=== PATIENT | female | born 1945 | race Caucasian/White ===

== ENCOUNTER 2016-08-11 15:13 | Emergency (ER) | payer OTHER ==
[2016-08-11 15:18] VITALS: TEMP 97.9; BMI 27.3
--- NOTE | 2016-08-11 15:18 | PDOC ---
Rapid Medical Evaluation Chief Complaint: Lightheaded Time Seen by Provider: 08/11/16 15:14 Medical Evaluation: Allergies Allergy/AdvReac Type Severity Reaction Status Date / Time No Known Allergies Allergy Verified 05/26/16 20:19 08/11/16 15:15 RME Note: I have performed a brief, in-person evaluation of this patient . This patient presents with CC: CC weakness x today; no SOB, no Chest pain; with rectal Pain Pertinent PE findings are: HR= 103; otherwise VSS; with recatl bleeding post BM I have ordered: EKG, Labs The patient will proceed to ED for further evaluation. ,
[2016-08-11 15:52] LABS: BASOPHIL 0.3 % (0-2.0); EOSINOPHIL 0.5 % (0-4.5); MCH 29.3 pg (25.7-33.7); MCHC 34.1 g/dl (32.0-36.0); MEAN CELL VOLUME 85.8 fl (80-96); NEUTROPHILS 75.5 % (42.8-82.8); PLATELET COUNT 239 K/MM3 (134-434); RDW 14.2 % (11.6-15.6); WHITE BLOOD COUNT 8.7 K/mm3 (4.0-10.0)
[2016-08-11 16:20] LABS: ALBUMIN 3.9 g/dl (3.4-5.0); ANION GAP 9 (8-16); BILIRUBIN,TOTAL 0.8 mg/dL (0.2-1.0); CALCIUM 8.8 mg/dL (8.5-10.1); CO2 26 mmol/L (21-32); CREATININE 0.8 mg/dL (0.55-1.02); GLUCOSE,RANDOM 99 mg/dL (74-106); INR 1.19 (0.82-1.09); PROTHROMBIN TIME (PATIENT) 13.1 SEC (9.98-11.88); SGOT/AST 19 U/L (15-37); SGPT/ALT 20 U/L (12-78); TOT PROT 7.1 g/dl (6.4-8.2)
[2016-08-11 16:21] LABS: ALK PHOS 85 U/L (45-117)
[2016-08-11] MEDS ORDERED: SODIUM CHLORIDE 1,000 ML IV STA (16:21)
[2016-08-11 16:22] LABS: ACTIVATED PTT 28.1 SECONDS (26.9-34.4)
[2016-08-11 16:24] LABS: TROPONIN I < 0.02 ng/ml (0.00-0.05)
--- NOTE | 2016-08-11 17:02 | PDOC ---
History of Present Illness - History of Present Illness Initial Comments: 08/11/16 17:35 Patient is a 71 year old female with significant medical hx of HTN, HLD, constipation who is presenting to the ED with one day of generalized weakness. The patient complains of straining with bowel movements the past week, states its due to her constipation, with passing of some hard stools. Shes had some accompanying rectal pain with some blood when she wipes for the past several days as well. The patient also complains of one week of dysuria with associated suprapubic discomfort. Today the patient has been feeling generally weaker than usual with some loss of appetite; she decided to come to the ED for further evaluation. The patient notes that she has one bowel movement per week at baseline. Denies fevers, chills, chest pain, or shortness of breath. 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) <Judy Waters - Last Filed: 08/11/16 17:35> - General History Source: Patient, Old Records Exam Limitations: No Limitations <Constantine Holcomb - Last Filed: 08/11/16 19:21> - General Chief Complaint: Lightheaded Stated Complaint: DIZZINESS Time Seen by Provider: 08/11/16 15:14 Past History <Judy Waters - Last Filed: 08/11/16 17:35> - Past Medical History HTN: Yes Hypercholesterolemia: Yes Other medical history: constipation - Surgical History Abdominal Surgery: Yes (Intestinal mass removed 02/2016) - Psycho/Social/Smoking Cessation Hx Suicidal Ideation: No Smoking History: Never smoked Have you smoked in the past 12 months: No Information on smoking cessation initiated: No Hx Alcohol Use: No Drug/Substance Use Hx: No Substance Use Type: None <Constantine Holcomb - Last Filed: 08/11/16 19:21> - Past Medical History Allergies/Adverse Reactions: Allergies Allergy/AdvReac Type Severity Reaction Status Date / Time No Known Allergies Allergy Verified 08/11/16 15:18 Home Medications: Ambulatory Orders Aspirin [ASA -] 81 mg PO DAILY 02/09/16 Atorvastatin Ca [Lipitor] 10 mg PO HS 02/09/16 Bisacodyl [Bisacodyl -] 5 mg PO PRN 02/09/16 Calcium Carbonate/Vitamin D3 [Calcium 500-Vit D3 200 Caplet] 1 each PO TID 02/08 Losartan Potassium 50 mg PO DAILY 02/09/16 Nitrofurantoin Monohyd/M-Cryst [Nitrofurantoin [place]-Mcr 100 mg] 100 mg PO BID Oxybutynin Chloride [Ditropan Xl] 10 mg PO DAILY 02/09/16 Sucralfate [Carafate] 1 gm PO BID 02/09/16 Zolpidem Tartrate 10 mg PO HS 02/09/16 Diphenhydramine HCl [Benadryl Capsule -] 25 mg PO TID #30 capsule 05/26/16 Levofloxacin [Levaquin -] 500 mg PO DAILY #7 tablet 05/26/16 Cephalexin Monohydrate [Keflex -] 500 mg PO BID #14 capsule 08/11/16 Docusate Sodium [Colace -] 100 mg PO TID #21 capsule 08/11/16 Phenyleph/Mineral Oil/Petrolat [Preparation H Ointment] 28 gm RC TID #1 oint.appl 08/11/16 Polyethylene Glycol 3350 [Miralax (For Daily Use) -] 17 gm PO DAILY #1 bottle Review of Systems - Review of Systems Comments:: 08/11/16 17:36 GENERAL/CONSTITUTIONAL: Generalized weakness, loss of appetite. No fever or chills. HEAD, EYES, EARS, NOSE AND THROAT: No change in vision. No ear pain or discharge. No sore throat. CARDIOVASCULAR: No chest pain or shortness of breath. RESPIRATORY: No cough, wheezing, or hemoptysis. GASTROINTESTINAL: Suprapubic pain, constipation, rectal pain. No nausea, vomiting, or diarrhea. GENITOURINARY: Dysuria. No frequency. MUSCULOSKELETAL: No joint or muscle swelling or pain. No neck or back pain. SKIN: No rash NEUROLOGIC: No headache, vertigo, loss of consciousness, or change in strength/ sensation. <Judy Waters - Last Filed: 08/11/16 17:35> *Physical Exam - Vital Signs Last Vital Signs Temp Pulse Resp BP Pulse Ox 97.9 F 92 H 16 130/65 98 08/11/16 15:14 08/11/16 17:10 08/11/16 17:10 08/11/16 17:10 08/11/16 17:10 - Physical Exam Comments: 08/11/16 17:37 GENERAL: Awake, alert, and fully oriented, in no acute distress HEAD: No signs of trauma EYES: PERRLA, EOMI, sclera anicteric, conjunctiva clear ENT: Auricles normal inspection, hearing grossly normal, nares patent, oropharynx clear without exudates. Moist mucosa NECK: Normal ROM, supple, no lymphadenopathy, JVD, or masses LUNGS: Breath sounds equal, clear to auscultation bilaterally. No wheezes, and no crackles HEART: Regular rate and rhythm, normal S1 and S2, no murmurs, rubs or gallops ABDOMEN: Soft, suprapubic tenderness, normoactive bowel sounds. No guarding, no rebound. No masses EXTREMITIES: Normal range of motion, no edema. No clubbing or cyanosis. No cords, erythema, or tenderness NEUROLOGICAL: Cranial nerves II through XII grossly intact. Normal speech, normal gait SKIN: Warm, Dry, normal turgor, no rashes or lesions noted. ENDOCRINE: No increased thirst. No abnormal weight change. HEMATOLOGIC/LYMPHATIC: No anemia, easy bleeding, or history of blood clots. ALLERGIC/IMMUNOLOGIC: No hives or skin allergy. RECTAL: External hemorrhoids but no anal fissures. <Judy Waters - Last Filed: 08/11/16 17:35> - Vital Signs Last Vital Signs Temp Pulse Resp BP Pulse Ox 97.9 F 102 H 18 127/71 100 08/11/16 15:14 08/11/16 15:14 08/11/16 15:14 08/11/16 15:14 08/11/16 15:14 <Constantine Holcomb - Last Filed: 08/11/16 19:21> Heart Score/ECG Review #1 ECG reviewed & interpreted by me at: 17:20 08/11/16 18:32 NSR 72, left axis deviation, incomplete RBBB, no std/wilber QTC 455 msec <Constantine Holcomb - Last Filed: 08/11/16 19:21> ED Treatment Course - LABORATORY CBC & Chemistry Diagram: 08/11/16 15:40 08/11/16 15:40 - ADDITIONAL ORDERS Additional order review: Laboratory Results 08/11/16 08/11/16 08/11/16 16:22 15:40 15:40 INR PTT (Actin FS) Sodium 140 Potassium 3.5 D Chloride 105 Carbon Dioxide 26 Anion Gap 9 BUN 12 D Creatinine 0.8 Creat Clearance w eGFR > 60 Random Glucose 99 Calcium 8.8 Total Bilirubin 0.8 D AST 19 D ALT 20 D Alkaline Phosphatase 85 D Creatine Kinase 147 Troponin I < 0.02 Total Protein 7.1 Albumin 3.9 Stool Occult Blood Negative 08/11/16 15:40 INR 1.19 H PTT (Actin FS) 28.1 Sodium Potassium Chloride Carbon Dioxide Anion Gap BUN Creatinine Creat Clearance w eGFR Random Glucose Calcium Total Bilirubin AST ALT Alkaline Phosphatase Creatine Kinase Troponin I Total Protein Albumin Stool Occult Blood 08/11/16 15:40 RBC 4.22 MCV 85.8 MCHC 34.1 RDW 14.2 MPV 9.0 Neutrophils % 75.5 D Lymphocytes % 16.5 D Monocytes % 7.2 Eosinophils % 0.5 Basophils % 0.3 - Medications Given in the ED: ED Medications Discontinued Medications Generic Name Dose Route Start Last Admin Trade Name Freq PRN Reason Stop Dose Admin Sodium Chloride 1,000 mls @ 1,000 mls/hr 08/11/16 16:21 08/11/16 16:52 Normal Saline - IV 08/11/16 17:20 1,000 mls/hr ASDIR STA Administration <Judy Waters - Last Filed: 08/11/16 17:35> - LABORATORY CBC & Chemistry Diagram: 08/11/16 15:40 08/11/16 15:40 - ADDITIONAL ORDERS Additional order review: Laboratory Results 08/11/16 08/11/16 08/11/16 15:40 15:40 15:40 INR 1.19 H PTT (Actin FS) 28.1 Sodium 140 Potassium 3.5 D Chloride 105 Carbon Dioxide 26 Anion Gap 9 BUN 12 D Creatinine 0.8 Creat Clearance w eGFR > 60 Random Glucose 99 Calcium 8.8 Total Bilirubin 0.8 D AST 19 D ALT 20 D Alkaline Phosphatase 85 D Creatine Kinase 147 Troponin I < 0.02 Total Protein 7.1 Albumin 3.9 08/11/16 15:40 RBC 4.22 MCV 85.8 MCHC 34.1 RDW 14.2 MPV 9.0 Neutrophils % 75.5 D Lymphocytes % 16.5 D Monocytes % 7.2 Eosinophils % 0.5 Basophils % 0.3 - RADIOLOGY Radiology Studies Ordered: Category Date Time Status ABDOMEN FLAT & UPRIGHT [RAD] Stat Radiology 08/11/16 16:21 Ordered CHEST PA & LAT [RAD] Stat Radiology 08/11/16 16:21 Ordered <Franca Holcombel - Last Filed: 08/11/16 19:21> Medical Decision Making - Medical Decision Making 08/11/16 16:56 A portion of this note was written by my scribe, under my supervision. Vital Signs Temp Pulse Resp BP Pulse Ox 97.9 F 102 H 18 127/71 100 08/11/16 15:14 08/11/16 15:14 08/11/16 15:14 08/11/16 15:14 08/11/16 15:14 71 year old female with past medical history of HTN, HLD, bladder mass s/p resection presents with weakness x 1 day. The patient has a history of constipation and reports that it is normal to have her move her bowels typically once a week. She noted that in the last week that she has been particularly straining more than usual and her stools were hard. She noted in the last several days of straining, and subsequently developing rectal pain, and noted to have some small amounts of blood on wiping with tissue. Denies angle blood per rectum. She has not taken any medication. In the last week, she also noted having 1 week of dysuria. Yesterday and today, noted to have some suprapubic discomfort and pain with the dysuria. Denies fevers, chills. Denies chest pain, shortness of breath. Today, patient reports feeling generally weak and with lesser appetite. She came into the ED today for an evaluation. As of note, patient did come prior to this ED several months ago for a similar visit and noted to have a UTI. The patient's rectal exam demonstrates external hemorrhoids. This is likely the cause given the straining and history of constipation. Stool occult sent, though I suspect the hemorrhoids as source of bleeding. She will need sitz bath , stool softeners, and preparation H. I also suspect that her weakness is likely secondary to UTI. Will send labs, UA, abdominal xray, and reassess. 08/11/16 19:07 CBC, BMP 08/11/16 15:40 08/11/16 15:40 CMP Sodium 140 mmol/L (136-145) 08/11/16 15:40 Potassium 3.5 mmol/L (3.5-5.1) D 08/11/16 15:40 Chloride 105 mmol/L (98-107) 08/11/16 15:40 Carbon Dioxide 26 mmol/L (21-32) 08/11/16 15:40 Anion Gap 9 (8-16) 08/11/16 15:40 BUN 12 mg/dL (7-18) D 08/11/16 15:40 Creatinine 0.8 mg/dL (0.55-1.02) 08/11/16 15:40 Creat Clearance w eGFR > 60 (>60) 08/11/16 15:40 Random Glucose 99 mg/dL (74-106) 08/11/16 15:40 Calcium 8.8 mg/dL (8.5-10.1) 08/11/16 15:40 Total Bilirubin 0.8 mg/dL (0.2-1.0) D 08/11/16 15:40 AST 19 U/L (15-37) D 08/11/16 15:40 ALT 20 U/L (12-78) D 08/11/16 15:40 Alkaline Phosphatase 85 U/L (45-117) D 08/11/16 15:40 Creatine Kinase 147 IU/L (26-192) 08/11/16 15:40 Troponin I < 0.02 ng/ml (0.00-0.05) 08/11/16 15:40 Total Protein 7.1 g/dl (6.4-8.2) 08/11/16 15:40 Albumin 3.9 g/dl (3.4-5.0) 08/11/16 15:40 Urine Test Results Urine Color Yellow 08/11/16 18:00 Urine Appearance Slcloudy 08/11/16 18:00 Urine pH 6.0 (5.0-8.0) 08/11/16 18:00 Ur Specific [place] 1.009 (1.001-1.035) 08/11/16 18:00 Urine Protein Negative (NEGATIVE) 08/11/16 18:00 Urine Glucose (UA) Negative (NEGATIVE) 08/11/16 18:00 Urine Ketones Negative (NEGATIVE) 08/11/16 18:00 Urine Blood 2+ (NEGATIVE) H 08/11/16 18:00 Urine Nitrite Negative (NEGATIVE) 08/11/16 18:00 Urine Bilirubin Negative (NEGATIVE) 08/11/16 18:00 Ur Leukocyte Esterase 3+ (NEGATIVE) H 08/11/16 18:00 Urine RBC 51 /hpf (0-3) 08/11/16 18:00 Urine WBC 55 /hpf (3-5) 08/11/16 18:00 Ur Epithelial Cells Few /hpf (FEW) 08/11/16 18:00 Urine Mucus Rare 08/11/16 18:00 Labs reviewed. Urine reviewed. Pt with +UTI. Microbiology reviewed. Keflex ordered. Chest and abdomen xray reviewed by me, pending official radiology read. Noted to have bowels (no obstruction). No acute findings on chest xray. We'll write a prescription for Preparation H without hemorrhoids. 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 With a urinary tract infection, we'll prescribe Keflex. I suspect that the urine tract infections causing patient's generalized weakness. However, the patient appears stable and nontoxic. She will go home with her daughter. Patient was under sink was applied. 08/11/16 19:10 I discussed the physical exam findings, ancillary test results and final diagnoses with the patient. I answered all of the patient's questions. The patient was satisfied with the care received and felt comfortable with the discharge plan and treatment plan. The patient will call their primary care physician within 24 hours to arrange follow-up and will return to the Emergency Department with any new, persistant or worsening symptoms. <Constantine Holcomb - Last Filed: 08/11/16 19:21> *DC/Admit/Observation/Transfer - Attestations Scribe Attestion: 08/11/16 17:38 Documentation prepared by Judy Waters, acting as electromedical equipment technician for Constantine Holcomb MD. <Judy Waters - Last Filed: 08/11/16 17:35> - Discharge Dispostion Admit: No <Constantine Holcomb - Last Filed: 08/11/16 19:21> Diagnosis at time of Disposition: External hemorrhoids Constipation Qualifiers: Constipation type: unspecified constipation type Qualified Code(s): K59.00 - Constipation, unspecified UTI (urinary tract infection) Qualifiers: Urinary tract infection type: site unspecified Hematuria presence: without hematuria Qualified Code(s): N39.0 - Urinary tract infection, site not specified - Discharge Dispostion Disposition: HOME Condition at time of disposition: Improved - Prescriptions Prescriptions: Docusate Sodium [Colace -] 100 mg PO TID #21 capsule Cephalexin Monohydrate [Keflex -] 500 mg PO BID #14 capsule Polyethylene Glycol 3350 [Miralax (For Daily Use) -] 17 gm PO DAILY #1 bottle Phenyleph/Mineral Oil/Petrolat [Preparation H Ointment] 28 gm RC TID #1 oint.appl - Referrals Referrals: Israel Flores MD [Staff Physician] - - Patient Instructions Printed Discharge Instructions: DI for Urinary Tract Infection (UTI), DI for Hemorrhoids, Hemorrhoids (Alternative Therapy) Additional Instructions: Please take 500 mg keflex every 12 hours for the next week for UTI. You also have hemorrhoids. Please use the preparation H and sitz bath 3 times a day. Use the stool softeners as prescribed. Follow up with a GI physician. Drink plenty of fluids and rest.
[2016-08-11 17:52] VITALS: BP 130/65; PULSE 92
[2016-08-11 18:36] LABS: URINE APPEARANCE SLCLOUDY; URINE BILIRUBIN NEGATIVE (NEGATIVE); URINE COLOR YELLOW; URINE GLUCOSE (UA) NEGATIVE (NEGATIVE); URINE KETONE NEGATIVE (NEGATIVE); URINE NITRITE NEGATIVE (NEGATIVE); URINE PROTEIN NEGATIVE (NEGATIVE); URINE UROBILINOGEN NEGATIVE E.U./dl (0.2-1.0)
[2016-08-11 18:41] LABS: URINE BLOOD 2+ (NEGATIVE); URINE LEUK ESTERASE 3+ (NEGATIVE)
[2016-08-11 18:52] LABS: URINE MUCUS RARE; URINE RBC 51 /hpf (0-3); URINE WBC 55 /hpf (3-5)
[2016-08-11] MEDS ORDERED: CEPHALEXIN MONOHYDRATE 500 MG CAPSULE (UD) PO ONE (19:05)
[2016-08-11] MEDS ORDERED: POLYETHYLENE GLYCOL 3350 119 GM BTL PO ONE (19:05)
[2016-08-11] MEDS ORDERED: CEPHALEXIN MONOHYDRATE 250 MG CAPSULE (FP) ONE (19:14)
--- NOTE | 2016-08-12 09:43 | EKG ---
Test Reason : Blood Pressure : / mmHG Vent. Rate : 093 BPM Atrial Rate : 093 BPM P-R Int : 134 ms QRS Dur : 090 ms QT Int : 372 ms P-R-T Axes : 052 -40 025 degrees QTc Int : 462 ms NORMAL SINUS RHYTHM LEFT AXIS DEVIATION ABNORMAL ECG WHEN COMPARED WITH ECG OF 15-MAY-2011 10:16, NO SIGNIFICANT CHANGE WAS FOUND Confirmed by GAURAV DE ANDA MD ([id number]) on 08/12/2016 9:42:45 AM Referred By: Confirmed By:GAURAV DE ANDA MD
--- NOTE | 2016-08-16 17:24 | EKG ---
Test Reason : Blood Pressure : / mmHG Vent. Rate : 072 BPM Atrial Rate : 072 BPM P-R Int : 142 ms QRS Dur : 092 ms QT Int : 416 ms P-R-T Axes : 051 -43 033 degrees QTc Int : 455 ms NORMAL SINUS RHYTHM LEFT AXIS DEVIATION ABNORMAL ECG WHEN COMPARED WITH ECG OF 11-AUG-2016 15:26, NO SIGNIFICANT CHANGE WAS FOUND Confirmed by YARELIS MEZA MD ([id number]) on 08/16/2016 5:24:16 PM Referred By: Confirmed By:YARELIS MEZA MD
== END 2016-08-11 19:35 | disposition home or self-care (01) ==
LOC: JER 15:13
PROC: 3E0337Z Introduction of Electrolytic and Water Balance Substance into Peripheral Vein, Percutaneous Approach (ICD-10-PCS; principal; 2016-08-11)
DX: N39.0 Urinary tract infection, site not specified (principal); K59.00 Constipation, unspecified; K64.4 Residual hemorrhoidal skin tags
CPT/HCPCS: 36415; 71020-TC; 74020-TC; 80053; 81003; 81015; 82272; 82550; 84484; 85025; 85610; 85730; 87086; 93005; 93010; 99281-25

== ENCOUNTER 2016-11-21 10:53 | Emergency (ER) | payer OTHER ==
[2016-11-21 11:07] VITALS: BP 138/76; PULSE 77; TEMP 98.6; BMI 27.1
--- NOTE | 2016-11-21 11:49 | PDOC ---
History of Present Illness - General Chief Complaint: Urinary Problem Stated Complaint: PAIN URINATING Time Seen by Provider: 11/21/16 11:41 History Source: Patient Exam Limitations: No Limitations - History of Present Illness Initial Comments: CHIEF COMPLAINT: 71 y/o afebrile female with PMH HTN, HLD c/o increased urinary frequency, decreased flow and hematuria x 1 week. HISTORY OF PRESENT ILLNESS: The patient also admits to some nausea. She denies f/c, [place], neck pain, cough, CP, SOB, abd pain, back pain, dysuria. Vital signs on arrival are within normal limits. REVIEW OF SYSTEMS: GENERAL/CONSTITUTIONAL: No fever/chills. No weakness. No weight change. HEAD, EYES, EARS, NOSE AND THROAT: No change in vision. No ear pain or discharge. No sore throat. CARDIOVASCULAR: No chest pain or shortness of breath. RESPIRATORY: No cough, wheezing, or hemoptysis. GASTROINTESTINAL: +nausea. No vomiting, diarrhea, constipation. GENITOURINARY: +hematuria, increased urinary frequency and decreased urinary flow. MUSCULOSKELETAL: No joint or muscle swelling or pain. No neck or back pain. SKIN: No rash or easy bruising. NEUROLOGIC: No headache, vertigo, loss of consciousness, or loss of sensation. PHYSICAL EXAM: GENERAL: The patient is awake, alert, and fully oriented, in no acute distress. She is well appearing and ambulatory. HEAD: Normal with no signs of trauma. ENT: Pupils equal, round and reactive to light, extraocular movements intact, sclera anicteric, conjunctiva clear. Neck supple. LUNGS: Clear to auscultation bilaterally. Normal excursion. No respiratory distress or use of accessory muscles. CV: RRR, S1/S2, no MRG. Cap refill < 2 sec. ABDOMEN: Soft, non-distended, non-tender even to deep palpation, no hepatomegaly or splenomegaly, no masses. No flank pain with palpation. BACK: No CVA TTP b/l. EXTREMITIES: Normal range of motion, no edema. NEUROLOGICAL: Normal speech, normal gait. CN II-XII grossly intact. PSYCH: Normal mood, normal affect. SKIN: Warm, dry, normal turgor, no rashes or lesions noted. Past History - Past Medical History Allergies/Adverse Reactions: Allergies Allergy/AdvReac Type Severity Reaction Status Date / Time Penicillins Allergy Verified 11/21/16 11:07 Home Medications: Ambulatory Orders Aspirin [ASA -] 81 mg PO DAILY 02/09/16 Atorvastatin Ca [Lipitor] 10 mg PO HS 02/09/16 Bisacodyl [Bisacodyl -] 5 mg PO PRN 02/09/16 Calcium Carbonate/Vitamin D3 [Calcium 500-Vit D3 200 Caplet] 1 each PO TID 02/08 Losartan Potassium 50 mg PO DAILY 02/09/16 Nitrofurantoin Monohyd/M-Cryst [Nitrofurantoin [place]-Mcr 100 mg] 100 mg PO BID Oxybutynin Chloride [Ditropan Xl] 10 mg PO DAILY 02/09/16 Sucralfate [Carafate] 1 gm PO BID 02/09/16 Zolpidem Tartrate 10 mg PO HS 02/09/16 Diphenhydramine HCl [Benadryl Capsule -] 25 mg PO TID #30 capsule 05/26/16 Levofloxacin [Levaquin -] 500 mg PO DAILY #7 tablet 05/26/16 Cephalexin Monohydrate [Keflex -] 500 mg PO BID #14 capsule 08/11/16 Docusate Sodium [Colace -] 100 mg PO TID #21 capsule 08/11/16 Phenyleph/Mineral Oil/Petrolat [Preparation H Ointment] 28 gm RC TID #1 oint.appl 08/11/16 Polyethylene Glycol 3350 [Miralax (For Daily Use) -] 17 gm PO DAILY #1 bottle Nitrofurantoin Macrocrystal [Macrodantin -] 100 mg PO BID #14 capsule 08/12/16 HTN: Yes Hypercholesterolemia: Yes - Surgical History Abdominal Surgery: Yes (Intestinal mass removed 02/2016) - Psycho/Social/Smoking Cessation Hx Suicidal Ideation: No Smoking History: Never smoked Have you smoked in the past 12 months: No Information on smoking cessation initiated: No Hx Alcohol Use: No Drug/Substance Use Hx: No Substance Use Type: None *Physical Exam - Vital Signs Last Vital Signs Temp Pulse Resp BP Pulse Ox 98.6 F 77 18 138/76 99 11/21/16 11:03 11/21/16 11:03 11/21/16 11:03 11/21/16 11:03 11/21/16 11:03 Medical Decision Making - Medical Decision Making A/P: 71 y/o female, otherwise well appearing, c/o urinary symptoms. Plan is as follows: 1. UA/culture UA negative for UTI. Gave results to the patient. Informed her that if the culture comes back positive will send rx for antibiotics and call her. Pt was instructed to return to the ER with any worsening or concerning symptoms. The patient verbalizes understanding of all instructions, has no further questions and is awaiting discharge. *DC/Admit/Observation/Transfer Diagnosis at time of Disposition: Increased urinary frequency - Discharge Dispostion Disposition: HOME Condition at time of disposition: Good - Patient Instructions Printed Discharge Instructions: DI for Dysuria -- Adult Additional Instructions: Discharge Instructions: -A urine culture was sent to the lab and we will have the results in 2 days; if there is an infection someone from the ER will call you -Please drink at least 64oz of water daily -Please call your doctor tomorrow and schedule a follow up appointment -Return to the ER with any worsening or concerning symptoms Print Language: ROMANIAN
[2016-11-21 13:35] LABS: URINE APPEARANCE CLEAR; URINE BILIRUBIN NEGATIVE (NEGATIVE); URINE COLOR YELLOW; URINE GLUCOSE (UA) NEGATIVE (NEGATIVE); URINE KETONE NEGATIVE (NEGATIVE); URINE NITRITE NEGATIVE (NEGATIVE); URINE PROTEIN NEGATIVE (NEGATIVE); URINE UROBILINOGEN 2.0 E.U/dl E.U./dl (0.2-1.0)
[2016-11-21 14:08] LABS: URINE BLOOD 2+ (NEGATIVE); URINE LEUK ESTERASE TRACE (NEGATIVE)
[2016-11-21 14:31] LABS: CALCIUM OXALATE CRYSTALS MANY /hpf (NONE SEEN); URINE MUCUS RARE; URINE RBC 16 /hpf (0-3); URINE WBC 4 /hpf (3-5)
== END 2016-11-21 15:11 | disposition home or self-care (01) ==
LOC: JER 10:53
DX: R35.0 Frequency of micturition (principal); I10 Essential (primary) hypertension; E78.00 Pure hypercholesterolemia, unspecified
CPT/HCPCS: 81003; 81015; 87086; 99282-25

== ENCOUNTER 2017-01-27 13:12 | Emergency (ER) | payer OTHER ==
[2017-01-27 13:19] VITALS: BP 137/84; PULSE 88; TEMP 98.4; BMI 27.3
[2017-01-27] MEDS ORDERED: SODIUM CHLORIDE 1,000 ML IV STA (14:38)
[2017-01-27] MEDS ORDERED: ACETAMINOPHEN 1000 MG/100 ML VIAL (NON FORMULARY) IVPB ONE (14:39)
[2017-01-27] MEDS ORDERED: ACETAMINOPHEN INJECTION 100 ML IVPB ONE ×2 (14:51→15:08)
[2017-01-27 15:16] LABS: BASOPHIL 0.9 % (0-2.0); EOSINOPHIL 0.5 % (0-4.5); MCH 28.7 pg (25.7-33.7); MCHC 33.3 g/dl (32.0-36.0); MEAN CELL VOLUME 86.3 fl (80-96); MEAN PLT VOLUME 9.5 fl (7.5-11.1); NEUTROPHILS 71.8 % (42.8-82.8); PLATELET COUNT 213 K/MM3 (134-434); RDW 15.6 % (11.6-15.6); WHITE BLOOD COUNT 8.6 K/mm3 (4.0-10.0)
[2017-01-27 15:22] LABS: PH,URINE 6.5 (5.0-8.0); URINE APPEARANCE CLEAR; URINE BILIRUBIN NEGATIVE (NEGATIVE); URINE BLOOD 3+ (NEGATIVE); URINE COLOR LT. YELLOW; URINE GLUCOSE (UA) NEGATIVE (NEGATIVE); URINE KETONE NEGATIVE (NEGATIVE); URINE UROBILINOGEN 0.2 mg/dL (0.2-1.0)
[2017-01-27 15:24] LABS: URINE LEUK ESTERASE 3+ (NEGATIVE); URINE NITRITE POSITIVE (NEGATIVE); URINE PROTEIN 2+ (NEGATIVE)
[2017-01-27 15:36] LABS: URINE BACTERIA MANY /hpf (NONE SEEN); URINE MUCUS RARE; URINE RBC 62 /hpf (0-3); URINE WBC 813 /hpf (3-5)
--- NOTE | 2017-01-27 15:45 | PDOC ---
History of Present Illness - General Chief Complaint: Pain Stated Complaint: PAIN/ ABD, RT SIDE Time Seen by Provider: 01/27/17 13:47 History Source: Patient Exam Limitations: No Limitations - History of Present Illness Travel History: No Initial Comments: 01/27/17 15:57 71-year-old female presents to the ED with complaints of bilateral flank pain radiating to her bilateral kidney region for the past 2 days without fever, nausea or chills. Patient also denies change in urine pattern, change in bowel pattern, abdominal distention, or rash. Timing/Duration: reports: constant Quality: reports: moderate, aching, cramping Abdominal Pain Onset Location: reports: flank Pain Radiation: reports: back Activities at Onset: reports: none Aggravating Factors: improves with: None Alleviating Factors: improves with: None Past History - Travel Traveled outside of the country in the last 30 days: No Close contact w/someone who was outside of country & ill: No - Past Medical History Allergies/Adverse Reactions: Allergies Allergy/AdvReac Type Severity Reaction Status Date / Time Penicillins Allergy Verified 01/27/17 13:19 Home Medications: Ambulatory Orders Aspirin [ASA -] 81 mg PO DAILY 02/09/16 Oxybutynin Chloride [Ditropan Xl] 10 mg PO DAILY 02/09/16 Baclofen 10 mg PO DAILY 01/27/17 Cyclosporine [Restasis] 1 each OP DAILY 01/27/17 Famotidine [Pepcid -] 40 mg PO BID 01/27/17 Fenofibrate Nanocrystallized [Fenofibrate] 48 mg PO DAILY 01/27/17 Gabapentin 300 mg PO DAILY 01/27/17 Latanoprost 0.005% Eye Drops [Xalatan 0.005% Eye Drops -] 1 drop OP HS 01/27/17 Lisinopril [Zestril] 40 mg PO DAILY 01/27/17 Lovastatin 40 mg PO DAILY 01/27/17 Nortriptyline HCl [Pamelor -] 10 mg PO HS 01/27/17 Omeprazole 40 mg PO DAILY 01/27/17 Rizatriptan Benzoate [Rizatriptan] 5 mg PO PRN 01/27/17 Valsartan 160 mg PO DAILY 01/27/17 HTN: Yes Hypercholesterolemia: Yes Other medical history: Arthritis - Surgical History Abdominal Surgery: Yes (Intestinal mass removed 02/2016) - Psycho/Social/Smoking Cessation Hx Suicidal Ideation: No Smoking History: Never smoked Have you smoked in the past 12 months: No Information on smoking cessation initiated: No Hx Alcohol Use: No Drug/Substance Use Hx: No Substance Use Type: None Patient Lives Alone: No Lives with/in: spouse/SO Review of Systems - Review of Systems Able to Perform ROS?: No Constitutional: No: Symptoms Reported HEENTM: No: Symptoms Reported Respiratory: No: Symptoms reported Cardiac (ROS): No: Symptoms Reported ABD/GI: Yes: Abdominal cramping. No: Nausea, Vomiting : No: Symptoms Reported Musculoskeletal: No: Symptoms Reported Integumentary: No: Symptoms Reported Neurological: No: Symptoms reported Endocrine: No: Symptoms Reported Hematologic/Lymphatic: No: Symptoms Reported *Physical Exam - Vital Signs Last Vital Signs Temp Pulse Resp BP Pulse Ox 98.4 F 88 17 137/84 100 01/27/17 13:18 01/27/17 13:18 01/27/17 13:18 01/27/17 13:18 01/27/17 13:18 - Physical Exam General Appearance: Yes: Nourished, Appropriately Dressed. No: Apparent Distress HEENT: negative: Pale Conjunctivae Neck: positive: Supple Respiratory/Chest: positive: Lungs Clear, Normal Breath Sounds. negative: Respiratory Distress, Accessory Muscle Use Cardiovascular: positive: Regular Rhythm, Regular Rate. negative: Murmur Gastrointestinal/Abdominal: positive: Normal Bowel Sounds, Soft, Tenderness ( oral flank). negative: Distended Musculoskeletal: negative: CVA Tenderness, Vertebral Tenderness Extremity: positive: Normal Capillary Refill. negative: Pedal Edema Integumentary: positive: Normal Color, Warm, Moist Neurologic: positive: Normal Mood/Affect, Motor Strength 5/5 (ambulatory) ED Treatment Course - LABORATORY CBC & Chemistry Diagram: 01/27/17 15:03 01/27/17 16:50 - ADDITIONAL ORDERS Additional order review: Laboratory Results 01/27/17 15:03 Urine Color Lt. yellow Urine Appearance Clear Urine pH 6.5 Urine Protein 2+ H Urine Glucose (UA) Negative Urine Ketones Negative Urine Blood 3+ H Urine Nitrite Positive Urine Bilirubin Negative Urine Urobilinogen 0.2 Ur Leukocyte Esterase 3+ H D 01/27/17 15:03 RBC 4.37 MCV 86.3 MCHC 33.3 RDW 15.6 MPV 9.5 Neutrophils % 71.8 Lymphocytes % 18.4 Monocytes % 8.4 Eosinophils % 0.5 Basophils % 0.9 - Medications Given in the ED: ED Medications Discontinued Medications Generic Name Dose Route Start Last Admin Trade Name Aura PRN Reason Stop Dose Admin Acetaminophen 1,000 mg 01/27/17 14:39 01/27/17 15:03 Ofirmev Injection - IVPB 01/27/17 14:40 1,000 mg ONCE ONE Administration Medical Decision Making - Medical Decision Making 01/27/17 15:13 Patient here for complaints of bilateral flank pain associated with patient her back and lower quadrants. Patient denies any urinary complaints, fever, nausea or chills. Patient concerning for Vinny versus UTI versus renal colic. Patient ordered for labs including CBC, comp, urinalysis urine culture and IV fluids/IV Tylenol. 01/27/17 16:15 Laboratory Tests 01/27/17 01/27/17 15:03 15:03 WBC 8.6 RBC 4.37 Hgb 12.5 Hct 37.7 Plt Count 213 Neutrophils % 71.8 Urine Protein 2+ H Urine Ketones Negative Urine Blood 3+ H Urine Nitrite Positive Urine Urobilinogen 0.2 Ur Leukocyte Esterase 3+ H D Urine WBC 813 Current patient ordered for IV ceftriaxone. No previous urine culture in computer. Patient also ordered for renal/kidney ultrasound to rule out hydronephrosis. If negative patient be discharged home with Bactrim. 01/27/17 17:59 Negative ultrasound with no sonographic abnormality identified. There is no hydronephrosis. Laboratory Tests 01/27/17 16:50 Sodium 142 Potassium 3.4 L Chloride 108 H Carbon Dioxide 27 Anion Gap 7 L BUN 11 Creatinine 0.7 Creat Clearance w eGFR > 60 Random Glucose 87 Calcium 8.3 L Total Bilirubin 0.8 AST 15 D ALT 20 Albumin 3.7 01/27/17 17:59 *DC/Admit/Observation/Transfer Diagnosis at time of Disposition: Pyelonephritis - Discharge Dispostion Disposition: HOME Condition at time of disposition: Good - Referrals Referrals: Ron Horton MD [Staff Physician] - - Patient Instructions Printed Discharge Instructions: DI for Kidney Infection Additional Instructions: Please take Bactrim starting tonight for the next 10 days as prescribed. Please also follow up with referred urologist as you mention that you have had frequent urinary tract infections recently.
[2017-01-27] MEDS ORDERED: CEFTRIAXONE 1 GM in DEXTROSE 5%-WATER - 50 ML IVPB ONE (16:11)
[2017-01-27] MEDS ORDERED: CEFTRIAXONE 50 ML ONE (16:24)
[2017-01-27 17:31] LABS: ALBUMIN 3.7 g/dl (3.4-5.0); ALK PHOS 87 U/L (45-117); ANION GAP 7 (8-16); BILIRUBIN,TOTAL 0.8 mg/dL (0.2-1.0); CALCIUM 8.3 mg/dL (8.5-10.1); CO2 27 mmol/L (21-32); CREATININE 0.7 mg/dL (0.55-1.02); GLUCOSE,RANDOM 87 mg/dL (74-106); SGOT/AST 15 U/L (15-37); SGPT/ALT 20 U/L (12-78); TOT PROT 6.8 g/dl (6.4-8.2)
== END 2017-01-27 18:18 | disposition home or self-care (01) ==
LOC: JER 13:12
PROC: 3E03329 Introduction of Other Anti-infective into Peripheral Vein, Percutaneous Approach (ICD-10-PCS; principal; 2017-01-27)
PROC: 3E033NZ Introduction of Analgesics, Hypnotics, Sedatives into Peripheral Vein, Percutaneous Approach (ICD-10-PCS; 2017-01-27)
DX: N12 Tubulo-interstitial nephritis, not specified as acute or chronic (principal); I10 Essential (primary) hypertension; E78.00 Pure hypercholesterolemia, unspecified; M12.9 Arthropathy, unspecified
CPT/HCPCS: 36415; 76775-TC; 80053; 81003; 81015; 85025; 87086; 87186; 96365; 96375; 99283-25

== ENCOUNTER 2017-03-03 11:34 | Emergency (ER) | payer OTHER ==
[2017-03-03 11:41] VITALS: BP 140/99; PULSE 85; TEMP 98.5; BMI 27.3
--- NOTE | 2017-03-03 12:20 | PDOC ---
*Physical Exam - Vital Signs Last Vital Signs Temp Pulse Resp BP Pulse Ox 98.5 F 85 18 140/99 99 03/03/17 11:34 03/03/17 11:34 03/03/17 11:34 03/03/17 11:34 03/03/17 11:34 ED Treatment Course - LABORATORY CBC & Chemistry Diagram: 03/03/17 12:38 03/03/17 12:38 Medical Decision Making - Medical Decision Making 03/03/17 12:20 Pt seen by the Advanced Practice Provider under my direct supervision Ancillary studies reviewed I agree with plan as outlined by the Advanced Practice Provider JORGE Mann *DC/Admit/Observation/Transfer Diagnosis at time of Disposition: UTI (urinary tract infection) - Discharge Dispostion Disposition: HOME Condition at time of disposition: Improved - Prescriptions Prescriptions: Levofloxacin [Levaquin -] 250 mg PO DAILY #7 tablet Levofloxacin [Levaquin -] 500 mg PO DAILY #6 tablet Phenazopyridine HCl [Pyridium] 200 mg PO TID #6 tablet - Referrals Referrals: STAFF,NOT ON [Primary Care Provider] - - Patient Instructions Additional Instructions: drink pleanty of water at least 2 liters a day take the levaquin atibiotic as directed next dose tomorrow take pyridium as directed for pain when urinating follow with the urologist Dr. Bruce for follow up and bring copies of the tests done today with you. Return if worse beber abundantemente de agua por lo menos 2 litros al da chelle el azobitico levquin segn lo indicado dosis siguiente maana tome pyridium segn lo indicado para el dolor al orinar siga con el urlogo Dr. Bruce para el seguimiento y traiga las copias de las pruebas hechas hoy con usted. Regresar si es peor
--- NOTE | 2017-03-03 12:22 | PDOC ---
History of Present Illness - General Chief Complaint: Pain Stated Complaint: REVISIT/ UTI Time Seen by Provider: 03/03/17 11:54 History Source: Patient, [employer] Used ([employer] [id number]) Exam Limitations: Language Barrier - History of Present Illness Travel History: No Initial Comments: 03/03/17 12:16 71 yr female with c/o dysuria, nausea, right flank pain no fever or vomiting. Pt states symptoms since 01/27/17 she was seen in ER placed on bactrim . Pt has history of HTN, high cholesterol. Pt has no chest pain no shortness of breath . 03/03/17 16:03 Quality: reports: mild Abdominal Pain Onset Location: reports: flank Pain Radiation: reports: no radiation Past History - Past Medical History Allergies/Adverse Reactions: Allergies Allergy/AdvReac Type Severity Reaction Status Date / Time Penicillins Allergy Verified 03/03/17 11:39 Home Medications: Ambulatory Orders Aspirin [ASA -] 81 mg PO DAILY 02/09/16 Oxybutynin Chloride [Ditropan Xl] 10 mg PO DAILY 02/09/16 Baclofen 10 mg PO DAILY 01/27/17 Cyclosporine [Restasis] 1 each OP DAILY 01/27/17 Famotidine [Pepcid -] 40 mg PO BID 01/27/17 Fenofibrate Nanocrystallized [Fenofibrate] 48 mg PO DAILY 01/27/17 Gabapentin 300 mg PO DAILY 01/27/17 Latanoprost 0.005% Eye Drops [Xalatan 0.005% Eye Drops -] 1 drop OP HS 01/27/17 Lisinopril [Zestril] 40 mg PO DAILY 01/27/17 Lovastatin 40 mg PO DAILY 01/27/17 Nortriptyline HCl [Pamelor -] 10 mg PO HS 01/27/17 Omeprazole 40 mg PO DAILY 01/27/17 Rizatriptan Benzoate [Rizatriptan] 5 mg PO PRN 01/27/17 Valsartan 160 mg PO DAILY 01/27/17 Levofloxacin [Levaquin -] 250 mg PO DAILY #7 tablet 03/03/17 Levofloxacin [Levaquin -] 500 mg PO DAILY #6 tablet 03/03/17 Phenazopyridine HCl [Pyridium] 200 mg PO TID #6 tablet 03/03/17 HTN: Yes Hypercholesterolemia: Yes - Surgical History Abdominal Surgery: Yes (Intestinal mass removed 02/2016) - Suicide/Smoking/Psychosocial Hx Smoking History: Never smoked Have you smoked in the past 12 months: No Hx Alcohol Use: No Drug/Substance Use Hx: No Substance Use Type: None Abd/GI Specific PMHX - Complaint Specific PMHX Colitis: No Diverticulitis: No Gall Bladder Disease: No GERD: No Hepatitis: No Irritable Bowel Synd (IBS): No Pancreatitis: No GI Ulcer Disease: No Review of Systems - Review of Systems Able to Perform ROS?: Yes Is the patient limited Tajik proficient: Yes Constitutional: No: Symptoms Reported HEENTM: No: Symptoms Reported Respiratory: No: Symptoms reported Cardiac (ROS): No: Symptoms Reported ABD/GI: Yes: Symptoms Reported, Nausea : Yes: Symptoms Reported, See HPI *Physical Exam - Vital Signs Last Vital Signs Temp Pulse Resp BP Pulse Ox 98.5 F 85 18 140/99 99 03/03/17 11:34 03/03/17 11:34 03/03/17 11:34 03/03/17 11:34 03/03/17 11:34 - Physical Exam General Appearance: Yes: Nourished, Appropriately Dressed HEENT: positive: EOMI, YANCI, Normal Voice Neck: positive: Supple. negative: Tender Respiratory/Chest: positive: Lungs Clear Cardiovascular: positive: Regular Rhythm, Regular Rate Gastrointestinal/Abdominal: positive: Normal Bowel Sounds, Soft. negative: Tender Musculoskeletal: positive: Normal Inspection, CVA Tenderness (R) Extremity: positive: Normal Capillary Refill, Normal Inspection, Normal Range of Motion Integumentary: positive: Normal Color, Dry, Warm Neurologic: positive: Fully Oriented, Alert, Normal Mood/Affect, Normal Response , Motor Strength 5/5 ED Treatment Course - LABORATORY CBC & Chemistry Diagram: 03/03/17 12:38 03/03/17 12:38 Medical Decision Making - Medical Decision Making 03/03/17 12:22 71 yr female with dysuria, right flank pain no fever or vomiting. Pt was on bactrim (resistant culture reviewed.) pt continues to have same symptoms will check labs, urine most likely UA vs pyelo unlikely pt has no fever no chills no vomiting 03/03/17 14:58 03/03/17 15:37 pt states she feels better after IVF, pt eating and drinking no vomiting . will dc home with strict follow up with urology. copy of kidney US given to pt to discuss with urology. *DC/Admit/Observation/Transfer Diagnosis at time of Disposition: UTI (urinary tract infection) Qualifiers: Urinary tract infection type: acute cystitis Hematuria presence: with hematuria Qualified Code(s): N30.01 - Acute cystitis with hematuria - Discharge Dispostion Disposition: HOME Condition at time of disposition: Improved - Prescriptions Prescriptions: Levofloxacin [Levaquin -] 250 mg PO DAILY #7 tablet Levofloxacin [Levaquin -] 500 mg PO DAILY #6 tablet Phenazopyridine HCl [Pyridium] 200 mg PO TID #6 tablet - Referrals Referrals: STAFF,NOT ON [Primary Care Provider] - - Patient Instructions Additional Instructions: drink pleanty of water at least 2 liters a day take the levaquin atibiotic as directed next dose tomorrow take pyridium as directed for pain when urinating follow with the urologist Dr. Bruce for follow up and bring copies of the tests done today with you. Return if worse beber abundantemente de agua por lo menos 2 litros al da chelle el azobitico levquin segn lo indicado dosis siguiente maana tome pyridium segn lo indicado para el dolor al orinar siga con el urlogo Dr. Bruce para el seguimiento y traiga las copias de las pruebas hechas hoy con usted. Regresar si es peor
[2017-03-03] MEDS ORDERED: SODIUM CHLORIDE 1,000 ML IV STA (12:23)
[2017-03-03] MEDS ORDERED: ONDANSETRON 4 MG/2 ML VIAL IVPB ONE (12:23)
[2017-03-03] MEDS ORDERED: ONDANSETRON 4 MG/2 ML VIAL ONE (12:33)
[2017-03-03 12:48] LABS: BASOPHIL 1.1 % (0-2.0); EOSINOPHIL 2.4 % (0-4.5); MCH 28.8 pg (25.7-33.7); MCHC 32.5 g/dl (32.0-36.0); MEAN CELL VOLUME 88.4 fl (80-96); MEAN PLT VOLUME 8.4 fl (7.5-11.1); NEUTROPHILS 55.5 % (42.8-82.8); PLATELET COUNT 275 K/MM3 (134-434); RDW 15.5 % (11.6-15.6); WHITE BLOOD COUNT 5.7 K/mm3 (4.0-10.0)
[2017-03-03 12:49] LABS: URINE APPEARANCE CLOUDY; URINE BILIRUBIN NEGATIVE (NEGATIVE); URINE BLOOD 2+ (NEGATIVE); URINE COLOR YELLOW; URINE GLUCOSE (UA) NEGATIVE (NEGATIVE); URINE KETONE NEGATIVE (NEGATIVE); URINE NITRITE POSITIVE (NEGATIVE); URINE PROTEIN NEGATIVE (NEGATIVE); URINE UROBILINOGEN NEGATIVE mg/dL (0.2-1.0)
[2017-03-03] MEDS ORDERED: LEVOFLOXACIN 750 MG TABLET PO STA (13:07)
[2017-03-03] MEDS ORDERED: LEVOFLOXACIN 500 MG TABLET (FP) ONE (13:11)
[2017-03-03] MEDS ORDERED: LEVOFLOXACIN 250 MG TABLET (FP) ONE (13:11)
[2017-03-03 13:16] LABS: ALBUMIN 4.1 g/dl (3.4-5.0); ANION GAP 10 (8-16); CALCIUM 8.9 mg/dL (8.5-10.1); CO2 27 mmol/L (21-32); CREATININE 0.7 mg/dL (0.55-1.02); GLUCOSE,RANDOM 90 mg/dL (74-106); SGPT/ALT 30 U/L (12-78)
[2017-03-03 13:18] LABS: ALK PHOS 124 U/L (45-117); BILIRUBIN,TOTAL 0.5 mg/dL (0.2-1.0)
[2017-03-03 13:19] LABS: SGOT/AST 27 U/L (15-37)
[2017-03-03 14:43] LABS: URINE BACTERIA RARE /hpf (NONE SEEN); URINE MUCUS RARE; URINE RBC 10 /hpf (0-3); URINE WBC 323 /hpf (3-5); YEAST FEW
[2017-03-03 16:52] LABS: URINE LEUK ESTERASE 3+ (NEGATIVE)
== END 2017-03-03 16:10 | disposition home or self-care (01) ==
LOC: JER 11:34
PROC: 3E033GC Introduction of Other Therapeutic Substance into Peripheral Vein, Percutaneous Approach (ICD-10-PCS; principal; 2017-03-03)
PROC: 3E0337Z Introduction of Electrolytic and Water Balance Substance into Peripheral Vein, Percutaneous Approach (ICD-10-PCS; 2017-03-03)
DX: N30.01 Acute cystitis with hematuria (principal); I10 Essential (primary) hypertension; E78.00 Pure hypercholesterolemia, unspecified
CPT/HCPCS: 36415; 76775-TC; 80053; 81003; 81015; 85025; 87086; 87186; 96361; 96374; 99283-25

== ENCOUNTER 2017-03-25 21:01 | Emergency (ER) | payer OTHER ==
[2017-03-25 21:10] VITALS: BMI 27.3
--- NOTE | 2017-03-25 22:01 | PDOC ---
*Physical Exam - Vital Signs Last Vital Signs Temp Pulse Resp BP Pulse Ox 98.4 F 122 H 24 154/83 99 03/25/17 21:05 03/25/17 21:05 03/25/17 21:05 03/25/17 21:05 03/25/17 21:05 - Physical Exam Comments: 03/25/17 22:01 The patient was examined by [THOM Hall] under my direct supervision. I personally evaluated the patient. I concur with the above findings and the plan of care. ED Treatment Course - LABORATORY CBC & Chemistry Diagram: 03/25/17 22:20 03/25/17 23:00
--- NOTE | 2017-03-25 22:06 | PDOC ---
History of Present Illness - General Chief Complaint: Pain Stated Complaint: PAIN Time Seen by Provider: 03/25/17 21:42 Past History - Past Medical History Allergies/Adverse Reactions: Allergies Allergy/AdvReac Type Severity Reaction Status Date / Time Penicillins Allergy Verified 03/25/17 21:06 Home Medications: Ambulatory Orders Aspirin [ASA -] 81 mg PO DAILY 02/09/16 Oxybutynin Chloride [Ditropan Xl] 10 mg PO DAILY 02/09/16 Baclofen 10 mg PO DAILY 01/27/17 Cyclosporine [Restasis] 1 each OP DAILY 01/27/17 Famotidine [Pepcid -] 40 mg PO BID 01/27/17 Fenofibrate Nanocrystallized [Fenofibrate] 48 mg PO DAILY 01/27/17 Gabapentin 300 mg PO DAILY 01/27/17 Latanoprost 0.005% Eye Drops [Xalatan 0.005% Eye Drops -] 1 drop OP HS 01/27/17 Lisinopril [Zestril] 40 mg PO DAILY 01/27/17 Lovastatin 40 mg PO DAILY 01/27/17 Nortriptyline HCl [Pamelor -] 10 mg PO HS 01/27/17 Omeprazole 40 mg PO DAILY 01/27/17 Rizatriptan Benzoate [Rizatriptan] 5 mg PO PRN 01/27/17 Valsartan 160 mg PO DAILY 01/27/17 Levofloxacin [Levaquin -] 250 mg PO DAILY #7 tablet 03/03/17 Levofloxacin [Levaquin -] 500 mg PO DAILY #6 tablet 03/03/17 Phenazopyridine HCl [Pyridium] 200 mg PO TID #6 tablet 03/03/17 Ibuprofen 800 mg PO TID PRN #30 tablet 03/26/17 Nitrofurantoin Monohyd/M-Cryst [Macrobid -] 100 mg PO BID #14 capsule 03/26/17 Phenazopyridine HCl [Pyridium -] 100 mg PO TID #21 tablet 03/26/17 HTN: Yes Hypercholesterolemia: Yes - Surgical History Abdominal Surgery: Yes (Intestinal mass removed 02/2016) - Suicide/Smoking/Psychosocial Hx Smoking History: Never smoked Have you smoked in the past 12 months: No Hx Alcohol Use: No Drug/Substance Use Hx: No Substance Use Type: None Review of Systems - Review of Systems Comments:: 03/26/17 07:27 CONSTITUTIONAL: Absent: fever, chills, diaphoresis, generalized weakness, malaise, loss of appetite HEENT: Absent: rhinorrhea, nasal congestion, throat pain, throat swelling, difficulty swallowing, mouth swelling, ear pain, eye pain, visual Changes CARDIOVASCULAR: Absent: chest pain, loss of consciousness, palpitations, irregular heart rate, peripheral edema RESPIRATORY: Absent: cough, shortness of breath, dyspnea with exertion, orthopnea, wheezing, stridor, hemoptysis GASTROINTESTINAL: Absent: abdominal pain, abdominal distension, nausea, vomiting, diarrhea, constipation, melena, hematochezia GENITOURINARY: Absent: dysuria, frequency, urgency, hesitancy, hematuria, flank pain, genital pain MUSCULOSKELETAL: Absent: myalgia, arthralgia, joint swelling SKIN: Absent: rash, itching, pallor HEMATOLOGIC/IMMUNOLOGIC: Absent: easy bleeding, easy bruising, lymphadenopathy, frequent infections ENDOCRINE: Absent: unexplained weight gain, unexplained weight loss, heat intolerance, cold intolerance NEUROLOGIC: Absent: headache, focal weakness or paresthesias, dizziness, unsteady gait, seizure, mental status changes, bladder or bowel incontinence PSYCHIATRIC: Absent: anxiety, depression, suicidal or homicidal ideation, hallucinations. *Physical Exam - Vital Signs Last Vital Signs Temp Pulse Resp BP Pulse Ox 98.4 F 122 H 24 154/83 99 03/25/17 21:05 03/25/17 21:05 03/25/17 21:05 03/25/17 21:05 03/25/17 21:05 - Physical Exam Comments: 03/26/17 07:27 GENERAL: Well developed, well nourished. Awake and alert. No acute distress. HEENT: Normocephalic, atraumatic. PERRLA, EOMI. No conjunctival pallor. Sclera are non- icteric. Moist mucous membranes. Oropharynx is clear. NECK: Supple. Full ROM. No JVD. Carotid pulses 2+ and symmetric, without bruits. No thyromegaly. No lymphadenopathy. CARDIOVASCULAR: Regular rate and rhythm. No murmurs, rubs, or gallops. Distal pulses are 2+ and symmetric. PULMONARY: No evidence of respiratory distress. Lungs clear to auscultation bilaterally. No wheezing, rales or rhonchi. ABDOMINAL: Soft. Non-tender. Non-distended. No rebound or guarding. No organomegaly. Normoactive bowel sounds. MUSCULOSKELETAL Normal range of motion at all joints. No bony deformities or tenderness. No CVA tenderness. EXTREMITIES: No cyanosis. No clubbing. No edema. No calf tenderness. SKIN: Warm and dry. Normal capillary refill. No rashes. No jaundice. NEUROLOGICAL: Alert, awake, appropriate. Cranial nerves 2-12 intact. No deficits to light touch and temperature in face, upper extremities and lower extremities. No motor deficits in the in face, upper extremities and lower extremities. Normoreflexic in the upper and lower extremities. Normal speech. Toes are down- going bilaterally. Gait is normal without ataxia. PSYCHIATRIC: Cooperative. Good eye contact. Appropriate mood and affect. ED Treatment Course - LABORATORY CBC & Chemistry Diagram: 03/25/17 22:20 03/25/17 23:00 *DC/Admit/Observation/Transfer Diagnosis at time of Disposition: Increased urinary frequency UTI (urinary tract infection) Qualifiers: Urinary tract infection type: acute cystitis Hematuria presence: with hematuria Qualified Code(s): N30.01 - Acute cystitis with hematuria - Discharge Dispostion Disposition: HOME Admit: No - Prescriptions Prescriptions: Ibuprofen 800 mg PO TID PRN #30 tablet PRN Reason: Pain Nitrofurantoin Monohyd/M-Cryst [Macrobid -] 100 mg PO BID #14 capsule Phenazopyridine HCl [Pyridium -] 100 mg PO TID #21 tablet - Referrals Referrals: Tanya Chavez MD [Staff Physician] - Trinh Payne [Staff Physician] - Rodolfo Camarena MD [Staff Physician] - Kristian Kevin MD [Staff Physician] - Ron Horton MD [Staff Physician] - - Patient Instructions Printed Discharge Instructions: DI for Urinary Tract Infection (UTI) Additional Instructions: You have a urinary tract infection. You were prescribed antibiotics called Macrobid. Take the entire prescription even if you feel better. You were also prescribed pyridium. Take this medication with food. It will help you with the burning sensation. You may take ibuprofen as needed for pain, not to exceed 3, 000mg a day. Drink plenty of fluids including cranberry juice. You were given referrals for both primary care doctors and urologists. Please call to make an appointment with one who takes your insurance. Return to the ED if you have worsening pain, fevers, chills, back pain or any changes in your symptoms. Usted tiene ema infeccin del tracto urinario. Le recetaron antibiticos llamados Macrobid. [place] la receta completa, incluso si se siente mejor. Tambin se te recet piridio. [place] anais medicamento con comida. Te ayudar con la sensacin de ardor. Puede chelle ibuprofeno segn sea necesario para el dolor, sin exceder 3,000mg por da. Rhiannon muchos lquidos, incluido el jugo de ar ndano. Le dieron referencias tanto para mdicos de atencin primaria mara para urlogos. Por favor llame para hacer ema cody con alguien que sarah rider seguro. Regrese al departamento de emergencias si tiene un empeoramiento del dolor, fiebre, escalofros, dolor de espalda o cualquier cambio en hans sntomas. Print Language: SENEGALESE
[2017-03-25] MEDS ORDERED: ACETAMINOPHEN 1000 MG/100 ML VIAL (NON FORMULARY) IVPB ONE (22:07)
[2017-03-25 22:31] LABS: BASOPHIL 0.9 % (0-2.0); EOSINOPHIL 1.3 % (0-4.5); MCHC 33.8 g/dl (32.0-36.0); MEAN CELL VOLUME 85.9 fl (80-96); MEAN PLT VOLUME 9.3 fl (7.5-11.1); NEUTROPHILS 61.6 % (42.8-82.8); PLATELET COUNT 238 K/MM3 (134-434); WHITE BLOOD COUNT 5.8 K/mm3 (4.0-10.0)
[2017-03-25 22:44] LABS: INR 1.02 (0.82-1.09); PROTHROMBIN TIME (PATIENT) 11.5 SEC (9.98-11.88)
[2017-03-25] MEDS ORDERED: ACETAMINOPHEN INJECTION 100 ML IVPB ONE (23:31)
[2017-03-25 23:39] LABS: CPK 262 IU/L (26-192); TROPONIN I < 0.02 ng/ml (0.00-0.05)
[2017-03-25 23:41] LABS: ALBUMIN 4.1 g/dl (3.4-5.0); ANION GAP 6 (8-16); BILIRUBIN,TOTAL 0.5 mg/dL (0.2-1.0); CALCIUM 8.8 mg/dL (8.5-10.1); CO2 27 mmol/L (21-32); CREATININE 1.1 mg/dL (0.55-1.02); GLUCOSE,RANDOM 82 mg/dL (74-106); SGOT/AST 19 U/L (15-37); SGPT/ALT 24 U/L (12-78); TOT PROT 7.6 g/dl (6.4-8.2)
[2017-03-25 23:42] LABS: ALK PHOS 112 U/L (45-117)
[2017-03-25 23:54] LABS: URINE APPEARANCE CLEAR; URINE BILIRUBIN NEGATIVE (NEGATIVE); URINE BLOOD 1+ (NEGATIVE); URINE COLOR AMBER; URINE GLUCOSE (UA) NEGATIVE (NEGATIVE); URINE KETONE NEGATIVE (NEGATIVE); URINE NITRITE POSITIVE (NEGATIVE); URINE PROTEIN NEGATIVE (NEGATIVE); URINE UROBILINOGEN NEGATIVE mg/dL (0.2-1.0)
[2017-03-25 23:57] LABS: URINE RBC <1 /hpf (0-3); URINE WBC 2 /hpf (3-5)
[2017-03-26 02:01] VITALS: BP 134/88; PULSE 72; TEMP 98.2
--- NOTE | 2017-03-26 09:06 | EKG ---
Test Reason : Blood Pressure : / mmHG Vent. Rate : 074 BPM Atrial Rate : 074 BPM P-R Int : 142 ms QRS Dur : 088 ms QT Int : 414 ms P-R-T Axes : 057 -38 035 degrees QTc Int : 459 ms NORMAL SINUS RHYTHM LEFT AXIS DEVIATION ABNORMAL ECG WHEN COMPARED WITH ECG OF 11-AUG-2016 17:18, NO SIGNIFICANT CHANGE WAS FOUND Confirmed by MATILDA GARCIA MD ([id number]) on 03/26/2017 9:05:45 AM Referred By: Confirmed By:MATILDA GARCIA MD
[2017-03-26 15:32] LABS: URINE LEUK ESTERASE 1+ (NEGATIVE)
== END 2017-03-26 02:33 | disposition home or self-care (01) ==
LOC: JER 21:01
PROC: 3E033NZ Introduction of Analgesics, Hypnotics, Sedatives into Peripheral Vein, Percutaneous Approach (ICD-10-PCS; principal; 2017-03-25)
DX: N30.01 Acute cystitis with hematuria (principal); I10 Essential (primary) hypertension; E78.00 Pure hypercholesterolemia, unspecified
CPT/HCPCS: 36415; 71020-TC; 80053; 81003; 81015; 82550; 82553; 83690; 84484; 85025; 85610; 87086; 93005; 93010; 96374; 99283-25

== ENCOUNTER 2017-05-16 23:36 | Emergency (ER) | payer OTHER ==
[2017-05-17 00:19] VITALS: TEMP 98.1; BMI 27.3
--- NOTE | 2017-05-17 01:08 | PDOC ---
History of Present Illness - General History Source: Patient - History of Present Illness Initial Comments: 05/17/17 01:16 The patient is a 71 year old female, with a significant past medical history of HTN, HLD, bladder mass s/p resection in 02/2016, who presents to the emergency department with an allergic reaction since starting Cymbalta (one dose yesterday ). She states she began to experience diffuse body aches and mild chest discomfort and states I thought I was hypertensive. She reportedly took half of her usual valsartan, however, continued to have her symptoms and took a 25 mg Benadryl once at 2PM and another at 8PM yesterday. She presents because her chest discomfort and body aches have persisted. She denies shortness of breath, headache and dizziness. She denies fever, chills , nausea, vomit, diarrhea and constipation. She denies dysuria, frequency, urgency and hematuria. Allergies: penicillins <Alondra Talamantes - Last Filed: 05/17/17 01:16> - General History Source: Patient <Haseeb Giron - Last Filed: 05/17/17 03:36> - General Chief Complaint: Allergic Reaction Stated Complaint: CHEST PAIN Time Seen by Provider: 05/17/17 01:08 Past History <Alondra Talamantes - Last Filed: 05/17/17 01:16> - Past Medical History HTN: Yes Hypercholesterolemia: Yes - Surgical History Abdominal Surgery: Yes (Intestinal mass removed 02/2016) - Suicide/Smoking/Psychosocial Hx Smoking History: Never smoked Have you smoked in the past 12 months: No Information on smoking cessation initiated: No Hx Alcohol Use: No Drug/Substance Use Hx: No Substance Use Type: None <Haseeb Giron - Last Filed: 05/17/17 03:36> - Past Medical History Allergies/Adverse Reactions: Allergies Allergy/AdvReac Type Severity Reaction Status Date / Time Penicillins Allergy Verified 05/17/17 00:07 Home Medications: Ambulatory Orders Aspirin [ASA -] 81 mg PO DAILY 02/09/16 Oxybutynin Chloride [Ditropan Xl] 10 mg PO DAILY 02/09/16 Baclofen 10 mg PO DAILY 01/27/17 Cyclosporine [Restasis] 1 each OP DAILY 01/27/17 Famotidine [Pepcid -] 40 mg PO BID 01/27/17 Fenofibrate Nanocrystallized [Fenofibrate] 48 mg PO DAILY 01/27/17 Gabapentin 300 mg PO DAILY 01/27/17 Latanoprost 0.005% Eye Drops [Xalatan 0.005% Eye Drops -] 1 drop OP HS 01/27/17 Lisinopril [Zestril] 40 mg PO DAILY 01/27/17 Lovastatin 40 mg PO DAILY 01/27/17 Nortriptyline HCl [Pamelor -] 10 mg PO HS 01/27/17 Omeprazole 40 mg PO DAILY 01/27/17 Rizatriptan Benzoate [Rizatriptan] 5 mg PO PRN 01/27/17 Valsartan 160 mg PO DAILY 01/27/17 Levofloxacin [Levaquin -] 250 mg PO DAILY #7 tablet 03/03/17 Levofloxacin [Levaquin -] 500 mg PO DAILY #6 tablet 03/03/17 Phenazopyridine HCl [Pyridium] 200 mg PO TID #6 tablet 03/03/17 Ibuprofen 800 mg PO TID PRN #30 tablet 03/26/17 Nitrofurantoin Monohyd/M-Cryst [Macrobid -] 100 mg PO BID #14 capsule 03/26/17 Phenazopyridine HCl [Pyridium -] 100 mg PO TID #21 tablet 03/26/17 Review of Systems - Review of Systems Able to Perform ROS?: Yes Comments:: 05/17/17 01:16 CONSTITUTIONAL: Absent: fever, chills, diaphoresis, generalized weakness, malaise, loss of appetite HEENT: Absent: rhinorrhea, nasal congestion, throat pain, throat swelling, difficulty swallowing, mouth swelling, ear pain, eye pain, visual Changes CARDIOVASCULAR: (+) chest discomfort, Absent: syncope, palpitations, irregular heart rate, lightheadedness, peripheral edema RESPIRATORY: Absent: cough, shortness of breath, dyspnea with exertion, orthopnea, wheezing, stridor, hemoptysis GASTROINTESTINAL: Absent: abdominal pain, abdominal distension, nausea, vomiting, diarrhea, constipation, melena, hematochezia GENITOURINARY: Absent: dysuria, frequency, urgency, hesitancy, hematuria, flank pain, genital pain MUSCULOSKELETAL: (+) diffuse body aches. Absent: arthralgia, joint swelling SKIN: Absent: rash, itching, pallor HEMATOLOGIC/IMMUNOLOGIC: Absent: easy bleeding, easy bruising, lymphadenopathy, frequent infections ENDOCRINE: Absent: unexplained weight gain, unexplained weight loss, heat intolerance, cold intolerance NEUROLOGIC: Absent: headache, focal weakness or paresthesias, dizziness, unsteady gait, seizure, mental status changes, bladder or bowel incontinence PSYCHIATRIC: Absent: anxiety, depression, suicidal or homicidal ideation, hallucinations. <Alondra Talamantes - Last Filed: 05/17/17 01:16> *Physical Exam - Vital Signs Last Vital Signs Temp Pulse Resp BP Pulse Ox 98.1 F 86 14 174/85 100 05/17/17 00:07 05/17/17 00:07 05/17/17 00:07 05/17/17 00:07 05/17/17 00:07 - Physical Exam Comments: 05/17/17 01:17 GENERAL: Well developed, well nourished. Awake and alert. No acute distress. HEENT: Normocephalic, atraumatic. PERRLA, EOMI. No conjunctival pallor. Sclera are non- icteric. Moist mucous membranes. Oropharynx is clear. NECK: Supple. Full ROM. No JVD. Carotid pulses 2+ and symmetric, without bruits. No thyromegaly. No lymphadenopathy. CARDIOVASCULAR: Regular rate and rhythm. No murmurs, rubs, or gallops. Distal pulses are 2+ and symmetric. PULMONARY: No evidence of respiratory distress. No retractions. NO wheezing. No stridor. No conversational dyspnea. Lungs clear to auscultation bilaterally. No wheezing , rales or rhonchi. ABDOMINAL: Soft. Non-tender. Non-distended. No rebound or guarding. No organomegaly. Normoactive bowel sounds. MUSCULOSKELETAL Normal range of motion at all joints. No bony deformities or tenderness. No CVA tenderness. EXTREMITIES: No cyanosis. No clubbing. No edema. No calf tenderness. SKIN: Warm and dry. Normal capillary refill. No rashes. No jaundice. No lesions. NEUROLOGICAL: Alert, awake, appropriate. Cranial nerves 2-12 intact. Normoreflexic in the upper and lower extremities. Normal speech. Toes are down-going bilaterally. Gait is normal without ataxia. PSYCHIATRIC: Cooperative. Good eye contact. Appropriate mood and affect. <Alondra Talamantes - Last Filed: 05/17/17 01:16> - Vital Signs Last Vital Signs Temp Pulse Resp BP Pulse Ox 98.1 F 86 14 174/85 100 05/17/17 00:07 05/17/17 00:07 05/17/17 00:07 05/17/17 00:07 05/17/17 00:07 <Haseeb Giron - Last Filed: 05/17/17 03:36> ED Treatment Course - LABORATORY CBC & Chemistry Diagram: 05/17/17 01:30 05/17/17 01:30 <Haseeb Giron - Last Filed: 05/17/17 03:36> Medical Decision Making - Medical Decision Making 05/17/17 03:34 Dr. Giron: The scribe's documentation has been prepared under my direction and personally reviewed by me in its entirery. I confirm that the note above accurately reflects all work, treatment, procedures, and medical decision making performed by me. all labs returned to be stable. patient advised to call her primary care doctor and discuss what to do in her medications <Haseeb Giron - Last Filed: 05/17/17 03:36> *DC/Admit/Observation/Transfer - Attestations Scribe Attestion: 05/17/17 01:18 Documentation prepared by Alondra Talamantes, acting as medical stenographer for Haseeb Giron DO <Alondra Talamantes - Last Filed: 05/17/17 01:16> - Discharge Dispostion Admit: No <Haseeb Giron - Last Filed: 05/17/17 03:36> Diagnosis at time of Disposition: Medication side effect - Discharge Dispostion Disposition: HOME Condition at time of disposition: Stable - Referrals Referrals: STAFF,NOT ON [Primary Care Provider] - Tanya Chavez MD [Staff Physician] - - Patient Instructions Printed Discharge Instructions: DI for Adverse Drug Reaction -- Allergic Additional Instructions: call your doctor in the morning and discuss what happened this evening. Return if any problems. Print Language: DIVEHI - Post Discharge Activity
[2017-05-17 01:35] VITALS: BP 164/89; PULSE 75
[2017-05-17 01:53] LABS: BASO % 0.8 % (0-2.0); EOS % 1.5 % (0-4.5); MCH 28.5 pg (25.7-33.7); MCHC 32.6 g/dl (32.0-36.0); MEAN CELL VOLUME 87.3 fl (80-96); NEUT % 52.6 % (42.8-82.8); PLATELET COUNT 245 K/MM3 (134-434); RDW 14.6 % (11.6-15.6); WHITE BLOOD COUNT 5.1 K/mm3 (4.0-10.0)
[2017-05-17 02:04] LABS: INR 1.06 (0.82-1.09)
[2017-05-17 02:21] LABS: ALBUMIN 3.9 g/dl (3.4-5.0); ANION GAP 12 (8-16); BILIRUBIN,TOTAL 0.6 mg/dL (0.2-1.0); CO2 22 mmol/L (21-32); CREATININE 0.6 mg/dL (0.55-1.02); GLUCOSE,RANDOM 92 mg/dL (74-106); SGOT/AST 18 U/L (15-37); SGPT/ALT 23 U/L (12-78); TOT PROT 7.4 g/dl (6.4-8.2)
[2017-05-17 02:23] LABS: ALK PHOS 95 U/L (45-117); CPK 131 IU/L (26-192); TROPONIN I < 0.02 ng/ml (0.00-0.05)
== END 2017-05-17 03:31 | disposition home or self-care (01) ==
LOC: JER 23:36
DX: T43.215A Adverse effect of selective serotonin and norepinephrine reuptake inhibitors, initial encounter (principal); Y92.9 Unspecified place or not applicable; I10 Essential (primary) hypertension; E78.5 Hyperlipidemia, unspecified
CPT/HCPCS: 36415; 80053; 82550; 83735; 84484; 85025; 85610; 99282-25

== ENCOUNTER 2017-05-20 01:14 | Emergency (ER) | payer OTHER ==
[2017-05-20 01:36] VITALS: BMI 29.8
--- NOTE | 2017-05-20 01:52 | PDOC ---
History of Present Illness - General History Source: Patient Exam Limitations: No Limitations - History of Present Illness Initial Comments: 05/20/17 03:33 Patient is a 71 year old female with significant medical hx of HTN, HLD, constipation who presents to the ED with a few months of numbness and tingling in the lower extremities. Pt states her symptoms progressively worsened on Wednesday 05/16 when she awoke from her sleep feeling short of breath. She reports that her limbs felt heavy and she began to experience a burning sensation in her stomach, chest, and extremities accompanied by shortness of breath. She believes she developed these symptoms secondary to a new medication that her PCP prescribed called Duloxetine that the pt took on Tuesday 05/15. This medication was given to treat the numbness and tingling in her extremities. The pt has not taken the medication since that day. She reports loss of appetite due to nausea. She denies any fever, chills, vomiting, diarrhea, or abdominal pain. 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) Allergies: Penicillins <Tegan Jimenez - Last Filed: 05/20/17 03:43> <Heather Erickson - Last Filed: 05/21/17 06:36> - General Chief Complaint: Allergic Reaction Stated Complaint: HEARTBURN Time Seen by Provider: 05/20/17 01:32 Past History <Tegan Jimenez - Last Filed: 05/20/17 03:43> - Past Medical History COPD: No HTN: Yes Hypercholesterolemia: Yes - Surgical History Abdominal Surgery: Yes (Intestinal mass removed 02/2016) - Suicide/Smoking/Psychosocial Hx Smoking History: Never smoked Have you smoked in the past 12 months: No Information on smoking cessation initiated: No Hx Alcohol Use: No Drug/Substance Use Hx: No Substance Use Type: None <Heather Erickson - Last Filed: 05/21/17 06:36> - Past Medical History Allergies/Adverse Reactions: Allergies Allergy/AdvReac Type Severity Reaction Status Date / Time Penicillins Allergy Verified 05/20/17 01:34 Home Medications: Ambulatory Orders Cyclosporine [Restasis] 1 each OP DAILY 01/27/17 Lisinopril [Zestril] 40 mg PO DAILY 01/27/17 Lovastatin 40 mg PO DAILY 01/27/17 Omeprazole 40 mg PO DAILY 09/01/17 Valsartan 160 mg PO DAILY 01/27/17 Review of Systems - Review of Systems Able to Perform ROS?: Yes Comments:: 05/20/17 03:43 CONSTITUTIONAL: Absent: fever, chills, diaphoresis, generalized weakness, malaise, loss of appetite HEENT: Absent: rhinorrhea, nasal congestion, throat pain, throat swelling, difficulty swallowing, mouth swelling, ear pain, eye pain, visual Changes CARDIOVASCULAR: Present: heartburn Absent: syncope, palpitations, irregular heart rate, lightheadedness, peripheral edema RESPIRATORY: Present: shortness of breath Absent: cough, dyspnea with exertion, orthopnea, wheezing, stridor, hemoptysis GASTROINTESTINAL: Present: nausea Absent: abdominal pain, abdominal distension, vomiting, diarrhea, constipation, melena, hematochezia GENITOURINARY: Absent: dysuria, frequency, urgency, hesitancy, hematuria, flank pain, genital pain MUSCULOSKELETAL: Absent: myalgia, arthralgia, joint swelling EXTREMITIES: Present: numbness and tingling in lower extremities. SKIN: Absent: rash, itching, pallor HEMATOLOGIC/IMMUNOLOGIC: Absent: easy bleeding, easy bruising, lymphadenopathy, frequent infections ENDOCRINE: Absent: unexplained weight gain, unexplained weight loss, heat intolerance, cold intolerance NEUROLOGIC: Absent: headache, focal weakness or paresthesias, dizziness, unsteady gait, seizure, mental status changes, bladder or bowel incontinence PSYCHIATRIC: Absent: anxiety, depression, suicidal or homicidal ideation, hallucinations. <Tegan Jimenez - Last Filed: 05/20/17 03:43> *Physical Exam - Vital Signs Last Vital Signs Temp Pulse Resp BP Pulse Ox 98.7 F 86 20 160/89 99 05/20/17 01:34 05/20/17 01:34 05/20/17 01:34 05/20/17 01:34 05/20/17 01:34 - Physical Exam Comments: 05/20/17 03:46 GENERAL: Well developed, well nourished. Awake and alert. (+)Appears uncomfortable and anxious. HEENT: Normocephalic, atraumatic. PERRLA, EOMI. No conjunctival pallor. Sclera are non- icteric. Moist mucous membranes. Oropharynx is clear. NECK: Supple. Full ROM. No JVD. Carotid pulses 2+ and symmetric, without bruits. No thyromegaly. No lymphadenopathy. CARDIOVASCULAR: Regular rate and rhythm. No murmurs, rubs, or gallops. Distal pulses are 2+ and symmetric. PULMONARY: No evidence of respiratory distress. Lungs clear to auscultation bilaterally. No wheezing, rales or rhonchi. ABDOMINAL: Soft. Non-tender. Non-distended. No rebound or guarding. No organomegaly. Normoactive bowel sounds. MUSCULOSKELETAL Normal range of motion at all joints. No bony deformities or tenderness. No CVA tenderness. EXTREMITIES: No cyanosis. No clubbing. No edema. No calf tenderness. SKIN: Warm and dry. Normal capillary refill. No rashes. No jaundice. NEUROLOGICAL: Alert, awake, appropriate. Cranial nerves 2-12 intact. No deficits to light touch and temperature in face, upper extremities and lower extremities. No motor deficits in the in face, upper extremities and lower extremities. Normoreflexic in the upper and lower extremities. Normal speech. <Tegan Jimenez - Last Filed: 05/20/17 03:43> - Vital Signs Last Vital Signs Temp Pulse Resp BP Pulse Ox 98.7 F 86 20 160/89 99 05/20/17 01:34 05/20/17 01:34 05/20/17 01:34 05/20/17 01:34 05/20/17 01:34 <Heather Erickson - Last Filed: 05/21/17 06:36> ED Treatment Course - LABORATORY CBC & Chemistry Diagram: 05/20/17 03:09 05/20/17 03:09 <Tegan Jimenez - Last Filed: 05/20/17 03:43> - LABORATORY CBC & Chemistry Diagram: 05/20/17 03:09 05/20/17 03:09 <Heather Erickson - Last Filed: 05/21/17 06:36> Medical Decision Making - Medical Decision Making 05/20/17 05:22 Patient Name: ESMER WALLACE THIS IS A PRELIMINARY REPORT FROM [facility] DATE OF SERVICE: 2017-05-20 04:25:27 IMAGES: 135 EXAM: CT HEAD without contrast HISTORY: Leg heaviness COMPARISON: None. FINDINGS: Brain parenchyma is normal in attenuation with no mass or hematoma. There is no midline shift. Yoo and white matter differentiation is normal. Ventricles are normal. Sulci and extra-axial CSF spaces are normal. Intracranial vascular structures are normal in attenuation. There is no calvarial fracture. Paranasal sinuses are normally aerated. IMPRESSION: Normal head 05/21/17 06:35 Pt comes with multiple complaints. She has normal labs and normal exam. She will be discharged home, as she is stable. <Heather Erickson - Last Filed: 05/21/17 06:36> *DC/Admit/Observation/Transfer - Attestations Scribe Attestion: 05/20/17 03:47 Documentation prepared by Tegan Jimenez, acting as medical billing clerk for Heather Erickson MD. <Tegan Jimenez - Last Filed: 05/20/17 03:43> - Discharge Dispostion Admit: No <Heather Erickson - Last Filed: 05/21/17 06:36> Diagnosis at time of Disposition: Hypothyroid, Restless leg syndrome, Decreased appetite - Discharge Dispostion Disposition: HOME Condition at time of disposition: Stable - Patient Instructions Printed Discharge Instructions: DI for Hypothyroidism
[2017-05-20 03:21] LABS: BASO % 0.7 % (0-2.0); EOS # 0.1 # (0-4.5); EOS % 1.9 % (0-4.5); LYMPH # 2.3 (8-40); MCH 28.5 pg (25.7-33.7); MCHC 32.9 g/dl (32.0-36.0); MEAN CELL VOLUME 86.8 fl (80-96); MEAN PLT VOLUME 9.3 fl (7.5-11.1); MONO # 0.5 # (3.8-10.2); NEUT # 2.5 # (42.8-82.8); NEUT % 45.7 % (42.8-82.8); PLATELET COUNT 250 K/MM3 (134-434); RDW 14.2 % (11.6-15.6); WHITE BLOOD COUNT 5.4 K/mm3 (4.0-10.0)
[2017-05-20 03:51] LABS: ALBUMIN 4.1 g/dl (3.4-5.0); ANION GAP 8 (8-16); BILIRUBIN,TOTAL 0.7 mg/dL (0.2-1.0); CO2 28 mmol/L (21-32); CREATININE 0.7 mg/dL (0.55-1.02); GLUCOSE,RANDOM 95 mg/dL (74-106); SGOT/AST 18 U/L (15-37); SGPT/ALT 24 U/L (12-78); TOT PROT 7.6 g/dl (6.4-8.2)
[2017-05-20 03:54] LABS: ALK PHOS 107 U/L (45-117); CPK 211 IU/L (26-192); TROPONIN I < 0.02 ng/ml (0.00-0.05)
[2017-05-20 05:57] VITALS: BP 156/86; PULSE 84; TEMP 98.6
--- NOTE | 2017-05-20 16:31 | EKG ---
Test Reason : Blood Pressure : / mmHG Vent. Rate : 069 BPM Atrial Rate : 069 BPM P-R Int : 142 ms QRS Dur : 092 ms QT Int : 410 ms P-R-T Axes : 050 -51 034 degrees QTc Int : 439 ms NORMAL SINUS RHYTHM INCOMPLETE RIGHT BUNDLE BRANCH BLOCK LEFT ANTERIOR FASCICULAR BLOCK ABNORMAL ECG WHEN COMPARED WITH ECG OF 26-MAR-2017 01:52, INCOMPLETE RIGHT BUNDLE BRANCH BLOCK IS NOW PRESENT Confirmed by TAY BURNS MD ([id number]) on 05/20/2017 4:31:05 PM Referred By: Confirmed By:TAY BURNS MD
== END 2017-05-20 05:57 | disposition home or self-care (01) ==
LOC: JER 01:14
DX: E03.9 Hypothyroidism, unspecified (principal); G25.81 Restless legs syndrome; I10 Essential (primary) hypertension; E78.00 Pure hypercholesterolemia, unspecified
CPT/HCPCS: 36415; 70450-TC; 80053; 82550; 82553; 84443; 84484; 85025; 93005; 93010; 99282-25

== ENCOUNTER 2017-07-02 23:52 | Emergency (ER) | payer OTHER ==
[2017-07-03] MEDS ORDERED: ASPIRIN 81 MG CHEWABLE TABLETS PO ONE (00:08)
--- NOTE | 2017-07-03 00:08 | PDOC ---
History of Present Illness <Sherri Townsend Sujata - Last Filed: 07/03/17 00:08> <Felipa Rubin - Last Filed: 07/03/17 01:39> <Heather Erickson - Last Filed: 07/03/17 04:49> - General Chief Complaint: Chest Pain Stated Complaint: CHEST PAIN Time Seen by Provider: 07/03/17 00:08 - History of Present Illness Initial Comments: 07/03/17 01:40 Patient is a 71 year old female with significant medical hx of HTN, HLD, constipation who presents to the ED with chest pain for 1 week. Patient was seen last April for numbness and tingling in her lower extremities. Today she complains of left-sided chest pain for 1 week. She describes her chest pain as intermittent, pulsing , cold air sensation. She states that she saw her primary 3 days ago to check her thyroids. She denies any recent cardiac workup.She also describes a burning pressure-like sensation in her head. She states she was given a new blood pressure medication by her doctor and she believes it might be causing her headache. 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) Allergies: Penicillins PCP: [place] (Felipa Rubin) Past History - Past Medical History COPD: No HTN: Yes Hypercholesterolemia: Yes - Surgical History Abdominal Surgery: Yes (Intestinal mass removed 02/2016) - Suicide/Smoking/Psychosocial Hx Smoking History: Never smoked Have you smoked in the past 12 months: No Hx Alcohol Use: No Drug/Substance Use Hx: No Substance Use Type: None <Manish Townsendrochelle Ernst - Last Filed: 07/03/17 00:08> <Felipa Rubin - Last Filed: 07/03/17 01:39> <Heather Erickson - Last Filed: 07/03/17 04:49> - Past Medical History Allergies/Adverse Reactions: Allergies Allergy/AdvReac Type Severity Reaction Status Date / Time Penicillins Allergy Verified 07/03/17 00:06 Home Medications: Ambulatory Orders Cyclosporine [Restasis] 1 each OP DAILY 01/27/17 Lisinopril [Zestril] 40 mg PO DAILY 01/27/17 Lovastatin 40 mg PO DAILY 01/27/17 Omeprazole 40 mg PO DAILY 01/27/17 Valsartan 160 mg PO DAILY 01/27/17 Cardiac Specific PMH - Complaint Specific PMHX GERD: No <Sherri Townsend - Last Filed: 07/03/17 00:08> Review of Systems <Sherri Townsend - Last Filed: 07/03/17 00:08> <Felipa Rubin - Last Filed: 07/03/17 01:39> <Heather Erickson - Last Filed: 07/03/17 04:49> - Review of Systems Comments:: 07/03/17 01:40 CONSTITUTIONAL: Absent: fever, no chills, no fatigue EYES: Absent: visual changes ENT: Absent: ear pain, no sore throat CARDIOVASCULAR: Present:left-sided chest pain Absent: no palpitations RESPIRATORY: Absent: cough, no SOB GI: Absent: abdominal pain, no nausea, no vomiting, no constipation, no diarrhea GENITOURINARY: Absent: dysuria, no frequency, no hematuria MUSCULOSKELETAL: Absent: back pain, no arthralgia, no myalgia SKIN: Absent: rash NEURO: Present: headache (Felipa Rubin) *Physical Exam <Sherri Townsend - Last Filed: 07/03/17 00:08> <Felipa Rubin - Last Filed: 07/03/17 01:39> <Heather Erickson - Last Filed: 07/03/17 04:49> - Vital Signs Last Vital Signs Temp Pulse Resp BP Pulse Ox 98.6 F 85 20 150/84 100 07/03/17 00:06 07/03/17 00:06 07/03/17 00:06 07/03/17 00:06 07/03/17 00:06 - Physical Exam Comments: 07/03/17 01:41 GENERAL: Well-appearing, well-nourished. No apparent distress. HEENT: Normocephalic, atraumatic. PERRL, EOM intact. CARDIOVASCULAR: Normal S1, S2. Regular rate and rhythm. PULMONARY: Clear to auscultation bilaterally. ABDOMEN: Soft, non-distended, non-tender. EXTREMITIES: Normal ROM in all four extremities. No gross deformities. SKIN: Warm, dry. No rash NEUROLOGICAL: No focal neurological deficits. (Felipa Rubin) ED Treatment Course - LABORATORY CBC & Chemistry Diagram: 07/03/17 00:21 07/03/17 00:21 <Felipa Rubin - Last Filed: 07/03/17 01:39> - LABORATORY CBC & Chemistry Diagram: 07/03/17 00:21 07/03/17 00:21 <Heather Erickson - Last Filed: 07/03/17 04:49> - ADDITIONAL ORDERS Additional order review: Laboratory Results 07/03/17 07/03/17 07/03/17 03:49 00:21 00:21 PT with INR INR Sodium 142 Potassium 3.6 Chloride 108 H Carbon Dioxide 26 Anion Gap 8 BUN 14 Creatinine 0.7 Creat Clearance w eGFR > 60 Random Glucose 93 Calcium 8.9 Magnesium 2.3 Total Bilirubin 0.6 AST 19 ALT 25 Alkaline Phosphatase 99 Creatine Kinase 143 146 Troponin I < 0.02 < 0.02 B-Natriuretic Peptide 121.08 Total Protein 7.2 Albumin 3.9 07/03/17 00:21 PT with INR 11.90 H INR 1.05 Sodium Potassium Chloride Carbon Dioxide Anion Gap BUN Creatinine Creat Clearance w eGFR Random Glucose Calcium Magnesium Total Bilirubin AST ALT Alkaline Phosphatase Creatine Kinase Troponin I B-Natriuretic Peptide Total Protein Albumin 07/03/17 00:21 RBC 4.06 MCV 86.9 MCHC 33.2 RDW 14.5 MPV 8.9 Neutrophils % 51.3 Lymphocytes % 35.6 Monocytes % 9.3 Eosinophils % 3.0 Basophils % 0.8 - Medications Given in the ED: ED Medications Discontinued Medications Generic Name Dose Route Start Last Admin Trade Name Freq PRN Reason Stop Dose Admin Acetaminophen 650 mg 07/03/17 01:25 07/03/17 01:45 Tylenol - PO 07/03/17 01:26 650 mg ONCE ONE Administration Aspirin 162 mg 07/03/17 00:08 07/03/17 00:49 Asa - PO 07/03/17 00:09 162 mg ONCE ONE Administration *DC/Admit/Observation/Transfer <Sherri Townsend - Last Filed: 07/03/17 00:08> <Felipa Rubin - Last Filed: 07/03/17 01:39> - Discharge Dispostion Admit: No <Heather Erickson - Last Filed: 07/03/17 04:49> Diagnosis at time of Disposition: Atypical chest pain - Discharge Dispostion Disposition: HOME Condition at time of disposition: Improved - Referrals Referrals: ON STAFF,NOT [Primary Care Provider] - - Patient Instructions Printed Discharge Instructions: DI for Atypical Chest Pain
[2017-07-03 00:21] VITALS: TEMP 98.6; BMI 27.1
[2017-07-03] MEDS ORDERED: ASPIRIN 81 MG CHEWABLE TABLETS ONE (00:28)
[2017-07-03 00:44] LABS: BASO % 0.8 % (0-2.0); HEMATOCRIT 35.3 % (32.4-45.2); HEMOGLOBIN 11.7 GM/dL (10.7-15.3); LYMPH % 35.6 % (8-40); MCH 28.9 pg (25.7-33.7); MCHC 33.2 g/dl (32.0-36.0); MEAN CELL VOLUME 86.9 fl (80-96); MEAN PLT VOLUME 8.9 fl (7.5-11.1); MONO % 9.3 % (3.8-10.2); NEUT % 51.3 % (42.8-82.8); PLATELET COUNT 228 K/MM3 (134-434); RBC 4.06 M/mm3 (3.60-5.2); RDW 14.5 % (11.6-15.6); WHITE BLOOD COUNT 3.9 K/mm3 (4.0-10.0)
[2017-07-03 01:04] LABS: INR 1.05 (0.82-1.09); PROTHROMBIN TIME (PATIENT) 11.9 SEC (9.98-11.88)
[2017-07-03 01:11] LABS: ALBUMIN 3.9 g/dl (3.4-5.0); ANION GAP 8 (8-16); BILIRUBIN,TOTAL 0.6 mg/dL (0.2-1.0); BLOOD UREA NITROGEN 14 mg/dL (7-18); CALCIUM 8.9 mg/dL (8.5-10.1); CHLORIDE 108 mmol/L (98-107); CO2 26 mmol/L (21-32); CREATININE 0.7 mg/dL (0.55-1.02); GLUCOSE,RANDOM 93 mg/dL (74-106); MAGNESIUM 2.3 mg/dL (1.8-2.4); POTASSIUM 3.6 mmol/L (3.5-5.1); SGOT/AST 19 U/L (15-37); SGPT/ALT 25 U/L (12-78); SODIUM 142 mmol/L (136-145); TOT PROT 7.2 g/dl (6.4-8.2)
[2017-07-03 01:14] LABS: ALK PHOS 99 U/L (45-117)
[2017-07-03] MEDS ORDERED: ACETAMINOPHEN 325 MG TABLET (FP) PO ONE (01:25)
[2017-07-03] MEDS ORDERED: ACETAMINOPHEN 325 MG TABLET (FP) ONE (01:36)
[2017-07-03 04:55] VITALS: BP 126/71; PULSE 76
--- NOTE | 2017-07-03 12:43 | EKG ---
Test Reason : Blood Pressure : / mmHG Vent. Rate : 082 BPM Atrial Rate : 082 BPM P-R Int : 136 ms QRS Dur : 092 ms QT Int : 384 ms P-R-T Axes : 059 -46 046 degrees QTc Int : 448 ms NORMAL SINUS RHYTHM INCOMPLETE RIGHT BUNDLE BRANCH BLOCK LEFT ANTERIOR FASCICULAR BLOCK ABNORMAL ECG WHEN COMPARED WITH ECG OF 20-MAY-2017 02:12, NO SIGNIFICANT CHANGE WAS FOUND Confirmed by SUSANA FREGOSO, YARELIS ([id number]) on 07/03/2017 12:42:36 PM Referred By: Confirmed By:YARELIS MEZA MD
== END 2017-07-03 04:58 | disposition home or self-care (01) ==
LOC: JER 23:52
DX: R07.89 Other chest pain (principal); I10 Essential (primary) hypertension; E78.00 Pure hypercholesterolemia, unspecified
CPT/HCPCS: 36415; 71046-TC-FY; 80053; 82550; 83735; 83880; 84484; 85025; 85610; 93005; 93010; 99281-25

== ENCOUNTER 2017-07-26 20:24 | Emergency (ER) | payer OTHER ==
[2017-07-26] MEDS ORDERED: diphenhydrAMINE HCL 12.5 MG/5 ML UNIT-DOSE CUPS PO ONE (20:41)
[2017-07-26 20:42] VITALS: BP 147/82; PULSE 93; TEMP 97.7; BMI 26.7
--- NOTE | 2017-07-26 20:42 | PDOC ---
Rapid Medical Evaluation Time Seen by Provider: 07/26/17 20:37 Medical Evaluation: Allergies Allergy/AdvReac Type Severity Reaction Status Date / Time Penicillins Allergy Verified 07/03/17 00:06 07/26/17 20:39 I have performed a brief in-person evaluation of this patient. The patient presents with a chief complaint of: took duloxetine for first time at 2 pm, then around 6 pm started to feeling burning to chest and head and SOB, itching to throat Pertinent physical exam findings: well appearing, SOB, no swelling to mouth/ tongue/lips, tachy 120s I have ordered the following: benadryl, labs, EKG The patient will proceed to the ED for further evaluation. Discharge Disposition - Diagnosis Allergic reaction caused by a drug - Referrals - Patient Instructions - Post Discharge Activity
[2017-07-26] MEDS ORDERED: diphenhydrAMINE HCL 25 MG CAPSULE (FP) PO ONE ×2 (21:13→21:16)
[2017-07-26 21:40] LABS: BASO % 0.7 % (0-2.0); EOS % 2.2 % (0-4.5); HEMOGLOBIN 11.5 GM/dL (10.7-15.3); LYMPH % 27.2 % (8-40); MCH 29.4 pg (25.7-33.7); MCHC 33.8 g/dl (32.0-36.0); MEAN CELL VOLUME 87.1 fl (80-96); MEAN PLT VOLUME 8.8 fl (7.5-11.1); NEUT % 60.9 % (42.8-82.8); PLATELET COUNT 231 K/MM3 (134-434); RBC 3.91 M/mm3 (3.60-5.2); RDW 15.1 % (11.6-15.6)
[2017-07-26 21:54] LABS: INR 1.01 (0.82-1.09); PROTHROMBIN TIME (PATIENT) 11.4 SEC (9.98-11.88)
[2017-07-26 22:18] LABS: ALBUMIN 3.9 g/dl (3.4-5.0); ALK PHOS 108 U/L (45-117); ANION GAP 11 (8-16); BILIRUBIN,TOTAL 0.5 mg/dL (0.2-1.0); BLOOD UREA NITROGEN 10 mg/dL (7-18); CHLORIDE 101 mmol/L (98-107); CO2 22 mmol/L (21-32); CREATININE 0.7 mg/dL (0.55-1.02); GLUCOSE,RANDOM 106 mg/dL (74-106); POTASSIUM 4.2 mmol/L (3.5-5.1); SGOT/AST 20 U/L (15-37); SGPT/ALT 24 U/L (12-78); SODIUM 134 mmol/L (136-145); TOT PROT 7.1 g/dl (6.4-8.2)
--- NOTE | 2017-07-26 23:38 | PDOC ---
History of Present Illness - General Chief Complaint: Allergic Reaction Stated Complaint: ALLERGIC REACTION Time Seen by Provider: 07/26/17 20:37 History Source: Patient Exam Limitations: Language Barrier - History of Present Illness Initial Comments: 07/26/17 23:33 72 y/o F with PMH HTN, HLD, bladder mass s/p resection 02/2016, who presents to the ED c/o an allergic reaction to medication taken this evening. As per pt, at 2pm, she took duloxetine 600mg. Four hours later, pt states that she began to feel dizzy, nauseous (without emesis), as well as throat pruritis, and tingling in her lower extremities. During this time, pt also endorses a burning sensation at the back of her neck. Denies fever, chills, rashes, or SOB. Pt states that this happened to her in the past with medications such as a olmesartan and livalo. She went to her linux network administrator three weeks ago and was told she did not have any allergies. However, she was prescribed ceterizine and told to take it when she develops sx. Pt did not take it today. PMH: as above PsxH: hysterectomy, benign uterine tumor meds: as in chart allergies: keflex- throat closes, chest tightness, leg edema FH: denies SH: denies cigarette, alcohol, or recreational drug use Past History - Past Medical History Allergies/Adverse Reactions: Allergies Allergy/AdvReac Type Severity Reaction Status Date / Time Penicillins Allergy Verified 07/26/17 22:39 Home Medications: Ambulatory Orders Cyclosporine [Restasis] 1 each OP DAILY 01/27/17 Lisinopril [Zestril] 40 mg PO DAILY 01/27/17 Lovastatin 40 mg PO DAILY 01/27/17 Omeprazole 40 mg PO DAILY 01/27/17 Valsartan 160 mg PO DAILY 01/27/17 Duloxetine HCl [Cymbalta] 30 mg PO ASDIR 07/26/17 COPD: No HTN: Yes Hypercholesterolemia: Yes - Surgical History Abdominal Surgery: Yes (Intestinal mass removed 02/2016) - Suicide/Smoking/Psychosocial Hx Smoking History: Never smoked Have you smoked in the past 12 months: No Information on smoking cessation initiated: No Hx Alcohol Use: No Drug/Substance Use Hx: No Substance Use Type: None Review of Systems - Review of Systems Able to Perform ROS?: Yes Is the patient limited Yoruba proficient: Yes HEENTM: Yes: Other (throat itching ) ABD/GI: Yes: Nausea Musculoskeletal: Yes: Other (tingling in lower extremities) Neurological: Yes: Dizziness All Other Systems: Reviewed and Negative *Physical Exam - Vital Signs Last Vital Signs Temp Pulse Resp BP Pulse Ox 97.7 F 93 H 19 147/82 100 07/26/17 20:40 07/26/17 20:40 07/26/17 20:40 07/26/17 20:40 07/26/17 20:40 - Physical Exam General Appearance: Yes: Nourished, Other (in no acute distress) HEENT: positive: EOMI, YANCI Neck: positive: Supple Respiratory/Chest: positive: Lungs Clear, Normal Breath Sounds Cardiovascular: positive: Regular Rhythm, Regular Rate, S1, S2 Vascular Pulses: Dorsalis-Pedis (R): 2+, Doralis-Pedis (L): 2+ Gastrointestinal/Abdominal: positive: Normal Bowel Sounds, Soft Extremity: positive: Normal Range of Motion 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 ED Treatment Course - LABORATORY CBC & Chemistry Diagram: 07/26/17 21:30 07/26/17 21:25 - ADDITIONAL ORDERS Additional order review: Laboratory Results 07/26/17 07/26/17 07/26/17 21:25 21:25 21:25 PT with INR 11.40 INR 1.01 Sodium 134 L Potassium 4.2 Chloride 101 Carbon Dioxide 22 Anion Gap 11 BUN 10 Creatinine 0.7 Creat Clearance w eGFR > 60 Random Glucose 106 Calcium 8.0 L Magnesium 2.2 Total Bilirubin 0.5 AST 20 ALT 24 Alkaline Phosphatase 108 Creatine Kinase 187 Creatine Kinase Index 1.1 CK-MB (CK-2) 2.214 Troponin I < 0.02 Total Protein 7.1 Albumin 3.9 TSH 3.30 07/26/17 21:30 RBC 3.91 MCV 87.1 MCHC 33.8 RDW 15.1 MPV 8.8 Neutrophils % 60.9 Lymphocytes % 27.2 D Monocytes % 9.0 Eosinophils % 2.2 Basophils % 0.7 - Medications Given in the ED: ED Medications Discontinued Medications Generic Name Dose Route Start Last Admin Trade Name Freq PRN Reason Stop Dose Admin Diphenhydramine HCl 25 mg 07/26/17 20:41 07/26/17 21:17 Benadryl Oral Solution - PO 07/26/17 20:42 Not Given ONCE ONE Diphenhydramine HCl 25 mg 07/26/17 21:16 07/26/17 21:17 Benadryl - PO 07/26/17 21:17 25 mg ONCE ONE Administration Medical Decision Making - Medical Decision Making 07/26/17 23:41 72 y/o F with PMH HTN, HLD, bladder mass s/p resection 02/2016, who presents to the ED c/o an allergic reaction to medication taken this evening. Pt exam -without SOB, rash, or other sx. Will d/c home *DC/Admit/Observation/Transfer Diagnosis at time of Disposition: Allergic reaction caused by a drug - Discharge Dispostion Disposition: HOME Condition at time of disposition: Stable - Referrals Referrals: Randy Curtis MD [Primary Care Provider] - - Patient Instructions Additional Instructions: You were recently in the hospital for an allergic reaction. However, your physical exam did not show signs of a reaction. We suggest that you follow up with your primary medical doctor over the next week. We hope you feel better soon. - Post Discharge Activity
--- NOTE | 2017-07-26 23:46 | PDOC ---
Attending Attestation - HPI HPI: 07/26/17 23:51 The patient is a 72 year old female with a past medical history of hypertension , hyperlipidemia, hyperthyroidism (bladder mass after resection in 2015) who presents to the ED s/p allergic reaction to medication for 6 hours. The patient states at 2pm today she too 200 mg of Cymbalta, at 6pm she began to experience nausea, itchy throat, and lower extremity tingling. She notes that has happened in the past with other medications. The patient saw an project designer 3 weeks ago who told her she did not have any allergies and informed her that she should take Tazacine. - Medical Decision Making 07/26/17 23:51 Documentation prepared by Benjamin Gongora, acting as center medical specialist for Haseeb Giron DO. <Benjamin Gongora - Last Filed: 07/26/17 23:51> - Resident Resident Name: HannaDineshEliane - ED Attending Attestation I have performed the following: I have examined & evaluated the patient, The case was reviewed & discussed with the resident, I agree w/resident's findings & plan, Exceptions are as noted - Physicial Exam PE: 07/26/17 23:54 *Physical Exam General Appearance: Yes: Appropriately Dressed. No: Apparent Distress, Intoxicated HEENT: positive: EOMI, YANCI, Normal ENT Inspection, Normal Voice, TMs Normal, Pharynx Normal. negative: Pale Conjunctivae, Photophobia, Scleral Icterus (R), Scleral Icterus (L) Neck: positive: Trachea midline, Normal Thyroid, Supple. negative: Tender, Rigid, Carotid bruit, Stridor, Lymphadenopathy (R), Lymphadenopathy (L), Thyromegaly Respiratory/Chest: positive: Lungs Clear, Normal Breath Sounds. negative: Chest Tender, Respiratory Distress, Accessory Muscle Use, Labored Respiration, RES, Crackles, Rales, Rhonchi, Stridor, Wheezing, Dullness Cardiovascular: positive: Regular Rhythm, Regular Rate, S1, S2. negative: Edema , JVD, Murmur, Bradycardia, Tachycardia Vascular Pulses: Dorsalis-Pedis (R): 2+, Doralis-Pedis (L): 2+ Gastrointestinal/Abdominal: positive: Normal Bowel Sounds, Flat, Soft. negative : Tender, Organomegaly, Pulsatile Mass, Increased Bowel Sounds, Decreased BS, Distended, Guarding, Rebound, Hernia, Hepatomegaly, Spleenomegaly Lymphatic: negative: Adenopathy, Tenderness Musculoskeletal: positive: Normal Inspection. negative: CVA Tenderness, Decreased Range of Motion Extremity: positive: Normal Capillary Refill, Normal Inspection, Normal Range of Motion, Pelvis Stable. negative: Tender, Pedal Edema, Swelling, Erythema Integumentary: positive: Normal Color, Dry, Warm. 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 negative: EOM Palsy, Facial Droop, Sensory Deficit - Medical Decision Making 07/26/17 23:54 All labs are normal. No wheezing or stridor. Pt to be discharged to follow up with her pcp to discuss possible allergies to her medications. <Haseeb Giron - Last Filed: 07/26/17 23:55>
== END 2017-07-27 00:09 | disposition home or self-care (01) ==
LOC: JER 20:24
DX: R11.0 Nausea (principal); T43.215A Adverse effect of selective serotonin and norepinephrine reuptake inhibitors, initial encounter; Y92.038 Other place in apartment as the place of occurrence of the external cause; I10 Essential (primary) hypertension; E78.00 Pure hypercholesterolemia, unspecified
CPT/HCPCS: 36415; 80053; 82550; 82553; 83735; 84443; 84484; 85025; 85610; 99281-25

== ENCOUNTER 2017-12-22 23:36 | Observation (INO) | payer OTHER ==
[2017-12-23 00:08] VITALS: BMI 25.5
[2017-12-23] MEDS ORDERED: ACETAMINOPHEN 1000 MG/100 ML VIAL (NON FORMULARY) IVPB ONE (00:30)
--- NOTE | 2017-12-23 00:47 | PDOC ---
History of Present Illness - History of Present Illness Initial Comments: 12/23/17 01:18 The patient is a 72 year old female, with a significant past medical history of HTN, HLD, bladder mass s/p resection 02/2016, who presents to the emergency department with, 3 days of a worsening headache. She describes her symptoms as initially intermittent now increasingly constant. She reports associated diffuse body pains worsening on her right side including her neck and chest with increased anxiety. She reports that her blood pressure was elevated and she has associated lightheadedness and dizziness. She denies recent fevers or chills. She denies recent nausea, vomit, diarrhea or constipation. She denies recent dysuria, frequency, urgency or hematuria. Allergies: Penicillins Past surgical history: hysterectomy, benign uterine tumor Social history: Nonsmoker. Denies EtOH use and recreational drug use. <Roman Irby - Last Filed: 12/23/17 01:18> - General History Source: Patient Exam Limitations: No Limitations <Constantine Holcomb - Last Filed: 12/25/17 08:30> - General Chief Complaint: Blood Pressure Problem Stated Complaint: BLOOD PRESSURE Time Seen by Provider: 12/23/17 00:05 Past History <Roman Irby - Last Filed: 12/23/17 01:18> - Past Medical History COPD: No HTN: Yes Hypercholesterolemia: Yes Other medical history: denies - Surgical History Abdominal Surgery: Yes (Intestinal mass removed 02/2016) - Immunization History Immunization Up to Date: Yes - Suicide/Smoking/Psychosocial Hx Smoking History: Never smoked Have you smoked in the past 12 months: No Information on smoking cessation initiated: No Hx Alcohol Use: No Drug/Substance Use Hx: No Substance Use Type: None <Constantine Holcomb - Last Filed: 12/25/17 08:30> - Past Medical History Allergies/Adverse Reactions: Allergies Allergy/AdvReac Type Severity Reaction Status Date / Time Penicillins Allergy Verified 12/22/17 23:44 histamine Allergy Uncoded 12/23/17 15:01 Home Medications: Ambulatory Orders Cetirizine HCl 10 mg PO DAILY 12/23/17 Famotidine [Pepcid] 40 mg PO DAILY 12/23/17 Gabapentin 100 mg PO DAILY 12/23/17 Metoprolol Succinate [Toprol Xl] 50 mg PO DAILY 12/23/17 Pitavastatin Calcium [Livalo] 2 mg PO HS 12/23/17 Ropinirole HCl 0.25 mg PO DAILY 12/23/17 Acetaminophen/Caffeine/Butalb [Fioricet -] 1 tab PO Q8H PRN #9 tablet MDD 3 tab 12/24/17 Medical Supply, Miscellaneous [Blood Pressure Cuff] 1 each MC DAILY #1 each Sennosides/Docusate Sodium [Pericolace -] 1 tablet PO BID #30 tablet 12/24/17 Review of Systems - Review of Systems Able to Perform ROS?: Yes Comments:: 12/23/17 01:19 +GENERAL/CONSTITUTIONAL: Anxious. No fever or chills. No weakness. HEAD, EYES, EARS, NOSE AND THROAT: No change in vision. No ear pain or discharge. No sore throat. +CARDIOVASCULAR: Chest pain. No shortness of breath. RESPIRATORY: No cough, wheezing, or hemoptysis. GASTROINTESTINAL: No nausea, vomiting, diarrhea or constipation. GENITOURINARY: No dysuria, frequency, or change in urination. +MUSCULOSKELETAL: Diffuse body pains. No joint or muscle swelling. No neck or back pain. SKIN: No rash +NEUROLOGIC: Headache, lightheadedness, and dizziness. No loss of consciousness , or change in strength/sensation. ENDOCRINE: No increased thirst. No abnormal weight change. HEMATOLOGIC/LYMPHATIC: No anemia, easy bleeding, or history of blood clots. ALLERGIC/IMMUNOLOGIC: No hives or skin allergy. All Other Systems: Reviewed and Negative <Roman Irby - Last Filed: 12/23/17 01:18> *Physical Exam - Vital Signs Last Vital Signs Temp Pulse Resp BP Pulse Ox 98.2 F 72 20 155/78 99 12/22/17 23:40 12/22/17 23:40 12/22/17 23:40 12/22/17 23:40 12/22/17 23:40 - Physical Exam Comments: 12/23/17 01:19 +GENERAL: Anxious on exam. Awake, alert, and fully oriented. HEAD: No signs of trauma EYES: PERRLA, EOMI, sclera anicteric, conjunctiva clear ENT: Auricles normal inspection, hearing grossly normal, nares patent, oropharynx clear without exudates. Moist mucosa NECK: Normal ROM, supple, no lymphadenopathy, JVD, or masses LUNGS: Breath sounds equal, clear to auscultation bilaterally. No wheezes, and no crackles HEART: Regular rate and rhythm, normal S1 and S2, no murmurs, rubs or gallops ABDOMEN: Soft, nontender, normoactive bowel sounds. No guarding, no rebound. No masses EXTREMITIES: Normal range of motion, no edema. No clubbing or cyanosis. No cords, erythema, or tenderness NEUROLOGICAL: Cranial nerves II through XII grossly intact. Normal speech. 5/5 upper and lower extremities motor sensation. SKIN: Warm, Dry, normal turgor, no rashes or lesions noted. <Roman Irby - Last Filed: 12/23/17 01:18> - Vital Signs Last Vital Signs Temp Pulse Resp BP Pulse Ox 98.2 F 72 20 155/78 99 12/22/17 23:40 12/22/17 23:40 12/22/17 23:40 12/22/17 23:40 12/22/17 23:40 <Constantine Holcomb - Last Filed: 12/25/17 08:30> Heart Score/ECG Review #1 ECG reviewed & interpreted by me at: 00:50 12/23/17 00:59 NSR 57, left axis deviation, incomplete RBBB, no std/wilber, QTC 430 msec <Constantine Holcomb - Last Filed: 12/25/17 08:30> ED Treatment Course - LABORATORY CBC & Chemistry Diagram: 12/23/17 01:08 12/24/17 06:00 - RADIOLOGY Radiology Studies Ordered: Category Date Time Status HEAD CT WITHOUT CONTRAST [CT] Stat CT Scan 12/23/17 00:30 Ordered CHEST X-RAY PORTABLE* [RAD] Stat Radiology 12/23/17 00:30 Ordered <Constantine Holcomb - Last Filed: 12/25/17 08:30> Medical Decision Making - Medical Decision Making 12/23/17 00:49 A portion of this note was written by my scribe, under my supervision. Vital Signs Temp Pulse Resp BP Pulse Ox 98.2 F 72 20 155/78 99 12/22/17 23:40 12/22/17 23:40 12/22/17 23:40 12/22/17 23:40 12/22/17 23:40 72 year old F c/ hx of HTN, HLD p/w multiple complaints. The patient reported that 3 days ago, she started to develop a global tension like headache that was initially intermittent and became increasingly more constant. She also started to complain about diffuse body pain particularly worse on the right side, including neck pain, and chest pain. The patient appears quite very anxious and reports that every part of her body bothers her. She states that she believes her blood pressure was elevated, though cannot specify a number. The patient has been complaining of perioral numbness and lightheadedness and dizziness. The patient is quite anxious here in the ED. I suspect that the patient is having a panic attack. Though given her age and multiple medical history, we should evaluate her chest pain with ECG, troponin. Chest pain is quite atypical for ACS. Will obtain a head CT given headache. Will treat with tylenol and ativan and reassess. 12/23/17 07:02 CBC, BMP 12/23/17 01:08 12/23/17 01:08 CMP Sodium 129 mmol/L (136-145) L 12/23/17 01:08 Potassium 3.3 mmol/L (3.5-5.1) L 12/23/17 01:08 Chloride 94 mmol/L (98-107) L 12/23/17 01:08 Carbon Dioxide 26 mmol/L (21-32) 12/23/17 01:08 Anion Gap 9 (8-16) 12/23/17 01:08 BUN 9 mg/dL (7-18) 12/23/17 01:08 Creatinine 0.8 mg/dL (0.55-1.02) 12/23/17 01:08 Creat Clearance w eGFR > 60 (>60) 12/23/17 01:08 Random Glucose 102 mg/dL (74-106) 12/23/17 01:08 Calcium 9.0 mg/dL (8.5-10.1) 12/23/17 01:08 Magnesium 2.0 mg/dL (1.8-2.4) 12/23/17 01:08 Total Bilirubin 0.7 mg/dL (0.2-1.0) 12/23/17 01:08 AST 24 U/L (15-37) 12/23/17 01:08 ALT 25 U/L (12-78) 12/23/17 01:08 Alkaline Phosphatase 98 U/L (45-117) 12/23/17 01:08 Creatine Kinase 177 IU/L (26-192) 12/23/17 05:09 Creatine Kinase Index 1.0 % (0.0-5.0) 12/23/17 05:09 CK-MB (CK-2) 1.81 ng/mL (0.5-3.6) 12/23/17 05:09 Troponin I < 0.02 ng/ml (0.00-0.05) 12/23/17 05:09 Total Protein 7.6 g/dl (6.4-8.2) 12/23/17 01:08 Albumin 4.3 g/dl (3.4-5.0) 12/23/17 01:[address] reviewed. NO acute findings. Upon further investigation, it appears that for the last year, the patient has been having weekly episodes of these headaches that radiates down her body and to her legs. It typically is preceded by an aura and with phonophobia. The patient has been managed by an outpatient physician at [facility]. She was instructed that she needed "shots' for the heeadaches, but never followed up. Since then, the patient has not seen a doctor about it. The patient was given ativan and tylenol and improved the headache from a 10 to a 7. I suspect that the patient is actually having a migraine. I informed the patient that I will trial for migrain medications, and if the headache does not improve, that she should be admitted for further management. If the headache improves drastically and/or resolves, patient can be managed as an outpatient with follow up with neurology. In addition, patient also notes some mild urinary frequency. Will send a UA/UC. [facility] Hale for further management and disposition. <Constantine Holcomb - Last Filed: 12/25/17 08:30> *DC/Admit/Observation/Transfer - Attestations Scribe Attestion: 12/23/17 01:19 Documentation prepared by Roman Irby, acting as medical delivery technician for Constantine Holcomb MD. <Roman Irby - Last Filed: 12/23/17 01:18> <Constantine Holcomb - Last Filed: 12/25/17 08:30> Diagnosis at time of Disposition: Headache Qualifiers: Headache type: unspecified Headache chronicity pattern: unspecified pattern Intractability: not intractable Qualified Code(s): R51 - Headache - Discharge Dispostion Condition at time of disposition: Improved
[2017-12-23] MEDS ORDERED: LORazepam 2 MG/ML SDV VIAL ONE (01:05)
[2017-12-23] MEDS ORDERED: ACETAMINOPHEN INJECTION 100 ML IVPB ONE (01:05)
[2017-12-23 01:30] LABS: BASO % 1.1 % (0-2.0); EOS % 1.6 % (0-4.5); HEMOGLOBIN 12.8 GM/dL (10.7-15.3); LYMPH % 33.3 % (8-40); MCH 29.8 pg (25.7-33.7); MCHC 34.7 g/dl (32.0-36.0); MEAN PLT VOLUME 9.2 fl (7.5-11.1); MONO % 8.8 % (3.8-10.2); NEUT % 55.2 % (42.8-82.8); PLATELET COUNT 225 K/MM3 (134-434); RDW 14.3 % (11.6-15.6); WHITE BLOOD COUNT 4.8 K/mm3 (4.0-10.0)
[2017-12-23 02:03] LABS: ALBUMIN 4.3 g/dl (3.4-5.0); ANION GAP 9 (8-16); BLOOD UREA NITROGEN 9 mg/dL (7-18); CHLORIDE 94 mmol/L (98-107); CO2 26 mmol/L (21-32); CREATININE 0.8 mg/dL (0.55-1.02); GLUCOSE,RANDOM 102 mg/dL (74-106); POTASSIUM 3.3 mmol/L (3.5-5.1); SGOT/AST 24 U/L (15-37); SGPT/ALT 25 U/L (12-78); SODIUM 129 mmol/L (136-145)
[2017-12-23 02:07] LABS: ALK PHOS 98 U/L (45-117); BILIRUBIN,TOTAL 0.7 mg/dL (0.2-1.0); TOT PROT 7.6 g/dl (6.4-8.2)
[2017-12-23] MEDS ORDERED: METOCLOPRAMIDE HCL INJECTION 10 MG/2 ML VIAL IVPUSH ONE (05:50)
[2017-12-23] MEDS ORDERED: METOCLOPRAMIDE HCL INJECTION 10 MG/2 ML VIAL ONE (05:56)
--- NOTE | 2017-12-23 07:20 | PDOC ---
*Physical Exam - Vital Signs Last Vital Signs Temp Pulse Resp BP Pulse Ox 97.7 F 51 L 18 130/67 100 12/23/17 06:59 12/23/17 06:59 12/23/17 06:59 12/23/17 06:59 12/23/17 06:59 ED Treatment Course - LABORATORY CBC & Chemistry Diagram: 12/23/17 01:08 12/23/17 01:08 - ADDITIONAL ORDERS Additional order review: Laboratory Results 12/23/17 12/23/17 05:09 01:08 Sodium 129 L Potassium 3.3 L Chloride 94 L Carbon Dioxide 26 Anion Gap 9 BUN 9 Creatinine 0.8 Creat Clearance w eGFR > 60 Random Glucose 102 Calcium 9.0 Magnesium 2.0 Total Bilirubin 0.7 AST 24 ALT 25 Alkaline Phosphatase 98 Creatine Kinase 177 194 H Creatine Kinase Index 1.0 0.9 CK-MB (CK-2) 1.81 1.78 Troponin I < 0.02 0.02 Total Protein 7.6 Albumin 4.3 12/23/17 01:08 RBC 4.30 MCV 86.0 MCHC 34.7 RDW 14.3 MPV 9.2 Neutrophils % 55.2 Lymphocytes % 33.3 D Monocytes % 8.8 Eosinophils % 1.6 Basophils % 1.1 - RADIOLOGY Radiology Studies Ordered: Head CT w/o contrast. Radiograph Interpretation: [address] [facility] [address] [place] [address] Phone: [phone] Fax: Email: [email or web address] Patient Information: : 1945 Name: MADISON LYMAN Sex: F Study Description: CT HEAD Modality: CT Location: [facility] Referring Physician: MIGUEL SHAIKH Comments: Clarence Ramos MD wrote on Dec 23, 2017 at 03:46 AM: Referring Physician: MIGUEL SHAIKH Patient Name: ESMER WALLACE THIS IS A PRELIMINARY REPORT FROM [facility] DATE OF SERVICE: 2017-12-23 03:18:31 IMAGES: 137 EXAM: HEAD CT WITHOUT CONTRAST HISTORY: Headache COMPARISON: None. FINDINGS: The ventricular system is midline and nondilated. The sulcal pattern is normal for the patient's age. There is no bleed, mass, extra-axial fluid collection or mass effect. No skull fracture or skull lesion is identified. The visualized paranasal sinuses and mastoid air cells are clear. IMPRESSION: No evidence of acute pathology. Individualized dose optimization techniques were used for this CT. CONFIDENTIALITY NOTICE: This information is intended only for the use of the recipient(s) named above. If you are not the intended recipient, or a person responsible for delivering it to the intended recipient, you are hereby notified that any disclosure, copying, distribution or use of any of the information contained in or attached to this transmission is STRICTLY PROHIBITED. If you have received this transmission in error, please immediately notify [facility] and destroy the original transmission and its attachments without saving them in any manner [address] [place] [address] [place] [address] Phone: [phone]) Fax: Email: [email or web address] Patient Information: : 1945 Name: MADISON LYMAN Sex: F Study Description: CT HEAD Modality: CT Location: [facility] Referring Physician: MIGUEL SHAIKH THIS DOCUMENT HAS BEEN ELECTRONICALLY SIGNED Lowell Ramos MD 12/23/2017 03:43 LUDA Molina. Please call [facility] [phone]) with questions. Clarence Ramos MD Clinicians - Please contact [facility] with further questions at [phone]) Patients - Please contact your Ordering Provider with questions. CONFIDENTIALITY NOTICE: This information is intended only for the use of the recipient(s) named above. If you are not the intended recipient, or a person responsible for delivering it to the intended recipient, you are hereby notified that any disclosure, copying, distribution or use of any of the information contained in or attached to this transmission is STRICTLY PROHIBITED. If you have received this transmission in error, please immediately notify [facility] and destroy the original transmission and its attachments without saving them in any manner - Medications Given in the ED: ED Medications Discontinued Medications Generic Name Dose Route Start Last Admin Trade Name Freq PRN Reason Stop Dose Admin Acetaminophen 1,000 mg 12/23/17 00:30 12/23/17 01:21 Ofirmev Injection - IVPB 12/23/17 00:31 1,000 mg ONCE ONE Administration Diphenhydramine HCl 25 mg 12/23/17 05:50 12/23/17 06:01 Benadryl Injection - IVPB 12/23/17 05:51 25 mg ONCE ONE Administration Lorazepam 1 mg 12/23/17 00:30 12/23/17 01:21 Ativan Injection - IVPUSH 12/23/17 00:31 1 mg ONCE ONE Administration Metoclopramide HCl 10 mg 12/23/17 05:50 12/23/17 06:01 Reglan Injection - IVPUSH 12/23/17 05:51 10 mg ONCE ONE Administration
[2017-12-23] MEDS ORDERED: DEXAMETHASONE SOD PHOSPHATE 10 MG/1 ML VIAL IVPUSH ONE (07:35)
[2017-12-23] MEDS ORDERED: POTASSIUM CHLORIDE ORAL LIQUID 20 MEQ/15 ML PO ONE (07:59)
[2017-12-23] MEDS ORDERED: DEXAMETHASONE SOD PHOSPHATE 10 MG/1 ML VIAL ONE (08:07)
[2017-12-23] MEDS ORDERED: POTASSIUM CHLORIDE TABS 20 MEQ TABLET.ER (FP) PO ONE (08:07)
[2017-12-23 08:39] LABS: URINE APPEARANCE CLEAR; URINE BILIRUBIN NEGATIVE (<2.0 mg/dL); URINE COLOR STRAW; URINE GLUCOSE (UA) NEGATIVE (NEGATIVE); URINE KETONE NEGATIVE (NEGATIVE); URINE NITRITE NEGATIVE (NEGATIVE); URINE PROTEIN NEGATIVE (NEGATIVE); URINE UROBILINOGEN NEGATIVE mg/dL (0.2-1.0)
[2017-12-23 08:45] LABS: URINE CREATININE 29.9 mg/dL (20-320); URINE LEUK ESTERASE 1+ (NEGATIVE)
[2017-12-23 08:46] LABS: EPI CELLS RARE /HPF (FEW)
[2017-12-23 08:48] LABS: URINE PROTEIN < 5 mg/dl
--- NOTE | 2017-12-23 10:02 | HP ---
CHIEF COMPLAINT: Headache PCP: Doctor at [facility] HISTORY OF PRESENT ILLNESS: Patient is a 72 year old female with a PMHx of HTN, HLD, GERD, Chronic migraines , Restless leg syndrome, seasonal allergies, chronic UTI's, bladder mass s/p resection 2016 who presented to the ED for worsening headache. Patient reports the headache began yesterday and progressively worsened, which prompted this hospital visit. She states she had a diffuse, burning-like, constant headache radiating to the neck, left, arm, chest, and abdomen. She reports the pain lasted an hour and had some relief when given medication in the ED. She rates the pain a 10/10 and when medicine is given its between 6-7/10. There are no exacerbating or alleviating factors. The pain is usually associated with blurry vision and decreased body sensations, which lasts for about an hour or until the headache stops. Patient states this headache is no different from the previous headaches. Patient reports these types of headaches occur on a weekly basis and is currently seeing a headache specialist for further workup. Patient reports that last week he changed her BP medications because he believed her medications might be the cause of her headache. Patient also reports Urinary frequency and straining that she had for several years associated with chronic UTI's for which she recently completed Bactrim for last week. Patient admits that she drinks at 1 bottle every 10 minutes because for the last several months due to her urinary frequency and feeling of dehydration. Otherwise, patient denies any photosensitivity, aura, current chest pain, palpitations, shortness of breath, diarrhea, constipation, nausea, vomiting, dysuria, loss of consciousness ER course was notable for: (1) CT negative (2) Lab findings of hyponatremia and hypokalemia (3) Administered Reglan, Ativan, Diphenhydramine, Decadron, Tylenol Recent Travel: Denies PAST MEDICAL HISTORY: HTN HLD GERD Chronic migraines Restless leg syndrome Seasonal allergies Chronic UTI's Overactive bladder Uterine/Bladder mass s/p resection 2016 PAST SURGICAL HISTORY: Hysterectomy Uterine Tumor Resection (2016) Social History: Smoking:Denies Alcohol: Denies Drugs: Denies Family History: Non-Contributory Allergies: Penicillins Allergy (Verified 12/22/17 23:44) HOME MEDICATIONS: Home Medications Medication Instructions Recorded Cetirizine HCl 10 mg PO DAILY 12/23/17 Famotidine [Pepcid] 40 mg PO DAILY 12/23/17 Gabapentin 100 mg PO DAILY 12/23/17 Hydrochlorothiazide [Hctz -] 25 mg PO DAILY 12/23/17 Metoprolol Succinate [Toprol Xl] 50 mg PO DAILY 12/23/17 Pitavastatin Calcium [Livalo] 2 mg PO HS 12/23/17 Ropinirole HCl 0.25 mg PO DAILY 12/23/17 REVIEW OF SYSTEMS CONSTITUTIONAL: Absent: fever, chills, diaphoresis, generalized weakness, malaise, loss of appetite, weight change HEENT: Absent: rhinorrhea, nasal congestion, throat pain, throat swelling, difficulty swallowing, mouth swelling, ear pain, eye pain, visual changes CARDIOVASCULAR: lightheadedness, chest pain Absent: syncope, palpitations, irregular heart rate, peripheral edema RESPIRATORY: Absent: cough, shortness of breath, dyspnea with exertion, orthopnea, wheezing, stridor, hemoptysis GASTROINTESTINAL: abdominal pain Absent: abdominal distension, nausea, vomiting, diarrhea, constipation, melena, hematochezia GENITOURINARY: frequency, urgency, hesitancy Absent: dysuria, hematuria, flank pain, genital pain MUSCULOSKELETAL: neck pain Absent: myalgia, arthralgia, joint swelling, back pain SKIN: Absent: rash, itching, pallor HEMATOLOGIC/IMMUNOLOGIC: Absent: easy bleeding, easy bruising, lymphadenopathy, frequent infections ENDOCRINE: Absent: unexplained weight gain, unexplained weight loss, heat intolerance, cold intolerance NEUROLOGIC: headache, paresthesias Absent: focal weakness, dizziness, unsteady gait, seizure, mental status changes , bladder or bowel incontinence PSYCHIATRIC: Absent: anxiety, depression, suicidal or homicidal ideation, hallucinations. PHYSICAL EXAMINATION Vital Signs - 24 hr 12/22/17 12/23/17 12/23/17 23:40 06:59 09:46 Temperature 98.2 F 97.7 F Pulse Rate 72 Pulse Rate [ 51 L 54 L Apical] Respiratory 20 18 Rate Blood Pressure 155/78 Blood Pressure 130/67 136/72 [Left Arm] O2 Sat by Pulse 99 100 100 Oximetry (%) GENERAL: Awake, alert, and fully oriented, in no acute distress. HEAD: Normal with no signs of trauma. EYES: Pupils equal, round and reactive to light, extraocular movements intact, sclera anicteric, conjunctiva clear. No lid lag. EARS, NOSE, THROAT: Oropharynx clear without exudates. Moist mucous membranes. NECK: Normal range of motion, supple without lymphadenopathy, JVD, or masses. LUNGS: Breath sounds equal, clear to auscultation bilaterally. No wheezes, and no crackles. No accessory muscle use. HEART: Regular rate and rhythm, normal S1 and S2 without murmur, rub or gallop. ABDOMEN: Soft, nontender, not distended, normoactive bowel sounds, no guarding, no rebound, no masses. No hepatomegaly or splenomegaly. (+) Vertical suprapubic scar MUSCULOSKELETAL: Normal range of motion at all joints. No bony deformities or tenderness. No CVA tenderness. UPPER EXTREMITIES: 2+ pulses, warm, well-perfused. No cyanosis. No clubbing. No peripheral edema. LOWER EXTREMITIES: 2+ pulses, warm, well-perfused. No calf tenderness. No peripheral edema. NEUROLOGICAL: Cranial nerves II-XII intact. Normal speech. Decreased sensory in left upper and lower extremities with motor strength 5/5 bilaterally PSYCHIATRIC: Cooperative. Good eye contact. Appropriate mood and affect. SKIN: Warm, dry, normal turgor, no rashes or lesions noted, normal capillary refill. Laboratory Results CBC, BMP 12/23/17 01:08 12/23/17 01:08 12/23/17 12/23/17 01:08 05:09 Magnesium 2.0 Total Bilirubin 0.7 AST 24 ALT 25 Alkaline Phosphatase 98 Creatine Kinase 177 CK-MB (CK-2) 1.81 Troponin I < 0.02 Urine Test Results Urine Color Straw 12/23/17 08:26 Urine Appearance Clear 12/23/17 08:26 Urine pH 7.0 (5.0-8.0) 12/23/17 08:26 Ur Specific [place] 1.006 (1.001-1.035) 12/23/17 08:26 Urine Protein < 5 mg/dl 12/23/17 08:26 Urine Glucose (UA) Negative (NEGATIVE) 12/23/17 08:26 Urine Ketones Negative (NEGATIVE) 12/23/17 08:26 Urine Blood 1+ (NEGATIVE) H 12/23/17 08:26 Urine Nitrite Negative (NEGATIVE) 12/23/17 08:26 Urine Bilirubin Negative (<2.0 mg/dL) 12/23/17 08:26 Ur Leukocyte Esterase 1+ (NEGATIVE) H D 12/23/17 08:26 Ur Epithelial Cells Rare /HPF (FEW) 12/23/17 08:26 IMAGES: Chest X-Ray (12/23/17): No acute chest pathology Head CT (12/23/17): No acute pathology ASSESSMENT/PLAN: Patient is a 72 year old female who presented to the hospital for severe headache and was found to have hyponatremia and hypokalemia. Patient admitted for further monitoring and evaluation. Moderate Hyponatremia with Mild to Moderate Symptoms -Possibly Thiazide induced -Patient has sodium of 129 with reports of severe headache -Recently started on HCTZ and reports drinking 1 bottle of water every 10 minutes -Serum Osm calculated to be 262, which is consistent with hypotonic hyponatremia. Patient currently Euvolemic. -Will order Official serum osm and order Urine osm -Will order TSH and cortisol levels to rule out thyroid/Endocrine/adrenal etiology -Lipid panel ordered -Will discontinue HCTZ as it can cause hyponatremia -Free water restriction to 1L -Does not need Hypertonic solution -Do not increase Sodium level more than 10mmol in 24 hours -Will recheck sodium Headache -Patient has history of Migraine headache, however pain is diffuse. She is currentlhy seeing a headache specialist who recently discontinued her BP medications and replaced them. -Reports same intensity as previous headaches -Given Ativan, Reglan, Benadryl, Tylenol and Decadron in the ED -Will order Fioricet Q6H PRN and continue Benadryl -Avoid opioids or barbs HypoKalemia -Likely secondary to thiazide use -Potassium chloride given in ED -Will repeat BMP HTN -Continue home medication Metoprolol 50mg daily -Discontinue HCTZ -Continue to monitor BP HLD -Continue Pravastatin 2mg HS -Lipid panel pending GERD -Continue Famotidine 40mg daily RLS -Continue Ropinirole 0.25mg daily History of UTI's -Recently completed Bactrim last week -U/A revealed 1+ LE but 2 WBC with no symptoms. No need for Antibiotics at this time Urinary Frequency/Straining -Overactive bladder with a history of 9 births in the past -Patient reports having this for several years -Will need to follow up with PCP Seasonal Allergies -Continue Cetirizine F/E/N -No IV fluids. Free water restriction to 1L -Hyponatremia and hypokalemia. Potassium chloride given and fluid restriction for hypNa. Continue to monitor -Regular dier Prophylaxis -Low risk. Patient ambulates. SCD's for DVT -Famotidine for GI Disposition -Full code -Will repeat Sodium level and control headache. Patient requires at least one night under observation *Medication Reconciliation done. Patient has medications with her. Case Discussed with Attending, Dr. Bailey. Brenda Dow [id number] Visit type - Emergency Visit Emergency Visit: Yes ED Registration Date: 12/23/17 Care time: The patient presented to the Emergency Department on the above date and was hospitalized for further evaluation of their emergent condition. - New Patient This patient is new to me today: Yes Date on this admission: 12/23/17 - Critical Care Critical Care patient: No Hospitalist Screening - Colonoscopy Questionnaire Colonoscopy Questionnaire: Colonoscopy Questionnaire - Patient: 50 - 75 years old and never had a screening colonoscopy: No History of colon or rectal polyps, or CA: No History of IBD, Crohn's disease or UC: No History of abdominal radiation therapy as a child: No - Relative: 1 with colon or rectal CA, or polyps at age 60 or younger: Unknown Colon or rectal CA diagnosed at age 45 or younger: Unknown Multiple relatives with colon or rectal CA: Unknown - Outcome: Screening Result: Negative Screen
[2017-12-23] MEDS ORDERED: CASPOFUNGIN ACETATE 50 MG in SODIUM CHLORIDE 250 ML IVPB ONE (10:28)
[2017-12-23 10:48] LABS: PHOSPHOROUS 3.6 mg/dL (2.5-4.9)
[2017-12-23] MEDS ORDERED: diphenhydrAMINE HCL 25 MG CAPSULE (FP) PO PRN (11:29)
[2017-12-23] MEDS ORDERED: PATIENT'S OWN MEDICATION (NON-FORMULARY) (Cetirizine Hcl [Cetirizine Hcl] 10 MG) PO SCH (11:30)
[2017-12-23 11:59] LABS: CHOLESTEROL 192 mg/dL (50-200); HDL CHOLESTEROL 46 mg/dL (40-60); TRIGLYCERIDES 176 mg/dL (35-160)
[2017-12-23] MEDS: ACETAMINOPHEN/CAFFEINE/BUTALBITAL 1 TAB PO PRN (12:30)
--- NOTE | 2017-12-23 13:50 | PN ---
Teaching Attending Note Name of Resident: Brenda Dow ATTENDING PHYSICIAN STATEMENT I saw and evaluated the patient. I reviewed the resident's note and discussed the case with the resident. I agree with the resident's findings and plan as documented. SUBJECTIVE: CC: ACOSTA HPI: 72 y/o lady with h/o recurrent UTIs, urinary bladder tumor resection ( benign ) , HTN, HLP, restless leg syndrome, Migraines,hysterectomy and other medical problems who presented with ACOSTA . her ACOSTA started yesterday, typical for her migraines , with ACOSTA , L sided numbness and burning and aura ( visual blurriness). those symptoms are typical for her migraines which she has been experiencing for years. frequency q week . this time her ACOSTA was a little worse and she presented to ER. usually L sided numbness and burning resolves when ACOSTA resolves. normally he ACOSTA can last 1-2 days . she denies any fever or chills, or painn nekc or neck rigidity. HAs no weakness, but she feels generalized fatigue. she follows with a neurologist for this issue. She was recently started on HCTZ for HTN a week ago. she was told she needed to drink plenty of water due to dehydration and she has kayla drinking about a bottle every hour. has chronic abd pain and frequency in urination . Daughter mentions sweating in her arms which this episode of ACOSTA. OBJECTIVE: NAD. MMM, EOMI, No facial droop. CV: RRR, no MRG Lungs: CTAB Abd: soft, ND, TTP in all quadrants, no rebound tenderness or guarding ( chronic ) Ext: no edema or erythema or tremor Neuro: EOMI, round equal pupils , reactive to light . no facial droop. strength 5/5 in upper and lwoer extremities proximally and distally . sensation to light touch decreased/different in L face and L upper and lower extremities. reflexes 2+ knee jerk and biceps b/l ASSESSMENT AND PLAN: 2 y/o lady with h/o recurrent UTIs, urinary bladder tumor resection ( benign ) , HTN, HLP, restless leg syndrome, Migraines,hysterectomy and other medical problems who presented with ACOSTA .She was diagnosed with Migraine and hyponatremia 1- Migraine with aura: improved compared to presentation . still has L sided numbness which is usual for her migraine. No change in frequency - start fioricet PRN - benadryl if needed - f/u with her neurologist as out pt - Check MRI of brain 2- Hyponatremia: likely due to increased free water intake, in addition to thiazide diuretic. - check U na , U Osm, and FeNA - check Serum Osm. - restrict free water to 1 L a day - follow Na closely - hold HCTZ 3- HTN: - Cont BB - DC HCTZ. - if needed can add norvasc . pt did not try norvasc in past 4- Urinary frequency, UA , with no pyuria or signs of UTI. 5- constipation : laxatives case d/w her and her daughter on phone
[2017-12-23] MEDS ORDERED: POLYETHYLENE GLYCOL 3350 119 GM BTL PO PRN (14:29)
[2017-12-23] MEDS ORDERED: ATORVASTATIN CA 10 MG TABLET (FP) PO SCH (22:00)
[2017-12-24] MEDS: ACETAMINOPHEN/CAFFEINE/BUTALBITAL 1 TAB PO PRN ×2 (02:10→09:57)
[2017-12-24 07:59] LABS: ANION GAP 8 (8-16); BLOOD UREA NITROGEN 17 mg/dL (7-18); CALCIUM 9.4 mg/dL (8.5-10.1); CHLORIDE 104 mmol/L (98-107); CO2 27 mmol/L (21-32); GLUCOSE,RANDOM 87 mg/dL (74-106); POTASSIUM 3.8 mmol/L (3.5-5.1); SODIUM 139 mmol/L (136-145)
[2017-12-24 08:01] LABS: CREATININE 0.9 mg/dL (0.55-1.02)
[2017-12-24] MEDS ORDERED: PT OWN MED DRAWER 7, Y5N ONE (09:42)
[2017-12-24] MEDS: SENNOSIDES/DOCUSATE COMBO (SENNA PLUS) TABLET (UD) PO SCH ×2 (09:43→09:53)
[2017-12-24] MEDS ORDERED: rOPINIRole HCL 0.25 MG TABLET PO SCH (10:00)
[2017-12-24] MEDS ORDERED: RANITIDINE HCL 150 MG TABLET (FP) PO SCH (10:00)
[2017-12-24] MEDS ORDERED: GABAPENTIN 100 MG CAPSULE (FP) PO SCH (10:00)
[2017-12-24] MEDS: BISACODYL 10 MG SUPP.RECT PR ONE ×2 (12:37→13:02)
[2017-12-24] MEDS ORDERED: IBUPROFEN 400 MG TABLET (FP) PO ONE (15:15)
--- NOTE | 2017-12-24 15:28 | DS ---
Physical Examination Vital Signs: Vital Signs Temperature 97.5 F L 12/24/17 15:05 Pulse Rate 70 12/24/17 15:05 Respiratory Rate 18 12/24/17 15:05 Blood Pressure 137/81 12/24/17 15:05 O2 Sat by Pulse Oximetry (%) 99 12/24/17 09:00 Findings/Remarks: ACOSTA as improved . No fever or chills, no change in her vision . No abd pain. still has the numbness in her L side , usually it resolves when ACOSTA resolves completely constipated PE: NAD. MMM, EOMI, No facial droop. CV: RRR, no MRG Lungs: CTAB Abd: soft, ND,minimal tenderness with palpation in all quadrants Ext: no edema or erythema or tremor Neuro: EOMI, round equal pupils , reactive to light . no facial droop. strength 5/5 in upper and lowe extremities proximally and distally . sensation to light touch decreased/different in L face and L upper and lower extremities. reflexes 2+ knee jerk and biceps b/l Labs: CBC, BMP 12/23/17 01:08 12/24/17 06:00 Discharge Summary Reason For Visit: HYPOKALEMIA,HYPONATREMIA Current Active Problems Hyponatremia (Acute) Migraine (Acute) Hospital Course: 2 y/o lady with h/o recurrent UTIs, urinary bladder tumor resection ( benign ) , HTN, HLP, restless leg syndrome, Migraines,hysterectomy and other medical problems who presented with ACOSTA .She was diagnosed with Migraine and hyponatremia . Her ACOSTA was thought to be due to Migraine with aura, she was given fioricet and ibuprofenand her sx improved. MRI showed no stroke, tumor or acute etiology . her neuro exam showed L sided numbness which usually accompanies her ACOSTA and resolves when ACOSTA resolves - follow up with her neurologist Her Hyponatremia was though to be due to increased free water intake, in addition to thiazide diuretic. - HCTZ was held in house and at [place] until her labs are repeated as out pt in 1 week . follow BP closely . - she was advised to drink water when she feels thirsty For her HTN: she was continued on BB only and her BP remained NL she was asked to check her blood pressure daily and report to PCP For constipation , she refused miralax. requested senokote . dc home . plan was discussed with her in details. she is competent dispo : Home Conditon : improved f/u : PCP and her neurologist Condition: Improved - Instructions Diet, Activity, Other Instructions: - You were admitted for migraines and low sodium level . - your migraine needs continuous follow up with your neurologist, for possible chronic prophylactic medicatins . - your brain MRI did not show any change form MRI in 2010. No acute stroke , or tumor were seen. - take fioricet as needed for 3 days -Your low sodium level is attributed to the blood pressure pill hydrochlorothiazide ( water pill ) and to increased water intake by you. please stop taking this water pill and follow your blood pressure closely every day. Take log to your PCP when you see him. - continue the rest of your medications . You might need another blood pressure medicine added if your blood pressure gets elevated - follow with your PCP in 1 week a you need repeat of your sodium level - take your discharge paperwork with you to your appointment Jordon hastings Referrals: deandre rajan [Other] Disposition: HOME - Home Medications Comprehensive Discharge Medication List: Ambulatory Orders Cetirizine HCl 10 mg PO DAILY 12/23/17 Famotidine [Pepcid] 40 mg PO DAILY 12/23/17 Gabapentin 100 mg PO DAILY 12/23/17 Metoprolol Succinate [Toprol Xl] 50 mg PO DAILY 12/23/17 Pitavastatin Calcium [Livalo] 2 mg PO HS 12/23/17 Ropinirole HCl 0.25 mg PO DAILY 12/23/17 Acetaminophen/Caffeine/Butalb [Fioricet -] 1 tab PO Q8H PRN #9 tablet MDD 3 tab 12/24/17 Medical Supply, Miscellaneous [Blood Pressure Cuff] 1 each MC DAILY #1 each Sennosides/Docusate Sodium [Pericolace -] 1 tablet PO BID #30 tablet 12/24/17 This patient is new to me today: No Emergency Visit: Yes ED Registration Date: 12/23/17 Care time: The patient presented to the Emergency Department on the above date and was hospitalized for further evaluation of their emergent condition. Critical Care patient: No - Discharge Referral Referred to [facility] No
[2017-12-24 20:27] VITALS: BP 126/70; PULSE 69; TEMP 97.8
--- NOTE | 2017-12-25 10:43 | EKG ---
Test Reason : Blood Pressure : / mmHG Vent. Rate : 057 BPM Atrial Rate : 057 BPM P-R Int : 166 ms QRS Dur : 098 ms QT Int : 442 ms P-R-T Axes : 061 -31 043 degrees QTc Int : 430 ms SINUS BRADYCARDIA LEFT AXIS DEVIATION INCOMPLETE RIGHT BUNDLE BRANCH BLOCK ABNORMAL ECG WHEN COMPARED WITH ECG OF 02-JUL-2017 23:59, NO SIGNIFICANT CHANGE WAS FOUND Confirmed by YARELIS MEZA MD ([id number]) on 12/25/2017 10:42:31 AM Referred By: Confirmed By:YARELIS MEZA MD
== END 2017-12-24 19:23 | disposition home or self-care (01) ==
LOC: JER 23:36 → JERBED 12-23 08:46 → J5S 12-23 10:15
PROVIDERS: ADMIT Internal Medicine; ATTEND Internal Medicine
PROC: 3E033NZ Introduction of Analgesics, Hypnotics, Sedatives into Peripheral Vein, Percutaneous Approach (ICD-10-PCS; principal; 2017-12-23)
PROC: 3E033GC Introduction of Other Therapeutic Substance into Peripheral Vein, Percutaneous Approach (ICD-10-PCS; 2017-12-23)
DX: G43.109 Migraine with aura, not intractable, without status migrainosus (principal); E87.1 Hypo-osmolality and hyponatremia; E87.6 Hypokalemia; I10 Essential (primary) hypertension; E78.5 Hyperlipidemia, unspecified; K21.9 Gastro-esophageal reflux disease without esophagitis; Z90.710 Acquired absence of both cervix and uterus; Z88.0 Allergy status to penicillin; Z87.440 Personal history of urinary (tract) infections
CPT/HCPCS: 36415; 70450-TC; 70553-TC; 71045-TC-FY; 80048; 80053; 80061; 81003; 81015; 82550; 82553; 82570; 83721; 83735; 83935; 84100; 84156; 84295; 84300; 84443; 84484; 85025; 87086; 93005; 93010; 96374; 96375; 97116-GP; 97161-GP; 99285-25; G0378; J0131; J1100

== ENCOUNTER 2018-03-28 21:36 | Emergency (ER) | payer OTHER ==
[2018-03-28] MEDS ORDERED: diphenhydrAMINE HCL 25 MG CAPSULE (FP) PO ONE ×4 (21:49→22:27)
--- NOTE | 2018-03-28 21:49 | PDOC ---
Rapid Medical Evaluation Chief Complaint: Allergic Reaction Time Seen by Provider: 03/28/18 21:40 Medical Evaluation: Allergies Allergy/AdvReac Type Severity Reaction Status Date / Time Penicillins Allergy Verified 12/22/17 23:44 histamine Allergy Uncoded 12/23/17 15:01 03/28/18 21:45 I have performed a brief in-person evaluation of this patient. The patient presents with a chief complaint of: states feels pruitis and swelling to face/ lips. Worries may have eaten something she is allergic to, but uncertain, ==maybe [place] Pertinent physical exam findings: no wheezing or retractions. No hives, but does not feel well, mildly anxious I have ordered the following: Benadryl 25mg po The patient will proceed to the ED for further evaluation.
[2018-03-28 21:59] VITALS: BP 159/88; PULSE 99; TEMP 98; BMI 26.5
--- NOTE | 2018-03-28 22:08 | PDOC ---
History of Present Illness - General Chief Complaint: Allergic Reaction Stated Complaint: ALLERGY Time Seen by Provider: 03/28/18 21:40 - History of Present Illness Initial Comments: 03/28/18 22:08 Ms. 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 Patient reports she has had similar presentations in the past for allergic reactions - allergy testing has been negative however. Patient took something at home although is unsure what it was. Had eaten some cucumber which may be related. The patient denies chest pain, shortness of breath, headache and dizziness. Denies fever, chills, nausea, vomit, diarrhea and constipation. Denies dysuria, frequency, urgency and hematuria. Past History - Past Medical History Allergies/Adverse Reactions: Allergies Allergy/AdvReac Type Severity Reaction Status Date / Time Penicillins Allergy Verified 12/22/17 23:44 histamine Allergy Uncoded 12/23/17 15:01 Home Medications: Ambulatory Orders Cetirizine HCl 10 mg PO DAILY 12/23/17 Famotidine [Pepcid] 40 mg PO DAILY 12/23/17 Gabapentin 100 mg PO DAILY 12/23/17 Metoprolol Succinate [Toprol Xl] 50 mg PO DAILY 12/23/17 Pitavastatin Calcium [Livalo] 2 mg PO HS 12/23/17 Ropinirole HCl 0.25 mg PO DAILY 12/23/17 Acetaminophen/Caffeine/Butalb [Fioricet -] 1 tab PO Q8H PRN #9 tablet MDD 3 tab 12/24/17 Medical Supply, Miscellaneous [Blood Pressure Cuff] 1 each MC DAILY #1 each Sennosides/Docusate Sodium [Pericolace -] 1 tablet PO BID #30 tablet 12/24/17 Anemia: No Asthma: No Cancer: No Cardiac Disorders: No CVA: No COPD: No CHF: No Dementia: No Diabetes: No GI Disorders: No Disorders: No HTN: Yes Hypercholesterolemia: Yes Liver Disease: No Seizures: No Thyroid Disease: No - Surgical History Abdominal Surgery: Yes (Intestinal mass removed 02/2016) Cardiac Surgery: No Cholecystectomy: No Gastric Stapling: No GI Surgery: No Lung Surgery: No Orthopedic Surgery: No - Immunization History Immunization Up to Date: Yes - Suicide/Smoking/Psychosocial Hx Smoking History: Never smoked Have you smoked in the past 12 months: No Information on smoking cessation initiated: No Hx Alcohol Use: No Drug/Substance Use Hx: No Substance Use Type: None Hx Substance Use Treatment: No Review of Systems - Review of Systems Comments:: 03/28/18 22:25 GENERAL/CONSTITUTIONAL: No fever or chills. No weakness. HEAD, EYES, EARS, NOSE AND THROAT: No change in vision. No ear pain or discharge. No sore throat. CARDIOVASCULAR: No chest pain or shortness of breath RESPIRATORY: No cough, wheezing, or hemoptysis. GASTROINTESTINAL: No nausea, vomiting, diarrhea or constipation. GENITOURINARY: No dysuria, frequency, or change in urination. MUSCULOSKELETAL: No joint or muscle swelling or pain. No neck or back pain. SKIN: +Non-specific tingling/burning sensation. No rash NEUROLOGIC: No headache, vertigo, loss of consciousness, or change in strength/ sensation. ENDOCRINE: No increased thirst. No abnormal weight change HEMATOLOGIC/LYMPHATIC: No anemia, easy bleeding, or history of blood clots. ALLERGIC/IMMUNOLOGIC: No hives or skin allergy. *Physical Exam - Vital Signs Last Vital Signs Temp Pulse Resp BP Pulse Ox 98 F 99 H 20 159/88 100 03/28/18 21:39 03/28/18 21:39 03/28/18 21:39 03/28/18 21:39 03/28/18 21:39 - Physical Exam Comments: 03/28/18 22:25 GENERAL: Awake, alert, and fully oriented, in no acute distress HEAD: No signs of trauma, normocephalic, atraumatic EYES: PERRLA, EOMI, sclera anicteric, conjunctiva clear ENT: Auricles normal inspection, hearing grossly normal, nares patent, oropharynx clear without exudates. Moist mucosa NECK: Normal ROM, supple, no lymphadenopathy, JVD, or masses LUNGS: No distress, speaks full sentences, clear to auscultation bilaterally HEART: Regular rate and rhythm, normal S1 and S2, no murmurs, rubs or gallops, peripheral pulses normal and equal bilaterally. ABDOMEN: Soft, nontender, normoactive bowel sounds. No guarding, no rebound. No masses EXTREMITIES: Normal inspection, Normal range of motion, no edema. No clubbing or cyanosis. NEUROLOGICAL: Cranial nerves II through XII grossly intact. Normal speech, normal gait, no focal sensorimotor deficits SKIN: +No sign of hives or other acute findings. Warm, Dry, normal turgor, no rashes or lesions noted. ED Treatment Course - Medications Given in the ED: ED Medications Discontinued Medications Generic Name Dose Route Start Last Admin Trade Name Aura PRN Reason Stop Dose Admin Diphenhydramine HCl 25 mg 03/28/18 21:49 03/28/18 21:54 Benadryl - PO 03/28/18 21:50 25 mg ONCE ONE Administration Medical Decision Making - Medical Decision Making 03/28/18 22:26 Ms. Gutierrez is a 72 yo female w/ pmh as described who presents for evaluation of non-specific allergy symptoms. Patient alert and oriented with no signs of respiratory distress, rashes, or other allergic reaction. Benadryl given for symptomatic relief. 03/28/18 23:54 Patient continues to be well appearing on evaluation with no difficulty breathing. Tylenol/motrin given for symptomatic relief. 03/29/18 00:30 EKG ordered for complaints of additional left arm tingling. EKG regular rate and rhythm, left axis deviation, normal intervals, no ST elevations or depressions. Grossly normal EKG. No concern for acute process. Patient continues to breath without difficulty. Discharging to home. *DC/Admit/Observation/Transfer Diagnosis at time of Disposition: Itching - Discharge Dispostion Disposition: HOME - Referrals - Patient Instructions Printed Discharge Instructions: DI for Food Allergy Additional Instructions: You were evaluated today in the ER for your allergy symptoms. No concerning findings were found on exam and we treated your symptoms with benadryl and over the counter pain medications. You may continue to take over the counter pain medications and benadryl per package instructions for further at home relief. Follow-up with party director as needed for further evaluation. Return to ER if any fever, chills, difficulty breathing, hives, or other concerning symptoms. - Post Discharge Activity
[2018-03-28] MEDS ORDERED: IBUPROFEN 600 MG TABLET (FP) PO ONE (23:37)
[2018-03-28] MEDS ORDERED: ACETAMINOPHEN 325 MG TABLET (FP) PO ONE (23:37)
--- NOTE | 2018-03-28 23:40 | PDOC ---
Attending Attestation - Resident Resident Name: Bolivar Padilla - ED Attending Attestation I have performed the following: I have examined & evaluated the patient, The case was reviewed & discussed with the resident, I agree w/resident's findings & plan - HPI HPI: 03/28/18 23:38 The patient is a 72 year old female, with a significant past medical history of HTN, HLD, GERD, restless leg syndrome, migraines, recurrent UTI, bladder mass ' 16 s/p resection who presents for evaluation of facial burning and swelling and generalized weakness and burning in her body which she feels may be an allergic reaction to a cucumber she ate around 7PM this evening. She denies difficulty breathing. The patient denies chest pain, shortness of breath, headache and dizziness. The patient denies fever, chills, nausea, vomit, diarrhea and constipation. The patient denies dysuria, frequency, urgency and hematuria. Allergies: penicillins 03/28/18 23:39 - Physicial Exam PE: 03/28/18 23:38 NAD, well appearing, PERRL, EOMI, NCAT, clear conjunctiva, anicteric, moist mucus membranes, clear oropharynx. Airway patent, normal phonation. Uvula midline. neck supple. lungs clear, RRR, abdomen soft nontender. POP x4, no focal neuro deficits. No peripheral edema. normal color for ethnicity, [facility]. 03/28/18 23:39 - Medical Decision Making 03/28/18 23:38 DDx.: hypersensitivity reaction, allergic reaction, anaphylaxis, hives/ urticaria. drug rash. dermatitis. serum sickness. -No fevers or systemic findings, clinically well appearing. no mucosal involvement so doubt SJS/TEN. airway patent, doubt anaphylaxis or Dress syndrome. - given benadryl, VS wnl, stable, no hypotension. analgesia with motrin tylenol for generalized discomfort. no cp or sob, doubt acs or cardiovascular/ neuro etiology however c/o left arm burning all over. nonischemic EKG, doubt ACS or dissection or PE, remains well and stable in the department EKG normal sinus rhythm, no interval abnormalities, narrow QRS, ST and T wave segments and morphology normal. left axis deviation. nonspecific T waves. unchanged from prior. - instructions on avoiding triggers, benadryl PRN allergic sx, avoid triggers and precipitants. has had allergy testing previously, negative workup. discharge in stable condition, reassurance provided. return precautions given. 03/29/18 00:53 Heart Score/ECG Review - ECG Impressions Normal ECG: Yes Comment:: 03/29/18 00:53 EKG normal sinus rhythm, no interval abnormalities, narrow QRS, ST and T wave segments and morphology normal. left axis deviation. nonspecific T waves. unchanged from prior.
[2018-03-29] MEDS ORDERED: ALPRAZolam 0.25 MG TABLET PO ONE (00:13)
[2018-03-29] MEDS ORDERED: IBUPROFEN 600 MG TABLET (FP) PO ONE (00:18)
[2018-03-29] MEDS ORDERED: ACETAMINOPHEN 325 MG TABLET (FP) ONE (00:18)
[2018-03-29] MEDS ORDERED: ALPRAZolam 0.25 MG TABLET ONE (00:34)
--- NOTE | 2018-03-29 15:08 | EKG ---
Test Reason : Blood Pressure : / mmHG Vent. Rate : 084 BPM Atrial Rate : 084 BPM P-R Int : 136 ms QRS Dur : 088 ms QT Int : 382 ms P-R-T Axes : 050 -40 030 degrees QTc Int : 451 ms NORMAL SINUS RHYTHM LEFT AXIS DEVIATION ABNORMAL ECG WHEN COMPARED WITH ECG OF 23-DEC-2017 00:49, NO SIGNIFICANT CHANGE WAS FOUND Confirmed by BETTIE MCMANUS MD ([id number]) on 03/29/2018 3:08:21 PM Referred By: Confirmed By:BETTIE MCMANUS MD
== END 2018-03-29 00:46 | disposition home or self-care (01) ==
LOC: JER 21:36
DX: L29.8 Other pruritus (principal); I10 Essential (primary) hypertension; E78.00 Pure hypercholesterolemia, unspecified; G25.81 Restless legs syndrome; Z87.440 Personal history of urinary (tract) infections; Z88.0 Allergy status to penicillin
CPT/HCPCS: 93005; 93010; 99281-25

== ENCOUNTER 2018-07-24 18:14 | Inpatient (IN) | payer OTHER ==
--- NOTE | 2018-07-24 18:33 | PDOC ---
Rapid Medical Evaluation Medical Evaluation: Allergies Allergy/AdvReac Type Severity Reaction Status Date / Time Penicillins Allergy Verified 12/22/17 23:44 histamine Allergy Uncoded 12/23/17 15:01 I have performed a brief in-person evaluation of this patient. The patient presents with a chief complaint of: hx of HTN, HLD, GERD, RLS, migraines, chronic UTI's, bladder mass s/p resection C/O CP and back pain x 3 days Pertinent physical exam findings: In NAD I have ordered the following: Labs, EKG, CXR The patient will proceed to the ED for further evaluation. 07/24/18 18:29
[2018-07-24 19:33] LABS: BASO % 0.6 % (0-2.0); EOS % 0.5 % (0-4.5); HEMATOCRIT 38.3 % (32.4-45.2); HEMOGLOBIN 13.3 GM/dL (10.7-15.3); LYMPH % 25.1 % (8-40); MCH 30.7 pg (25.7-33.7); MCHC 34.8 g/dl (32.0-36.0); MEAN CELL VOLUME 88.1 fl (80-96); MEAN PLT VOLUME 9.6 fl (7.5-11.1); NEUT % 66.8 % (42.8-82.8); PLATELET COUNT 183 K/MM3 (134-434); RBC 4.34 M/mm3 (3.60-5.2); RDW 14.4 % (11.6-15.6); WHITE BLOOD COUNT 5.4 K/mm3 (4.0-10.0)
[2018-07-24 20:03] LABS: ANION GAP 11 MMOL/L (8-16); BLOOD UREA NITROGEN 11 mg/dL (7-18); CHLORIDE 90 mmol/L (98-107); CO2 26 mmol/L (21-32); CREATININE 0.8 mg/dL (0.55-1.3); GLUCOSE,RANDOM 106 mg/dL (74-106); POTASSIUM 3.4 mmol/L (3.5-5.1); SODIUM 127 mmol/L (136-145)
--- NOTE | 2018-07-24 20:11 | PDOC ---
History of Present Illness - General History Source: Patient Exam Limitations: No Limitations <Helder Morel - Last Filed: 07/24/18 20:42> <Sherri Townsend - Last Filed: 07/24/18 22:37> - General Chief Complaint: Chest Pain Stated Complaint: chest pain Time Seen by Provider: 07/24/18 18:29 - History of Present Illness Initial Comments: 07/24/18 20:42 The patient is a 73 year old female with a past medical history of HTN, HLD, GERD, migraines, UTI, and restless leg syndrome who presents to the emergency department for evaluation of chest pain. The patient reports a 3 day history of chest pain, described as substernal radiating to the left arm with associated headache and paresthesia to upper extremities. Patient describes her headache as pounding, preventing her from sleeping. She describes her chest pain as intermittent, but notes her chest pain yesterday was constant, sharp and stabbing in nature. She states takes aspirin daily. The patient denies palpitations, shortness of breath, dizziness, fevers, chills , nausea, vomiting, diarrhea, constipation, and any urinary symptoms. Allergies: Penicillins, keflex, histamines Social History: No reported alcohol, cigarette, or drug use. Surgical History: bladder resection, total hysterectomy PCP: Dr. Coy ([place]) (Helder Morel) Past History <Helder Morel - Last Filed: 07/24/18 20:42> - Past Medical History Anemia: No Asthma: No Cancer: No Cardiac Disorders: No CVA: No COPD: No CHF: No Dementia: No Diabetes: No GI Disorders: No Disorders: No HTN: Yes Hypercholesterolemia: Yes Liver Disease: No Seizures: No Thyroid Disease: No - Surgical History Abdominal Surgery: Yes (Intestinal mass removed 02/2016) Cardiac Surgery: No Cholecystectomy: No Gastric Stapling: No GI Surgery: No Lung Surgery: No Orthopedic Surgery: No - Immunization History Immunization Up to Date: Yes - Suicide/Smoking/Psychosocial Hx Smoking History: Never smoked Have you smoked in the past 12 months: No Information on smoking cessation initiated: No Hx Alcohol Use: No Drug/Substance Use Hx: No Substance Use Type: None Hx Substance Use Treatment: No <Sherri Townsend - Last Filed: 07/24/18 22:37> - Past Medical History Allergies/Adverse Reactions: Allergies Allergy/AdvReac Type Severity Reaction Status Date / Time Penicillins Allergy Verified 07/24/18 19:54 histamine Allergy Uncoded 07/24/18 19:54 Home Medications: Ambulatory Orders Famotidine [Pepcid] 40 mg PO HS 12/23/17 Metoprolol Succinate [Toprol Xl] 50 mg PO DAILY 12/23/17 Pitavastatin Calcium [Livalo] 2 mg PO DAILY 12/23/17 Aspirin [ASA -] 81 mg PO DAILY 07/24/18 Chlorthalidone 25 mg PO DAILY 07/24/18 Levocetirizine Dihydrochloride [Allergy Relief] 5 mg PO DAILY 07/24/18 Lisinopril [Prinivil -] 40 mg PO DAILY 07/24/18 Montelukast Na [Singulair -] 10 mg PO DAILY 07/24/18 Venlafaxine HCl ER [Effexor Xr -] 37.5 mg PO HS 07/24/18 Cardiac Specific PMH - Complaint Specific PMHX GERD: No Pacemaker: No <Sherri Townsend - Last Filed: 07/24/18 22:37> Review of Systems - Review of Systems Able to Perform ROS?: Yes <Helder Morel - Last Filed: 07/24/18 20:42> <Sherri Townsend - Last Filed: 07/24/18 22:37> - Review of Systems Comments:: 07/24/18 20:43 CONSTITUTIONAL: Absent: fever, chills, diaphoresis, generalized weakness, malaise, loss of appetite HEENT: Absent: rhinorrhea, nasal congestion, throat pain, throat swelling, difficulty swallowing, mouth swelling, ear pain, eye pain, visual Changes CARDIOVASCULAR: (+)chest pain Absent: syncope, palpitations, irregular heart rate, lightheadedness, peripheral edema RESPIRATORY: Absent: cough, shortness of breath, dyspnea with exertion, orthopnea, wheezing, stridor, hemoptysis GASTROINTESTINAL: Absent: abdominal pain, abdominal distension, nausea, vomiting, diarrhea, constipation, melena, hematochezia GENITOURINARY: Absent: dysuria, frequency, urgency, hesitancy, hematuria, flank pain, genital pain MUSCULOSKELETAL: Absent: myalgia, arthralgia, joint swelling SKIN: Absent: rash, itching, pallor HEMATOLOGIC/IMMUNOLOGIC: Absent: easy bleeding, easy bruising, lymphadenopathy, frequent infections ENDOCRINE: Absent: unexplained weight gain, unexplained weight loss, heat intolerance, cold intolerance NEUROLOGIC: (+)Headache. (+)Paresthesia in upper extremities. Absent: dizziness, unsteady gait, seizure, mental status changes, bladder or bowel incontinence PSYCHIATRIC: Absent: anxiety, depression, suicidal or homicidal ideation, hallucinations. (Helder Morel) *Physical Exam <Helder Morel - Last Filed: 07/24/18 20:42> <Sherri Townsend - Last Filed: 07/24/18 22:37> - Vital Signs Last Vital Signs Temp Pulse Resp BP Pulse Ox 98.4 F 93 H 16 145/82 99 07/24/18 18:23 07/24/18 18:23 07/24/18 18:23 07/24/18 18:23 07/24/18 20:00 - Physical Exam Comments: wnwd 73 year old female in no acute distress head ncat neck supple, no bruits or JVD Heart RRR. No gallops, murmurs, or rubs. lungs clear to auscultation bilaterally abd soft,nontender ext no edema/clubbing/cyanosis, MAEx4 skin warm and dry,no rashes, No hives neuro A&Ox3,no gross focal neuro deficits (Helder Morel) Heart Score/ECG Review - History History: Slightly suspicious - Electrocardiogram EKG: Normal - Age Age: >/= 65 - Risk Factors Risk Factors Heart Score: Yes Hx Hypercholesterolemia, Yes Hx Hypertension Based on the list above the patient has:: >/=3 risk factors or Hx atherosclerotic disease - Troponin Troponin: </= normal limit - Score Heart Score - Total: 4 - [place]: Left [place] Deviation - P and [place] Delta Wave(s) Present: No WPW: No - ST and T Early Repolarization: No Prolonged Q-T Interval: No - ECG Impressions Ischemic Changes: No Bradycardia: No Torsades andi Pointes: No WPW: No <Sherri Townsend - Last Filed: 07/24/18 22:37> - Procedure Monitoring Vital Signs: Procedure Monitoring Vital Signs Temperature 98.4 F 07/24/18 18:23 Pulse Rate 93 H 07/24/18 18:23 Respiratory Rate 16 07/24/18 18:23 Blood Pressure 145/82 07/24/18 18:23 O2 Sat by Pulse Oximetry (%) 99 07/24/18 20:00 ED Treatment Course - LABORATORY CBC & Chemistry Diagram: 07/24/18 19:17 07/24/18 19:17 <Helder Morel - Last Filed: 07/24/18 20:42> - LABORATORY CBC & Chemistry Diagram: 07/24/18 19:17 07/24/18 19:17 <Sherri Townsend - Last Filed: 07/24/18 22:37> - ADDITIONAL ORDERS Additional order review: Laboratory Results 07/24/18 19:17 Sodium 127 L Potassium 3.4 L Chloride 90 L Carbon Dioxide 26 Anion Gap 11 BUN 11 Creatinine 0.8 Creat Clearance w eGFR > 60 Random Glucose 106 Calcium 9.0 Troponin I < 0.02 07/24/18 19:17 RBC 4.34 MCV 88.1 MCHC 34.8 RDW 14.4 MPV 9.6 Neutrophils % 66.8 D Lymphocytes % 25.1 D Monocytes % 7.0 Eosinophils % 0.5 Basophils % 0.6 - Medications Given in the ED: ED Medications Discontinued Medications Generic Name Dose Route Start Last Admin Trade Name Freq PRN Reason Stop Dose Admin Acetaminophen 650 mg 07/24/18 21:59 07/24/18 22:21 Tylenol - PO 07/24/18 22:00 650 mg ONCE ONE Administration Aspirin 81 mg 07/24/18 21:59 07/24/18 22:20 Asa - PO 07/24/18 22:00 81 mg ONCE ONE Administration Medical Decision Making <Helder Morel - Last Filed: 07/24/18 20:42> <Sherri Townsend - Last Filed: 07/24/18 22:37> - Medical Decision Making 07/24/18 22:02 this pt has L sided chest pain Her PCP is not associated w Chelsi's first trop is negative Sinus rhythm at 81 bpm, normal QTC, no acute ischemia (Sherri Townsend) *DC/Admit/Observation/Transfer <Helder Morel - Last Filed: 07/24/18 20:42> - Discharge Dispostion Decision to Admit order: Yes <Sherri Townsend - Last Filed: 07/24/18 22:37> Diagnosis at time of Disposition: Chest pain Qualifiers: Chest pain type: unspecified Qualified Code(s): R07.9 - Chest pain, unspecified Headache Qualifiers: Headache type: tension-type Headache chronicity pattern: unspecified pattern Intractability: not intractable Qualified Code(s): G44.209 - Tension-type headache, unspecified, not intractable - Discharge Dispostion Condition at time of disposition: Stable - Referrals Referrals: Randy Curtis MD [Primary Care Provider] - - Patient Instructions - Post Discharge Activity - Attestations Scribe Attestion: Documentation prepared by Helder Morel, acting as medical oncology physician for Sherri Townsend MD. (Helder Morel)
[2018-07-24] MEDS ORDERED: ACETAMINOPHEN 325 MG TABLET (FP) PO ONE (21:59)
[2018-07-24] MEDS ORDERED: ASPIRIN 81 MG CHEWABLE TABLETS PO ONE (21:59)
[2018-07-24] MEDS ORDERED: ACETAMINOPHEN 325 MG TABLET (FP) ONE (22:18)
[2018-07-24] MEDS ORDERED: ASPIRIN 81 MG CHEWABLE TABLETS ONE (22:19)
--- NOTE | 2018-07-25 00:06 | HP ---
CHIEF COMPLAINT: chest pain PCP: Dr. Coy HISTORY OF PRESENT ILLNESS: 73F w/ pmhx of HTN, HLD, GERD, migraines, restless legs presented to the ED with a 2 week history of chest pain. She describes it as 10/10 when it comes on and is sharp and stabbing, located on the L side that lasts all day. She also admits to radiation to the L arm where she feels numbness and tingling; worsened with sitting up and exertion, better when laying down. Denies fever/ chills, nausea/vomiting, abd pain. She additionally complains of back pain after having taken her Venlafaxine last night. She says this morning, she felt as if she had an allergic reaction where she felt tingling in her mouth, mild leg swelling, and pressure in her head. As a result, she took her allergy medication. Denies any shortness of breath, throat swelling, difficulty breathing, rashes/hives. ER course was notable for: (1) Na 129, K 3.4, Trop neg x1 (2) EKG showed NSR, HR 81, QTc 469 ms (unchanged from 04/15) (3) Recent Travel: Denies PAST MEDICAL HISTORY: HTN HLD GERD migraines restless legs syndrome PAST SURGICAL HISTORY: bladder resection (2016) [facility] Social History: Smoking: Denies Alcohol: Denies Drugs: Denies Family History: Denies Allergies Penicillins Allergy (Verified 07/24/18 19:54) histamine Allergy (Uncoded 07/24/18 19:54) HOME MEDICATIONS: Home Medications Medication Instructions Recorded Famotidine [Pepcid] 40 mg PO HS 12/23/17 Metoprolol Succinate [Toprol Xl] 50 mg PO DAILY 12/23/17 Pitavastatin Calcium [Livalo] 2 mg PO DAILY 12/23/17 Aspirin [ASA -] 81 mg PO DAILY 07/24/18 Chlorthalidone 25 mg PO DAILY 07/24/18 Levocetirizine Dihydrochloride 5 mg PO DAILY 07/24/18 [Allergy Relief] Lisinopril [Prinivil -] 40 mg PO DAILY 07/24/18 Montelukast Na [Singulair -] 10 mg PO DAILY 07/24/18 Venlafaxine HCl ER [Effexor Xr -] 37.5 mg PO HS 07/24/18 REVIEW OF SYSTEMS CONSTITUTIONAL: Absent: fever, chills, diaphoresis, generalized weakness, malaise, loss of appetite, weight change HEENT: +tingling in mouth, +head pressure Absent: rhinorrhea, nasal congestion, throat pain, throat swelling, ear pain CARDIOVASCULAR: +chest pain Absent: syncope, palpitations, irregular heart rate, lightheadedness, peripheral edema RESPIRATORY: +chronic cough, nonproductive Absent: shortness of breath, dyspnea with exertion, orthopnea, wheezing GASTROINTESTINAL: Absent: abdominal pain, abdominal distension, nausea, vomiting, diarrhea, constipation GENITOURINARY: +urinary frequency Absent: dysuria, urgency, hesitancy, hematuria, flank pain, genital pain MUSCULOSKELETAL: +back pain Absent: myalgia, arthralgia, joint swelling, neck pain SKIN: Absent: rash, itching, pallor ENDOCRINE: +polydipsia Absent: unexplained weight gain, unexplained weight loss, heat intolerance, cold intolerance NEUROLOGIC: Absent: headache, focal weakness or paresthesias, dizziness, unsteady gait, seizure, mental status changes, bladder or bowel incontinence PHYSICAL EXAMINATION Vital Signs - 24 hr 07/24/18 07/24/18 18:23 20:00 Temperature 98.4 F Pulse Rate 93 H Respiratory 16 Rate Blood Pressure 145/82 O2 Sat by Pulse 99 99 Oximetry (%) GENERAL: Tajik-speaking. Awake, alert, and fully oriented, in no acute distress. Resting comfortably, pleasant female. HEENT: AT/NC. EOMI. YANCI. Moist mucus membranes. No mouth swelling. NECK: Normal range of motion, supple without lymphadenopathy, JVD, or masses. LUNGS: CTA B/L. No wheezes noted. No accesorry muscle use noted. Speaks in complete sentences. HEART: Regular rate and rhythm, normal S1 and S2 without murmur, rub or gallop. Reproducible chest tenderness. ABDOMEN: Soft NT/ND. +BS in all 4 Qs. No masses noted. MUSCULOSKELETAL: Normal range of motion at all joints. No bony deformities or tenderness. No CVA tenderness. UPPER EXTREMITIES: 2+ pulses, warm, well-perfused. No cyanosis. No clubbing. No peripheral edema. LOWER EXTREMITIES: 2+ pulses, warm, well-perfused. No calf tenderness. No peripheral edema. NEUROLOGICAL: Responds to commands. Normal speech. SKIN: Warm, dry, normal turgor, no rashes or lesions noted, normal capillary refill. Euvolemic. Laboratory Results - last 24 hr 07/24/18 07/24/18 19:17 19:17 WBC 5.4 RBC 4.34 Hgb 13.3 Hct 38.3 MCV 88.1 MCH 30.7 MCHC 34.8 RDW 14.4 Plt Count 183 MPV 9.6 Absolute Neuts (auto) 3.6 Neutrophils % 66.8 D Lymphocytes % 25.1 D Monocytes % 7.0 Eosinophils % 0.5 Basophils % 0.6 Nucleated RBC % 0 Sodium 127 L Potassium 3.4 L Chloride 90 L Carbon Dioxide 26 Anion Gap 11 BUN 11 Creatinine 0.8 Creat Clearance w eGFR > 60 Random Glucose 106 Calcium 9.0 Troponin I < 0.02 CONSULT: Cardio- Dr. Gracia IMAGING: * CXR: pending * EKG: NSR. HR 81, QTc 469ms ASSESSMENT/PLAN: 73F w/ pmhx of HTN, HLD, GERD, migraines, restless legs presented to the ED with a 2 week history of chest pain. #Chest pain; r/o ACS, vs. costochondritis -Initial trops neg, repeat trops -Echo ordered -Cardio consult ordered - #Hyponatremia; likely 2/2 polydipsia and chlorthalidone use -Pt currently drinks about 8 bottles of water a day and currently uses chlorthalidone. She was previously worked up 11/2017 and was found to be hyponatremic due to excessive water intake and diuretic use. Will obtain additional studies for workup. -Uosm, Sosm ordered; will assess if pt needs IVf depending on hyponatremia work up -Hold home diuretic -Limit PO fluid intake to 3L -Process Improvement Analyst pt to limit PO fluid in take daily #HTN Cont home med: Toprol XL 50 QD #HLD Cont home med equivalent: Lipitor 10 HS #Chronic Allergy Cont home med equivalent: Claritin 10 QD #GERD Cont home med equivalent: Zantac 300 HS #Prophylaxis -Lovenox 40 -Zantac 300 HS #FEN -PO hydration, 3L -recheck lytes (Na) in AM -fat/sodium-controlled diet dispo -Admit to tele inpt -full code -meds have been reconciled Visit type - Emergency Visit Emergency Visit: Yes ED Registration Date: 07/25/18 Care time: The patient presented to the Emergency Department on the above date and was hospitalized for further evaluation of their emergent condition. - New Patient This patient is new to me today: Yes Date on this admission: 07/26/18 - Critical Care Critical Care patient: No
--- NOTE | 2018-07-25 00:07 | PN ---
Teaching Attending Note Name of Resident: Елена Quezada ATTENDING PHYSICIAN STATEMENT I saw and evaluated the patient. I reviewed the resident's note and discussed the case with the resident. I agree with the resident's findings and plan as documented. SUBJECTIVE: Seen and examined; please see resident documentation for further historical information. Briefly, this is a 73 y/o female with PMH as documented presenting with several complaints today. The first is atypical chest pain; L- sided in nature and has been waxing and waning for 2 weeks but is worse over the past day so she chose to come in. Some radiation to L-arm but the pain is very reproducible. EKG w/o significant changes as well as negative initial troponin. Chest pain free when I saw her. She doesn't appear uncomfortable. She also complains of L-lower back pain around the paraspinal muscles; no red flag signs, can ambulate, etc. Thirdly, she complains that she thinks she had an allergic rxn to her venlafaxine; she has been on it for some time but had some itchyness and it felt like her throat was tingling earlier. Sx resolved and absolutely no signs of anaphylactic or anaphylactoid reaction, appearing normal. She is on chronic allergy medication. Finally, she is found to be hyponatremic. Was seen for this last year and it was felt to be 2/2 her chlorthaladone and too much water consumption; she was counseled at that time on how much to drink and her diuretic was discontinued. She continues to take the diuretic and drinks eight 16-20 oz bottles of water daily. Placing on telemetry. She does have a chalk extruding machine operator who is in [place] at [facility] but she does not have his name with her. 10 sys ROS done and negative aside from HPI PMH, PSH, Family hx, Social hx reviewed Medication list reviewed; pending reconciliation OBJECTIVE: VS, labs, imaging reviewed NAD, AAO, resting comfortably in bed NC AT EOMI PERRLA RRR s1/2 no mgr Lungs CTAB, w/ sym exp NT ND +BS No LE edema, no JVD evident. Appears euvolemic CN2-12 wnl, no fnd Normal mood, appropriate behavior EKG reviewed Echo pending CXR reviewed; no angle acute disease ASSESSMENT AND PLAN: Patient presents for atypical CP, c/o potential allergic rxn, hyponatremia, and back pain. She is hemodynamically stable and afebrile 1) Chest Pain in Adult, r/o ACS -Place on telemetry, trend troponin, check echo (none recent, assess for wma's) . Some of her sx argue against ACS such as reproducibility as well as the time frame of her symptomatology. She is hemodynamically stable. Since her CV is at [facility] will consult their service to see if there are any further recommendations. Appreciate expert opinion. May continue home meds aside from diuretic given #2. 2) Acute Hyponatremia -Likely 2/2 diuretic and increased water intake, much like her last presentation. Checking serum osm, urine osm, and urine Na to better describe then will treat accordingly. Check BID sodium to ensure no overcorrection. Hold her home diuretic 3) Potential Allergic Rxn -No evidence of allergic rxn at this point; has had multiple visits for her concerns for allergies without incident; most recently DCd home by Dr. Amaya several months ago with comment in her note that the patient had negative allergy testing in the past. As she attributes this to her venlafaxine we will hold it and have her closely followup with her primary care doctor for further treatment adjustments 4) Lower Back Pain -No red flag sx. Will have her ambulate with PT, do PRN analgesia. If persists , non-urgent imaging that should likely be obtained on an outpatient basis may be considered. 5) HTN hx -Holding her home diuretic due to hyponatremia; monitor and keep <160 while inpatient. Consider switching up her overall regimine; as we are consulting a chalk extruding machine operator from the [facility] group and her primary CV is with their group, I am inclined to defer the decision to them for tomorrow as her BP is stable now, asx, etc. 6) GERD hx -Continue her home medication 7) RLS -No issues; continue home meds 8) Migraines -No ACOSTA at this juncture; followup with PCP and will manage PRN 9) Bladder mass s/p resection FENA -LR@60cc/hr when NPO -PRN BMP -NPO in case stress test -OOB Full Code
[2018-07-25 01:14] LABS: CHOLESTEROL 130 mg/dL (50-200); HDL CHOLESTEROL 41 mg/dL (40-60); TRIGLYCERIDES 208 mg/dL (0-150)
[2018-07-25 02:03] LABS: OSMOLALITY,SERUM 262 mosm/kg (278-305)
[2018-07-25 06:39] LABS: BASO % 0.8 % (0-2.0); EOS % 2.1 % (0-4.5); HEMATOCRIT 34.5 % (32.4-45.2); HEMOGLOBIN 12.2 GM/dL (10.7-15.3); LYMPH % 44.9 % (8-40); MCH 30.1 pg (25.7-33.7); MCHC 35.2 g/dl (32.0-36.0); MEAN CELL VOLUME 85.5 fl (80-96); MEAN PLT VOLUME 9.6 fl (7.5-11.1); MONO % 10.8 % (3.8-10.2); NEUT % 41.4 % (42.8-82.8); PLATELET COUNT 167 K/MM3 (134-434); RBC 4.04 M/mm3 (3.60-5.2); RDW 14.2 % (11.6-15.6); WHITE BLOOD COUNT 4.3 K/mm3 (4.0-10.0)
[2018-07-25 07:30] LABS: ALBUMIN 3.8 g/dl (3.4-5.0); ALK PHOS 98 U/L (45-117); ANION GAP 8 MMOL/L (8-16); BILIRUBIN,TOTAL 0.8 mg/dL (0.2-1); BLOOD UREA NITROGEN 9 mg/dL (7-18); CALCIUM 8.9 mg/dL (8.5-10.1); CHLORIDE 94 mmol/L (98-107); CO2 28 mmol/L (21-32); CREATININE 0.7 mg/dL (0.55-1.3); GLUCOSE,RANDOM 86 mg/dL (74-106); POTASSIUM 3.2 mmol/L (3.5-5.1); SGOT/AST 15 U/L (15-37); SGPT/ALT 18 U/L (13-61); SODIUM 129 mmol/L (136-145); TOT PROT 6.7 g/dl (6.4-8.2)
[2018-07-25 07:56] LABS: MAGNESIUM 1.9 mg/dL (1.8-2.4)
[2018-07-25] MEDS ORDERED: POTASSIUM CHLORIDE TABS 20 MEQ TABLET.ER (FP) PO ONE ×2 (08:30→16:00)
[2018-07-25] MEDS: LISINOPRIL 20 MG TABLET (FP) PO SCH (09:39)
[2018-07-25] MEDS: ASPIRIN 81 MG CHEWABLE TABLETS PO SCH (09:39)
[2018-07-25] MEDS: ENOXAPARIN NA (PORCINE) 40 MG/0.4 ML DISP.SYRIN SQ SCH (09:39)
[2018-07-25] MEDS: LORATADINE 10 MG TABLET PO SCH (09:39)
--- NOTE | 2018-07-25 09:43 | CON.CARD ---
Consult Consult Specialty:: Cardiology - History of Present Illness Chief Complaint: chest pain History of Present Illness: The patient is a 73 year old female with a past medical history of HTN, HLD, GERD, migraines, UTI, and restless leg syndrome who presents to the emergency department for evaluation of chest pain. The patient reports a 3 day history of chest pain, described as substernal radiating to the left arm with associated headache and paresthesia to upper extremities. Patient describes her headache as pounding, preventing her from sleeping. She describes her chest pain as intermittent, but notes her chest pain yesterday was constant, sharp and stabbing in nature. She states takes aspirin daily. The patient denies palpitations, shortness of breath, dizziness, fevers, chills , nausea, vomiting, diarrhea, constipation, and any urinary symptoms. Allergies: Penicillins, keflex, histamines Social History: No reported alcohol, cigarette, or drug use. Surgical History: bladder resection, total hysterectomy - History Source History Provided By: Patient, Medical Record - Alcohol/Substance Use Hx Alcohol Use: No - Smoking History Smoking history: Never smoked Have you smoked in the past 12 months: No Home Medications - Allergies Allergies/Adverse Reactions: Allergies Allergy/AdvReac Type Severity Reaction Status Date / Time Penicillins Allergy Verified 07/24/18 19:54 histamine Allergy Uncoded 07/24/18 19:54 - Home Medications Home Medications: Ambulatory Orders Famotidine [Pepcid] 40 mg PO HS 12/23/17 Metoprolol Succinate [Toprol Xl] 50 mg PO DAILY 12/23/17 Pitavastatin Calcium [Livalo] 2 mg PO DAILY 12/23/17 Aspirin [ASA -] 81 mg PO DAILY 07/24/18 Chlorthalidone 25 mg PO DAILY 07/24/18 Levocetirizine Dihydrochloride [Allergy Relief] 5 mg PO DAILY 07/24/18 Lisinopril [Prinivil -] 40 mg PO DAILY 07/24/18 Montelukast Na [Singulair -] 10 mg PO DAILY 07/24/18 Venlafaxine HCl ER [Effexor Xr -] 37.5 mg PO HS 07/24/18 Review of Systems - Review of Systems Constitutional: reports: No Symptoms Eyes: reports: No Symptoms HENT: reports: No Symptoms Neck: reports: No Symptoms Cardiovascular: reports: No Symptoms, Chest Pain Gastrointestinal: reports: No Symptoms Genitourinary: reports: No Symptoms Breasts: reports: No Symptoms Reported Musculoskeletal: reports: No Symptoms Integumentary: reports: No Symptoms Neurological: reports: No Symptoms Endocrine: reports: No Symptoms Hematology/Lymphatic: reports: No Symptoms Psychiatric: reports: No Symptoms Vital Signs: Vital Signs Temperature 98.4 F 07/24/18 18:23 Pulse Rate 64 07/25/18 07:27 Respiratory Rate 17 07/25/18 07:27 Blood Pressure 135/65 07/25/18 07:27 O2 Sat by Pulse Oximetry (%) 99 07/25/18 07:27 Constitutional: Yes: Well Nourished, No Distress, Calm Eyes: Yes: WNL, Conjunctiva Clear, EOM Intact HENT: Yes: WNL, Atraumatic, Normocephalic Neck: Yes: WNL, Supple, Trachea Midline Respiratory: Yes: WNL, Regular, CTA Bilaterally Gastrointestinal: Yes: WNL, Normal Bowel Sounds Renal/: Yes: WNL Cardiovascular: Yes: WNL, Regular Rate and Rhythm Musculoskeletal: Yes: WNL Extremities: Yes: WNL Integumentary: Yes: WNL Neurological: Yes: WNL, Alert, Oriented ...Motor Strength: WNL Psychiatric: Yes: WNL, Alert, Oriented - Other Data Labs, Other Data: CBC, BMP 07/25/18 05:30 07/25/18 05:30 Troponin, BNP 07/24/18 07/25/18 19:17 05:30 Troponin I < 0.02 0.03 Troponin, BNP 07/24/18 07/25/18 19:17 05:30 Troponin I < 0.02 0.03 Imaging - Results Chest X-ray: Image Reviewed (no i/e) EKG: Image Reviewed (sr rep abn) Problem List - Problems (1) Allergic reaction caused by a drug Code(s): T78.40XA - ALLERGY, UNSPECIFIED, INITIAL ENCOUNTER (2) Atypical chest pain Code(s): R07.89 - OTHER CHEST PAIN (3) Chest pain Code(s): R07.9 - CHEST PAIN, UNSPECIFIED Qualifiers: Chest pain type: unspecified Qualified Code(s): R07.9 - Chest pain, unspecified (4) Constipation Code(s): K59.00 - CONSTIPATION, UNSPECIFIED Qualifiers: Constipation type: unspecified constipation type Qualified Code(s): K59.00 - Constipation, unspecified (5) Cystadenocarcinoma Code(s): C80.1 - MALIGNANT (PRIMARY) NEOPLASM, UNSPECIFIED (6) Decreased appetite Code(s): R63.0 - ANOREXIA (7) External hemorrhoids Code(s): K64.4 - RESIDUAL HEMORRHOIDAL SKIN TAGS (8) Headache Code(s): R51 - HEADACHE Qualifiers: Headache type: tension-type Headache chronicity pattern: unspecified pattern Intractability: not intractable Qualified Code(s): G44.209 - Tension -type headache, unspecified, not intractable (9) Hyponatremia Code(s): E87.1 - HYPO-OSMOLALITY AND HYPONATREMIA (10) Hypothyroid Code(s): E03.9 - HYPOTHYROIDISM, UNSPECIFIED (11) Increased urinary frequency Code(s): R35.0 - FREQUENCY OF MICTURITION (12) Intractable abdominal pain Code(s): R10.9 - UNSPECIFIED ABDOMINAL PAIN (13) Itching Code(s): L29.9 - PRURITUS, UNSPECIFIED (14) Medication side effect Code(s): T88.7XXA - UNSP ADVERSE EFFECT OF DRUG OR MEDICAMENT, INIT ENCNTR (15) Migraine Code(s): G43.909 - MIGRAINE, UNSP, NOT INTRACTABLE, WITHOUT STATUS MIGRAINOSUS (16) Migraine 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 headache Code(s): G43.109 - MIGRAINE WITH AURA, NOT INTRACTABLE, W/O STATUS MIGRAINOSUS (17) Pyelonephritis Code(s): N12 - TUBULO-INTERSTITIAL NEPHRITIS, NOT SPCF ACUTE OR CHRONIC (18) Restless leg syndrome Code(s): G25.81 - RESTLESS LEGS SYNDROME (19) UTI (urinary tract infection) Code(s): N39.0 - URINARY TRACT INFECTION, SITE NOT SPECIFIED Qualifiers: Urinary tract infection type: acute cystitis Hematuria presence: with hematuria Qualified Code(s): N30.01 - Acute cystitis with hematuria Assessment/Plan cp sx r/o mi neg hyponatremia HLD, GERD, migraines, UTI, and restless leg syndrome Plan telemetry echo dvt plx cont asa mibi st when stable
--- NOTE | 2018-07-25 09:45 | EKG ---
Test Reason : Blood Pressure : / mmHG Vent. Rate : 081 BPM Atrial Rate : 081 BPM P-R Int : 156 ms QRS Dur : 102 ms QT Int : 404 ms P-R-T Axes : 046 -32 062 degrees QTc Int : 469 ms POOR DATA QUALITY, INTERPRETATION MAY BE ADVERSELY AFFECTED NORMAL SINUS RHYTHM LEFT AXIS DEVIATION ABNORMAL ECG WHEN COMPARED WITH ECG OF 29-MAR-2018 00:28, NO SIGNIFICANT CHANGE WAS FOUND Confirmed by JOSE FREGOSO, MATILDA ([id number]) on 07/25/2018 9:45:12 AM Referred By: Confirmed By:MATILDA GARCIA MD
--- NOTE | 2018-07-25 12:48 | ECHO ---
Name: ESMER WALLACE Exam:Adult Echocardiogram Study Date: 07/25/2018 09:04 AM Age: 73 yrs Reason For Study: R/O ACS Height: 63 in Weight: 146 lb BSA: 1.7 m2 MMode/2D Measurements & Calculations IVSd: 0.79 cm Ao root diam: 3.1 cm LVIDd: 4.3 cm LA dimension: 3.7 cm LVIDs: 2.7 cm ACS: 1.8 cm LVPWd: 0.73 cm IVSs: 1.1 cm LVPWs: 1.1 cm EDV(Teich): 83.7 ml ESV(Teich): 27.3 ml Doppler Measurements & Calculations MV E max chantal: 58.7 cm/sec Ao V2 max: 112.5 cm/sec MV A max chantal: 84.4 cm/sec Ao max P.1 mmHg MV E/A: 0.70 TR max chantal: 211.7 cm/sec PI end-d chantal: 78.0 cm/sec TR max P.9 mmHg Med Peak E' Chantal: 4.0 cm/sec Med E/e': 14.7 Lat Peak E' Chantal: 6.3 cm/sec Lat E/e': 9.3 Procedure A two-dimensional transthoracic echocardiogram with color flow and Doppler was performed. The study w as technically difficult with many images being suboptimal in quality. Left Ventricle The left ventricular size, thickness and function are normal. The left ventricular ejection fraction is normal. E/A reversal consistent with but not diagnostic of poor LV compliance. Regional wall motion abnormalities cannot be excluded due to limited visualization. Right Ventricle The right ventricle is not well visualized. Atria Normal left and right atrial size and function. Mitral Valve There is mild mitral valve thickening. There is no mitral valve stenosis. There is mild mitral regurg itation. Tricuspid Valve There is mild tricuspid valve thickening. There is no tricuspid stenosis. There is moderate tricuspid regurgitation. Right ventricular systolic pressure is normal. Aortic Valve The aortic valve is not well visualized. Hemodynamically significant valvular aortic stenosis cannot be excluded. No aortic regurgitation is present. Pulmonic Valve The pulmonic valve is not well visualized. There is no pulmonic valvular stenosis. Mild pulmonic valv ular regurgitation. Great Vessels The aortic root is normal size. Pericardium/Pleura There is no pericardial effusion. Interpretation Summary The left ventricular size, thickness and function are normal The left ventricular ejection fraction is normal. There is moderate tricuspid regurgitation. Right ventricular systolic pressure is normal. E/A reversal consistent with but not diagnostic of poor LV compliance The study was technically difficult with many images being suboptimal in quality. Regional wall motion abnormalities cannot be excluded due to limited visualization. There is mild mitral regurgitation. MD Eze Gracia 07/25/2018 12:47 PM
[2018-07-25 13:19] LABS: ANION GAP 9 MMOL/L (8-16); BLOOD UREA NITROGEN 9 mg/dL (7-18); CALCIUM 8.7 mg/dL (8.5-10.1); CHLORIDE 98 mmol/L (98-107); CO2 26 mmol/L (21-32); CREATININE 0.7 mg/dL (0.55-1.3); GLUCOSE,RANDOM 88 mg/dL (74-106); POTASSIUM 4.1 mmol/L (3.5-5.1); SODIUM 133 mmol/L (136-145)
--- NOTE | 2018-07-25 15:17 | PN ---
Physical Exam: SUBJECTIVE: Patient seen and examined at bedside. no acute events since admission. pt still c/o cp, mildly improved. denies fever, chills, throat swelling, sob, n/v/d, urinary sxs, sweating, rashes. pt says she stopped taking diuretics 1 mo ago OBJECTIVE: Vital Signs Period Temp Pulse Resp BP Sys/Youssef Pulse Ox Last 24 Hr 97.8 F-98.4 F 63-93 16-18 112-147/65-82 96-99 GENERAL: Italian-speaking. Awake, alert, and fully oriented, in no acute distress. Resting comfortably, pleasant female. HEENT: AT/NC. EOMI. YANCI. Moist mucus membranes. No mouth swelling. NECK: Normal range of motion, supple without lymphadenopathy, JVD, or masses. LUNGS: CTA B/L. No wheezes noted. No accessory muscle use noted. Speaks in complete sentences. HEART: Regular rate and rhythm, normal S1 and S2 without murmur, rub or gallop. +Reproducible chest tenderness. ABDOMEN: Soft NT/ND. +BS in all 4 Qs. No masses noted. MUSCULOSKELETAL: Normal range of motion at all joints. No bony deformities or tenderness. No CVA tenderness. UPPER EXTREMITIES: 2+ pulses, warm, well-perfused. No cyanosis. No clubbing. No peripheral edema. LOWER EXTREMITIES: 2+ pulses, warm, well-perfused. No calf tenderness. No peripheral edema. NEUROLOGICAL: Responds to commands. Normal speech. sensation strength intact SKIN: Warm, dry, normal turgor, no rashes or lesions noted, normal capillary refill. Euvolemic. Laboratory Results - last 24 hr 07/24/18 07/24/18 07/25/18 19:17 19:17 00:35 WBC 5.4 RBC 4.34 Hgb 13.3 Hct 38.3 MCV 88.1 MCH 30.7 MCHC 34.8 RDW 14.4 Plt Count 183 MPV 9.6 Absolute Neuts (auto) 3.6 Neutrophils % 66.8 D Lymphocytes % 25.1 D Monocytes % 7.0 Eosinophils % 0.5 Basophils % 0.6 Nucleated RBC % 0 ESR Sodium 127 L Potassium 3.4 L Chloride 90 L Carbon Dioxide 26 Anion Gap 11 BUN 11 Creatinine 0.8 Creat Clearance w eGFR > 60 Random Glucose 106 Serum Osmolality 262 L Calcium 9.0 Magnesium Total Bilirubin AST ALT Alkaline Phosphatase Creatine Kinase Troponin I < 0.02 C-Reactive Protein < 0.3 Total Protein Albumin Triglycerides Cholesterol Total LDL Cholesterol HDL Cholesterol Vitamin B12 TSH 07/25/18 07/25/18 07/25/18 00:35 00:35 00:35 WBC RBC Hgb Hct MCV MCH MCHC RDW Plt Count MPV Absolute Neuts (auto) Neutrophils % Lymphocytes % Monocytes % Eosinophils % Basophils % Nucleated RBC % ESR 6 Sodium Potassium Chloride Carbon Dioxide Anion Gap BUN Creatinine Creat Clearance w eGFR Random Glucose Serum Osmolality Calcium Magnesium Total Bilirubin AST ALT Alkaline Phosphatase Creatine Kinase Troponin I C-Reactive Protein Total Protein Albumin Triglycerides 208 H Cholesterol 130 Total LDL Cholesterol 89 HDL Cholesterol 41 Vitamin B12 316 TSH 2.29 07/25/18 07/25/18 07/25/18 05:30 05:30 12:00 WBC 4.3 RBC 4.04 Hgb 12.2 Hct 34.5 MCV 85.5 MCH 30.1 MCHC 35.2 RDW 14.2 Plt Count 167 MPV 9.6 Absolute Neuts (auto) 1.8 Neutrophils % 41.4 L D Lymphocytes % 44.9 H D Monocytes % 10.8 H Eosinophils % 2.1 D Basophils % 0.8 Nucleated RBC % 0 ESR Sodium 129 L 133 L Potassium 3.2 L 4.1 Chloride 94 L 98 Carbon Dioxide 28 26 Anion Gap 8 9 BUN 9 9 Creatinine 0.7 0.7 Creat Clearance w eGFR > 60 > 60 Random Glucose 86 88 Serum Osmolality Calcium 8.9 8.7 Magnesium 1.9 Total Bilirubin 0.8 AST 15 ALT 18 Alkaline Phosphatase 98 Creatine Kinase 125 133 Troponin I 0.03 < 0.02 C-Reactive Protein Total Protein 6.7 Albumin 3.8 Triglycerides Cholesterol Total LDL Cholesterol HDL Cholesterol Vitamin B12 TSH Active Medications Generic Name Dose Route Start Last Admin Trade Name Freq PRN Reason Stop Dose Admin Aspirin 81 mg 07/25/18 10:00 07/25/18 09:39 Asa - PO 81 mg DAILY [facility] Administration Atorvastatin Calcium 10 mg 07/25/18 22:00 Lipitor - PO HS RICARDO Enoxaparin Sodium 40 mg 07/25/18 10:00 07/25/18 09:39 Lovenox - SQ 40 mg DAILY RIC[facility]O Administration Lisinopril 40 mg 07/25/18 10:00 07/25/18 09:39 Prinivil PO 40 mg DAILY R[facility] Administration Loratadine 10 mg 07/25/18 10:00 07/25/18 09:39 Claritin - PO 10 mg DAILY R[facility]O Administration Metoprolol Succinate 50 mg 07/25/18 10:00 07/25/18 09:39 Toprol Xl - PO 50 mg DAILY RICARDO Administration Montelukast Sodium 10 mg 07/25/18 22:00 Singulair - PO HS RICARDO Potassium Chloride 40 meq 07/25/18 16:00 K-Dur - PO 07/25/18 16:01 ONCE ONE Ranitidine HCl 300 mg 07/25/18 22:00 Zantac - PO HS RICARDO ECHO:07/25/2018 12:47 PM Interpretation Summary: The left ventricular size, thickness and function are normal The left ventricular ejection fraction is normal. There is moderate tricuspid regurgitation. Right ventricular systolic pressure is normal. E/A reversal consistent with but not diagnostic of poor LV compliance The study was technically difficult with many images being suboptimal in quality. Regional wall motion abnormalities cannot be excluded due to limited visualization. There is mild mitral regurgitation. ASSESSMENT/PLAN: 73F w/ pmhx of HTN, HLD, GERD, migraines, restless legs presented to the ED with a 2 week history of chest pain. #Chest pain; r/o ACS, vs. costochondritis - EKG showed NSR, HR 81, QTc 469 ms ( unchanged from 04/15). trops neg x3. CXR nl -Echo 07/25/18: nl EF, suboptimal study, E/A reversal consistent with but not diagnostic of poor LV compliance, Regional wall motion abnormalities cannot be excluded due to limited visualization -Cardio consult -mibi st when stable -Lipids - elevated trig 208 -f/u A1c -ESR/CRP nl #moderate Hyponatremia (Na 127) likely 2/2 polydipsia. - improving. 127...129...133 -Pt currently drinks about 8 bottles of water a day. She was previously worked up 11/2017 and was found to be hyponatremic due to excessive water intake and HCTZ/diuretic use. Pt was taking chlorthalidone and is on med list but says she stopped taking chlorthalidone 1 mo ago, per PCP instructions. -Sosm 262 ordered -f/u Uosm, U Na -Hold home diuretic -Limit PO fluid intake to 1.5L -Eating Disorder Specialist pt to limit PO fluid in take daily -monitor BMP -TSH nl #HTN Cont home med: Toprol XL 50 QD #HLD Cont home med equivalent: Lipitor 10 HS #Chronic Allergy Cont home med equivalent: Claritin 10 QD #GERD Cont home med equivalent: Zantac 300 HS #Prophylaxis -Lovenox 40 -Zantac 300 HS #FEN -PO hydration, <1.5L -replete prn, monitor Na -fat/sodium-controlled diet dispo -tele inpt -full code -meds have been reconciled Visit type - Emergency Visit Emergency Visit: Yes ED Registration Date: 07/25/18 Care time: The patient presented to the Emergency Department on the above date and was hospitalized for further evaluation of their emergent condition. - New Patient This patient is new to me today: Yes Date on this admission: 07/25/18 - Critical Care Critical Care patient: No
--- NOTE | 2018-07-25 18:01 | PN ---
Teaching Attending Note Name of Resident: Keyshawn Melendez ATTENDING PHYSICIAN STATEMENT I saw and evaluated the patient. I reviewed the resident's note and discussed the case with the resident. I agree with the resident's findings and plan as documented. SUBJECTIVE: Multiple complaints of body pains that are non-specific. No further chest pain. OBJECTIVE: Afebrile, Hemodynamically Stable. Last Vital Signs Temp Pulse Resp BP Pulse Ox 97.8 F 67 16 112/71 98 07/25/18 09:40 07/25/18 10:45 07/25/18 10:45 07/25/18 10:45 07/25/18 10:45 HEENT -Atrauamatic, Nromocephalic. Heart - S1, S2, RRR Lungs - clear to auscultation Abdomen - Soft, non-tender. Bowel Sounds normal. Extremities - no edema. No calf tenderness. Laboratory Results - last 24 hr 07/24/18 07/24/18 07/25/18 19:17 19:17 00:35 WBC 5.4 RBC 4.34 Hgb 13.3 Hct 38.3 MCV 88.1 MCH 30.7 MCHC 34.8 RDW 14.4 Plt Count 183 MPV 9.6 Absolute Neuts (auto) 3.6 Neutrophils % 66.8 D Lymphocytes % 25.1 D Monocytes % 7.0 Eosinophils % 0.5 Basophils % 0.6 Nucleated RBC % 0 ESR Sodium 127 L Potassium 3.4 L Chloride 90 L Carbon Dioxide 26 Anion Gap 11 BUN 11 Creatinine 0.8 Creat Clearance w eGFR > 60 Random Glucose 106 Serum Osmolality 262 L Calcium 9.0 Magnesium Total Bilirubin AST ALT Alkaline Phosphatase Creatine Kinase Troponin I < 0.02 C-Reactive Protein < 0.3 Total Protein Albumin Triglycerides Cholesterol Total LDL Cholesterol HDL Cholesterol Vitamin B12 TSH 07/25/18 07/25/18 07/25/18 00:35 00:35 00:35 WBC RBC Hgb Hct MCV MCH MCHC RDW Plt Count MPV Absolute Neuts (auto) Neutrophils % Lymphocytes % Monocytes % Eosinophils % Basophils % Nucleated RBC % ESR 6 Sodium Potassium Chloride Carbon Dioxide Anion Gap BUN Creatinine Creat Clearance w eGFR Random Glucose Serum Osmolality Calcium Magnesium Total Bilirubin AST ALT Alkaline Phosphatase Creatine Kinase Troponin I C-Reactive Protein Total Protein Albumin Triglycerides 208 H Cholesterol 130 Total LDL Cholesterol 89 HDL Cholesterol 41 Vitamin B12 316 TSH 2.29 07/25/18 07/25/1819 05:30 05:30 12:00 WBC 4.3 RBC 4.04 Hgb 12.2 Hct 34.5 MCV 85.5 MCH 30.1 MCHC 35.2 RDW 14.2 Plt Count 167 MPV 9.6 Absolute Neuts (auto) 1.8 Neutrophils % 41.4 L D Lymphocytes % 44.9 H D Monocytes % 10.8 H Eosinophils % 2.1 D Basophils % 0.8 Nucleated RBC % 0 ESR Sodium 129 L 133 L Potassium 3.2 L 4.1 Chloride 94 L 98 Carbon Dioxide 28 26 Anion Gap 8 9 BUN 9 9 Creatinine 0.7 0.7 Creat Clearance w eGFR > 60 > 60 Random Glucose 86 88 Serum Osmolality Calcium 8.9 8.7 Magnesium 1.9 Total Bilirubin 0.8 AST 15 ALT 18 Alkaline Phosphatase 98 Creatine Kinase 125 133 Troponin I 0.03 < 0.02 C-Reactive Protein Total Protein 6.7 Albumin 3.8 Triglycerides Cholesterol Total LDL Cholesterol HDL Cholesterol Vitamin B12 TSH Current Medications Generic Name Dose Route Start Last Admin Trade Name Giacomoq PRN Reason Stop Dose Admin Aspirin 81 mg 07/25/18 10:00 07/25/18 09:39 Asa - PO 81 mg DAILY [facility] Administration Atorvastatin Calcium 10 mg 07/25/18 22:00 Lipitor - PO [facility] Enoxaparin Sodium 40 mg 07/25/18 10:00 07/25/18 09:39 Lovenox - SQ 40 mg DAILY [facility] Administration Lisinopril 40 mg 07/25/18 10:00 07/25/18 09:39 Prinivil PO 40 mg DAILY [facility] Administration Loratadine 10 mg 07/25/18 10:00 07/25/18 09:39 Claritin - PO 10 mg DAILY [facility] Administration Metoprolol Succinate 50 mg 07/25/18 10:00 07/25/18 09:39 Toprol Xl - PO 50 mg DAILY [facility] Administration Montelukast Sodium 10 mg 07/25/18 22:00 Singulair - PO [facility] Ranitidine HCl 300 mg 07/25/18 22:00 Zantac - PO [facility] Home Medications Medication Instructions Recorded Famotidine [Pepcid] 40 mg PO HS 12/23/17 Metoprolol Succinate [Toprol Xl] 50 mg PO DAILY 12/23/17 Pitavastatin Calcium [Livalo] 2 mg PO DAILY 12/23/17 Aspirin [ASA -] 81 mg PO DAILY 07/24/18 Levocetirizine Dihydrochloride 5 mg PO DAILY 07/24/18 [Allergy Relief] Lisinopril [Prinivil -] 40 mg PO DAILY 07/24/18 Montelukast Na [Singulair -] 10 mg PO DAILY 07/24/18 Venlafaxine HCl ER [Effexor Xr -] 37.5 mg PO HS 07/24/18 ASSESSMENT AND PLAN: . 73 year old female with Asthma, HLD, HTN, GERD, RLS, GERD, Migraine, Bladder Mass s/p resection, presents with multiple complaints of myalgias including chest pain, worse on exertion. 1. Chest Pain, possible ischemia - pain free now Troponin neg x 3. No acute ECG changes Echo - normal, moderate TR. Evaluated by Cardiology Continue Aspirin, BB, GIOVANNY-I, Statin NM Stress in AM. 2. Hyponatremia - chronic - secondary to polydipsia Serum Osmo 262 Na improving on fluid restriction. Patient counselled. 3. HTN - Continue Metoprolol, Lisinopril. Previously on Chlorthalidone - stopped 1 month ago. 4. Depression - normally on Venlafaxine. 5. GERD - Continue H2 clem 6. Borderline B12 level - will send MMA. H/H wnl, normocytic. DVT Px - Lovenox SQ
[2018-07-25 19:02] VITALS: BMI 25.8
[2018-07-25] MEDS ORDERED: MONTELUKAST NA 10 MG TABLET PO SCH (22:00)
[2018-07-25] MEDS ORDERED: RANITIDINE HCL 150 MG TABLET (FP) PO SCH (22:00)
[2018-07-25] MEDS ORDERED: ATORVASTATIN CA 10 MG TABLET (FP) PO SCH (22:00)
[2018-07-26 07:09] LABS: ANION GAP 6 MMOL/L (8-16); BLOOD UREA NITROGEN 16 mg/dL (7-18); CALCIUM 8.3 mg/dL (8.5-10.1); CHLORIDE 106 mmol/L (98-107); CO2 26 mmol/L (21-32); CREATININE 0.8 mg/dL (0.55-1.3); GLUCOSE,RANDOM 90 mg/dL (74-106); POTASSIUM 3.9 mmol/L (3.5-5.1); SODIUM 137 mmol/L (136-145)
--- NOTE | 2018-07-26 08:42 | PN ---
Progress Note, Physician History of Present Illness: The patient is a 73 year old female with a past medical history of HTN, HLD, GERD, migraines, UTI, and restless leg syndrome who presents to the emergency department for evaluation of chest pain. The patient reports a 3 day history of chest pain, described as substernal radiating to the left arm with associated headache and paresthesia to upper extremities. Patient describes her headache as pounding, preventing her from sleeping. She describes her chest pain as intermittent, but notes her chest pain yesterday was constant, sharp and stabbing in nature. She states takes aspirin daily. The patient denies palpitations, shortness of breath, dizziness, fevers, chills , nausea, vomiting, diarrhea, constipation, and any urinary symptoms. Allergies: Penicillins, keflex, histamines Social History: No reported alcohol, cigarette, or drug use. Surgical History: bladder resection, total hysterectomy PCP: Dr. Coy ([place]) - Current Medication List Current Medications: Active Medications Aspirin (Asa -) 81 mg PO DAILY REPLACED BY [facility] Last Admin: 07/25/18 09:39 Dose: 81 mg Atorvastatin Calcium (Lipitor -) 10 mg PO [facility] Last Admin: 07/25/18 21:26 Dose: 10 mg Enoxaparin Sodium (Lovenox -) 40 mg SQ DAILY REPLACED BY [facility] Last Admin: 07/25/18 09:39 Dose: 40 mg Lisinopril (Prinivil) 40 mg PO DAILY REPLACED BY [facility] Last Admin: 07/25/18 09:39 Dose: 40 mg Loratadine (Claritin -) 10 mg PO DAILY REPLACED BY [facility] Last Admin: 07/25/18 09:39 Dose: 10 mg Metoprolol Succinate (Toprol Xl -) 50 mg PO DAILY REPLACED BY [facility] Last Admin: 07/25/18 09:39 Dose: 50 mg Montelukast Sodium (Singulair -) 10 mg PO [facility] Last Admin: 07/25/18 21:26 Dose: 10 mg Ranitidine HCl (Zantac -) 300 mg PO [facility] Last Admin: 07/25/18 21:26 Dose: 300 mg - Objective Vital Signs: Vital Signs Temperature 98.6 F 07/26/18 08:12 Pulse Rate 60 07/26/18 08:12 Respiratory Rate 18 07/26/18 08:12 Blood Pressure 100/60 07/26/18 08:12 O2 Sat by Pulse Oximetry (%) 98 07/26/18 04:00 Labs: CBC, BMP 07/25/18 05:30 07/26/18 05:30
[2018-07-26 09:00] LABS: TRIGLYCERIDES 220 mg/dL (0-150)
[2018-07-26] MEDS ORDERED: REGADENOSON 0.4 MG/5 ML PRE-FILLED SYRINGE IVPUSH ONE ×2 (10:28→10:45)
--- NOTE | 2018-07-26 11:38 | PN ---
Teaching Attending Note Name of Resident: Keyshawn Melendez ATTENDING PHYSICIAN STATEMENT I saw and evaluated the patient. I reviewed the resident's note and discussed the case with the resident. I agree with the resident's findings and plan as documented. SUBJECTIVE: No further chest pain. OBJECTIVE: Afebrile, Hemodynamically Stable. Last Vital Signs Temp Pulse Resp BP Pulse Ox 98.6 F 60 18 100/60 98 07/26/18 08:12 07/26/18 08:12 07/26/18 08:12 07/26/18 08:12 07/26/18 04:00 HEENT -Atrauamatic, Nromocephalic. Heart - S1, S2, RRR Lungs - clear to auscultation Abdomen - Soft, non-tender. Bowel Sounds normal. Extremities - no edema. No calf tenderness.. Laboratory Results - last 24 hr 07/25/18 07/26/18 07/26/18 12:00 05:30 05:30 Sodium 133 L 137 Potassium 4.1 3.9 Chloride 98 106 Carbon Dioxide 26 26 Anion Gap 9 6 L BUN 9 16 Creatinine 0.7 0.8 Creat Clearance w eGFR > 60 > 60 Random Glucose 88 90 Hemoglobin A1c % 5.6 Calcium 8.7 8.3 L Creatine Kinase 133 Troponin I < 0.02 Triglycerides 220 H Current Medications Generic Name Dose Route Start Last Admin Trade Name Giacomoq PRN Reason Stop Dose Admin Aspirin 81 mg 07/25/18 10:00 07/25/18 09:39 Asa - PO 81 mg DAILY [facility] Administration Atorvastatin Calcium 10 mg 07/25/18 22:00 07/25/18 21:26 Lipitor - PO 10 mg HS RICARDO Administration Enoxaparin Sodium 40 mg 07/25/18 10:00 07/25/18 09:39 Lovenox - SQ 40 mg DAILY [facility] Administration Lisinopril 40 mg 07/25/18 10:00 07/25/18 09:39 Prinivil PO 40 mg DAILY [facility] Administration Loratadine 10 mg 07/25/18 10:00 07/25/18 09:39 Claritin - PO 10 mg DAILY [facility] Administration Metoprolol Succinate 50 mg 07/25/18 10:00 07/25/18 09:39 Toprol Xl - PO 50 mg DAILY [facility] Administration Montelukast Sodium 10 mg 07/25/18 22:00 02/27/19 21:26 Singulair - PO 10 mg HS RICARDO Administration Ranitidine HCl 300 mg 07/25/18 22:00 07/25/18 21:26 Zantac - PO 300 mg HS RICARDO Administration ASSESSMENT AND PLAN: . 73 year old female with Asthma, HLD, HTN, GERD, RLS, GERD, Migraine, Bladder Mass s/p resection, presents with multiple complaints of myalgias including chest pain, worse on exertion. 1. Chest Pain, possible ischemia - pain free now Troponin neg x 3. No acute ECG changes Echo - normal, moderate TR. Evaluated by Cardiology - for NM Stress test today - if negative, can be discharged. Continue Aspirin, BB, GIOVANNY-I, Statin 2. Hyponatremia - chronic - secondary to polydipsia - resolved with fluid restriction - repeat Na 137 Serum Osmo 262 on admission Patient counselled. 3. HTN - Continue Metoprolol, Lisinopril. Previously on Chlorthalidone - stopped 1 month ago. 4. Depression - normally on Venlafaxine. 5. GERD - Continue H2 clem 6. Borderline B12 level - MMA level pending. H/H wnl, normocytic. 7. HLD - elevated TGs - on Statin -for out-patient escalation of anti- Cholesterol therapy. DVT Px - Lovenox SQ
[2018-07-26] MEDS: ENOXAPARIN NA (PORCINE) 40 MG/0.4 ML DISP.SYRIN SQ SCH (14:19)
[2018-07-26] MEDS: LORATADINE 10 MG TABLET PO SCH (14:20)
[2018-07-26] MEDS: ASPIRIN 81 MG CHEWABLE TABLETS PO SCH (14:20)
[2018-07-26] MEDS: LISINOPRIL 20 MG TABLET (FP) PO SCH (14:23)
--- NOTE | 2018-07-26 14:51 | DS ---
Physical Exam: SUBJECTIVE: Patient seen and examined at bedside. no acute events overnight. pt' s cp, much improved. denies fever, chills, throat swelling, sob, n/v/d, urinary sxs, sweating, rashes. pt says she stopped taking diuretics 1 mo ago. pt went for stress test today, which was normal OBJECTIVE: Vital Signs Period Temp Pulse Resp BP Sys/Youssef Pulse Ox Last 24 Hr 98.0 F-99.2 F 60-73 18-20 100-128/50-74 98-98 PHYSICAL EXAM GENERAL: Divehi-speaking. Awake, alert, and fully oriented, in no acute distress. Resting comfortably, pleasant female. HEENT: AT/NC. EOMI. YANCI. Moist mucus membranes. No mouth swelling. NECK: Normal range of motion, supple without lymphadenopathy, JVD, or masses. LUNGS: CTA B/L. No wheezes noted. No accessory muscle use noted. Speaks in complete sentences. HEART: Regular rate and rhythm, normal S1 and S2 without murmur, rub or gallop. +Reproducible chest tenderness. ABDOMEN: Soft NT/ND. +BS in all 4 Qs. No masses noted. MUSCULOSKELETAL: Normal range of motion at all joints. No bony deformities or tenderness. No CVA tenderness. UPPER EXTREMITIES: 2+ pulses, warm, well-perfused. No cyanosis. No clubbing. No peripheral edema. LOWER EXTREMITIES: 2+ pulses, warm, well-perfused. No calf tenderness. No peripheral edema. NEUROLOGICAL: Responds to commands. Normal speech. sensation strength intact SKIN: Warm, dry, normal turgor, no rashes or lesions noted, normal capillary refill. Euvolemic. LABS Laboratory Results - last 24 hr 07/26/18 07/26/18 05:30 05:30 Sodium 137 Potassium 3.9 Chloride 106 Carbon Dioxide 26 Anion Gap 6 L BUN 16 Creatinine 0.8 Creat Clearance w eGFR > 60 Random Glucose 90 Hemoglobin A1c % 5.6 Calcium 8.3 L Triglycerides 220 H ECHO:07/25/2018 12:47 PM Interpretation Summary: The left ventricular size, thickness and function are normal The left ventricular ejection fraction is normal. There is moderate tricuspid regurgitation. Right ventricular systolic pressure is normal. E/A reversal consistent with but not diagnostic of poor LV compliance The study was technically difficult with many images being suboptimal in quality. Regional wall motion abnormalities cannot be excluded due to limited visualization. There is mild mitral regurgitation. EXAM#: TYPE/EXAM: RESULT: [id number] NM/G BABITA MASSIEL 1 DAY* REASON FOR EXAM: chest pain MEDICATIONS: asa, lipitor, toprol GATED STRESS PHARMACOLOGICAL MYOVIEW PERFUSION SCAN-1DAY PROTOCOL. DESCRIPTION OF TEST: Pharmacological stress testing was performed utilizing Lexiscan (Regadenoson) which was infused at a dose of .4mg/5ml; rapidly infused in 10 seconds via an intravenous line followed by 5 ml normal saline injection. Blood pressure was recorded at frequent intervals from an arm cuff. Patient was injected with 12.8 mCi TC-99m MYOVIEW at rest and 31.3 mCi TC- 99m MYOVIEW was injected 10-20 seconds post infusion of Lexiscan (Regadenoson). Rest and stress images were obtained utilizing a [employer]E. SPECT Camera in the tomographic technique. Images were reconstructed in the horizontal long, vertical long and short axis views. Left ventricular gated analysis was also performed. EXERCISE HEMODYNAMICS: Resting heart rate was 64 BPM, peak Lexiscan infusion heart rate was 125 BPM representing -- of the maximum predicted heart rate. Resting blood pressure was 108/72 mg/ Hg, peak Lexiscan infusion blood pressure was 144/80 mm/Hg. ELECTROCARDIOGRAPHIC FINDINGS: Baseline ecg shows sr. No ischemic ecg changes or arrhythmias with lexiscan. No chest pain. GATED PERFUSION SCAN AND SPECT IMAGES: Normal myocardial perfusion. Normal LV wall motion. LVEF 82%. FINAL CONCLUSION: EXERCISE RESULTS: Normal lexiscan stress ecg. NUCLEAR RESULTS: Normal myocardial perfusion. LVEF 82%. HOSPITAL COURSE: Date of Admission:07/25/18 Date of Discharge: 07/26/18 73F w/ pmhx of HTN, HLD, GERD, migraines, restless legs, chronic UTI's, Bladder Mass s/p resection (2016), total hysterectomy, p/w multiple complaints of myalgias including 2 week history of chest pain, worse on exertion and found w / moderate Hyponatremia (Na 127) Admitted for Chest pain; r/o ACS and moderate Hyponatremia (Na 127) likely 2/2 polydipsia (drinks about 8 bottles of water a day). CP was reproducible, Hemodynamically stable. EKG showed NSR, HR 81, QTc 469 ms (unchanged from 04/15) . trops neg x3. CXR nl. ESR/CRP nl. A1c 5.6, TSH nl, Lipids - elevated triglycerides 208, otherwise wnl. Echo 07/25/18: nl EF, moderate TR. NM Stress test nl; LVEF 82%, Normal LV wall motion and perfusion. pt informed about elevated TGs, cont on home Statin and recommended for out-patient escalation of anti-Cholesterol therapy. Pt hyponatremia improved to 137 over 48 hr w/ fluid restriction and pt educated to limit free water intake to <3L. Pt was taking chlorthalidone in the past and it was listed on med list but she says she stopped taking chlorthalidone 1 mo ago, per PCP instructions. we will dc this med. Pt was previously worked up 2017 and was found to be hyponatremic due to excessive water intake and HCTZ/ diuretic use and at that time was dcd off HCTZ and was encouraged to limit free water intake Borderline B12 level - B12- 316, MMA level pending. H/H wnl, normocytic. pt informed to f/u pcp about rpting B12 and possible need for supplementation Pt is stable and ready for dc w/ cardio and PCP f/u. Minutes to complete discharge: 37 Discharge Summary Reason For Visit: HEADACHE,CHEST PAIN Current Active Problems Chest pain (Acute) Headache (Acute) Condition: Improved - Instructions Diet, Activity, Other Instructions: you came in with chest pain and your sodium was a little low. we did an ultrasound of your heart which was normal and we did a stress test of your heart which was normal Your sodium was low because you have been drinking too much water at home. Please avoid drinking more than 3 Liters of water a day. We noticed that your fat levels in your blood are a little elevated. Please follow up with your primary care physician or [facility] about increasing your Pitavastatin Calcium (Livalo) and about repeating your Lipid panel/blood work. Please follow up with your primary care physician about checking your B12 levels as we noticed they were a little low. you may need to take vitamin B12 supplements Please resume your home meds. Please measure your blood pressure at home. Please follow up with your primary care physician within 1 week. Please follow up with [facility] Dr. Adorno within 1 week. If you experience any more chest pain, or any shortness of breath, fevers, chills, nausea, vomit, diarrhea, numbness or tingling, Headache, please call 911 or go to the ER. Referrals: Randy Curtis MD [Primary Care Provider] - 1 Week Jasmeet Adorno MD [Staff Physician] - 1 Week Disposition: HOME - Home Medications Comprehensive Discharge Medication List: Ambulatory Orders Famotidine [Pepcid] 40 mg PO HS 12/23/17 Metoprolol Succinate [Toprol Xl] 50 mg PO DAILY 12/23/17 Pitavastatin Calcium [Livalo] 2 mg PO DAILY 12/23/17 Aspirin [ASA -] 81 mg PO DAILY 07/24/18 Chlorthalidone 25 mg PO DAILY 07/24/18 Levocetirizine Dihydrochloride [Allergy Relief] 5 mg PO DAILY 07/24/18 Lisinopril [Prinivil -] 40 mg PO DAILY 07/24/18 Montelukast Na [Singulair -] 10 mg PO DAILY 07/24/18 Venlafaxine HCl ER [Effexor Xr -] 37.5 mg PO HS 07/24/18 This patient is new to me today: Yes Date on this admission: 07/26/18 Emergency Visit: Yes ED Registration Date: 07/25/18 Care time: The patient presented to the Emergency Department on the above date and was hospitalized for further evaluation of their emergent condition. Critical Care patient: No - Discharge Referral Referred to [facility] Med [facility].C.: No
[2018-07-26 15:34] VITALS: BP 140/76; PULSE 81; TEMP 98.1
[2018-07-29 20:11] LABS: METHYLMALONIC ACID- 299 nmol/L (0-378)
== END 2018-07-26 15:55 | disposition home or self-care (01) | DRG 641 ==
LOC: JER 18:14 → JERBED 22:37 → OBSVTOIN 07-25 14:21 → J4W 07-25 15:14
PROVIDERS: ADMIT Internal Medicine
DX: E87.1 Hypo-osmolality and hyponatremia (principal); I20.9 Angina pectoris, unspecified; I10 Essential (primary) hypertension; K21.9 Gastro-esophageal reflux disease without esophagitis; R07.9 Chest pain, unspecified; R51 Headache; E78.5 Hyperlipidemia, unspecified; F32.9 Major depressive disorder, single episode, unspecified; M54.5 Low back pain
CPT/HCPCS: 36415; 71046-TC-FY; 78452-TC; 80048; 80053; 80061; 82550; 82607; 83036; 83721; 83735; 83921; 83930; 84443; 84478; 84484; 85025; 85651; 86140; 93005; 93010; 93017; 93306-TC; 99285-25; A9502; G0378; J2785

== ENCOUNTER 2019-04-13 18:29 | Observation (INO) | payer OTHER ==
--- NOTE | 2019-04-13 18:52 | PDOC ---
History of Present Illness - General Chief Complaint: Chest Pain Stated Complaint: CHEST PAIN - History of Present Illness Initial Comments: The pt is a 73F w/ a history of HTN, HLD, GERD, PAD s/p LLE sent ([place]) who presents for evaluation of 3 days of intermittent chest pain. The pain is described as substernal tightness that radiates to her right neck, is associated with SOB, but is non-exertional and non-positional, and is not exacerbated or alleviated by anything she can identify. She denies having symptoms like this previously. Currently she states her pain is improved from previous but not resolved. She denies fevers/chills, vision changes, trouble breathing, abdominal pain, N/V /C/D, dysuria, hematuria, or blood in stool 04/13/19 18:52 Past History - Past Medical History Allergies/Adverse Reactions: Allergies Allergy/AdvReac Type Severity Reaction Status Date / Time Penicillins Allergy Verified 04/13/19 18:33 histamine Allergy Uncoded 04/13/19 18:33 Home Medications: Ambulatory Orders Famotidine [Pepcid] 40 mg PO HS 12/23/17 Metoprolol Succinate [Toprol Xl] 50 mg PO DAILY 12/23/17 Pitavastatin Calcium [Livalo] 2 mg PO DAILY 12/23/17 Aspirin [ASA -] 81 mg PO DAILY 07/24/18 Levocetirizine Dihydrochloride [Allergy Relief] 5 mg PO DAILY 07/24/18 Lisinopril [Prinivil -] 40 mg PO DAILY 07/24/18 Montelukast Na [Singulair -] 10 mg PO DAILY 07/24/18 Venlafaxine HCl ER [Effexor Xr -] 37.5 mg PO HS 07/24/18 Anemia: No Asthma: No Cancer: No Cardiac Disorders: No CVA: No COPD: No CHF: No Dementia: No Diabetes: No GI Disorders: Yes (GERD) Disorders: No HTN: Yes Hypercholesterolemia: Yes Liver Disease: No Seizures: No Thyroid Disease: No Other medical history: L LEG BLOOD CLOT - Surgical History Abdominal Surgery: No Appendectomy: No Cardiac Surgery: No Cholecystectomy: No Gastric Stapling: No GI Surgery: No Lung Surgery: No Neurologic Surgery: No Orthopedic Surgery: No - Immunization History Immunization Up to Date: Yes - Psycho Social/Smoking Cessation Hx Smoking History: Never smoked Have you smoked in the past 12 months: No Hx Alcohol Use: No Drug/Substance Use Hx: No Substance Use Type: None Hx Substance Use Treatment: No Review of Systems - Review of Systems Able to Perform ROS?: Yes Comments:: GENERAL/CONSTITUTIONAL: No fever or chills HEAD, EYES, EARS, NOSE AND THROAT: No change in vision. No change in hearing. No sore throat CARDIOVASCULAR: +CP RESPIRATORY: Denies cough, hemoptysis GASTROINTESTINAL: No nausea, vomiting, diarrhea or constipation GENITOURINARY: No dysuria, frequency, or change in urination MUSCULOSKELETAL: No joint or muscle swelling or pain. No neck or back pain SKIN: No rash NEUROLOGIC: No headache, vertigo, loss of consciousness, or change in strength/ sensation ENDOCRINE: No increased thirst. No abnormal weight change HEMATOLOGIC/LYMPHATIC: +Xarelto ALLERGIC/IMMUNOLOGIC: No hives or skin allergy 04/13/19 18:50 Is the patient limited Algerian proficient: No *Physical Exam - Vital Signs Last Vital Signs Temp Pulse Resp BP Pulse Ox 98 F 86 18 155/66 100 04/13/19 18:30 04/13/19 18:30 04/13/19 18:30 04/13/19 18:30 04/13/19 18:30 - Physical Exam Comments: GENERAL: Awake, alert, and oriented to person/place/time, in no acute distress HEAD: No signs of trauma, normocephalic, atraumatic EYES: PERRLA, EOMI, sclera anicteric, conjunctiva clear ENT: Hearing grossly normal, nares patent, oropharynx clear without exudates. Moist mucosa LUNGS: No distress, speaks in full sentences, clear to auscultation bilaterally HEART: Regular rate and rhythm, normal S1 and S2, no murmurs appreciated, peripheral pulses normal and equal bilaterally ABDOMEN: Soft, nontender, normoactive bowel sounds. No guarding, no rebound EXTREMITIES: Normal inspection, Normal range of motion, no edema. No clubbing or cyanosis NEUROLOGICAL: Cranial nerves II through XII grossly intact. Normal speech, no focal sensorimotor deficits SKIN: Warm, Dry 04/13/19 18:51 ED Treatment Course - LABORATORY CBC & Chemistry Diagram: 04/13/19 19:30 04/13/19 19:30 Medical Decision Making - Medical Decision Making The pt is a 73F w/ a history of HTN, HLD, GERD, PAD s/p LLE sent (Xarelto), migraines, restless legs who presents for evaluation of 3 days of intermittent chest pain concerning for ACS ED Course Pt took ASA 81mg PO and Xarelto today CMP, CBC, Trop I ECG CXR ECG w/ NSR; HR 81; QTc 464; narrow QRS, left axis deviation; no LAVELL 04/13/19 19:38 No anemia No leukocytosis 04/13/19 19:59 Initial Trop I neg Lytes wnl No GRACIELA LFTs unremarkable Pt signed out to [facility] Admitting 04/13/19 20:56 Discharge - Discharge Information Problems reviewed: Yes Clinical Impression/Diagnosis: PAD (peripheral artery disease) Chest pain Qualifiers: Chest pain type: unspecified Qualified Code(s): R07.9 - Chest pain, unspecified Hypertension Qualifiers: Hypertension type: unspecified Qualified Code(s): I10 - Essential (primary) hypertension Condition: Fair - Admission Yes - Follow up/Referral - Patient Discharge Instructions - Post Discharge Activity
[2019-04-13] MEDS ORDERED: SODIUM CHLORIDE 0.9% 500 ML INFUS.BAG IV ONE (19:18)
--- NOTE | 2019-04-13 19:37 | PDOC ---
Attending Attestation - Resident Resident Name: IlyaJarocho javed - ED Attending Attestation I have performed the following: I have examined & evaluated the patient, The case was reviewed & discussed with the resident, I agree w/resident's findings & plan - HPI HPI: 04/13/19 19:37 agree with resident hpi 04/13/19 19:37 - Physicial Exam PE: 04/13/19 19:37 agree with resident exam - Medical Decision Making 04/13/19 19:40 73-year-old female with history of coronary artery disease status post stenting now with intermittent chest pain and exercise intolerance EKG shows no acute ST segment changes Plan for admission to medical service for further evaluation
[2019-04-13 19:44] LABS: BASO % 0.9 % (0-2.0); EOS % 2.2 % (0-4.5); HEMATOCRIT 35.6 % (32.4-45.2); LYMPH % 27.4 % (8-40); MCH 30.7 pg (25.7-33.7); MCHC 33.6 g/dl (32.0-36.0); MEAN CELL VOLUME 91.3 fl (80-96); MEAN PLT VOLUME 8.7 fl (7.5-11.1); MONO % 8.1 % (3.8-10.2); NEUT % 61.4 % (42.8-82.8); PLATELET COUNT 287 K/MM3 (134-434); WHITE BLOOD COUNT 5.7 K/mm3 (4.0-10.0)
[2019-04-13 20:09] LABS: ALBUMIN 3.8 g/dl (3.4-5.0); BILIRUBIN,TOTAL 0.4 mg/dL (0.2-1); BLOOD UREA NITROGEN 12.8 mg/dL (7-18); CALCIUM 8.7 mg/dL (8.5-10.1); CREATININE 0.8 mg/dL (0.55-1.3); MAGNESIUM 2.3 mg/dL (1.8-2.4); TOT PROT 7.1 g/dl (6.4-8.2)
[2019-04-13 21:03] LABS: N-TERMINAL BNP 35.8 pg/ml (5-450)
--- NOTE | 2019-04-13 22:02 | HP ---
CHIEF COMPLAINT: Chest Pain PCP: Dr. Pedraza ([facility]) HISTORY OF PRESENT ILLNESS: 73 F PMH significant for HTN, HLD, GERD, PAD s/p LLE stent, who presents with chest pain. Patient began having chest pain 2 days before admission, which started at rest and occurred intermittently throughout the day before resolving on its own. She had new chest pain today, more severe than 2 days earlier. Pain began today when patient was in bed and she felt it diffusely throughout her chest, and it radiated it up to her neck. The pain did not change in intensity with exertion or position. Pain was alleviated when she took 1 gram of tyelonol and a baby aspirin later in the day. She also complains of dizziness throughout today along with weakness of her legs, and shortness of breath. She denies this chest pain as being similar to her GERD. ER course was notable for: (1)EKG was which showed Normal Sinus Rhythm, left anterior fasicular block, but was unchanged from prior EKGs. (2)Chest x-ray was completed which did not show any pulmonary infiltrates or vascular congestion (3)1L of NS was given in the ED Recent Travel: None PAST MEDICAL HISTORY: HTN, HLD, GERD, PAD s/p LLE stent, urinary incontinence FAMILY MEDICAL HISTORY: HTN, HLD, Alzheimers PAST SURGICAL HISTORY: Hysterectomy Social History: Smoking:None Alcohol:None Drugs: None Allergies Penicillins Allergy (Verified 04/13/19 18:33) histamine Allergy (Uncoded 04/13/19 18:33) HOME MEDICATIONS: Home Medications Medication Instructions Recorded Famotidine [Pepcid] 40 mg PO HS 12/23/17 Pitavastatin Calcium [Livalo] 2 mg PO DAILY 12/23/17 Aspirin [ASA -] 81 mg PO DAILY 07/24/18 Levocetirizine Dihydrochloride 5 mg PO DAILY 07/24/18 [Allergy Relief] Amitriptyline HCl [Elavil -] 10 mg PO HS 04/13/19 REVIEW OF SYSTEMS CONSTITUTIONAL: Absent: fever, chills, diaphoresis, generalized weakness, malaise, loss of appetite, weight change HEENT: Absent: eye pain, visual changes RESPIRATORY: shortness of breath Absent: cough, dyspnea with exertion, orthopnea, wheezing, stridor, hemoptysis GASTROINTESTINAL:abdominal pain, constipation Absent: abdominal distension, nausea, vomiting, diarrhea, melena, hematochezia GENITOURINARY: Absent: dysuria, frequency, urgency, hesitancy, hematuria, flank pain, genital pain ENDOCRINE: Absent: unexplained weight gain, unexplained weight loss, heat intolerance, cold intolerance NEUROLOGIC:dizziness, unsteady gait, bladder incontinence Absent: headache, focal weakness or paresthesias, seizure, mental status changes PHYSICAL EXAMINATION Vital Signs - 24 hr 04/13/19 04/13/19 18:30 21:26 Temperature 98 F Pulse Rate 86 Respiratory 18 Rate Blood Pressure 155/66 Blood Pressure 149/65 [Left Arm] Blood Pressure 154/71 [Right Arm] O2 Sat by Pulse 100 Oximetry (%) GENERAL: Awake, alert, and fully oriented, in no acute distress. HEAD: Normal with no signs of trauma. NECK: Normal range of motion, supple without lymphadenopathy, JVD, or masses. LUNGS: Breath sounds equal, clear to auscultation bilaterally. No wheezes, and no crackles. No accessory muscle use. HEART: Regular rate and rhythm, normal S1 and S2 without murmur, rub or gallop. Chest is tender to palpation. ABDOMEN: Tender to palpation in the right upper and lower quadrant. Not distended, normoactive bowel sounds, no guarding, no rebound, no masses. MUSCULOSKELETAL: Normal range of motion at all joints. No bony deformities or tenderness. No CVA tenderness. UPPER EXTREMITIES: 2+ pulses, warm, well-perfused. No cyanosis. No clubbing. No peripheral edema. LOWER EXTREMITIES: 2+ pulses, warm, well-perfused. No calf tenderness. No peripheral edema. NEUROLOGICAL: Cranial nerves II-XII intact. Normal speech. Sensation intact in lower extremities SKIN: Warm, dry, normal turgor, no rashes or lesions noted, normal capillary refill. Laboratory Results - last 24 hr 04/13/19 04/13/19 04/13/19 19:30 19:30 19:30 WBC 5.7 RBC 3.90 Hgb 12.0 Hct 35.6 MCV 91.3 MCH 30.7 MCHC 33.6 RDW 14.0 Plt Count 287 D MPV 8.7 Absolute Neuts (auto) 3.5 Neutrophils % 61.4 D Lymphocytes % 27.4 D Monocytes % 8.1 Eosinophils % 2.2 Basophils % 0.9 Nucleated RBC % 0 Sodium 137 Potassium 4.0 Chloride 105 Carbon Dioxide 26 Anion Gap 6 L BUN 12.8 Creatinine 0.8 Est GFR (CKD-EPI)AfAm 83.59 Est GFR (CKD-EPI)NonAf 72.12 Random Glucose 100 Calcium 8.7 Magnesium 2.3 Total Bilirubin 0.4 AST 20 ALT 23 Alkaline Phosphatase 93 Troponin I < 0.02 B-Natriuretic Peptide 35.8 Total Protein 7.1 Albumin 3.8 ASSESSMENT/PLAN: 73 F PMH significant for HTN, HLD, GERD, PAD s/p LLE stent who presents today with chest pain. 1) Chest pain -Chest pain is non reproducible. EKG shows no acute ST changes or elevations. Patient had echo and stress test completed in June of this year, with normal EF and normal stress test. -Trops negative x2. -EKG Q6H -Continue Atorvastatin 10 mg PO HS -Continue ASA 81 mg PO Qdaily -Tylenol 650 mg Q6H PRN for Pain -Could be related to GERD- Protonix 40 mg PO Daily -Telemetry monitoring while patient is under observation. -Will consult cardiology if troponins elevate, or chest pain returns and is intractable, or if telemetry monitoring shows arrhythmias. 2)Hx of Femoral Artery Stent -Stent placed 04/01/19 -Restarting Xarelto 20 mg PO QD 3)Hx of HTN -Restarting Pt home medication of Valsartan 320 mg PO Daily -Restarting Pt home medication of Hydrochlorothiazide 12.5 mg PO Daily DVT Prophylaxis: Xarelto 20 mg PO QD F:No IV fluids E:Monitor CMP N:Sodium restricted diet. Visit type - Emergency Visit Emergency Visit: Yes ED Registration Date: 04/13/19 Care time: The patient presented to the Emergency Department on the above date and was hospitalized for further evaluation of their emergent condition. - New Patient This patient is new to me today: Yes Date on this admission: 04/13/19 - Critical Care Critical Care patient: No ATTENDING PHYSICIAN STATEMENT I saw and evaluated the patient. I reviewed the resident's note and discussed the case with the resident. I agree with the resident's findings and plan as documented. SUBJECTIVE: OBJECTIVE: ASSESSMENT AND PLAN:
--- NOTE | 2019-04-13 22:03 | PN ---
Teaching Attending Note Name of Resident: Gigi Darling ATTENDING PHYSICIAN STATEMENT I saw and evaluated the patient. I reviewed the resident's note and discussed the case with the resident. I agree with the resident's findings and plan as documented. SUBJECTIVE: 73F w/ a history of HTN, HLD, GERD, PAD s/p LLE sent ([facility]) Who complained of 3 days of intermittent chest pain, pain described as substernal tightness radiating to her neck was associated with some shortness of breath but not related to exertion. Of note patient had echo in June 2018 which showed normal ejection fraction and mild TR and there was pharmacological stress test performed also in June 2018 which showed normal myocardial perfusion, normal LV wall motion. OBJECTIVE: Last Vital Signs Temp Pulse Resp BP Pulse Ox 98 F 86 18 149/65 100 04/13/19 18:30 04/13/19 18:30 04/13/19 18:30 04/13/19 21:26 04/13/19 18:30 GENERAL: Well developed, well nourished. Awake and alert. No acute distress. HEENT: Normocephalic, atraumatic. PERRLA, EOMI. No conjunctival pallor. Sclera are non- icteric. Moist mucous membranes. Oropharynx is clear. NECK: Supple. Full ROM. No JVD. Carotid pulses 2+ and symmetric, without bruits. No thyromegaly. No lymphadenopathy. CARDIOVASCULAR: Regular rate and rhythm. No murmurs, rubs, or gallops. Distal pulses are 2+ and symmetric. PULMONARY: No evidence of respiratory distress. Lungs clear to auscultation bilaterally. No wheezing, rales or rhonchi. ABDOMINAL: Soft. Non-tender. Non-distended. No rebound or guarding. No organomegaly. Normoactive bowel sounds. MUSCULOSKELETAL Normal range of motion at all joints. No bony deformities or tenderness. No CVA tenderness. EXTREMITIES: Scar in left groin status post stent placement SKIN: Warm and dry. Normal capillary refill. No rashes. No jaundice. PSYCHIATRIC: Cooperative. Good eye contact. Appropriate mood and affect. Abnormal Lab Results 04/13/19 19:30 Anion Gap 6 L Imaging reviewed ASSESSMENT AND PLAN: 73-year-old woman with Atypical chest pain. Recent negative cardiac stress test suggest against ACS. Differential diagnosis includes GERD, gastritis Telemetry obs Trend troponins If recurrent chest pain would give nitroglycerin sublingual Would defer echo added stress test since just recently performed #PAD status post left lower extremity stent Continue with Xarelto Continue with aspirin Continue with statin #GERD Protonix 40 mg p.o. daily #DVT prophylaxison Xarelto already
[2019-04-13] MEDS ORDERED: LATANOPROST 0.005% OPHTH SOLN 2.5ML BOTTLE OU SCH (23:30)
[2019-04-13] MEDS ORDERED: FAMOTIDINE 40 MG TABLET PO SCH (23:30)
[2019-04-13] MEDS ORDERED: ATORVASTATIN CA 10 MG TABLET (FP) PO SCH (23:30)
[2019-04-13] MEDS ORDERED: AMITRIPTYLINE HCL 10 MG TABLET (FP) PO SCH (23:30)
[2019-04-13] MEDS ORDERED: ACETAMINOPHEN 325 MG TABLET (FP) PO PRN (23:50)
[2019-04-13] MEDS: RIVAROXABAN 20 MG TABLET PO SCH (23:55)
[2019-04-14] MEDS ORDERED: ACETAMINOPHEN 325 MG TABLET (FP) PO PRN (00:18)
[2019-04-14 01:16] VITALS: BMI 25.7
[2019-04-14 06:18] LABS: BASO % 0.6 % (0-2.0); EOS % 2.7 % (0-4.5); HEMATOCRIT 33.5 % (32.4-45.2); HEMOGLOBIN 11.6 GM/dL (10.7-15.3); LYMPH % 27.1 % (8-40); MCH 31.1 pg (25.7-33.7); MCHC 34.5 g/dl (32.0-36.0); MEAN CELL VOLUME 90.2 fl (80-96); MEAN PLT VOLUME 8.3 fl (7.5-11.1); MONO % 8.5 % (3.8-10.2); NEUT % 61.1 % (42.8-82.8); PLATELET COUNT 251 K/MM3 (134-434); RBC 3.72 M/mm3 (3.60-5.2); RDW 14.1 % (11.6-15.6); WHITE BLOOD COUNT 6.6 K/mm3 (4.0-10.0)
[2019-04-14 07:08] LABS: ALBUMIN 3.2 g/dl (3.4-5.0); ALK PHOS 79 U/L (45-117); ANION GAP 2 MMOL/L (8-16); BILIRUBIN,TOTAL 0.5 mg/dL (0.2-1); BLOOD UREA NITROGEN 12.6 mg/dL (7-18); CALCIUM 8.3 mg/dL (8.5-10.1); CHLORIDE 113 mmol/L (98-107); CO2 25 mmol/L (21-32); CREATININE 0.7 mg/dL (0.55-1.3); GLUCOSE,RANDOM 85 mg/dL (74-106); MAGNESIUM 2.4 mg/dL (1.8-2.4); POTASSIUM 3.8 mmol/L (3.5-5.1); SGOT/AST 15 U/L (15-37); SGPT/ALT 19 U/L (13-61); SODIUM 139 mmol/L (136-145); TOT PROT 6.3 g/dl (6.4-8.2)
[2019-04-14] MEDS ORDERED: PT OWN MED DRAWER 7, Y5N ONE (09:12)
[2019-04-14] MEDS: RIVAROXABAN 20 MG TABLET PO SCH (09:17)
[2019-04-14] MEDS ORDERED: HYDROCHLOROTHIAZIDE 12.5 MG CAPSULE (FP) PO SCH (10:00)
[2019-04-14] MEDS ORDERED: LORATADINE 10 MG TABLET PO SCH (10:00)
[2019-04-14] MEDS ORDERED: VALSARTAN 160 MG TABLET (UD) PO SCH (10:00)
[2019-04-14] MEDS ORDERED: PATIENT'S OWN MEDICATION (NON-FORMULARY) (Valsartan/Hydrochlorothiazide [Valsartan-Hctz 32 PO SCH (10:00)
[2019-04-14] MEDS ORDERED: SOLIFENACIN SUCCINATE 5 MG TAB PO SCH (10:00)
[2019-04-14] MEDS ORDERED: TROSPIUM CHLORIDE 20 MG PO SCH (10:00)
[2019-04-14] MEDS ORDERED: PATIENT'S OWN MEDICATION (NON-FORMULARY) (Pitavastatin Calcium [Livalo] 2 MG) PO SCH (10:00)
[2019-04-14] MEDS ORDERED: PATIENT'S OWN MEDICATION (NON-FORMULARY) (Meloxicam [Meloxicam] 7.5 MG) PO SCH (10:00)
[2019-04-14] MEDS ORDERED: ASPIRIN 81 MG CHEWABLE TABLETS PO SCH (10:00)
[2019-04-14] MEDS ORDERED: PANTOPRAZOLE 40 MG TABLET (FP) PO SCH (10:00)
--- NOTE | 2019-04-14 11:33 | DS ---
Physical Exam: SUBJECTIVE: Patient seen and examined at the bedside. denies chest pain, denies shortness of breath or malaise. follows up with a neurologist at [facility] for migranes and a PCP at [place] for leg weakness. OBJECTIVE: trops negative, no events on tele, can d/c home. Vital Signs Period Temp Pulse Resp BP Sys/Youssef Pulse Ox Last 24 Hr 97.8 F-98.0 F 74-86 18-20 107-155/65-78 94-100 PHYSICAL EXAM GENERAL: The patient is awake, alert, and fully oriented, in no acute distress. HEAD: Normal with no signs of trauma. EYES: PERRL, extraocular movements intact, sclera anicteric, conjunctiva clear. ENT: Ears normal, nares patent, oropharynx clear without exudates, moist mucous membranes. NECK: Trachea midline, full range of motion, supple. LUNGS: Breath sounds equal, clear to auscultation bilaterally, no wheezes, no crackles, no accessory muscle use. HEART: Regular rate and rhythm, S1, S2 without murmur, rub or gallop. ABDOMEN: Soft, nontender, nondistended, normoactive bowel sounds, no guarding, no rebound, no hepatosplenomegaly, no masses. EXTREMITIES: scar of left groin s/p stent placement, no drainage, no signs of infection or drainage. NEUROLOGICAL: Normal speech, gait steady PSYCH: Normal mood, normal affect. SKIN: Warm, dry, normal turgor, no rashes or lesions noted. LABS Laboratory Results - last 24 hr 04/13/19 04/13/19 04/13/19 19:30 19:30 19:30 WBC 5.7 RBC 3.90 Hgb 12.0 Hct 35.6 MCV 91.3 MCH 30.7 MCHC 33.6 RDW 14.0 Plt Count 287 D MPV 8.7 Absolute Neuts (auto) 3.5 Neutrophils % 61.4 D Lymphocytes % 27.4 D Monocytes % 8.1 Eosinophils % 2.2 Basophils % 0.9 Nucleated RBC % 0 Sodium 137 Potassium 4.0 Chloride 105 Carbon Dioxide 26 Anion Gap 6 L BUN 12.8 Creatinine 0.8 Est GFR (CKD-EPI)AfAm 83.59 Est GFR (CKD-EPI)NonAf 72.12 Random Glucose 100 Calcium 8.7 Phosphorus Magnesium 2.3 Total Bilirubin 0.4 AST 20 ALT 23 Alkaline Phosphatase 93 Troponin I < 0.02 B-Natriuretic Peptide 35.8 Total Protein 7.1 Albumin 3.8 04/14/19 04/14/19 04/14/19 01:20 05:50 05:50 WBC 6.6 RBC 3.72 Hgb 11.6 Hct 33.5 MCV 90.2 MCH 31.1 MCHC 34.5 RDW 14.1 Plt Count 251 MPV 8.3 Absolute Neuts (auto) 4.0 Neutrophils % 61.1 Lymphocytes % 27.1 Monocytes % 8.5 Eosinophils % 2.7 Basophils % 0.6 Nucleated RBC % 0 Sodium 139 Potassium 3.8 Chloride 113 H Carbon Dioxide 25 Anion Gap 2 L BUN 12.6 Creatinine 0.7 Est GFR (CKD-EPI)AfAm 98.23 Est GFR (CKD-EPI)NonAf 84.75 Random Glucose 85 Calcium 8.3 L Phosphorus 3.0 Magnesium 2.4 Total Bilirubin 0.5 AST 15 ALT 19 Alkaline Phosphatase 79 Troponin I < 0.02 < 0.02 B-Natriuretic Peptide Total Protein 6.3 L Albumin 3.2 L HOSPITAL COURSE: Date of Admission:04/13/19 Date of Discharge: 04/14/19 Minutes to complete discharge: 45 Discharge Summary Problems reviewed: Yes Reason For Visit: CHEST PAIN Current Active Problems Chest pain (Acute) Hypertension (Acute) PAD (peripheral artery disease) (Acute) Condition: Improved - Instructions Diet, Activity, Other Instructions: Mrs Gutierrez: You will be sent home today. You were seen here for chest pain and your cardiac workup was normal. 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 Thank you for allowing us to care for you. Medications: Continue your home medications No new medications were called in. Referrals: ON STAFF,NOT [Non Staff, Medical] - Disposition: HOME - Home Medications Comprehensive Discharge Medication List: Ambulatory Orders Famotidine [Pepcid] 40 mg PO HS 12/23/17 Pitavastatin Calcium [Livalo] 2 mg PO DAILY 12/23/17 Aspirin [ASA -] 81 mg PO DAILY 07/24/18 Levocetirizine Dihydrochloride [Allergy Relief] 5 mg PO DAILY 07/24/18 Amitriptyline HCl [Elavil -] 10 mg PO HS 04/13/19 Latanoprost 0.005% Eye Drops [Xalatan 0.005% Eye Drops -] 1 drop OU HS 04/13/19 Levocetirizine Dihydrochloride 5 mg PO PRN 04/13/19 Rivaroxaban [Xarelto -] 20 mg PO DAILY 04/13/19 Trospium Chloride [Trospium Chloride ER] 20 mg PO BID 04/13/19 Valsartan/Hydrochlorothiazide [Valsartan-Hctz 320-12.5 mg Tab] 1 each PO DAILY 04/13/19 Meloxicam 7.5 mg PO DAILY 04/14/19 Oxybutynin Chloride [Oxybutynin Chloride ER] 10 mg PO DAILY 04/14/19 Problem List - Problems (1) Atypical chest pain Code(s): R07.89 - OTHER CHEST PAIN This patient is new to me today: Yes Date on this admission: 04/14/19 Emergency Visit: Yes ED Registration Date: 04/13/19 Care time: The patient presented to the Emergency Department on the above date and was hospitalized for further evaluation of their emergent condition. Critical Care patient: No - Discharge Referral Referred to [facility] Med P.C.: No
[2019-04-14 12:21] VITALS: BP 126/56; PULSE 81; TEMP 98.1
--- NOTE | 2019-04-14 16:56 | EKG ---
Test Reason : Blood Pressure : / mmHG Vent. Rate : 067 BPM Atrial Rate : 067 BPM P-R Int : 144 ms QRS Dur : 090 ms QT Int : 428 ms P-R-T Axes : 059 -49 025 degrees QTc Int : 452 ms NORMAL SINUS RHYTHM LEFT ANTERIOR FASCICULAR BLOCK ABNORMAL ECG WHEN COMPARED WITH ECG OF 13-APR-2019 18:34, NO SIGNIFICANT CHANGE WAS FOUND Confirmed by GAURAV DE ANDA MD ([id number]) on 04/14/2019 4:56:26 PM Referred By: Confirmed By:GAURAV DE ANDA MD
--- NOTE | 2019-04-14 17:00 | EKG ---
Test Reason : Blood Pressure : / mmHG Vent. Rate : 081 BPM Atrial Rate : 081 BPM P-R Int : 136 ms QRS Dur : 090 ms QT Int : 400 ms P-R-T Axes : 051 -48 025 degrees QTc Int : 464 ms NORMAL SINUS RHYTHM LEFT ANTERIOR FASCICULAR BLOCK ABNORMAL ECG WHEN COMPARED WITH ECG OF 24-JUL-2018 18:28, NO SIGNIFICANT CHANGE WAS FOUND Confirmed by GAURAV DE ANDA MD ([id number]) on 04/14/2019 4:59:37 PM Referred By: Confirmed By:GAURAV DE ANDA MD
[2019-04-14] MEDS ORDERED: PATIENT'S OWN MEDICATION (NON-FORMULARY) (Famotidine [Pepcid] 40 MG) PO SCH (22:00)
[2019-04-14] MEDS ORDERED: RIVAROXABAN 20 MG TABLET PO SCH (22:10)
== END 2019-04-14 14:00 | disposition home or self-care (01) ==
LOC: JER 18:29 → JERBED 19:19 → J4W 22:18
PROVIDERS: ADMIT Internal Medicine; ATTEND Nurse Practitioner Family
PROC: 3E0337Z Introduction of Electrolytic and Water Balance Substance into Peripheral Vein, Percutaneous Approach (ICD-10-PCS; principal; 2019-04-13)
DX: R07.89 Other chest pain (principal); I10 Essential (primary) hypertension; E78.5 Hyperlipidemia, unspecified; I73.89 Other specified peripheral vascular diseases; K21.9 Gastro-esophageal reflux disease without esophagitis; Z95.820 Peripheral vascular angioplasty status with implants and grafts; Z79.82 Long term (current) use of aspirin; Z88.0 Allergy status to penicillin; Z88.8 Allergy status to other drugs, medicaments and biological substances
CPT/HCPCS: 36415; 71045-TC-FY; 80053; 83735; 83880; 84100; 84484; 85025; 93005; 93010; 99285-25; G0378

== ENCOUNTER 2019-05-02 11:21 | Inpatient (IN) | payer OTHER ==
[2019-05-02] MEDS ORDERED: ONDANSETRON 4 MG/2 ML VIAL IVPUSH ONE (12:03)
[2019-05-02] MEDS ORDERED: SODIUM CHLORIDE 1,000 ML IV STA (12:03)
[2019-05-02] MEDS ORDERED: morphine CARPU-JECT 4 MG/1 ML DISP.SYRIN IVPUSH ONE ×2 (12:07→15:54)
[2019-05-02] MEDS ORDERED: ONDANSETRON 4 MG/2 ML VIAL ONE (12:16)
[2019-05-02] MEDS ORDERED: morphine SULFATE 4 MG/ML VIAL ONE ×2 (12:16→16:29)
[2019-05-02 12:59] LABS: BASO % 0.3 % (0-2.0); EOS % 0.1 % (0-4.5); HEMATOCRIT 41.8 % (32.4-45.2); HEMOGLOBIN 14.2 GM/dL (10.7-15.3); LYMPH % 12.1 % (8-40); MCH 30.7 pg (25.7-33.7); MEAN CELL VOLUME 90.2 fl (80-96); MEAN PLT VOLUME 8.9 fl (7.5-11.1); MONO % 5.7 % (3.8-10.2); NEUT % 81.8 % (42.8-82.8); PLATELET COUNT 225 K/MM3 (134-434); RBC 4.64 M/mm3 (3.60-5.2); RDW 13.9 % (11.6-15.6); WHITE BLOOD COUNT 9.4 K/mm3 (4.0-10.0)
--- NOTE | 2019-05-02 13:00 | PDOC ---
History of Present Illness - General Chief Complaint: Pain Stated Complaint: ABD. PAIN Time Seen by Provider: 05/02/19 11:50 History Source: Patient Exam Limitations: No Limitations - History of Present Illness Initial Comments: 05/02/19 12:27 73 yo female pmh HTN, HLD, GERD, migraines, restless legs, chronic UTI's, Bladder Mass s/p resection (2016), total hysterectomy and DVT with stent placed (on AC) presents to the ED for L sided abdominal pain. Pain described as sharp and constant and colicky over the last 2 days, no related to eating or drinking. Pt admits to hx of constipation that usually resolves with laxatives however, for the past 2 days, laxatives have not helped. Pt admits to associated nausea and 1 episode of NB/NB vomiting and has not recently passed flatus. Denies F/C Past History - Past Medical History Allergies/Adverse Reactions: Allergies Allergy/AdvReac Type Severity Reaction Status Date / Time cephalexin [From Keflex] Allergy Swelling Verified 05/02/19 11:32 Penicillins Allergy Swelling Verified 05/02/19 11:32 histamine Allergy Swelling Uncoded 05/02/19 11:32 Home Medications: Ambulatory Orders Famotidine [Pepcid] 40 mg PO HS 12/23/17 Pitavastatin Calcium [Livalo] 2 mg PO DAILY 12/23/17 Aspirin [ASA -] 81 mg PO DAILY 07/24/18 Levocetirizine Dihydrochloride [Allergy Relief] 5 mg PO DAILY 07/24/18 Amitriptyline HCl [Elavil -] 10 mg PO HS 04/13/19 Latanoprost 0.005% Eye Drops [Xalatan 0.005% Eye Drops -] 1 drop OU HS 04/13/19 Levocetirizine Dihydrochloride 5 mg PO PRN 04/13/19 Rivaroxaban [Xarelto -] 20 mg PO DAILY 04/13/19 Trospium Chloride [Trospium Chloride ER] 20 mg PO BID 04/13/19 Valsartan/Hydrochlorothiazide [Valsartan-Hctz 320-12.5 mg Tab] 1 each PO DAILY 04/13/19 Meloxicam 7.5 mg PO DAILY 04/14/19 Oxybutynin Chloride [Oxybutynin Chloride ER] 10 mg PO DAILY 04/14/19 Anemia: No Asthma: No Cancer: No Cardiac Disorders: No CVA: No COPD: No CHF: No Dementia: No Diabetes: No GI Disorders: Yes (GERD) Disorders: No HTN: Yes Hypercholesterolemia: Yes Liver Disease: No Seizures: No Thyroid Disease: No - Surgical History Abdominal Surgery: No Appendectomy: No Cardiac Surgery: No Cholecystectomy: No Gastric Stapling: No GI Surgery: No Lung Surgery: No Neurologic Surgery: No Orthopedic Surgery: No - Immunization History Immunization Up to Date: Yes - Psycho Social/Smoking Cessation Hx Smoking History: Never smoked Have you smoked in the past 12 months: No Hx Alcohol Use: No Drug/Substance Use Hx: No Substance Use Type: None Hx Substance Use Treatment: No Review of Systems - Review of Systems Constitutional: No: Chills, Fever HEENTM: No: Blurred Vision Respiratory: No: Shortness of Breath Cardiac (ROS): No: Chest Pain, Edema ABD/GI: Yes: Constipated, Nausea, Vomiting, Other (left sided abdominal pain). No: Diarrhea : No: Burning, Dysuria, Frequency, Flank Pain Musculoskeletal: No: Back Pain Integumentary: No: Change in Color Neurological: No: Numbness, Paresthesia, Weakness *Physical Exam - Vital Signs Last Vital Signs Temp Pulse Resp BP Pulse Ox 98.4 F 104 H 18 120/70 100 05/02/19 11:32 05/02/19 11:32 05/02/19 11:32 05/02/19 11:32 05/02/19 11:32 - Physical Exam General Appearance: Yes: Nourished, Appropriately Dressed, Apparent Distress ( pain) HEENT: positive: EOMI Neck: positive: Supple. negative: Carotid bruit Respiratory/Chest: positive: Lungs Clear, Normal Breath Sounds. negative: Respiratory Distress, Accessory Muscle Use, Crackles, Rales, Rhonchi, Stridor, Wheezing Cardiovascular: positive: Regular Rhythm, S1, S2, Tachycardia. negative: Edema , JVD, Murmur Vascular Pulses: Dorsalis-Pedis (R): 4+, Doralis-Pedis (L): 4+ Gastrointestinal/Abdominal: positive: Flat, Soft, Tenderness (left sided abdominal pain). negative: Pulsatile Mass, Protuberent, Distended, Guarding, Rebound Musculoskeletal: negative: CVA Tenderness Extremity: positive: Normal Capillary Refill, Normal Inspection ED Treatment Course - LABORATORY CBC & Chemistry Diagram: 05/02/19 12:30 05/02/19 12:30 Medical Decision Making - Medical Decision Making 05/02/19 19:59 73 yo female pmh HTN, HLD, GERD, migraines, restless legs, chronic UTI's, Bladder Mass s/p resection (2016), total hysterectomy and DVT with stent placed (on AC) presents to the ED for L sided abdominal pain. Pain described as sharp and constant and colicky over the last 2 days, no related to eating or drinking. Pt admits to hx of constipation that usually resolves with laxatives however, for the past 2 days, laxatives have not helped. Pt admits to associated nausea and 1 episode of NB/NB vomiting and has not recently passed flatus. Denies F/C/, vitals show elevated HR 104, likely pain related. Pt given 4 mg morphine for pain with relief DDX INLT: SBO, mesenteric ischemia, pancreatitis, ulcer, diverticulitis, UTI, renal stone, cholecystis CT read neg for concerning/acute process Labs neg for Lactate, lipase, trop Pt reassessed, within 1.5 hours, pain returned at same intensity as before. Discussed admission with pt and family, state she is not safe at home and can not take care of herself due to excessive pain. Will admit pt for intractable pain Discharge - Discharge Information Problems reviewed: Yes Clinical Impression/Diagnosis: Intractable abdominal pain Condition: Stable - Admission Yes - Follow up/Referral - Patient Discharge Instructions - Post Discharge Activity
[2019-05-02 13:11] LABS: INR 1.55 (0.83-1.09); PROTHROMBIN TIME (PATIENT) 18.4 SEC (9.7-13.0)
--- NOTE | 2019-05-02 13:13 | PDOC ---
Attending Attestation - Resident Resident Name: Jorge Mojica - ED Attending Attestation I have performed the following: I have examined & evaluated the patient, The case was reviewed & discussed with the resident, I agree w/resident's findings & plan, Exceptions are as noted - HPI HPI: 05/02/19 13:07 73yo F hx HTN, HLD, GERD, migraines, UTI's, Bladder Mass s/p resection (2016), total hysterectomy and LLE vein with stent placed (on eliquis) presents to the emergency department with 1 day of diffuse abdominal pain, however worse in the left lower quadrant. Patient reports associated constipation, states she had a small hard bowel movement this morning and is not passing flatus. She reports nausea but no vomiting. She reports the pain is very sharp and comes in waves. Denies history of similar pain. Patient tried a herbal medication for constipation 2 days ago without success. Denies any associated fevers, chills, headache, dizziness, focal weakness or numbness, chest pain, shortness of breath. Denies any urinary symptoms of hematuria, frequency, urgency. Denies lower extremity edema or calf pain. - Physicial Exam PE: 05/02/19 13:13 GENERAL: Awake, alert, and fully oriented, in no acute distress but appears uncomfortable EYES: PERRLA, EOMI, sclera anicteric, conjunctiva clear ENT: Nares patent, oropharynx clear without exudates. Moist mucosa NECK: Normal ROM, supple, no lymphadenopathy, JVD, or masses LUNGS: Breath sounds equal, clear to auscultation bilaterally. No wheezes, and no crackles HEART: Regular rate and rhythm, normal S1 and S2, no murmurs, rubs or gallops ABDOMEN: Soft, +LLQ ttp, decreased bowel sounds. No guarding, no rebound. No masses. +well healed midline vertical scar from umbulicus down EXTREMITIES: Normal range of motion, no edema. No cords, erythema, or tenderness. WWP NEUROLOGICAL: Normal speech, cranial nerves intact, equal strength and sensation b/l SKIN: Warm, Dry, normal turgor, no rashes or lesions noted. - Medical Decision Making 05/02/19 13:25 73-year-old female presents emergency department with 1 day of diffuse abdominal pain, localizes intermittently to the left lower quadrant associated with nausea, constipation and decreased flatus. Differential includes SBO versus diverticulitis versus perforated viscus versus colitis versus enteritis. Plan Labs Urinalysis CT abdomen pelvis Symptomatic control Reassess 05/02/19 16:12 Labs, UA, CTAP unremarkable PT requiring multiple doses of morphine IV for pain control Pt admitted for intractable abd pain
[2019-05-02 13:14] LABS: ACTIVATED PTT 34.1 SECONDS (25.2-36.5)
[2019-05-02 13:30] LABS: ALBUMIN 3.7 g/dl (3.4-5.0); BILIRUBIN,TOTAL 1.1 mg/dL (0.2-1); BLOOD UREA NITROGEN 19.9 mg/dL (7-18); CALCIUM 8.6 mg/dL (8.5-10.1); CREATININE 0.8 mg/dL (0.55-1.3); POTASSIUM 4.1 mmol/L (3.5-5.1)
[2019-05-02 13:47] LABS: LIPASE < 10 U/L (73-393); MAGNESIUM 2.2 mg/dL (1.8-2.4)
--- NOTE | 2019-05-02 16:15 | HP ---
Admitting History and Physical - Admission Chief Complaint: irracractable abdominal pain x 2 days History of Present Illness: 73 yo female pmh HTN, HLD, GERD, migraines, restless legs, chronic UTI's, Bladder Mass s/p resection (2016), total hysterectomy and DVT with stent placed (on AC) presents to the ED for L sided abdominal pain. Pain described as sharp and constant and colicky over the last 2 days, no related to eating or drinking. Pt admits to hx of constipation that usually resolves with laxatives however, for the past 2 days, laxatives have not helped. Pt admits to associated nausea and 1 episode of NB/NB vomiting and has not recently passed flatus. 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, Other (restless leg) Cardiovascular: Yes: HTN Gastrointestinal: Yes: GERD Renal/: Yes: Other (bladder mass) - Past Surgical History Past Surgical History: Yes: Hysterectomy - Smoking History Smoking history: Never smoked Have you smoked in the past 12 months: No - Alcohol/Substance Use Hx Alcohol Use: No Home Medications - Allergies Allergies/Adverse Reactions: Allergies Allergy/AdvReac Type Severity Reaction Status Date / Time cephalexin [From Keflex] Allergy Swelling Verified 05/02/19 11:32 Penicillins Allergy Swelling Verified 05/02/19 11:32 histamine Allergy Swelling Uncoded 05/02/19 11:32 - Home Medications Home Medications: Ambulatory Orders Famotidine [Pepcid] 40 mg PO HS 12/23/17 Pitavastatin Calcium [Livalo] 2 mg PO DAILY 12/23/17 Aspirin [ASA -] 81 mg PO DAILY 07/24/18 Levocetirizine Dihydrochloride [Allergy Relief] 5 mg PO DAILY 07/24/18 Amitriptyline HCl [Elavil -] 10 mg PO HS 04/13/19 Latanoprost 0.005% Eye Drops [Xalatan 0.005% Eye Drops -] 1 drop OU HS 04/13/19 Levocetirizine Dihydrochloride 5 mg PO PRN 04/13/19 Rivaroxaban [Xarelto -] 20 mg PO DAILY 04/13/19 Trospium Chloride [Trospium Chloride ER] 20 mg PO BID 04/13/19 Valsartan/Hydrochlorothiazide [Valsartan-Hctz 320-12.5 mg Tab] 1 each PO DAILY 04/13/19 Meloxicam 7.5 mg PO DAILY 04/14/19 Oxybutynin Chloride [Oxybutynin Chloride ER] 10 mg PO DAILY 04/14/19 Family Medical History Family History: Denies (poor historian) Review of Systems - Review of Systems Constitutional: reports: No Symptoms Eyes: reports: No Symptoms HENT: reports: No Symptoms Neck: reports: No Symptoms Cardiovascular: reports: No Symptoms Respiratory: reports: No Symptoms Gastrointestinal: reports: Abdominal Pain, Constipation, Vomiting Genitourinary: reports: No Symptoms Breasts: reports: No Symptoms Reported Musculoskeletal: reports: No Symptoms Integumentary: reports: No Symptoms Neurological: reports: No Symptoms Endocrine: reports: No Symptoms Hematology/Lymphatic: reports: No Symptoms Psychiatric: reports: No Symptoms Physical Examination Vital Signs: Vital Signs Temperature 98.4 F 05/02/19 11:32 Pulse Rate 90 05/02/19 12:30 Respiratory Rate 16 05/02/19 12:30 Blood Pressure 122/68 05/02/19 12:30 O2 Sat by Pulse Oximetry (%) 98 05/02/19 12:30 Constitutional: Yes: Well Nourished, No Distress, Calm Eyes: Yes: WNL, Conjunctiva Clear, EOM Intact HENT: Yes: WNL, Atraumatic, Normocephalic Neck: Yes: WNL, Supple, Trachea Midline Cardiovascular: Yes: WNL, Regular Rate and Rhythm Respiratory: Yes: WNL, Regular, CTA Bilaterally Gastrointestinal: Yes: Normal Bowel Sounds, Soft, Tenderness, Epigastrium, Vomiting (x 1) ...Rectal Exam: Yes: Deferred Renal/: Yes: WNL Breast(s): Yes: WNL Musculoskeletal: Yes: WNL Extremities: Yes: WNL Edema: No Peripheral Pulses WNL: Yes Peripheral Pulses: Left Radial: 2+, Right Radial: 2+, Left Doralis Pedis: 2+, Right Dorsalis Pedis: 2+, Left Femoral: 2+, Right Femoral: 2+ Integumentary: Yes: WNL Neurological: Yes: WNL, Alert, Oriented ...Motor Strength: WNL Psychiatric: Yes: WNL Labs: CBC, BMP 05/02/19 12:30 05/02/19 12:30 Imaging - Results Cat Scan: Report Reviewed (Abd CT: hepatomegaly with mild diffuse fatty infiltration, fluid filled colon with mild distension, no evidence of bowel obs) Problem List - Problems (1) Chronic UTI (urinary tract infection) Assessment/Plan: UA pending Code(s): N39.0 - URINARY TRACT INFECTION, SITE NOT SPECIFIED (2) Bladder mass Assessment/Plan: hx of resection in 2016 Code(s): N32.89 - OTHER SPECIFIED DISORDERS OF BLADDER (3) Prophylactic measure Assessment/Plan: FEN clear liquids NPO past MN monitor electrolytes DVT hold eliquis until tmrw heparin sq Dispo admitt to med surg full code discharge planning Code(s): Z29.9 - ENCOUNTER FOR PROPHYLACTIC MEASURES, UNSPECIFIED (4) Intractable abdominal pain Assessment/Plan: epigastric pain responded to [facility] given hx of chronic constipation will avoid opoids ofrimev for pain GI consultation placed (pt daughter request to see Dr Flores) Code(s): R10.9 - UNSPECIFIED ABDOMINAL PAIN (5) Constipation Assessment/Plan: liquid filled colon, no obs seen on CT Last EGD/colonscopy 5 years ago GI consulted placed will hold off on laxatives for now given colon distension clear liquids and then NPO after MN Code(s): K59.00 - CONSTIPATION, UNSPECIFIED Qualifiers: Constipation type: unspecified constipation type Qualified Code(s): K59.00 - Constipation, unspecified (6) Hypertension Assessment/Plan: c/w valsartan/hctz Code(s): I10 - ESSENTIAL (PRIMARY) HYPERTENSION Qualifiers: Hypertension type: unspecified Qualified Code(s): I10 - Essential (primary ) hypertension (7) Migraine Code(s): G43.909 - MIGRAINE, UNSP, NOT INTRACTABLE, WITHOUT STATUS MIGRAINOSUS (8) Restless leg syndrome Assessment/Plan: c/w elavil Code(s): G25.81 - RESTLESS LEGS SYNDROME Visit type - Emergency Visit Emergency Visit: Yes ED Registration Date: 05/02/19 Care time: The patient presented to the Emergency Department on the above date and was hospitalized for further evaluation of their emergent condition. - New Patient This patient is new to me today: Yes Date on this admission: 05/02/19 - Critical Care Critical Care patient: No
[2019-05-02] MEDS ORDERED: ACETAMINOPHEN 1000 MG/100 ML VIAL (NON FORMULARY) IVPB PRN (16:22)
[2019-05-02 18:21] VITALS: BMI 28.3
[2019-05-02] MEDS ORDERED: PT OWN MED DRAWER 7, Y5N ONE (21:08)
[2019-05-02] MEDS: OXYBUTYNIN CHLORIDE 5 MG TABLET PO SCH (21:43)
[2019-05-02] MEDS: HEPARIN NA (PORCINE) 5,000 UNITS/ML 1ML VIAL SQ SCH (21:44)
[2019-05-02] MEDS: LATANOPROST 0.005% OPHTH SOLN 2.5ML BOTTLE OU SCH (21:45)
[2019-05-02 22:00] LABS: PH,URINE 6.5 (5.0-8.0); URINE APPEARANCE CLEAR; URINE BILIRUBIN NEGATIVE (NEGATIVE); URINE COLOR YELLOW; URINE GLUCOSE (UA) NEGATIVE (NEGATIVE); URINE KETONE NEGATIVE (NEGATIVE); URINE LEUK ESTERASE NEGATIVE (NEGATIVE); URINE NITRITE NEGATIVE (NEGATIVE); URINE PROTEIN NEGATIVE (NEGATIVE); URINE UROBILINOGEN 0.2 mg/dL (0.2-1.0)
[2019-05-02] MEDS: AMITRIPTYLINE HCL 10 MG TABLET (FP) PO SCH (22:26)
[2019-05-02 23:24] LABS: EPI CELLS FEW /HPF (0-5/HPF); URINE BACTERIA FEW /hpf (NEGATIVE); URINE WBC 0.2 /hpf (0-5)
[2019-05-03 08:18] LABS: BASO % 0.3 % (0-2.0); EOS % 1.1 % (0-4.5); HEMATOCRIT 33.6 % (32.4-45.2); HEMOGLOBIN 11.5 GM/dL (10.7-15.3); LYMPH % 27.6 % (8-40); MCH 30.8 pg (25.7-33.7); MCHC 34.1 g/dl (32.0-36.0); MEAN CELL VOLUME 90.3 fl (80-96); MEAN PLT VOLUME 9.1 fl (7.5-11.1); MONO % 9.6 % (3.8-10.2); NEUT % 61.4 % (42.8-82.8); PLATELET COUNT 175 K/MM3 (134-434); RBC 3.72 M/mm3 (3.60-5.2); RDW 14.1 % (11.6-15.6); WHITE BLOOD COUNT 6.9 K/mm3 (4.0-10.0)
[2019-05-03 08:31] LABS: BILIRUBIN,TOTAL 0.6 mg/dL (0.2-1); BLOOD UREA NITROGEN 14.6 mg/dL (7-18); CALCIUM 7.9 mg/dL (8.5-10.1); CREATININE 0.7 mg/dL (0.55-1.3); MAGNESIUM 2.2 mg/dL (1.8-2.4); PHOSPHOROUS 2.5 mg/dL (2.5-4.9); POTASSIUM 3.9 mmol/L (3.5-5.1); TOT PROT 5.6 g/dl (6.4-8.2)
[2019-05-03] MEDS ORDERED: MINERAL OIL ENEMA 133 ML ENEMA PR ONE (08:48)
--- NOTE | 2019-05-03 09:01 | CON.GI ---
Consult Consult Specialty:: GI: For Dr. Flores who resumes care 05/06 Referred by:: Hospitalist Service Reason for Consultation:: Abdominal pain - History of Present Illness Chief Complaint: Abdominal pain, "problems going to the bathroom" History of Present Illness: 73F admitted through [facility] for evaluation of abdominal pain. She is vague in her description of the pain but states that she routinely has "problems going to the bathroom" (strained, hard bowel movements). She drank an organic tea to help alleviate her constipation, however, she then developed abdominal pain. The pain was on the left side. There was no associated nausea, vomiting, rectal bleeding, fevers/chills or melena. CT scan revealed a fluid filled colon. 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 She states that he performed upper endoscopy and colonoscopy on her 5 years ago that were "OK". There is no family history of colorectal cancer or other GI malignancy. 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, Other (restless leg) Cardio/Vascular: Yes: HTN Gastrointestinal: Yes: Constipation, GERD Renal/: Yes: Other (bladder mass) ...: No - Past Surgical History Past Surgical History: Yes: Additional Surgical History: Left leg vascular stent - Alcohol/Substance Use Hx Alcohol Use: No History of Substance Use: reports: None - Smoking History Smoking history: Never smoked Have you smoked in the past 12 months: No - Social History Usual Living Arrangement: Alone ADL: Independent Place of : Other ([place]) History of Recent Travel: No Home Medications - Allergies Allergies/Adverse Reactions: Allergies Allergy/AdvReac Type Severity Reaction Status Date / Time cephalexin [From Keflex] Allergy Swelling Verified 05/02/19 11:32 Penicillins Allergy Swelling Verified 05/02/19 11:32 histamine Allergy Swelling Uncoded 05/02/19 11:32 - Home Medications Home Medications: Ambulatory Orders Famotidine [Pepcid] 40 mg PO HS 12/23/17 Pitavastatin Calcium [Livalo] 2 mg PO DAILY 12/23/17 Aspirin [ASA -] 81 mg PO DAILY 07/24/18 Levocetirizine Dihydrochloride [Allergy Relief] 5 mg PO DAILY 07/24/18 Amitriptyline HCl [Elavil -] 10 mg PO HS 04/13/19 Latanoprost 0.005% Eye Drops [Xalatan 0.005% Eye Drops -] 1 drop OU HS 04/13/19 Levocetirizine Dihydrochloride 5 mg PO PRN 04/13/19 Rivaroxaban [Xarelto -] 20 mg PO DAILY 04/13/19 Trospium Chloride [Trospium Chloride ER] 20 mg PO BID 04/13/19 Valsartan/Hydrochlorothiazide [Valsartan-Hctz 320-12.5 mg Tab] 1 each PO DAILY 04/13/19 Meloxicam 7.5 mg PO DAILY 04/14/19 Oxybutynin Chloride [Oxybutynin Chloride ER] 10 mg PO DAILY 04/14/19 Family Medical History Other Family History: Mother: : 83: [place]. Father: : 87: [place]. 3 brothers, 8 sisters: healthy. 6 daughters, 1 w/ BCA, 3 Sons, healthy. No family history of colorectal cancer or other GI malignancy Review of Systems - Review of Systems Constitutional: denies: Chills Cardiovascular: denies: Chest Pain Respiratory: denies: SOB Gastrointestinal: reports: Abdominal Pain, Constipation. denies: Diarrhea, Rectal Bleeding, Vomiting Physical Exam-GI Vital Signs: Vital Signs Temperature 97.8 F 05/03/19 04:00 Pulse Rate 92 H 05/03/19 04:00 Respiratory Rate 18 05/03/19 04:00 Blood Pressure 104/61 05/03/19 04:00 O2 Sat by Pulse Oximetry (%) 100 05/02/19 20:41 Constitutional: Yes: Calm Eyes: No: Sclera Icterus Cardiovascular: Yes: Regular Rate and Rhythm. No: Murmur Respiratory: Yes: CTA Bilaterally Gastrointestinal Inspection: Yes: Scars (vertical midline pelvic surgical scar) ...Auscultate: Yes: Normoactive Bowel Sounds ...Palpate: Yes: Soft, Tenderness (mild TTP left and mid abdomen). No: Hepatomegaly, Splenomegaly, Tenderness, Rebound ...Percussion: No: Tympanitic ...Rectal Exam: Yes: Other (Parking Technician present: No external lesions, no masses, firm formed brown stool in the rectal vault, guaiac negative) Edema: No (No LE edema) Neurological: Yes: Alert, Oriented Labs: CBC, BMP 05/03/19 06:00 05/03/19 06:00 INR, PTT INR 1.55 (0.83-1.09) H 05/02/19 12:30 Imaging - Results Cat Scan: Report Reviewed, Image Reviewed Problem List - Problems (1) Abdominal pain Assessment/Plan: Question if secondary to fecal retention. Ordered mineral oil enema MiraLAX 17g once daily Full liquids and monitor if tolerates Code(s): R10.9 - UNSPECIFIED ABDOMINAL PAIN
[2019-05-03] MEDS: HYDROCHLOROTHIAZIDE 12.5 MG CAPSULE (FP) PO SCH (10:27)
[2019-05-03] MEDS: VALSARTAN 160 MG TABLET (UD) PO SCH (10:27)
[2019-05-03 10:30] LABS: INR 1.09 (0.83-1.09); PROTHROMBIN TIME (PATIENT) 12.9 SEC (9.7-13.0)
[2019-05-03] MEDS: FAMOTIDINE 40 MG TABLET PO SCH (10:39)
[2019-05-03] MEDS: ASPIRIN 81 MG CHEWABLE TABLETS PO SCH (10:39)
[2019-05-03] MEDS: OXYBUTYNIN CHLORIDE 5 MG TABLET PO SCH ×2 (10:39→22:25)
[2019-05-03] MEDS: HEPARIN NA (PORCINE) 5,000 UNITS/ML 1ML VIAL SQ SCH (10:39)
[2019-05-03] MEDS ORDERED: ACETAMINOPHEN 325 MG TABLET (FP) PO PRN (15:17)
[2019-05-03] MEDS ORDERED: PT OWN MED DRAWER 7, Y5N ONE ×2 (16:26→21:01)
--- NOTE | 2019-05-03 16:27 | PN ---
Physical Exam: SUBJECTIVE: Patient seen and examined at the bedside. per daughter, patient was to see a GI specialist on may 16 because she has been having abdominal pain for 2 days. came to the ED after she experienced GI bleeding at home per daughter and intractable abdominal pain with bright red blood in toilet for last two days. OBJECTIVE: Patient is a 73 yo female pmhx HTN, HLD, GERD, history of femoral artery stent- placed 04/01/19 (on xarelto) migraines, restless legs, chronic UTI's, Bladder Mass s/p resection (2016), total hysterectomy and DVT with stent placed (on AC) presents to the ED for L sided abdominal pain. Pain described as sharp and constant and colicky over the last 2 days, no related to eating or drinking. Pt admits to hx of constipation that usually resolves with laxatives however, for the past 2 days, laxatives have not helped. Pt admits to associated nausea and 1 episode of NB/NB vomiting and has not recently passed flatus. imaging: abd/ct: fluid filled colon, hepatomegaly, no obstruction. Vital Signs Period Temp Pulse Resp BP Sys/Youssef Pulse Ox Last 24 Hr 97.8 F-98.7 F 76-93 14-18 98-119/48-65 99-100 GENERAL: The patient is awake, alert, and fully oriented, in no acute distress. HEAD: Normal with no signs of trauma. EYES: PERRL, extraocular movements intact, sclera anicteric, conjunctiva clear. No ptosis. ENT: Ears normal, nares patent, oropharynx clear without exudates, moist mucous membranes. NECK: Trachea midline, full range of motion, supple. LUNGS: Breath sounds equal, clear to auscultation bilaterally, no wheezes, no crackles, no accessory muscle use. HEART: Regular rate and rhythm, S1, S2 without murmur, rub or gallop. ABDOMEN: Soft, mildly tender, no nausea or vomiting. EXTREMITIES: 2+ pulses, warm, well-perfused, no edema. NEUROLOGICAL: Normal speech, gait not observed. PSYCH: Normal mood, normal affect. SKIN: Warm, dry, normal turgor, no rashes or lesions noted Laboratory Results - last 24 hr 05/02/19 05/02/19 05/03/19 18:50 21:30 06:00 WBC 6.9 RBC 3.72 Hgb 11.5 Hct 33.6 D MCV 90.3 MCH 30.8 MCHC 34.1 RDW 14.1 Plt Count 175 D MPV 9.1 Absolute Neuts (auto) 4.3 Neutrophils % 61.4 D Lymphocytes % 27.6 D Monocytes % 9.6 Eosinophils % 1.1 D Basophils % 0.3 Nucleated RBC % 0 PT with INR INR Sodium Potassium Chloride Carbon Dioxide Anion Gap BUN Creatinine Est GFR (CKD-EPI)AfAm Est GFR (CKD-EPI)NonAf Random Glucose Calcium Phosphorus Magnesium Total Bilirubin AST ALT Alkaline Phosphatase Total Protein Albumin Urine Color Yellow Urine Appearance Clear Urine pH 6.5 Ur Specific [place] 1.024 Urine Protein Negative Urine Glucose (UA) Negative Urine Ketones Negative Urine Blood Trace Urine Nitrite Negative Urine Bilirubin Negative Urine Urobilinogen 0.2 Ur Leukocyte Esterase Negative Urine WBC (Auto) 0.2 Urine RBC (Auto) 3-5 U Epithel Cells (Auto) Few Urine Bacteria (Auto) Few Blood Type O POSITIVE 05/03/19 05/03/19 06:00 06:00 WBC RBC Hgb Hct MCV MCH MCHC RDW Plt Count MPV Absolute Neuts (auto) Neutrophils % Lymphocytes % Monocytes % Eosinophils % Basophils % Nucleated RBC % PT with INR 12.90 INR 1.09 Sodium 141 Potassium 3.9 Chloride 110 H Carbon Dioxide 26 Anion Gap 5 L BUN 14.6 Creatinine 0.7 Est GFR (CKD-EPI)AfAm 98.23 Est GFR (CKD-EPI)NonAf 84.75 Random Glucose 81 Calcium 7.9 L Phosphorus 2.5 Magnesium 2.2 Total Bilirubin 0.6 AST 17 ALT 18 Alkaline Phosphatase 64 Total Protein 5.6 L Albumin 3.0 L Urine Color Urine Appearance Urine pH Ur Specific [place] Urine Protein Urine Glucose (UA) Urine Ketones Urine Blood Urine Nitrite Urine Bilirubin Urine Urobilinogen Ur Leukocyte Esterase Urine WBC (Auto) Urine RBC (Auto) U Epithel Cells (Auto) Urine Bacteria (Auto) Blood Type Active Medications Generic Name Dose Route Start Last Admin Trade Name Freq PRN Reason Stop Dose Admin Acetaminophen 650 mg 05/03/19 15:17 Tylenol - PO Q6H PRN PAIN LEVEL 7 - 10 Amitriptyline HCl 10 mg 05/02/19 22:00 05/02/19 22:26 Elavil - PO 10 mg HS RICARDO Administration Aspirin 81 mg 05/03/19 10:00 12/06/19 10:39 Asa - PO 81 mg DAILY RICARDO Administration Famotidine 40 mg 05/03/19 10:00 05/03/19 10:39 Pepcid - PO 40 mg DAILY RICARDO Administration Heparin Sodium (Porcine) 5,000 unit 05/02/19 22:00 05/03/19 10:39 Heparin - SQ 5,000 unit BID RICARDO Administration Hydrochlorothiazide 12.5 mg 05/03/19 10:00 05/03/19 10:27 Hctz - PO Not Given DAILY RICARDO Latanoprost 1 drop 05/02/19 22:00 05/02/19 21:45 Xalatan 0.005% Eye Drops - OU 1 drop HS RICARDO Administration Oxybutynin Chloride 5 mg 05/02/19 22:00 05/03/19 10:39 Ditropan - PO 5 mg BID RICARDO Administration Valsartan 320 mg 05/03/19 10:00 05/03/19 10:27 Diovan - PO Not Given DAILY RICARDO ASSESSMENT/PLAN: Problem List - Problems (1) Abdominal pain Assessment/Plan: still having abdominal pain, tenderness given enema and started on a full liquid diet monitor for any signs of bleeding, non since admission hmg/hct stable on xarelto for hx of fem. stent last colonoscopy reported to be 5 years ago per daughter w/o acute findings GI following Code(s): R10.9 - UNSPECIFIED ABDOMINAL PAIN (2) Prophylactic measure Code(s): Z29.9 - ENCOUNTER FOR PROPHYLACTIC MEASURES, UNSPECIFIED Visit type - Emergency Visit Emergency Visit: Yes ED Registration Date: 05/02/19 Care time: The patient presented to the Emergency Department on the above date and was hospitalized for further evaluation of their emergent condition. - New Patient This patient is new to me today: Yes Date on this admission: 05/03/19 - Critical Care Critical Care patient: No - Discharge Referral Referred to [facility] Med P.C.: No
[2019-05-03] MEDS ORDERED: RIVAROXABAN 20 MG TABLET PO SCH (18:00)
[2019-05-03] MEDS: RIVAROXABAN 20 MG TABLET PO SCH (18:38)
[2019-05-03] MEDS: AMITRIPTYLINE HCL 10 MG TABLET (FP) PO SCH (22:25)
[2019-05-03] MEDS: LATANOPROST 0.005% OPHTH SOLN 2.5ML BOTTLE OU SCH (22:29)
[2019-05-04] MEDS: HYDROCHLOROTHIAZIDE 12.5 MG CAPSULE (FP) PO SCH (10:28)
[2019-05-04] MEDS: VALSARTAN 160 MG TABLET (UD) PO SCH (10:28)
[2019-05-04] MEDS: OXYBUTYNIN CHLORIDE 5 MG TABLET PO SCH ×2 (10:28→22:30)
[2019-05-04] MEDS: ASPIRIN 81 MG CHEWABLE TABLETS PO SCH (10:28)
[2019-05-04] MEDS: FAMOTIDINE 40 MG TABLET PO SCH (10:28)
--- NOTE | 2019-05-04 14:35 | PN ---
Progress Note, Physician History of Present Illness: still has mild abd discomfort, had small bm after enema, - Current Medication List Current Medications: Active Medications Acetaminophen (Tylenol -) 650 mg PO Q6H PRN PRN Reason: PAIN LEVEL 7 - 10 Last Admin: 05/03/19 17:32 Dose: 650 mg Amitriptyline HCl (Elavil -) 10 mg PO HS [facility] Last Admin: 05/03/19 22:25 Dose: 10 mg Aspirin (Asa -) 81 mg PO DAILY [facility] Last Admin: 05/04/19 10:28 Dose: 81 mg Famotidine (Pepcid -) 40 mg PO DAILY [facility] Last Admin: 05/04/19 10:28 Dose: 40 mg Hydrochlorothiazide (Hctz -) 12.5 mg PO DAILY [facility] Last Admin: 05/04/19 10:28 Dose: 12.5 mg Latanoprost (Xalatan 0.005% Eye Drops -) 1 drop OU HS [facility] Last Admin: 05/03/19 22:29 Dose: 1 drop Oxybutynin Chloride (Ditropan -) 5 mg PO BID [facility] Last Admin: 05/04/19 10:28 Dose: 5 mg Rivaroxaban (Xarelto) 20 mg PO DAILY@1800 [facility] Last Admin: 05/03/19 18:38 Dose: 20 mg Valsartan (Diovan -) 320 mg PO DAILY [facility] Last Admin: 05/04/19 10:28 Dose: 320 mg - Objective Vital Signs: Vital Signs Temperature 98.5 F 05/04/19 10:00 Pulse Rate 79 05/04/19 10:00 Respiratory Rate 18 05/04/19 10:00 Blood Pressure 107/54 L 05/04/19 10:00 O2 Sat by Pulse Oximetry (%) 96 05/03/19 21:00 Constitutional: Yes: Well Nourished Eyes: Yes: WNL HENT: Yes: Normocephalic Neck: Yes: Trachea Midline Cardiovascular: Yes: Regular Rate and Rhythm, Bradycardia Respiratory: Yes: Regular, CTA Bilaterally Gastrointestinal: Yes: WNL, Normal Bowel Sounds, Soft Edema: No Neurological: Yes: WNL Labs: CBC, BMP 05/03/19 06:00 05/03/19 06:00 INR, PTT INR 1.09 (0.83-1.09) 05/03/19 06:00 Impression/Plan Impression/Plan: (1) Abdominal pain Assessment/Plan: pt feels slighty better, still has abd discomfort, but better, given enema . had small bm after that, and started on a full liquid diet on xarelto for hx of fem. stent last colonoscopy reported to be 5 years ago per daughter w/o acute findings fu with GI Code(s): R10.9 - UNSPECIFIED ABDOMINAL PAIN (2) Prophylactic measure Code(s): Z29.9 - ENCOUNTER FOR Visit type - Emergency Visit Emergency Visit: No - New Patient This patient is new to me today: Yes Date on this admission: 05/04/19 - Critical Care Critical Care patient: No - Discharge Referral Referred to [facility] Med P.C.: No
[2019-05-04] MEDS: RIVAROXABAN 20 MG TABLET PO SCH (17:08)
[2019-05-04] MEDS: LATANOPROST 0.005% OPHTH SOLN 2.5ML BOTTLE OU SCH (22:29)
[2019-05-04] MEDS: AMITRIPTYLINE HCL 10 MG TABLET (FP) PO SCH (22:30)
[2019-05-04] MEDS ORDERED: MELATONIN 5 MG TABLETS PO PRN (22:45)
[2019-05-05 08:00] LABS: EOS % 4.4 % (0-4.5); HEMATOCRIT 35.2 % (32.4-45.2); HEMOGLOBIN 11.8 GM/dL (10.7-15.3); LYMPH % 44.7 % (8-40); MCH 30.6 pg (25.7-33.7); MCHC 33.6 g/dl (32.0-36.0); MONO % 7.8 % (3.8-10.2); NEUT % 42.1 % (42.8-82.8); PLATELET COUNT 214 K/MM3 (134-434); RBC 3.86 M/mm3 (3.60-5.2); RDW 13.7 % (11.6-15.6); WHITE BLOOD COUNT 4.1 K/mm3 (4.0-10.0)
[2019-05-05 08:30] LABS: BILIRUBIN,TOTAL 0.6 mg/dL (0.2-1); BLOOD UREA NITROGEN 8.8 mg/dL (7-18); CALCIUM 8.6 mg/dL (8.5-10.1); CREATININE 0.7 mg/dL (0.55-1.3); POTASSIUM 3.9 mmol/L (3.5-5.1)
--- NOTE | 2019-05-05 10:11 | PN ---
Physical Exam: SUBJECTIVE: Patient seen and examined. She has had multiple bowel movements but continues to complain of LLQ abdominal pain. OBJECTIVE: Vital Signs Period Temp Pulse Resp BP Sys/Youssef Pulse Ox Last 24 Hr 98.1 F-98.6 F 64-97 20-20 110-125/60-70 100 GENERAL: The patient is awake, alert, and fully oriented, in no acute distress. LUNGS: Breath sounds equal, clear to auscultation bilaterally, no wheezes, no crackles, no accessory muscle use. HEART: Regular rate and rhythm, S1, S2 without murmur, rub or gallop. ABDOMEN: Soft, (+) LLQ tenderness, nondistended, normoactive bowel sounds, no guarding, no rebound, no hepatosplenomegaly, no masses. EXTREMITIES: 2+ pulses, warm, well-perfused, no edema. Laboratory Results - last 24 hr 05/05/19 05/05/19 07:04 07:04 WBC 4.1 RBC 3.86 Hgb 11.8 Hct 35.2 MCV 91.0 MCH 30.6 MCHC 33.6 RDW 13.7 Plt Count 214 D MPV 9.0 Absolute Neuts (auto) 1.7 Neutrophils % 42.1 L D Lymphocytes % 44.7 H D Monocytes % 7.8 Eosinophils % 4.4 D Basophils % 1.0 D Nucleated RBC % 2 H Sodium 141 Potassium 3.9 Chloride 109 H Carbon Dioxide 25 Anion Gap 8 BUN 8.8 Creatinine 0.7 Est GFR (CKD-EPI)AfAm 98.23 Est GFR (CKD-EPI)NonAf 84.75 Random Glucose 85 Calcium 8.6 Total Bilirubin 0.6 AST 17 ALT 22 Alkaline Phosphatase 67 Total Protein 6.0 L Albumin 3.0 L Active Medications Generic Name Dose Route Start Last Admin Trade Name Freq PRN Reason Stop Dose Admin Acetaminophen 650 mg 05/03/19 15:17 05/03/19 17:32 Tylenol - PO 650 mg Q6H PRN Administration PAIN LEVEL 7 - 10 Amitriptyline HCl 10 mg 05/02/19 22:00 05/04/19 22:30 Elavil - PO 10 mg HS RICARDO Administration Aspirin 81 mg 05/03/19 10:00 05/04/19 10:28 Asa - PO 81 mg DAILY RICARDO Administration Famotidine 40 mg 05/03/19 10:00 05/04/19 10:28 Pepcid - PO 40 mg DAILY RICARDO Administration Hydrochlorothiazide 12.5 mg 05/03/19 10:00 05/04/19 10:28 Hctz - PO 12.5 mg DAILY RICARDO Administration Latanoprost 1 drop 05/02/19 22:00 05/04/19 22:29 Xalatan 0.005% Eye Drops - OU 1 drop HS RICARDO Administration Melatonin 5 mg 05/04/19 22:45 05/04/19 23:04 Melatonin PO 5 mg HS PRN Administration INSOMNIA Oxybutynin Chloride 5 mg 05/02/19 22:00 05/04/19 22:30 Ditropan - PO 5 mg BID RICARDO Administration Rivaroxaban 20 mg 05/03/19 18:15 05/04/19 17:08 Xarelto PO 20 mg DAILY@1800 RICARDO Administration Valsartan 320 mg 05/03/19 10:00 05/04/19 10:28 Diovan - PO 320 mg DAILY RICARDO Administration ASSESSMENT/PLAN: This is a 73 year old woman with a history of HTN, hyperlipidemia, GERD, PAD with recent femoral artery stent, migraine headaches, restless legs syndrome who presented to the ED with abdominal pain. 1. Abdominal pain - Possibly secondary to fecal retention - Improving after mineral oil enema and multiple BMs - Tolerating full liquids 2. HTN - Continue Diovan, HCTZ 3. Hyperlipidemia 4. GERD 5. PAD - Had recent left femoral artery stent - Continue Xarelto Visit type - Emergency Visit Emergency Visit: Yes ED Registration Date: 05/02/19 Care time: The patient presented to the Emergency Department on the above date and was hospitalized for further evaluation of their emergent condition. - New Patient This patient is new to me today: Yes Date on this admission: 05/05/19 - Critical Care Critical Care patient: No - Discharge Referral Referred to [facility] Med P.C.: No
[2019-05-05] MEDS: FAMOTIDINE 40 MG TABLET PO SCH (10:20)
[2019-05-05] MEDS: HYDROCHLOROTHIAZIDE 12.5 MG CAPSULE (FP) PO SCH (10:20)
[2019-05-05] MEDS: ASPIRIN 81 MG CHEWABLE TABLETS PO SCH (10:20)
[2019-05-05] MEDS: OXYBUTYNIN CHLORIDE 5 MG TABLET PO SCH (10:20)
[2019-05-05] MEDS: VALSARTAN 160 MG TABLET (UD) PO SCH (10:20)
[2019-05-05] MEDS: RIVAROXABAN 20 MG TABLET PO SCH (18:42)
--- NOTE | 2019-05-05 18:43 | DS ---
Physical Exam: SUBJECTIVE: Patient seen and examined. She has no complaints. OBJECTIVE: Vital Signs Period Temp Pulse Resp BP Sys/Youssef Pulse Ox Last 24 Hr 98.1 F-98.9 F 64-97 18-20 110-125/60-71 100 PHYSICAL EXAM GENERAL: The patient is awake, alert, and fully oriented, in no acute distress. LUNGS: Breath sounds equal, clear to auscultation bilaterally, no wheezes, no crackles, no accessory muscle use. HEART: Regular rate and rhythm, S1, S2 without murmur, rub or gallop. ABDOMEN: Soft, nontender, nondistended, normoactive bowel sounds, no guarding, no rebound, no hepatosplenomegaly, no masses. EXTREMITIES: 2+ pulses, warm, well-perfused, no edema. LABS Laboratory Results - last 24 hr 05/05/19 05/05/19 07:04 07:04 WBC 4.1 RBC 3.86 Hgb 11.8 Hct 35.2 MCV 91.0 MCH 30.6 MCHC 33.6 RDW 13.7 Plt Count 214 D MPV 9.0 Absolute Neuts (auto) 1.7 Neutrophils % 42.1 L D Lymphocytes % 44.7 H D Monocytes % 7.8 Eosinophils % 4.4 D Basophils % 1.0 D Nucleated RBC % 2 H Sodium 141 Potassium 3.9 Chloride 109 H Carbon Dioxide 25 Anion Gap 8 BUN 8.8 Creatinine 0.7 Est GFR (CKD-EPI)AfAm 98.23 Est GFR (CKD-EPI)NonAf 84.75 Random Glucose 85 Calcium 8.6 Total Bilirubin 0.6 AST 17 ALT 22 Alkaline Phosphatase 67 Total Protein 6.0 L Albumin 3.0 L HOSPITAL COURSE: Date of Admission:05/02/19 Date of Discharge: 05/05/19 Minutes to complete discharge: 30 Discharge Summary Problems reviewed: Yes Reason For Visit: INTRACTABLE ABDOMINAL PAIN Current Active Problems Abdominal pain (Acute) Bladder mass (Acute) Chronic UTI (urinary tract infection) (Acute) Intractable abdominal pain (Acute) Prophylactic measure (Acute) Condition: Improved - Instructions Diet, Activity, Other Instructions: You were evaluated at the [facility] ER on May 02 because of abdominal pain and constipation with nausea and vomiting. CT scan showed no obstruction. You were admitted and seen by a finishing range supervisor, Dr. Sebastian Perez. Your pain was thought to be caused by constipation. You were treated with a mineral oil enema. Once you started to move your bowels, your symptoms improved. You are being discharged home on May 05. You may resume your usual activity and diet. You should keep your previously scheduled appointment with your finishing range supervisor on May 16. Please schedule an appointment with your primary care provider, Dr. Randy Curtis, this week. Please return to the ER if you develop abdominal pain, vomiting, rectal bleeding. Disposition: HOME - Home Medications Comprehensive Discharge Medication List: Ambulatory Orders Famotidine [Pepcid] 40 mg PO HS 12/23/17 Pitavastatin Calcium [Livalo] 2 mg PO DAILY 12/23/17 Aspirin [ASA -] 81 mg PO DAILY 07/24/18 Levocetirizine Dihydrochloride [Allergy Relief] 5 mg PO DAILY 07/24/18 Amitriptyline HCl [Elavil -] 10 mg PO HS 04/13/19 Latanoprost 0.005% Eye Drops [Xalatan 0.005% Eye Drops -] 1 drop OU HS 04/13/19 Rivaroxaban [Xarelto -] 20 mg PO DAILY 04/13/19 Trospium Chloride [Trospium Chloride ER] 20 mg PO BID 04/13/19 Valsartan/Hydrochlorothiazide [Valsartan-Hctz 320-12.5 mg Tab] 1 each PO DAILY 04/13/19 Meloxicam 7.5 mg PO DAILY 04/14/19 Oxybutynin Chloride [Oxybutynin Chloride ER] 10 mg PO DAILY 04/14/19 This patient is new to me today: Yes Date on this admission: 05/05/19 Emergency Visit: Yes ED Registration Date: 05/02/19 Care time: The patient presented to the Emergency Department on the above date and was hospitalized for further evaluation of their emergent condition. Critical Care patient: No - Discharge Referral Referred to [facility] Med P.C.: No
[2019-05-05 18:53] VITALS: BP 132/60; PULSE 68; TEMP 97
== END 2019-05-05 19:25 | disposition home or self-care (01) | DRG 392 ==
LOC: JER 11:21 → JERBED 16:05 → J8W 17:49
PROVIDERS: ADMIT Hospitalist; ATTEND Internal Medicine
DX: K59.00 Constipation, unspecified (principal); I10 Essential (primary) hypertension; G25.81 Restless legs syndrome; G43.909 Migraine, unspecified, not intractable, without status migrainosus; R10.9 Unspecified abdominal pain; N32.89 Other specified disorders of bladder; K21.9 Gastro-esophageal reflux disease without esophagitis; E78.5 Hyperlipidemia, unspecified
CPT/HCPCS: 36415; 74177-TC; 80053; 81003; 83605; 83690; 83735; 84100; 84484; 85025; 85610; 85730; 86850; 86900; 86901; 87086; 99283-25; J0131; J1644; J7030

== ENCOUNTER 2019-12-27 02:42 | Inpatient (IN) | payer OTHER ==
--- NOTE | 2019-12-27 02:53 | PDOC ---
History of Present Illness - General Stated Complaint: CHEST PAIN,HEARBURN,HEADACHE,VOMITING Time Seen by Provider: 12/27/19 02:53 History Source: Patient Exam Limitations: No Limitations - History of Present Illness Initial Comments: 12/27/19 03:26 HPI: This is a 74 y/o female with a PMH of HTN, HLD, migraines, PAD s/p stent in l. groin who is presenting to the ED due to 7 days of diffuse "chest burning" that occasionally radiates to her back. She states the pain is always present but worsens and is also accompanied by a headache. Nothing makes the pain better. She went to [facility] on Monday with he granddaughter for a head CT, EKG, and labs and was sent home. The pain worsened since then and today she had 4 episodes of NBNB emesis. She denies fever/chills, diaphoresis, pain worse with exertion, or previous hx of [place]. ROS: GENERAL/CONSTITUTIONAL: No fever/chills. No weakness. CARDIOVASCULAR: Yes chest pain and shortness of breath RESPIRATORY: No cough, wheezing GASTROINTESTINAL: Yes nausea and 4 episodes of vomiting today. Yes constipation. GENITOURINARY: No dysuria, frequency MUSCULOSKELETAL: Yes neck pain. SKIN: No rash NEUROLOGIC: Yes headache. No loss of consciousness. HEMATOLOGIC/LYMPHATIC: No anemia, easy bleeding, or history of blood clots. PCP: [facility] PMH: HTN, HLD, GERD, migraines, PAD w/ stent Social Hx: Denied tobacco and etoh Meds: See nurses note Allergies: Penicillins PE: GENERAL: Awake, alert, and fully oriented. Laying in bed conversing normally, in some distress due to pain. HEAD: No signs of trauma EYES: PERRL, EOMI NECK: Normal ROM, supple, LUNGS: Breath sounds equal, clear to auscultation bilaterally. No wheezes, and no crackles HEART: Regular rate and rhythm, normal S1 and S2, no murmurs, rubs or gallops ABDOMEN: Soft, nontender, normoactive bowel sounds. No guarding, no rebound. No masses EXTREMITIES: Normal range of motion, no edema. NEUROLOGICAL: Cranial nerves II through XII grossly intact. Normal speech, normal gait SKIN: Warm, Dry, normal turgor, no rashes or lesions noted. 12/27/19 03:28 MDM: This is a 74 y/o female with a PMH of HTN, HLD, migraines, PAD s/p stent in l. groin who is presenting to the ED due to 7 days of diffuse "chest burning" that occasionally radiates to her back. - Pt with significant cardiac risk factors - Monitor showed period of vtach, possibly torsades which broke after a few seconds - CBC, CMP, Cardiac profile, EKG, CXR, coags, mag - Plan to admit to telemetry CBC WBC 5.3 K/mm3 (4.0-10.0) 12/27/19 03:20 RBC 4.30 M/mm3 (3.60-5.2) 12/27/19 03:20 Hgb 13.0 GM/dL (10.7-15.3) 12/27/19 03:20 Hct 38.4 % (32.4-45.2) 12/27/19 03:20 MCV 89.4 fl (80-96) 12/27/19 03:20 MCH 30.3 pg (25.7-33.7) 12/27/19 03:20 MCHC 33.8 g/dl (32.0-36.0) 12/27/19 03:20 RDW 14.7 % (11.6-15.6) 12/27/19 03:20 Plt Count 232 K/MM3 (134-434) 12/27/19 03:20 MPV 9.3 fl (7.5-11.1) 12/27/19 03:20 Absolute Neuts (auto) 2.2 K/mm3 (1.5-8.0) 12/27/19 03:20 Neutrophils % 41.8 % (42.8-82.8) L 12/27/19 03:20 Lymphocytes % 43.3 % (8-40) H 12/27/19 03:20 Monocytes % 12.2 % (3.8-10.2) H 12/27/19 03:20 Eosinophils % 1.7 % (0-4.5) 12/27/19 03:20 Basophils % 1.0 % (0-2.0) 12/27/19 03:20 Nucleated RBC % 0 % (0-0) 12/27/19 03:20 No leukocytosis, no anemia 12/27/19 03:54 12/27/19 04:08 CMP Sodium 133 mmol/L (136-145) L 12/27/19 03:20 Potassium 3.6 mmol/L (3.5-5.1) 12/27/19 03:20 Chloride 99 mmol/L (98-107) 12/27/19 03:20 Carbon Dioxide 26 mmol/L (21-32) 12/27/19 03:20 Anion Gap 7 MMOL/L (8-16) L 12/27/19 03:20 BUN 10.1 mg/dL (7-18) 12/27/19 03:20 Creatinine 0.9 mg/dL (0.55-1.3) 12/27/19 03:20 Est GFR (CKD-EPI)AfAm 71.98 12/27/19 03:20 Est GFR (CKD-EPI)NonAf 62.11 12/27/19 03:20 Random Glucose 89 mg/dL (74-106) 12/27/19 03:20 Calcium 9.3 mg/dL (8.5-10.1) 12/27/19 03:20 Magnesium 2.4 mg/dL (1.8-2.4) 12/27/19 03:20 Total Bilirubin 1.1 mg/dL (0.2-1) H 12/27/19 03:20 AST 27 U/L (15-37) 12/27/19 03:20 ALT 30 U/L (13-61) 12/27/19 03:20 Alkaline Phosphatase 80 U/L (45-117) 12/27/19 03:20 Creatine Kinase 251 U/L (26-192) H 12/27/19 03:20 Troponin I < 0.02 ng/ml (0.00-0.05) 12/27/19 03:20 Total Protein 8.0 g/dl (6.4-8.2) 12/27/19 03:20 Albumin 4.4 g/dl (3.4-5.0) 12/27/19 03:20 Mag 2.4, troponin negative 12/27/19 04:15 - Microblogged symphony 12/27/19 05:54 - Patient admitted. Past History - Medical History Allergies/Adverse Reactions: Allergies Allergy/AdvReac Type Severity Reaction Status Date / Time cephalexin [From Keflex] Allergy Swelling Verified 12/27/19 02:55 Penicillins Allergy Swelling Verified 12/27/19 02:55 histamine Allergy Swelling Uncoded 12/27/19 02:55 Home Medications: Ambulatory Orders Albuterol Sulfate Inhaler - [Ventolin HFA Inhaler -] 1 puff IH Q4H PRN 12/27/19 Aspirin 81 mg PO DAILY 12/27/19 Famotidine [Pepcid -] 40 mg PO DAILY 12/27/19 Latanoprost 0.005% Eye Drops [Xalatan 0.005% Eye Drops -] 1 drop OU HS 12/27/19 Levocetirizine Dihydrochloride 5 mg PO PRN PRN 12/27/19 Pitavastatin Calcium [Livalo] 2 mg PO HS 12/27/19 Topiramate 25 mg PO DAILY 12/27/19 Trospium Chloride [Trospium Chloride ER] 20 mg PO BID 12/27/19 Valsartan/Hydrochlorothiazide [Diovan Hct 320-12.5 mg Tab] 1 each PO DAILY 12/27/19 Anemia: No Asthma: No Cancer: No Cardiac Disorders: No CVA: No COPD: No CHF: No Dementia: No Diabetes: No GI Disorders: Yes (GERD) Disorders: No HTN: Yes Hypercholesterolemia: Yes Liver Disease: No Seizures: No Thyroid Disease: No - Surgical History Abdominal Surgery: No Appendectomy: No Cardiac Surgery: No Cholecystectomy: No Gastric Stapling: No GI Surgery: No Lung Surgery: No Neurologic Surgery: No Orthopedic Surgery: No - Immunization History Immunization Up to Date: Yes - Psycho-Social/Smoking History Smoking History: Never smoked Have you smoked in the past 12 months: No Heart Score/ECG Review - History History: Moderately suspicious - Electrocardiogram EKG: Normal - Age Age: >/= 65 - Risk Factors Risk Factors Heart Score: Yes Hx Hypercholesterolemia, Yes Hx Hypertension Based on the list above the patient has:: 1-2 risk factors - Troponin Troponin: </= normal limit - Score Heart Score - Total: 4 - ECG Intrepretation Comment:: 12/27/19 06:15 EKG without acute ischemic changes. Normal sinus rhythm, Left axis deviation. Vent rate 63bpm, [place] interval 158ms, QRS duration 104ms, QT/QTc 432/442 ED Treatment Course - LABORATORY CBC & Chemistry Diagram: 12/27/19 03:20 12/27/19 03:20 Discharge - Discharge Information Problems reviewed: Yes Clinical Impression/Diagnosis: Chest pain Qualifiers: Chest pain type: unspecified Qualified Code(s): R07.9 - Chest pain, unspecified - Admission Yes - Follow up/Referral - Patient Discharge Instructions - Post Discharge Activity
--- NOTE | 2019-12-27 02:58 | PDOC ---
Attending Attestation - Resident Resident Name: EsmeKaren - ED Attending Attestation I have performed the following: I have examined & evaluated the patient, The case was reviewed & discussed with the resident, I agree w/resident's findings & plan, Exceptions are as noted - HPI HPI: 01/02/20 21:15 See resident HPI - Physicial Exam PE: 01/02/20 21:15 Agree with documented exam - Medical Decision Making 01/02/20 21:15 burning atypical chest pain, run of VTach while on monitor, resolved spontaneously eval arrythmia etiology f/u labs, ekg, cxr, cardiac markers will need admission to tele Discharge - Discharge Information Problems reviewed: Yes Clinical Impression/Diagnosis: Chest pain Qualifiers: Chest pain type: unspecified Qualified Code(s): R07.9 - Chest pain, unspecified Condition: Stable Disposition: HOME - Follow up/Referral - Patient Discharge Instructions - Post Discharge Activity
[2019-12-27] MEDS ORDERED: ASPIRIN 81 MG CHEWABLE TABLETS PO ONE (03:23)
[2019-12-27] MEDS ORDERED: ASPIRIN 81 MG CHEWABLE TABLETS ONE (03:28)
[2019-12-27 03:37] LABS: EOS % 1.7 % (0-4.5); HEMATOCRIT 38.4 % (32.4-45.2); LYMPH % 43.3 % (8-40); MCH 30.3 pg (25.7-33.7); MCHC 33.8 g/dl (32.0-36.0); MEAN CELL VOLUME 89.4 fl (80-96); MEAN PLT VOLUME 9.3 fl (7.5-11.1); MONO % 12.2 % (3.8-10.2); NEUT % 41.8 % (42.8-82.8); PLATELET COUNT 232 K/MM3 (134-434); RDW 14.7 % (11.6-15.6); WHITE BLOOD COUNT 5.3 K/mm3 (4.0-10.0)
[2019-12-27 03:54] LABS: INR 1.03 (0.83-1.09); PROTHROMBIN TIME (PATIENT) 12.2 SEC (9.7-13.0)
[2019-12-27 03:56] LABS: ACTIVATED PTT 27.8 SECONDS (25.2-36.5)
[2019-12-27 04:03] LABS: EPI CELLS 7 /uL (0-25.1); HYALINE CASTS 0 /uL (0-3.1); PH,URINE 7.5 (5.0-8.0); URINE APPEARANCE CLOUDY; URINE BACTERIA 8 /uL (0-1359); URINE BILIRUBIN NEGATIVE (NEGATIVE); URINE COLOR YELLOW; URINE GLUCOSE (UA) NEGATIVE (NEGATIVE); URINE KETONE TRACE (NEGATIVE); URINE LEUK ESTERASE NEGATIVE (NEGATIVE); URINE NITRITE NEGATIVE (NEGATIVE); URINE PROTEIN NEGATIVE (NEGATIVE); URINE RBC 11 /uL (0-23.9); URINE UROBILINOGEN 0.2 mg/dL (0.2-1.0); URINE WBC 2 /uL (0-25.8)
[2019-12-27 04:04] LABS: ALBUMIN 4.4 g/dl (3.4-5.0); BILIRUBIN,TOTAL 1.1 mg/dL (0.2-1); BLOOD UREA NITROGEN 10.1 mg/dL (7-18); CALCIUM 9.3 mg/dL (8.5-10.1); CREATININE 0.9 mg/dL (0.55-1.3); POTASSIUM 3.6 mmol/L (3.5-5.1)
[2019-12-27 04:05] LABS: MAGNESIUM 2.4 mg/dL (1.8-2.4)
--- NOTE | 2019-12-27 08:17 | HP ---
CHIEF COMPLAINT: Diffuse pain in her head, neck, chest, and legs for the past 7 days PCP: HISTORY OF PRESENT ILLNESS: This is a 74 year old female with PMH of HTN, HLD, GERD, migraines, RLS, chronic UTI, bladder mass resection, total hysterectomy, and PAD (femoral stent Mar 2018). She presented to the ER with complaints of diffuse pain in her head, neck, chest, and legs. She states that the pain began 7 days ago when she was cleaning her house. Initially it began as a frontal headache, but then rapidly spread to the back of her head, down her neck, into her chest and epigastric area, and down her legs. It was sudden in onset, constant in nature with waxing and waning intensity, 10/10 at its worst. It was burning in quality, with no aggravating or alleviating factors. She states that she has had headaches, chest pain, and leg pain in the past but never this severe or diffuse. She endorses diaphoresis, nausea with 4 episodes of vomiting yesterday, brown with no blood, as well as constipation for the past 5 days, but no fevers, chills, SOB, or dysuria. She went to [facility] on Monday, where they performed an EKG and some basic labwork. She was discharged with the recommendation to see an physical education specialist outpatient. She has had multiple admission at [facility], and her last admisison was May 02-2018 for left-sided abdominal pain with constipation which had previously resolved with laxatives, nausea, vomiting, and BRBPR. CT showed hepatomegaly with mild diffuse fatty infiltration, fluid filled colon with mild distention, no evidence of bowel obstruction. She was treated with IV fluid and kept NPO, advanced to full liquid diet. GI recommended mineral oil enema and Miralax, after which she had a BM and her pain subsided. As per pt's daughter Alma, pt had L femoral stent placed in Mar 2019 at [facility] (Dr. Gopal Nolan), and was started on a 2-3 month course of Xarelto, switched to ASA. She is due for an appointment with Dr. Nolan next week. She had an Echo and stress test at [facility] in Jun 2018, which were normal. Last colonoscopy was 5 years ago, which was also without any acute abnormalities. ER course was notable for: (1) ASA 324 mg (2) (3) Recent Travel: denies PAST MEDICAL HISTORY: See HPI PAST SURGICAL HISTORY: Bladder resection, hysterectomy, L femoral stent Social History: Smoking: denies Alcohol: denies Drugs: denies Allergies cephalexin [From Keflex] Allergy (Verified 12/27/19 02:55) Swelling Penicillins Allergy (Verified 12/27/19 02:55) Swelling histamine Allergy (Uncoded 12/27/19 02:55) Swelling HOME MEDICATIONS: Home Medications Medication Instructions Recorded Famotidine [Pepcid -] 40 mg PO DAILY 12/27/19 Levocetirizine Dihydrochloride 5 mg PO PRN PRN 12/27/19 Meclizine HCl 12.5 mg PO PRN PRN 12/27/19 Meloxicam 15 mg PO DAILY 12/27/19 Montelukast Sodium 10 mg PO DAILY 12/27/19 Topiramate 25 mg PO DAILY 12/27/19 Trospium Chloride [Trospium 20 mg PO BID 12/27/19 Chloride ER] Valsartan/Hydrochlorothiazide 1 each PO DAILY 12/27/19 [Diovan Hct 320-12.5 mg Tab] Venlafaxine HCl ER [Effexor Xr -] 150 mg PO DAILY 12/27/19 REVIEW OF SYSTEMS CONSTITUTIONAL: Absent: fever, chills, diaphoresis, generalized weakness, malaise, loss of appetite, weight change HEENT: Absent: rhinorrhea, nasal congestion, throat pain, throat swelling, difficulty swallowing, mouth swelling, ear pain, eye pain, visual changes CARDIOVASCULAR: Absent: chest pain, syncope, palpitations, irregular heart rate, lightheadedness, peripheral edema RESPIRATORY: Absent: cough, shortness of breath, dyspnea with exertion, orthopnea, wheezing, stridor, hemoptysis GASTROINTESTINAL: abdominal pain, nausea, vomiting, constipation Absent: abdominal pain, abdominal distension, nausea, vomiting, diarrhea, constipation, melena, hematochezia GENITOURINARY: Absent: dysuria, frequency, urgency, hesitancy, hematuria, flank pain, genital pain MUSCULOSKELETAL: Absent: myalgia, arthralgia, joint swelling, back pain, neck pain SKIN: Absent: rash, itching, pallor HEMATOLOGIC/IMMUNOLOGIC: Absent: easy bleeding, easy bruising, lymphadenopathy, frequent infections ENDOCRINE: Absent: unexplained weight gain, unexplained weight loss, heat intolerance, cold intolerance NEUROLOGIC: headache Absent: headache, focal weakness or paresthesias, dizziness, unsteady gait, seizure, mental status changes, bladder or bowel incontinence PSYCHIATRIC: Absent: anxiety, depression, suicidal or homicidal ideation, hallucinations. PHYSICAL EXAMINATION Vital Signs - 24 hr 12/27/19 12/27/19 12/27/19 02:55 03:17 04:55 Temperature 98.7 F 98.1 F Pulse Rate 71 Pulse Rate [ 68 55 L Left Apical] Respiratory 20 20 16 Rate Blood Pressure 180/71 H Blood Pressure 180/76 H 145/68 [Left Arm] O2 Sat by Pulse 100 100 100 Oximetry (%) 12/27/19 06:46 Temperature 98.1 F Pulse Rate Pulse Rate [ 82 Left Apical] Respiratory 16 Rate Blood Pressure Blood Pressure 136/55 L [Left Arm] O2 Sat by Pulse 100 Oximetry (%) GENERAL: Awake, alert, and fully oriented, in no acute distress. HEAD: Normal with no signs of trauma. EYES: Pupils equal, round and reactive to light, extraocular movements intact, sclera anicteric, conjunctiva clear. No lid lag. EARS, NOSE, THROAT: Ears normal, nares patent, oropharynx clear without exudates. Moist mucous membranes. NECK: Normal range of motion, supple without lymphadenopathy, JVD, or masses. LUNGS: Breath sounds equal, clear to auscultation bilaterally. No wheezes, and no crackles. No accessory muscle use. HEART: Regular rate and rhythm, normal S1 and S2 without murmur, rub or gallop. ABDOMEN: Soft, mild tendnerness to palpation in epigastric area, no rebound tenderness MUSCULOSKELETAL: Cervical spinal, para spinal, trapezius, tenderness to palpation UPPER EXTREMITIES: 2+ pulses, warm, well-perfused. No cyanosis. No clubbing. No peripheral edema. LOWER EXTREMITIES: 2+ pulses, warm, well-perfused. No calf tenderness. No peripheral edema. NEUROLOGICAL: Cranial nerves II-XII intact. Normal speech. Normal gait. PSYCHIATRIC: Cooperative. Good eye contact. Appropriate mood and affect. SKIN: Warm, dry, normal turgor, no rashes or lesions noted, normal capillary refill. Laboratory Results - last 24 hr 12/27/19 12/27/19 12/27/19 03:20 03:20 03:20 WBC 5.3 RBC 4.30 Hgb 13.0 Hct 38.4 MCV 89.4 MCH 30.3 MCHC 33.8 RDW 14.7 Plt Count 232 MPV 9.3 Absolute Neuts (auto) 2.2 Neutrophils % 41.8 L Lymphocytes % 43.3 H Monocytes % 12.2 H Eosinophils % 1.7 Basophils % 1.0 Nucleated RBC % 0 PT with INR INR PTT (Actin FS) Sodium 133 L Potassium 3.6 Chloride 99 Carbon Dioxide 26 Anion Gap 7 L BUN 10.1 Creatinine 0.9 Est GFR (CKD-EPI)AfAm 71.98 Est GFR (CKD-EPI)NonAf 62.11 Random Glucose 89 Calcium 9.3 Magnesium 2.4 Total Bilirubin 1.1 H AST 27 ALT 30 Alkaline Phosphatase 80 Creatine Kinase 251 H Creatine Kinase Index 1.3 CK-MB (CK-2) 3.5 Troponin I < 0.02 Total Protein 8.0 Albumin 4.4 Urine Color Urine Appearance Urine pH Ur Specific Dumont Urine Protein Urine Glucose (UA) Urine Ketones Urine Blood Urine Nitrite Urine Bilirubin Urine Urobilinogen Ur Leukocyte Esterase Urine WBC (Auto) Urine RBC (Auto) Urine Casts (Auto) U Epithel Cells (Auto) Urine Bacteria (Auto) 12/27/19 12/27/19 03:20 03:30 WBC RBC Hgb Hct MCV MCH MCHC RDW Plt Count MPV Absolute Neuts (auto) Neutrophils % Lymphocytes % Monocytes % Eosinophils % Basophils % Nucleated RBC % PT with INR 12.20 INR 1.03 PTT (Actin FS) 27.8 Sodium Potassium Chloride Carbon Dioxide Anion Gap BUN Creatinine Est GFR (CKD-EPI)AfAm Est GFR (CKD-EPI)NonAf Random Glucose Calcium Magnesium Total Bilirubin AST ALT Alkaline Phosphatase Creatine Kinase Creatine Kinase Index CK-MB (CK-2) Troponin I Total Protein Albumin Urine Color Yellow Urine Appearance Cloudy Urine pH 7.5 Ur Specific Dumont 1.004 L Urine Protein Negative Urine Glucose (UA) Negative Urine Ketones Trace H Urine Blood 1+ H Urine Nitrite Negative Urine Bilirubin Negative Urine Urobilinogen 0.2 Ur Leukocyte Esterase Negative Urine WBC (Auto) 2 Urine RBC (Auto) 11 Urine Casts (Auto) 0 U Epithel Cells (Auto) 7 Urine Bacteria (Auto) 8 ASSESSMENT/PLAN: This is a 74 year old female with PMH of HTN, HLD, GERD, migraines, RLS, chronic UTI, bladder mass resection, total hysterectomy, and PAD (femoral stent Mar 2019). 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 #Diffuse pain - Unclear etiology, may be multifactorial with migraine causing headaches and GERD causing chest pain - Will continue home Topiramate for migraines - Continue home Pepcid for possible GERD related symptoms and Mylanta for constipation - Fibromyalgia? May benefit from outpatient Rheum consult - Low suspicion of ACS, no EKG findings and negative Trops, chest pain is burning and diffuse - Toradol 15mg Q4H PRN and Tylenol 650mg PO PRN Q6H for pain - Faxed request for release of records from ER visit last week to [facility], awaiting response #Dysarrythmia - Brief episode of non sustained VTach witnessed in the ER - Pt placed on Tele monitoring - Echo ordered, last echo over 1 year ago, EF was normal at the time - Cardiac consult (Dr. Gracia) placed #Hx of Femoral stent - Placed in Mar [address] Gopal Nolan at [facility] - Spoke with Alma (pt's daughter) who states that Xarelto was started for 2-3 months and switched to ASA as per Dr. Nolan because the pt "did not need it anymore" - Will continue ASA, pt has appointment with Dr. Nolan in 1 week #Hx of Bladder prolapse/urinary hesitancy - Continue home Trospium #Hx of HTN - Continue home Valsartan/HCTZ #FEN - Na controlled diet #Prophylaxis - Lovenox #Dispo - Will monitor in Tele for arrythmias Visit type - Medication Review Med list reviewed for High Risk Meds patients 65 and older: Yes - Emergency Visit Emergency Visit: Yes ED Registration Date: 12/27/19 Care time: The patient presented to the Emergency Department on the above date and was hospitalized for further evaluation of their emergent condition. - New Patient This patient is new to me today: Yes Date on this admission: 12/27/19 - Critical Care Critical Care patient: No ATTENDING PHYSICIAN STATEMENT I saw and evaluated the patient. I reviewed the resident's note and discussed the case with the resident. I agree with the resident's findings and plan as documented. SUBJECTIVE: OBJECTIVE: ASSESSMENT AND PLAN:
[2019-12-27] MEDS: POLYETHYLENE GLYCOL 3350 119 GM BTL PO SCH ×2 (10:03→21:35)
[2019-12-27 10:59] LABS: EPI CELLS 13 /uL (0-25.1); HYALINE CASTS 0 /uL (0-3.1); PH,URINE 6.5 (5.0-8.0); URINE APPEARANCE CLEAR; URINE BACTERIA 135 /uL (0-1359); URINE BILIRUBIN NEGATIVE (NEGATIVE); URINE COLOR YELLOW; URINE GLUCOSE (UA) NEGATIVE (NEGATIVE); URINE KETONE NEGATIVE (NEGATIVE); URINE LEUK ESTERASE TRACE (NEGATIVE); URINE NITRITE NEGATIVE (NEGATIVE); URINE PROTEIN NEGATIVE (NEGATIVE); URINE RBC 11 /uL (0-23.9); URINE UROBILINOGEN 0.2 mg/dL (0.2-1.0); URINE WBC 8 /uL (0-25.8)
[2019-12-27] MEDS ORDERED: ACETAMINOPHEN 325 MG TABLET (FP) ONE (11:46)
[2019-12-27] MEDS: ACETAMINOPHEN 325 MG TABLET (FP) PO PRN (11:48)
--- NOTE | 2019-12-27 12:32 | EKG ---
Test Reason : Blood Pressure : / mmHG Vent. Rate : 063 BPM Atrial Rate : 063 BPM P-R Int : 158 ms QRS Dur : 104 ms QT Int : 432 ms P-R-T Axes : 055 -44 034 degrees QTc Int : 442 ms NORMAL SINUS RHYTHM LEFT AXIS DEVIATION ABNORMAL ECG WHEN COMPARED WITH ECG OF 27-DEC-2019 03:02, INCOMPLETE RIGHT BUNDLE BRANCH BLOCK IS NO LONGER PRESENT Confirmed by GAURAV DE ANDA MD ([id number]) on 12/27/2019 12:32:23 PM Referred By: Confirmed By:GAURAV DE ANDA MD
--- NOTE | 2019-12-27 12:35 | EKG ---
Test Reason : Blood Pressure : / mmHG Vent. Rate : 068 BPM Atrial Rate : 068 BPM P-R Int : 148 ms QRS Dur : 098 ms QT Int : 418 ms P-R-T Axes : 058 -48 037 degrees QTc Int : 444 ms NORMAL SINUS RHYTHM INCOMPLETE RIGHT BUNDLE BRANCH BLOCK LEFT ANTERIOR FASCICULAR BLOCK ABNORMAL ECG WHEN COMPARED WITH ECG OF 14-APR-2019 01:48, INCOMPLETE RIGHT BUNDLE BRANCH BLOCK IS NOW PRESENT Confirmed by GAURAV DE ANDA MD ([id number]) on 12/27/2019 12:34:46 PM Referred By: Confirmed By:GAURAV DE ANDA MD
[2019-12-27] MEDS ORDERED: KETOROLAC TROMETHAMINE 30 MG/1 ML VIAL IM PRN (13:39)
[2019-12-27] MEDS ORDERED: ONDANSETRON 4 MG/2 ML VIAL IVPUSH PRN (13:41)
--- NOTE | 2019-12-27 14:14 | PN ---
Teaching Attending Note Name of Resident: Raza Zamarripa ATTENDING PHYSICIAN STATEMENT I saw and evaluated the patient. I reviewed the resident's note and discussed the case with the resident. I agree with the resident's findings and plan as documented. SUBJECTIVE: 74yo F with h/o HTN, HLD, chronic migraines since age 14, PAD s/p L femoral stenting from [facility] in March 2019 who originally presented with insidious onset of L frontal headache, neck and chest pain. Patient noted having posterior neck pain for over 2 weeks, however this has progressed this morning when she came to the ER for further evaluation. Pt was seen at [facility] on this past Monday where they performed a Head CT w/o contrast resulting in no acute pathology and was discharged home with follow-up. Pt's chest pain noted as a burning intermittent sharpness throughout her chest. Last myocardial perfusion and echocardiogram performed in June 2018 with normal LVEF and without any structural abnormalities or perfusion defects. On exam patient has continued pain in neck and burning chest pain. She denies any SOB, diaphoresis at this time, jaw claudication, back pain, abdominal pain, extremity pain, dizziness, lightheadedness. Patient endorses chronic constipation and last BM 5 days prior. PMHx: As above PSHx: Hysterectromy many years prior SoHx: No tobacco, alcohol, drugs, vitamins/supplements FamHx: CAD in paternal side (father at age 90), otherwise noncontributory OBJECTIVE: Vital Signs Temperature 97.8 F 12/27/19 11:25 Pulse Rate 72 12/27/19 11:25 Respiratory Rate 17 12/27/19 09:10 Blood Pressure 133/64 12/27/19 11:25 O2 Sat by Pulse Oximetry (%) 100 12/27/19 11:25 Telemetry: NSVT noted intermittently ranging from 3-7 beats during exam Gen: NAD, awake, alert and oriented x3 HEENT: NC/AT, JEREMIE, EOMI without nystagmus, MMM Neck: No JVD, no carotid bruits CARD: RRR, S1 and S2 present, 2/6 systolic murmur LLSB LUNG: CTA b/l without any wheezes or rales ABD: Soft, obese, normoactive BS, no tenderness or rebound EXT: No edema noted, DP/PT pulses intact b/l, warm ASSESSMENT AND PLAN: Atypcial chest pain Intermittent NSVT Constipation Peripheral arterial disease Hypertension history Hyperlipidemia history Chronic migraines --Given arrhythmia and nonspecific chest pain symptoms will monitor on telemetry and investigate further causes for arrhythmia including electrolyte abnormalities, thyroid dysfunction, structural heart dz. --Echocardiogram ordered to r/o structural changes given last echo was 1 year prior --Cardiology consultation given acute changes --Toradol for likely MSK pain; will re-evaluate --PAD stable: patient completed 2 months of Xarelto and is to continue with ASA daily per Dr. Leo at [facility] --Obtain records from [facility] --Will continue to monitor on telemetry --Start patient on Miralax and escalating therapy for constipation Rest as per resident note Samir Blanco DO - Internal Medicine
--- NOTE | 2019-12-27 15:25 | CON.CARD ---
Consult Consult Specialty:: Cardiology - History of Present Illness History of Present Illness: This is a 74 year old female with PMH of HTN, HLD, GERD, migraines, RLS, chronic UTI, bladder mass resection, total hysterectomy, and PAD (femoral stent Mar 2018). She presented to the ER with complaints of diffuse pain in her head, neck, chest, and legs. She states that the pain began 7 days ago when she was cleaning her house. Initially it began as a frontal headache, but then rapidly spread to the back of her head, down her neck, into her chest and epigastric area, and down her legs. It was sudden in onset, constant in nature with waxing and waning intensity, 10/10 at its worst. It was burning in quality, with no aggravating or alleviating factors. She states that she has had headaches, chest pain, and leg pain in the past but never this severe or diffuse. She endorses diaphoresis, nausea with 4 episodes of vomiting yesterday, brown with no blood, as well as constipation for the past 5 days, but no fevers, chills, SOB, or dysuria. She went to [facility] on Monday, where they performed an EKG and some basic labwork. She was discharged with the recommendation to see an technology specialist outpatient. She has had multiple admission at [facility], and her last admisison was May 02-2018 for left-sided abdominal pain with constipation which had previously resolved with laxatives, nausea, vomiting, and BRBPR. CT showed hepatomegaly with mild diffuse fatty infiltration, fluid filled colon with mild distention, no evidence of bowel obstruction. She was treated with IV fluid and kept NPO, advanced to full liquid diet. GI recommended mineral oil enema and Miralax, after which she had a BM and her pain subsided. As per pt's daughter Alma, pt had L femoral stent placed in Mar 2019 at [facility] (Dr. Gopal Nolan), and was started on a 2-3 month course of Xarelto, switched to ASA. She is due for an appointment with Dr. Nolan next week. 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, Other (restless leg) Cardio/Vascular: Yes: HTN Gastrointestinal: Yes: Constipation, GERD Renal/: Yes: Other (bladder mass) - Past Surgical History Past Surgical History: Yes: - Alcohol/Substance Use Hx Alcohol Use: No History of Substance Use: reports: None - Smoking History Smoking history: Never smoked Have you smoked in the past 12 months: No - Social History Usual Living Arrangement: Alone ADL: Independent History of Recent Travel: No Home Medications - Allergies Allergies/Adverse Reactions: Allergies Allergy/AdvReac Type Severity Reaction Status Date / Time cephalexin [From Keflex] Allergy Swelling Verified 12/27/19 02:55 Penicillins Allergy Swelling Verified 12/27/19 02:55 histamine Allergy Swelling Uncoded 12/27/19 02:55 - Home Medications Home Medications: Ambulatory Orders Albuterol Sulfate Inhaler - [Ventolin HFA Inhaler -] 1 puff IH Q4H PRN 12/27/19 Aspirin 81 mg PO DAILY 12/27/19 Famotidine [Pepcid -] 40 mg PO DAILY 12/27/19 Latanoprost 0.005% Eye Drops [Xalatan 0.005% Eye Drops -] 1 drop OU HS 12/27/19 Levocetirizine Dihydrochloride 5 mg PO PRN PRN 12/27/19 Pitavastatin Calcium [Livalo] 2 mg PO HS 12/27/19 Topiramate 25 mg PO DAILY 12/27/19 Trospium Chloride [Trospium Chloride ER] 20 mg PO BID 12/27/19 Valsartan/Hydrochlorothiazide [Diovan Hct 320-12.5 mg Tab] 1 each PO DAILY 12/27/19 Polyethylene Glycol 3350 [Miralax 119 gm Btl -] 17 gm PO BID PRN bottle 12/28/19 Review of Systems - Review of Systems Constitutional: reports: No Symptoms Eyes: reports: No Symptoms HENT: reports: No Symptoms Neck: reports: No Symptoms Cardiovascular: reports: No Symptoms Gastrointestinal: reports: No Symptoms Genitourinary: reports: No Symptoms Breasts: reports: No Symptoms Reported Musculoskeletal: reports: No Symptoms Integumentary: reports: No Symptoms Neurological: reports: No Symptoms Endocrine: reports: No Symptoms Hematology/Lymphatic: reports: No Symptoms Psychiatric: reports: No Symptoms Vital Signs: Vital Signs Temperature 97.8 F 12/27/19 11:25 Pulse Rate 72 12/27/19 11:25 Respiratory Rate 17 12/27/19 09:10 Blood Pressure 133/64 12/27/19 11:25 O2 Sat by Pulse Oximetry (%) 100 12/27/19 11:25 Constitutional: Yes: Well Nourished, No Distress, Calm Eyes: Yes: WNL, Conjunctiva Clear, EOM Intact HENT: Yes: WNL, Atraumatic, Normocephalic Neck: Yes: WNL, Supple, Trachea Midline Respiratory: Yes: WNL, Regular, CTA Bilaterally Gastrointestinal: Yes: WNL, Normal Bowel Sounds Renal/: Yes: WNL Cardiovascular: Yes: WNL, Regular Rate and Rhythm Musculoskeletal: Yes: WNL Extremities: Yes: WNL Integumentary: Yes: WNL Neurological: Yes: WNL, Alert, Oriented ...Motor Strength: WNL Psychiatric: Yes: WNL, Alert, Oriented - Other Data Labs, Other Data: CBC, BMP 12/27/19 03:20 12/27/19 03:20 INR, PTT INR 1.03 (0.83-1.09) 12/27/19 03:20 Troponin, BNP 12/27/19 12/27/19 03:20 09:00 Troponin I < 0.02 < 0.02 Troponin, BNP 12/27/19 12/27/19 03:20 09:00 Troponin I < 0.02 < 0.02 Imaging - Results Chest X-ray: Image Reviewed (wnl) EKG: Image Reviewed (sr ldea) Other: Report Reviewed (echo nl ef) Problem List - Problems (1) Chest pain Code(s): R07.9 - CHEST PAIN, UNSPECIFIED Qualifiers: Chest pain type: unspecified Qualified Code(s): R07.9 - Chest pain, unspecified (2) Abdominal pain Code(s): R10.9 - UNSPECIFIED ABDOMINAL PAIN (3) Allergic reaction caused by a drug Code(s): T78.40XA - ALLERGY, UNSPECIFIED, INITIAL ENCOUNTER (4) Atypical chest pain Code(s): R07.89 - OTHER CHEST PAIN (5) Bladder mass Code(s): N32.89 - OTHER SPECIFIED DISORDERS OF BLADDER (6) Chronic UTI (urinary tract infection) Code(s): N39.0 - URINARY TRACT INFECTION, SITE NOT SPECIFIED (7) Constipation Code(s): K59.00 - CONSTIPATION, UNSPECIFIED Qualifiers: Constipation type: unspecified constipation type Qualified Code(s): K59.00 - Constipation, unspecified (8) Cystadenocarcinoma Code(s): C80.1 - MALIGNANT (PRIMARY) NEOPLASM, UNSPECIFIED (9) Decreased appetite Code(s): R63.0 - ANOREXIA (10) External hemorrhoids Code(s): K64.4 - RESIDUAL HEMORRHOIDAL SKIN TAGS (11) Headache Code(s): R51 - HEADACHE Qualifiers: Headache type: tension-type Headache chronicity pattern: unspecified pattern Intractability: not intractable Qualified Code(s): G44.209 - Tensio n-type headache, unspecified, not intractable (12) Hypertension Code(s): I10 - ESSENTIAL (PRIMARY) HYPERTENSION Qualifiers: Hypertension type: unspecified Qualified Code(s): I10 - Essential (primary) hypertension (13) Hyponatremia Code(s): E87.1 - HYPO-OSMOLALITY AND HYPONATREMIA (14) Hypothyroid Code(s): E03.9 - HYPOTHYROIDISM, UNSPECIFIED (15) Increased urinary frequency Code(s): R35.0 - FREQUENCY OF MICTURITION (16) Intractable abdominal pain Code(s): R10.9 - UNSPECIFIED ABDOMINAL PAIN (17) Itching Code(s): L29.9 - PRURITUS, UNSPECIFIED (18) Medication side effect Code(s): T88.7XXA - UNSP ADVERSE EFFECT OF DRUG OR MEDICAMENT, INIT ENCNTR (19) Migraine Code(s): G43.909 - MIGRAINE, UNSP, NOT INTRACTABLE, WITHOUT STATUS MIGRAINOSUS (20) Migraine 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 headache Code(s): G43.109 - MIGRAINE WITH AURA, NOT INTRACTABLE, W/O STATUS MIGRAINOSUS (21) PAD (peripheral artery disease) Code(s): I73.9 - PERIPHERAL VASCULAR DISEASE, UNSPECIFIED (22) Prophylactic measure Code(s): Z29.9 - ENCOUNTER FOR PROPHYLACTIC MEASURES, UNSPECIFIED (23) Pyelonephritis Code(s): N12 - TUBULO-INTERSTITIAL NEPHRITIS, NOT SPCF ACUTE OR CHRONIC (24) Restless leg syndrome Code(s): G25.81 - RESTLESS LEGS SYNDROME (25) UTI (urinary tract infection) Code(s): N39.0 - URINARY TRACT INFECTION, SITE NOT SPECIFIED Qualifiers: Urinary tract infection type: acute cystitis Hematuria presence: with hematuria Qualified Code(s): N30.01 - Acute cystitis with hematuria Assessment/Plan This is a 74 year old female with PMH of HTN, HLD, GERD, migraines, RLS, chronic UTI, bladder mass resection, total hysterectomy, and PAD (femoral stent Mar 2018). She presented to the ER with complaints of diffuse pain in her head, neck, chest, and legs. Telemetrt Non sustained VT Plan; 24 Holter ECHO serial ekg Records of prior cardiac w/u cc time 70 min
--- NOTE | 2019-12-27 17:34 | ECHO ---
Version: 1 Name: ESMER WALLACE Exam: Adult Echocardiogram Study Date: 12/27/2019, 1:31 PM Age: 74 Years MMode/2D Measurements & Calculations IVSd: 0.98 cm LVIDs: 2.21 cm LVIDd: 3.8 cm LVPWd: 0.83 cm LAV (MOD-bp): 37.0 ml ACS: 1.86 cm Ao root diam: 2.7 cm LVOT diam: 2.07 cm LA dimension: 3.4 cm Doppler Measurements & Calculations MV E max horace: 71.1 cm/sec MVA(VTI): 2.8 cm MV A max horace: 79.5 cm/sec MV V2 max: 103.2 cm/sec MV mean P.25 mmHg MV max P.3 mmHg MV E/A: 0.89 Med E/e': 13.0 Lat E/e': 8.6 Med Peak E' Horace: 5.5 cm/sec Lat Peak E' Horace: 8.3 cm/sec MR max P.6 mmHg Ao max P.7 mmHg SHLOMO(I,D): 2.7 cm Ao mean P.4 mmHg LV V1 mean: 66.9 cm/sec Ao V2 max: 139.1 cm/sec LV V1 mean P.11 mmHg AI P1/2t: 722.6 msec TR max horace: 225.8 cm/sec TR max P.4 mmHg Left Ventricle The left ventricular size, thickness and function are normal. Ejection Fraction = 55-60%. The transm itral spectral Doppler flow pattern is suggestive of impaired LV relaxation. Right Ventricle The right ventricle is normal in size and function. Atria The left atrium is mildly dilated. Mitral Valve The mitral valve is normal in structure and function. There is no mitral valve stenosis. There is mi ld mitral regurgitation. Tricuspid Valve The tricuspid valve is normal in structure and function. There is mild tricuspid regurgitation. Aortic Valve The aortic valve opens well. No hemodynamically significant valvular aortic stenosis. Mild aortic regurgitation. Pulmonic Valve The pulmonic valve is not well seen, but is grossly normal. There is no pulmonic valvular stenosis. Great Vessels The aortic root is normal size. Pericardium/Pleura There is no pericardial effusion. Summary Statements The left ventricular size, thickness and function are normal Ejection Fraction = 55-60%. The transmitral spectral Doppler flow pattern is suggestive of impaired LV relaxation. The left atrium is mildly dilated. There is mild mitral regurgitation. There is mild tricuspid regurgitation. Mild aortic regurgitation. There is no pericardial effusion. MD Spangler *Brianna 12/27/2019, 5:34 PM Ordering Physician: Evelia Zamarripa Referring Physician: EVELIA ZAMARRIPA Performed By: MELITON GOMES
[2019-12-27 18:05] VITALS: BMI 24.6
[2019-12-27] MEDS: LATANOPROST 0.005% OPHTH SOLN 2.5ML BOTTLE OU SCH (21:34)
[2019-12-27] MEDS: TOLTERODINE TARTRATE LA 4 MG CAP.SR.24H (FP) PO SCH (21:35)
[2019-12-27] MEDS: ATORVASTATIN CA 10 MG TABLET (FP) PO SCH (21:35)
[2019-12-28] MEDS: ACETAMINOPHEN 325 MG TABLET (FP) PO PRN (06:49)
[2019-12-28 07:18] LABS: HEMATOCRIT 39.8 % (32.4-45.2); HEMOGLOBIN 13.1 GM/dL (10.7-15.3); MCH 29.8 pg (25.7-33.7); MEAN CELL VOLUME 90.3 fl (80-96); MEAN PLT VOLUME 9.2 fl (7.5-11.1); PLATELET COUNT 225 K/MM3 (134-434); RBC 4.41 M/mm3 (3.60-5.2); RDW 15.2 % (11.6-15.6); WHITE BLOOD COUNT 5.5 K/mm3 (4.0-10.0)
[2019-12-28 07:40] LABS: ALBUMIN 3.9 g/dl (3.4-5.0); BILIRUBIN,TOTAL 0.7 mg/dL (0.2-1); BLOOD UREA NITROGEN 13.5 mg/dL (7-18); CALCIUM 9.1 mg/dL (8.5-10.1); CREATININE 0.9 mg/dL (0.55-1.3); MAGNESIUM 2.5 mg/dL (1.8-2.4); PHOSPHOROUS 3.6 mg/dL (2.5-4.9); POTASSIUM 4.2 mmol/L (3.5-5.1); TOT PROT 7.3 g/dl (6.4-8.2)
[2019-12-28] MEDS ORDERED: PATIENT'S OWN MEDICATION (NON-FORMULARY) (Valsartan/Hydrochlorothiazide [Diovan Hct 320-12 PO SCH (10:00)
[2019-12-28] MEDS: HYDROCHLOROTHIAZIDE 12.5 MG CAPSULE (FP) PO SCH (10:04)
[2019-12-28] MEDS: ENOXAPARIN NA (PORCINE) 40 MG/0.4 ML DISP.SYRIN SQ SCH (10:04)
[2019-12-28] MEDS: POLYETHYLENE GLYCOL 3350 119 GM BTL PO SCH ×2 (10:04→21:23)
[2019-12-28] MEDS: ASPIRIN 81 MG CHEWABLE TABLETS PO SCH (10:04)
[2019-12-28] MEDS: TOPIRAMATE 25 MG TABLET PO SCH (10:05)
[2019-12-28] MEDS: TOLTERODINE TARTRATE LA 4 MG CAP.SR.24H (FP) PO SCH (11:16)
[2019-12-28] MEDS: VALSARTAN 160 MG TABLET (UD) PO SCH (11:16)
[2019-12-28] MEDS: FAMOTIDINE 40 MG TABLET PO SCH (11:17)
[2019-12-28] MEDS ORDERED: PROCHLORPERAZINE INJECTION 10 MG/2 ML VIAL IVPB ONE (13:45)
--- NOTE | 2019-12-28 16:40 | PN ---
Progress Note, Physician History of Present Illness: This is a 74 year old female with PMH of HTN, HLD, GERD, migraines, RLS, chronic UTI, bladder mass resection, total hysterectomy, and PAD (femoral stent Mar 2018). She presented to the ER with complaints of diffuse pain in her head, neck, chest, and legs. She states that the pain began 7 days ago when she was cleaning her house. Initially it began as a frontal headache, but then rapidly spread to the back of her head, down her neck, into her chest and epigastric area, and down her legs. It was sudden in onset, constant in nature with waxing and waning intensity, 10/10 at its worst. It was burning in quality, with no aggravating or alleviating factors. She states that she has had headaches, chest pain, and leg pain in the past but never this severe or diffuse. She endorses diaphoresis, nausea with 4 episodes of vomiting yesterday, brown with no blood, as well as constipation for the past 5 days, but no fevers, chills, SOB, or dysuria. She went to [facility] on Monday, where they performed an EKG and some basic labwork. She was discharged with the recommendation to see an security services specialist outpatient. She has had multiple admission at [facility], and her last admisison was May 02-2018 for left-sided abdominal pain with constipation which had previously resolved with laxatives, nausea, vomiting, and BRBPR. CT showed hepatomegaly with mild diffuse fatty infiltration, fluid filled colon with mild distention, no evidence of bowel obstruction. She was treated with IV fluid and kept NPO, advanced to full liquid diet. GI recommended mineral oil enema and Miralax, after which she had a BM and her pain subsided. As per pt's daughter Alma, pt had L femoral stent placed in Mar 2019 at [facility] (Dr. Gopal Nolan), and was started on a 2-3 month course of Xarelto, switched to ASA. She is due for an appointment with Dr. Nolan next week. - Current Medication List Current Medications: Active Medications Acetaminophen (Tylenol -) 650 mg PO Q6H PRN PRN Reason: PAIN LEVEL 7 - 10 Last Admin: 12/28/19 06:49 Dose: 650 mg Documented by: Aspirin (Asa -) 81 mg PO DAILY RICARDO Last Admin: 12/28/19 10:04 Dose: 81 mg Documented by: Atorvastatin Calcium (Lipitor -) 10 mg PO HS [facility] Last Admin: 12/27/19 21:35 Dose: 10 mg Documented by: Enoxaparin Sodium (Lovenox -) 40 mg SQ DAILY [facility] Last Admin: 12/28/19 10:04 Dose: 40 mg Documented by: Famotidine (Pepcid -) 40 mg PO DAILY [facility] Last Admin: 12/28/19 11:17 Dose: 40 mg Documented by: Hydrochlorothiazide (Hctz -) 12.5 mg PO DAILY [facility] Last Admin: 12/28/19 10:04 Dose: 12.5 mg Documented by: Ketorolac Tromethamine (Toradol Injection -) 15 mg IM Q4H PRN PRN Reason: PAIN LEVEL 6-10 Stop: 01/01/20 13:44 Latanoprost (Xalatan 0.005% Eye Drops -) 1 drop OU HS [facility] Last Admin: 12/27/19 21:34 Dose: 1 drop Documented by: Ondansetron HCl (Zofran Injection) 4 mg IVPUSH Q4H PRN PRN Reason: NAUSEA AND/OR VOMITING Pneumococcal 13-Valent Conj Vacc (Prevnar 13 Syringe -) 0.5 ml IM .ONCE ONE Stop: 12/27/19 18:11 Polyethylene Glycol (Miralax (For Daily Use) -) 17 gm PO BID [facility] Last Admin: 12/28/19 10:04 Dose: 17 gm Documented by: Tolterodine Tartrate (Detrol La -) 4 mg PO DAILY [facility] Last Admin: 12/28/19 11:16 Dose: 4 mg Documented by: Topiramate (Topamax -) 25 mg PO DAILY [facility] Last Admin: 12/28/19 10:05 Dose: 25 mg Documented by: Valsartan (Diovan -) 320 mg PO DAILY [facility] Last Admin: 12/28/19 11:16 Dose: 320 mg Documented by: - Objective Vital Signs: Vital Signs Temperature 98.0 F 12/28/19 08:00 Pulse Rate 83 12/28/19 12:00 Respiratory Rate 24 H 12/28/19 12:00 Blood Pressure 125/63 12/28/19 12:00 O2 Sat by Pulse Oximetry (%) 98 12/28/19 12:00 Eyes: Yes: WNL, Conjunctiva Clear, EOM Intact HENT: Yes: WNL, Atraumatic, Normocephalic Neck: Yes: WNL, Supple, Trachea Midline Cardiovascular: Yes: WNL, Regular Rate and Rhythm Respiratory: Yes: WNL, Regular, CTA Bilaterally Gastrointestinal: Yes: WNL, Normal Bowel Sounds Genitourinary: Yes: WNL Musculoskeletal: Yes: WNL Extremities: Yes: WNL Edema: No Integumentary: Yes: WNL Neurological: Yes: WNL, Alert, Oriented ...Motor Strength: WNL Psychiatric: Yes: WNL Labs: CBC, BMP 12/28/19 06:16 12/28/19 06:16 INR, PTT INR 1.03 (0.83-1.09) 12/27/19 03:20 Problem List - Problems (1) Chest pain Code(s): R07.9 - CHEST PAIN, UNSPECIFIED Qualifiers: Chest pain type: unspecified Qualified Code(s): R07.9 - Chest pain, unspecified (2) Abdominal pain Code(s): R10.9 - UNSPECIFIED ABDOMINAL PAIN (3) Allergic reaction caused by a drug Code(s): T78.40XA - ALLERGY, UNSPECIFIED, INITIAL ENCOUNTER (4) Atypical chest pain Code(s): R07.89 - OTHER CHEST PAIN (5) Bladder mass Code(s): N32.89 - OTHER SPECIFIED DISORDERS OF BLADDER (6) Chronic UTI (urinary tract infection) Code(s): N39.0 - URINARY TRACT INFECTION, SITE NOT SPECIFIED (7) Constipation Code(s): K59.00 - CONSTIPATION, UNSPECIFIED Qualifiers: Constipation type: unspecified constipation type Qualified Code(s): K59.00 - Constipation, unspecified (8) Cystadenocarcinoma Code(s): C80.1 - MALIGNANT (PRIMARY) NEOPLASM, UNSPECIFIED (9) Decreased appetite Code(s): R63.0 - ANOREXIA (10) External hemorrhoids Code(s): K64.4 - RESIDUAL HEMORRHOIDAL SKIN TAGS (11) Headache Code(s): R51 - HEADACHE Qualifiers: Headache type: tension-type Headache chronicity pattern: unspecified pattern Intractability: not intractable Qualified Code(s): G44.209 - Tension-type headache, unspecified, not intractable (12) Hypertension Code(s): I10 - ESSENTIAL (PRIMARY) HYPERTENSION Qualifiers: Hypertension type: unspecified Qualified Code(s): I10 - Essential (primary) hypertension (13) Hyponatremia Code(s): E87.1 - HYPO-OSMOLALITY AND HYPONATREMIA (14) Hypothyroid Code(s): E03.9 - HYPOTHYROIDISM, UNSPECIFIED (15) Increased urinary frequency Code(s): R35.0 - FREQUENCY OF MICTURITION (16) Intractable abdominal pain Code(s): R10.9 - UNSPECIFIED ABDOMINAL PAIN (17) Itching Code(s): L29.9 - PRURITUS, UNSPECIFIED (18) Medication side effect Code(s): T88.7XXA - UNSP ADVERSE EFFECT OF DRUG OR MEDICAMENT, INIT ENCNTR (19) Migraine Code(s): G43.909 - MIGRAINE, UNSP, NOT INTRACTABLE, WITHOUT STATUS MIGRAINOSUS (20) Migraine 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 headache Code(s): G43.109 - MIGRAINE WITH AURA, NOT INTRACTABLE, W/O STATUS MIGRAINOSUS (21) PAD (peripheral artery disease) Code(s): I73.9 - PERIPHERAL VASCULAR DISEASE, UNSPECIFIED (22) Prophylactic measure Code(s): Z29.9 - ENCOUNTER FOR PROPHYLACTIC MEASURES, UNSPECIFIED (23) Pyelonephritis Code(s): N12 - TUBULO-INTERSTITIAL NEPHRITIS, NOT SPCF ACUTE OR CHRONIC (24) Restless leg syndrome Code(s): G25.81 - RESTLESS LEGS SYNDROME (25) UTI (urinary tract infection) Code(s): N39.0 - URINARY TRACT INFECTION, SITE NOT SPECIFIED Qualifiers: Urinary tract infection type: acute cystitis Hematuria presence: with hematuria Qualified Code(s): N30.01 - Acute cystitis with hematuria Assessment/Plan This is a 74 year old female with PMH of HTN, HLD, GERD, migraines, RLS, chronic UTI, bladder mass resection, total hysterectomy, and PAD (femoral stent Mar 2018). She presented to the ER with complaints of diffuse pain in her head, neck, chest, and legs. Telemetrt Non sustained VT Plan; 24 Holter ECHO serial ekg DVT PLX Records of prior cardiac w/u cc time 35 min
[2019-12-28] MEDS ORDERED: PNEUMOC 13-VAL CONJ-DIP CRM/PF 0.5 ML DISP.SYRIN IM ONE (18:00)
--- NOTE | 2019-12-28 19:51 | PN ---
Progress Note (short form) - Note Progress Note: Subjective: Patient seen earlier today around 1300h. Patient's pain/headache remains, however no other significant symptoms. No telemetry events and no other acute events. Vital Signs Temperature 98.3 F 12/28/19 16:00 Pulse Rate 61 12/28/19 16:00 Respiratory Rate 16 12/28/19 16:00 Blood Pressure 129/64 12/28/19 16:00 O2 Sat by Pulse Oximetry (%) 99 12/28/19 19:51 Gen: NAD, awake, alert and oriented x3 HEENT: NC/AT, JEREMIE, EOMI without nystagmus, MMM Neck: No JVD, no carotid bruits CARD: RRR, S1 and S2 present, 2/6 systolic murmur LLSB LUNG: CTA b/l without any wheezes or rales ABD: Soft, obese, normoactive BS, no tenderness or rebound EXT: No edema noted, DP/PT pulses intact b/l, warm CBC, BMP 12/28/19 06:16 12/28/19 06:16 ASSESSMENT AND PLAN: Atypcial chest pain Intermittent NSVT Constipation Peripheral arterial disease Hypertension history Hyperlipidemia history Chronic migraines --[facility] records unrevealing --Echocardiogram reviewed without significant structural changes --Telemetry without any notable events --Cardiology for 24hr holter monitor --Given patient's pain and lack of concerning evidence towards cardiac or neurological etiologies, would suggest that symptoms are related to patient's chronic migraine --Continue Toradol PRN for pain --Continue PRN therapy for constipation --Spoke with Daughter Alma today as well. Patient has neurologist who she sees for migraines. Patient does not have anybody in the house today and given pt's risk of spontaneously going into an arrhythmia, pt can only be safely discharged tomorrow. Will continue telemetry monitoring for now which will aid in support for ruling out cardiac causes. Samir Blanco, - IM
[2019-12-28] MEDS: ATORVASTATIN CA 10 MG TABLET (FP) PO SCH (21:22)
[2019-12-28] MEDS: LATANOPROST 0.005% OPHTH SOLN 2.5ML BOTTLE OU SCH (21:31)
[2019-12-29] MEDS: ENOXAPARIN NA (PORCINE) 40 MG/0.4 ML DISP.SYRIN SQ SCH (10:30)
[2019-12-29] MEDS: ASPIRIN 81 MG CHEWABLE TABLETS PO SCH (10:31)
[2019-12-29] MEDS: TOLTERODINE TARTRATE LA 4 MG CAP.SR.24H (FP) PO SCH (10:31)
[2019-12-29] MEDS: TOPIRAMATE 25 MG TABLET PO SCH (10:31)
[2019-12-29] MEDS: FAMOTIDINE 40 MG TABLET PO SCH (10:32)
[2019-12-29] MEDS: VALSARTAN 160 MG TABLET (UD) PO SCH (10:32)
[2019-12-29] MEDS: POLYETHYLENE GLYCOL 3350 119 GM BTL PO SCH (10:34)
[2019-12-29] MEDS: HYDROCHLOROTHIAZIDE 12.5 MG CAPSULE (FP) PO SCH (11:41)
--- NOTE | 2019-12-29 12:23 | DS ---
Physical Exam: SUBJECTIVE: No acute events. No complaints today. Pain is improved however present. Similar to her chronic migraine symptoms. No telemetry events. OBJECTIVE: Vital Signs Period Temp Pulse Resp BP Sys/Youssef Pulse Ox Last 24 Hr 98 F-98.5 F 59-82 13-18 97-132/45-71 97-100 PHYSICAL EXAM Gen: NAD, awake, alert and oriented x3 HEENT: NC/AT, JEREMIE, EOMI without nystagmus, MMM Neck: No JVD, no carotid bruits CARD: RRR, S1 and S2 present, 2/6 systolic murmur LLSB LUNG: CTA b/l without any wheezes or rales ABD: Soft, obese, normoactive BS, no tenderness or rebound EXT: No edema noted, DP/PT pulses intact b/l, warm HOSPITAL COURSE: Date of Admission:12/27/19 Date of Discharge: 12/29/19 Patient admitted due to NSVT with atypical chest pain noted upon ER evaluation. Patient monitored on telemetry which revealed multiple episodes of NSVT which holland d ceased on hospital day 2. Cardiology was consulted and recommended extended monitoring to be done outpatient basis. Patient's chest pain subsided and patient developed her typical migraine with aura symptoms, but remained hemodynamically stable and functional. Patient's pain subsided and no other issues were noted throughout her stay. Echocardiogram performed this admission showed no structural heart changes and EF 55-60%. Patient is being discharged and is to see her migraine specialist for alteration of her medication. She was sent prescriptions of her home medication and was sent Fiorecet to be taken PRN q6h for her current migraine (which has worked in the past). Patient and daughter understand d/c instructions. Minutes to complete discharge: 33 Discharge Summary Problems reviewed: Yes Reason For Visit: ATYPICAL CHEST PAIN, VENTRICULAR TACHYCARDIA Current Active Problems Chest pain (Acute) Condition: Stable - Instructions Diet, Activity, Other Instructions: You were seen in the hospital because of the headache and chest pain. While you were here you had an abnormal heart rhythm which was monitored and did not reoccur. You had an ultrasound of your heart which showed it was normal and you have had normal blood values. Your pain is likely due to your chronic migraines with some muscle tension. MEDICATIONS: Please continue your medications as you have been prior to this hospitalization FOLLOW-UP: Please follow-up with your primary care doctor within 1 week If you have a migraine specialist please follow up with them as well since your medications may need to change Disposition: HOME - Home Medications Comprehensive Discharge Medication List: Ambulatory Orders Albuterol Sulfate Inhaler - [Ventolin HFA Inhaler -] 1 puff IH Q4H PRN 12/27/19 Aspirin 81 mg PO DAILY 12/27/19 Famotidine [Pepcid -] 40 mg PO DAILY 12/27/19 Latanoprost 0.005% Eye Drops [Xalatan 0.005% Eye Drops -] 1 drop OU HS 12/27/19 Levocetirizine Dihydrochloride 5 mg PO PRN PRN 12/27/19 Pitavastatin Calcium [Livalo] 2 mg PO HS 12/27/19 Topiramate 25 mg PO DAILY 12/27/19 Trospium Chloride [Trospium Chloride ER] 20 mg PO BID 12/27/19 Valsartan/Hydrochlorothiazide [Diovan Hct 320-12.5 mg Tab] 1 each PO DAILY 12/27/19 Polyethylene Glycol 3350 [Miralax 119 gm Btl -] 17 gm PO BID PRN bottle 12/28/19 This patient is new to me today: No Emergency Visit: Yes ED Registration Date: 12/27/19 Care time: The patient presented to the Emergency Department on the above date and was hospitalized for further evaluation of their emergent condition. Critical Care patient: No - Discharge Referral Referred to [facility] No
[2019-12-29 12:42] VITALS: BP 133/61; PULSE 78; TEMP 98.4
--- NOTE | 2019-12-29 15:31 | PN ---
Progress Note, Physician History of Present Illness: This is a 74 year old female with PMH of HTN, HLD, GERD, migraines, RLS, chronic UTI, bladder mass resection, total hysterectomy, and PAD (femoral stent Mar 2018). She presented to the ER with complaints of diffuse pain in her head, neck, chest, and legs. She states that the pain began 7 days ago when she was cleaning her house. Initially it began as a frontal headache, but then rapidly spread to the back of her head, down her neck, into her chest and epigastric area, and down her legs. It was sudden in onset, constant in nature with waxing and waning intensity, 10/10 at its worst. It was burning in quality, with no aggravating or alleviating factors. She states that she has had headaches, chest pain, and leg pain in the past but never this severe or diffuse. She endorses diaphoresis, nausea with 4 episodes of vomiting yesterday, brown with no blood, as well as constipation for the past 5 days, but no fevers, chills, SOB, or dysuria. She went to [facility] on Monday, where they performed an EKG and some basic labwork. She was discharged with the recommendation to see an implementation specialist payroll outpatient. She has had multiple admission at [facility], and her last admisison was May 02-2018 for left-sided abdominal pain with constipation which had previously resolved with laxatives, nausea, vomiting, and BRBPR. CT showed hepatomegaly with mild diffuse fatty infiltration, fluid filled colon with mild distention, no evidence of bowel obstruction. She was treated with IV fluid and kept NPO, advanced to full liquid diet. GI recommended mineral oil enema and Miralax, after which she had a BM and her pain subsided. As per pt's daughter Alma, pt had L femoral stent placed in Mar 2019 at [facility] (Dr. Gopal Nolan), and was started on a 2-3 month course of Xarelto, switched to ASA. She is due for an appointment with Dr. Nolan next week. - Objective Vital Signs: Vital Signs Temperature 98.4 F 12/29/19 09:00 Pulse Rate 78 12/29/19 09:00 Respiratory Rate 15 12/29/19 09:00 Blood Pressure 133/61 12/29/19 09:00 O2 Sat by Pulse Oximetry (%) 100 08/02/20 09:00 Eyes: Yes: WNL, Conjunctiva Clear, EOM Intact HENT: Yes: WNL, Atraumatic, Normocephalic Neck: Yes: WNL, Supple, Trachea Midline Cardiovascular: Yes: WNL, Regular Rate and Rhythm Respiratory: Yes: WNL, Regular, CTA Bilaterally Gastrointestinal: Yes: WNL, Normal Bowel Sounds Genitourinary: Yes: WNL Musculoskeletal: Yes: WNL Extremities: Yes: WNL Edema: No Integumentary: Yes: WNL Neurological: Yes: WNL, Alert, Oriented ...Motor Strength: WNL Psychiatric: Yes: WNL Labs: CBC, BMP 12/28/19 06:16 12/28/19 06:16 INR, PTT INR 1.03 (0.83-1.09) 12/27/19 03:20 Problem List - Problems (1) Chest pain Code(s): R07.9 - CHEST PAIN, UNSPECIFIED Qualifiers: Chest pain type: unspecified Qualified Code(s): R07.9 - Chest pain, unspecified (2) Abdominal pain Code(s): R10.9 - UNSPECIFIED ABDOMINAL PAIN (3) Allergic reaction caused by a drug Code(s): T78.40XA - ALLERGY, UNSPECIFIED, INITIAL ENCOUNTER (4) Atypical chest pain Code(s): R07.89 - OTHER CHEST PAIN (5) Bladder mass Code(s): N32.89 - OTHER SPECIFIED DISORDERS OF BLADDER (6) Chronic UTI (urinary tract infection) Code(s): N39.0 - URINARY TRACT INFECTION, SITE NOT SPECIFIED (7) Constipation Code(s): K59.00 - CONSTIPATION, UNSPECIFIED Qualifiers: Constipation type: unspecified constipation type Qualified Code(s): K59.00 - Constipation, unspecified (8) Cystadenocarcinoma Code(s): C80.1 - MALIGNANT (PRIMARY) NEOPLASM, UNSPECIFIED (9) Decreased appetite Code(s): R63.0 - ANOREXIA (10) External hemorrhoids Code(s): K64.4 - RESIDUAL HEMORRHOIDAL SKIN TAGS (11) Headache Code(s): R51 - HEADACHE Qualifiers: Headache type: tension-type Headache chronicity pattern: unspecified pattern Intractability: not intractable Qualified Code(s): G44.209 - Tension-type headache, unspecified, not intractable (12) Hypertension Code(s): I10 - ESSENTIAL (PRIMARY) HYPERTENSION Qualifiers: Hypertension type: unspecified Qualified Code(s): I10 - Essential (primary) hypertension (13) Hyponatremia Code(s): E87.1 - HYPO-OSMOLALITY AND HYPONATREMIA (14) Hypothyroid Code(s): E03.9 - HYPOTHYROIDISM, UNSPECIFIED (15) Increased urinary frequency Code(s): R35.0 - FREQUENCY OF MICTURITION (16) Intractable abdominal pain Code(s): R10.9 - UNSPECIFIED ABDOMINAL PAIN (17) Itching Code(s): L29.9 - PRURITUS, UNSPECIFIED (18) Medication side effect Code(s): T88.7XXA - UNSP ADVERSE EFFECT OF DRUG OR MEDICAMENT, INIT ENCNTR (19) Migraine Code(s): G43.909 - MIGRAINE, UNSP, NOT INTRACTABLE, WITHOUT STATUS MIGRAINOSUS (20) Migraine 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 headache Code(s): G43.109 - MIGRAINE WITH AURA, NOT INTRACTABLE, W/O STATUS MIGRAINOSUS (21) PAD (peripheral artery disease) Code(s): I73.9 - PERIPHERAL VASCULAR DISEASE, UNSPECIFIED (22) Prophylactic measure Code(s): Z29.9 - ENCOUNTER FOR PROPHYLACTIC MEASURES, UNSPECIFIED (23) Pyelonephritis Code(s): N12 - TUBULO-INTERSTITIAL NEPHRITIS, NOT SPCF ACUTE OR CHRONIC (24) Restless leg syndrome Code(s): G25.81 - RESTLESS LEGS SYNDROME (25) UTI (urinary tract infection) Code(s): N39.0 - URINARY TRACT INFECTION, SITE NOT SPECIFIED Qualifiers: Urinary tract infection type: acute cystitis Hematuria presence: with hematuria Qualified Code(s): N30.01 - Acute cystitis with hematuria Assessment/Plan This is a 74 year old female with PMH of HTN, HLD, GERD, migraines, RLS, chronic UTI, bladder mass resection, total hysterectomy, and PAD (femoral stent Mar 2018). She presented to the ER with complaints of diffuse pain in her head, neck, chest, and legs. Telemetrt Non sustained VT Plan; 24 Holter ECHO serial ekg DVT PLX Records of prior cardiac w/u cc time 35 min
== END 2019-12-29 14:20 | disposition home or self-care (01) | DRG 313 ==
LOC: JER 02:42 → JERBED 04:05 → JICU 17:46
PROVIDERS: ADMIT Internal Medicine; ATTEND Internal Medicine
DX: R07.89 Other chest pain (principal); I47.1 Supraventricular tachycardia; I10 Essential (primary) hypertension; E78.5 Hyperlipidemia, unspecified; G43.909 Migraine, unspecified, not intractable, without status migrainosus; I73.9 Peripheral vascular disease, unspecified; Z88.0 Allergy status to penicillin; K21.9 Gastro-esophageal reflux disease without esophagitis; I49.9 Cardiac arrhythmia, unspecified; K59.00 Constipation, unspecified; E03.9 Hypothyroidism, unspecified
CPT/HCPCS: 36415; 71045-TC-FY; 80053; 81003; 82550; 82553; 83735; 84100; 84443; 84484; 85025; 85027; 85610; 85730; 87086; 93005; 93010; 93306-TC; 99285-25; U0003

== ENCOUNTER 2020-02-07 22:12 | Inpatient (IN) | payer OTHER ==
[2020-02-07 22:18] VITALS: BMI 24.7
--- NOTE | 2020-02-07 22:38 | PDOC ---
History of Present Illness - General Chief Complaint: Blood Pressure Problem Stated Complaint: HTN EMERGENCY Time Seen by Provider: 02/07/20 22:32 History Source: Patient Exam Limitations: No Limitations - History of Present Illness Initial Comments: 02/07/20 22:38 Jovita Gutierrez us a 74F with PMH HTN, HLD, migraines, PAD s/p L groin stent, presenting with ACOSTA, dizziness, and high blood pressure. Since waking up this AM patient reports blurry vision, R leg numbness, L leg weakness, with ACOSTA. Took BP at home, has had elevated BP all day today with associated symptoms. Has had migraines before, current ACOSTA different from priors, mostly in the back of head. Denies chest pain, SOB, neck pain, dizziness, inability to ambulate, urinary sx, weight gain. Has taken her BP medications today with limited effect. Past History - Medical History Allergies/Adverse Reactions: Allergies Allergy/AdvReac Type Severity Reaction Status Date / Time cephalexin [From Keflex] Allergy Swelling Verified 02/07/20 22:17 Penicillins Allergy Swelling Verified 02/07/20 22:17 histamine Allergy Swelling Uncoded 02/07/20 22:17 Home Medications: Ambulatory Orders Albuterol Sulfate Inhaler - [Ventolin HFA Inhaler -] 1 puff IH Q4H PRN 12/27/19 Aspirin 81 mg PO DAILY 12/27/19 Latanoprost 0.005% Eye Drops [Xalatan 0.005% Eye Drops -] 1 drop OU HS 12/27/19 Levocetirizine Dihydrochloride 5 mg PO PRN PRN 12/27/19 Trospium Chloride [Trospium Chloride ER] 20 mg PO BID 12/27/19 Polyethylene Glycol 3350 [Miralax 119 gm Btl -] 17 gm PO BID PRN bottle 12/28/19 Topiramate 25 mg PO DAILY #30 tablet 12/29/19 Famotidine [Pepcid -] 40 mg PO BID #60 tablet 02/09/20 Pitavastatin Calcium [Livalo] 4 mg PO HS #20 tablet 02/09/20 Anemia: No Asthma: No Cancer: No Cardiac Disorders: No CVA: No COPD: No CHF: No Dementia: No Diabetes: No GI Disorders: Yes (GERD) Disorders: No HTN: Yes Hypercholesterolemia: Yes Liver Disease: No Seizures: No Thyroid Disease: No - Surgical History Abdominal Surgery: No Appendectomy: No Cardiac Surgery: No Cholecystectomy: No Gastric Stapling: No GI Surgery: No Lung Surgery: No Neurologic Surgery: No Orthopedic Surgery: No - Immunization History Immunization Up to Date: Yes - Psycho-Social/Smoking History Smoking History: Never smoked Have you smoked in the past 12 months: No - Substance Abuse Hx (Audit-C & DAST Scrn) How often the patient has a drink containing alcohol: Never Score: In Men: 4 or > Positive; In Women: 3 or > Positive: 0 Screen Result (Pos requires Nsg. Audit-10AR): Negative Cardiac Specific PMH - Complaint Specific PMHX GERD: No Pacemaker: No Review of Systems - Review of Systems Able to Perform ROS?: Yes Constitutional: No: Symptoms Reported HEENTM: Yes: Blurred Vision Respiratory: No: Cough, Orthopnea, Shortness of Breath, SOB with Exertion, SOB at Rest, Wheezing, Productive cough Cardiac (ROS): Yes: Lightheadedness. No: Chest Pain, Irregular Heart Rate, Palpitations, Syncope ABD/GI: No: Constipated, Diarrhea, Nausea, Poor Appetite, Poor Fluid Intake, Vomiting, Abdominal cramping : No: Symptoms Reported Musculoskeletal: No: Symptoms Reported Integumentary: No: Symptoms Reported Neurological: Yes: Symptoms reported, Headache, Numbness, Weakness Endocrine: No: Symptoms Reported Hematologic/Lymphatic: No: Symptoms Reported All Other Systems: Reviewed and Negative *Physical Exam - Vital Signs Last Vital Signs Temp Pulse Resp BP Pulse Ox 97.9 F 88 20 137/71 99 02/09/20 14:10 02/09/20 14:10 02/09/20 14:10 02/09/20 14:10 02/09/20 09:00 - Physical Exam General Appearance: Yes: Nourished, Appropriately Dressed, Mild Distress HEENT: positive: EOMI, YANCI, Normal Voice, Symmetrical, Pharynx Normal, Hearing Grossly Normal. negative: Scleral Icterus (R), Scleral Icterus (L), Pharyngeal Erythema, Tonsillar Exudate, Tonsillar Erythema Neck: positive: Trachea midline, Normal Thyroid, Supple. negative: Tender, Rigid, Decreased range of motion, Lymphadenopathy (R), Lymphadenopathy (L) Respiratory/Chest: positive: Lungs Clear, Normal Breath Sounds. negative: Chest Tender, Respiratory Distress, Accessory Muscle Use, Crackles, Rales, Rhonchi, Stridor, Wheezing Cardiovascular: positive: Regular Rhythm, Regular Rate. negative: Murmur Gastrointestinal/Abdominal: positive: Normal Bowel Sounds, Flat, Soft. negative: Tender, Organomegaly, Pulsatile Mass Musculoskeletal: positive: Normal Inspection. negative: CVA Tenderness, Decreased Range of Motion Extremity: positive: Normal Capillary Refill, Normal Inspection, Normal Range of Motion, Pelvis Stable. negative: Tender Integumentary: positive: Normal Color, Dry, Warm Neurologic: positive: Fully Oriented, Alert, Normal Mood/Affect, Normal Response, Finger to Nose (normal), Other (gait normal, no nystagmus). negative: investment broker II-XII NML intact (decreased sensation to face with R sensation > L reported, remaining CN normal exam), Motor Strength 5/5 (BLE 4/5 motor all groups, full ROM, sensation intact to LT and equal. BLE 5/5 motor all groups, full ROM, sensation intact to LT and equal), Facial Droop ED Treatment Course - LABORATORY CBC & Chemistry Diagram: 02/08/20 06:02 02/08/20 06:02 - ADDITIONAL ORDERS Additional order review: 02/07/20 23:46 RBC 4.09 MCV 90.6 MCHC 34.2 RDW 14.4 MPV 9.0 Neutrophils % 51.3 D Lymphocytes % 36.4 Monocytes % 9.1 Eosinophils % 1.7 Basophils % 1.5 - RADIOLOGY Radiology Studies Ordered: Category Date Time Status HEAD CT WITHOUT CONTRAST [CT] Stat CT Scan 02/07/20 22:53 Completed CHEST X-RAY PORTABLE* [RAD] Stat Radiology 02/07/20 23:18 Completed - Medications Given in the ED: ED Medications Discontinued Medications Generic Name Dose Route Start Last Admin Trade Name Freq PRN Reason Stop Dose Admin Acetaminophen 1,000 mg 02/07/20 23:42 02/08/20 00:11 Ofirmev Injection - IVPB 02/07/20 23:43 1,000 mg ONCE ONE Administration Aspirin 81 mg 02/08/20 10:00 02/09/20 09:59 Asa - PO 81 mg DAILY RICARDO Administration Atorvastatin Calcium 40 mg 02/08/20 22:00 02/08/20 22:02 Lipitor - PO 40 mg HS RICARDO Administration Enoxaparin Sodium 40 mg 02/08/20 10:00 02/09/20 09:59 Lovenox - SQ 40 mg DAILY RICARDO Administration Famotidine 40 mg 02/08/20 10:00 02/09/20 10:03 Pepcid - PO 40 mg DAILY RICARDO Administration Levofloxacin 250 mg 02/08/20 10:00 02/09/20 09:59 Levaquin - PO 250 mg DAILY RICARDO Administration Nitrofurantoin Macrocrystals 100 mg 02/08/20 00:30 02/08/20 01:15 Macrodantin - PO 100 mg ONCE RICARDO Administration Ondansetron HCl 4 mg 02/09/20 10:47 02/09/20 10:55 Zofran Injection IVPUSH 02/09/20 10:48 4 mg ONCE ONE Administration Topiramate 25 mg 02/08/20 10:00 02/09/20 10:00 Topamax - PO Not Given DAILY RICARDO Medical Decision Making - Medical Decision Making 02/07/20 22:38 Patient has PMH HTN, has been admitted to [facility] in the past out of concern for HTN emergency, here for dizziness, blurry vision, and paraesthesias. On exam has reported R > L facial sensation with reported L shoulder tingling as well as numbness to LLE. Stat CT head taken, no ICH noted. Initial BP elevated with SBP > 200, has dropped upon re-examination. Given history of hypertensive emergency and prior admission, as well as noted neuro deficits on current exam, plan to get CVA vs. ICH labs and admit to TELE for further evaluation. 02/08/20 01:24 UA shows evidence of UTI, patient given Macrobid for treatment. Patient's ACOSTA improved. Labs notable for: - UA 2+ blood 3+ LE consistent with UTI, started on Bactrim - CBC WNL - CMP WL - trop negative - lipids elevated ECG NSR with RBBB and LAFB HR 74 QTc 464 no LAVELL/D or TWI. CXR unremarkable. Plan for admission for HTN emergency vs. CVA. 02/08/20 02:[address] Stevenson, admit to TELE under Dr. Brooke. Discharge - Discharge Information Problems reviewed: Yes Clinical Impression/Diagnosis: Blurry vision Headache Qualifiers: Headache type: unspecified Headache chronicity pattern: acute headache Intractability: not intractable Qualified Code(s): R51 - Headache Hypertension Qualifiers: Hypertension type: unspecified Qualified Code(s): I10 - Essential (primary) hypertension Condition: Stable Disposition: HOME - Admission Yes - Follow up/Referral - Patient Discharge Instructions - Post Discharge Activity NIH Stroke Scale - Last Known Well Date/Time & Onset Date Last Known Well: 02/08/20 Time Last Known Well: 12:00 - Initial Evaluation Level of consciousness: Alert Ask patient the month and their age: Answers both correctly Ask patient to open & close eyes; make fist and let go: Obeys both correctly Best gaze (horizontal eye movement): Normal Visual field testing: No visual field loss Facial paresis (Show teeth/raise eyebrows/close eyes tight): Normal symmetrical movement Motor Function: Left Arm: Normal Motor Function: Right Arm: Normal (extends arm 90 (or 45) degrees for 10 seconds without drift Motor Function: Left Leg: Normal (extends leg 30 degrees for 5 seconds without drift) Motor Function: Right Leg: Normal (extends leg 30 degrees for 5 seconds without drift) Limb Ataxia: No ataxia Sensory(Use pinprick test arms,legs,trunk,face/side to side): Normal Best language (Describe picture, name items, read sentences): No Aphasia Dysarthria (read several words): Normal articulation Extinction and Inattention: No abnormality - Total Score NIH Stroke Scale Score: 0
[2020-02-07] MEDS ORDERED: ACETAMINOPHEN 1000 MG/100 ML VIAL (NON FORMULARY) IVPB ONE (23:42)
[2020-02-07 23:55] LABS: BASO % 1.5 % (0-2.0); EOS % 1.7 % (0-4.5); HEMOGLOBIN 12.6 GM/dL (10.7-15.3); LYMPH % 36.4 % (8-40); MCH 30.9 pg (25.7-33.7); MCHC 34.2 g/dl (32.0-36.0); MEAN CELL VOLUME 90.6 fl (80-96); MONO % 9.1 % (3.8-10.2); NEUT % 51.3 % (42.8-82.8); PLATELET COUNT 222 K/MM3 (134-434); RBC 4.09 M/mm3 (3.60-5.2); RDW 14.4 % (11.6-15.6); WHITE BLOOD COUNT 5.2 K/mm3 (4.0-10.0)
[2020-02-07] MEDS ORDERED: ACETAMINOPHEN INJECTION 100 ML IVPB ONE (23:58)
--- NOTE | 2020-02-08 00:02 | PDOC ---
Documentation entered by George Abbott SCRIBE, acting as scribe for Babita Knutson MD. Babita Knutson MD: This documentation has been prepared by the Milena chavez Xhesika, SCRIBE, under my direction and personally reviewed by me in its entirety. I confirm that the documentation accurately reflects all work, treatment, procedures, and medical decision making performed by me. Attending Attestation - Resident Resident Name: Trell Payne - ED Attending Attestation I have performed the following: I have examined & evaluated the patient, The case was reviewed & discussed with the resident, I agree w/resident's findings & plan, Exceptions are as noted - HPI HPI: 02/07/20 22:55 The patient is a 74 y/o female with a PMH of HTN, HLD, migraines, PAD s/p stent who presents to the ED for blurry vision, headache, R leg numbness and L leg weakness since waking up this AM. Pt reports associated hypertension all day today. Has taken her valsartan as prescribed BID today. Denies f/c, neck/back pain, chest pain, sob, abd pain, urinary sxs, LE edema. Allergies: cephalexin, penicillins, histamines - Physicial Exam PE: 02/07/20 23:58 Agree with resident exam - Medical Decision Making 02/07/20 23:58 74yo F presents to the ED with 1 day of neurolgic sxs, headache, and elevated BP DDx includes HTN emergency vs CVA vs TIA On exam, pt has Sxs do not fit a neurologic territory, however pt has risk factors She is out TPA window, is not a thrombectomy candidate as LKN is 24hrs ago BP has come down to 168/78 w/o intervention Plan for labs, CTH. Anticipate admission for CVA/TIA w/u Case signed out to Dr. Erickson pending labs, CTH, further mgmt/dispo Discharge - Discharge Information Problems reviewed: Yes Clinical Impression/Diagnosis: Headache, Hypertension, Blurry vision - Follow up/Referral Referrals: ON STAFF,NOT [Primary Care Provider] - - Patient Discharge Instructions - Post Discharge Activity
[2020-02-08 00:16] LABS: INR 0.98 (0.83-1.09); PROTHROMBIN TIME (PATIENT) 11.6 SEC (9.7-13.0)
[2020-02-08 00:21] LABS: EPI CELLS 8 /uL (0-25.1); HYALINE CASTS 1 /uL (0-3.1); URINE APPEARANCE CLOUDY; URINE BACTERIA 248 /uL (0-1359); URINE BILIRUBIN NEGATIVE (NEGATIVE); URINE COLOR YELLOW; URINE GLUCOSE (UA) NEGATIVE (NEGATIVE); URINE KETONE NEGATIVE (NEGATIVE); URINE LEUK ESTERASE 3+ (NEGATIVE); URINE NITRITE NEGATIVE (NEGATIVE); URINE PROTEIN NEGATIVE (NEGATIVE); URINE RBC 42 /uL (0-23.9); URINE UROBILINOGEN 0.2 mg/dL (0.2-1.0); URINE WBC 1122 /uL (0-25.8)
--- NOTE | 2020-02-08 00:21 | PDOC ---
*Physical Exam - Vital Signs Last Vital Signs Temp Pulse Resp BP Pulse Ox 98.4 F 86 18 168/78 100 02/07/20 22:14 02/07/20 22:14 02/07/20 22:14 02/07/20 23:12 02/07/20 22:14 ED Treatment Course - LABORATORY CBC & Chemistry Diagram: 02/08/20 06:02 02/08/20 06:02 - ADDITIONAL ORDERS Additional order review: Laboratory Results 02/07/20 23:50 PT with INR 11.60 INR 0.98 PTT (Actin FS) 26.0 02/07/20 23:46 RBC 4.09 MCV 90.6 MCHC 34.2 RDW 14.4 MPV 9.0 Neutrophils % 51.3 D Lymphocytes % 36.4 Monocytes % 9.1 Eosinophils % 1.7 Basophils % 1.5 - Medications Given in the ED: ED Medications Discontinued Medications Generic Name Dose Route Start Last Admin Trade Name Aura PRN Reason Stop Dose Admin Acetaminophen 1,000 mg 02/07/20 23:42 02/08/20 00:11 Ofirmev Injection - IVPB 02/07/20 23:43 1,000 mg ONCE ONE Administration Medical Decision Making - Medical Decision Making 02/08/20 00:21 Patient Name: ESMER WALLACE THIS IS A PRELIMINARY REPORT FROM IMAGING NAME [facility] EXAM: CT head without contrast IMAGES: 222 DATE OF EXAM: 2020-02-07 23:08:58 REASON FOR EXAM: Rule out bleed. Hypertension. COMPARISON: None. FINDINGS: There is cerebral atrophy. Chronic microvascular ischemic changes are noted. No acute intracranial hemorrhage or acute infarction. The visualized aspect of the paranasal sinuses and mastoid air cells are unremarkable. No acute fracture. 02/08/20 00:21 Pt signed out to me; blurry vision; decreased sensation R face; r/o CVA Head CT normal Pt will be admitted for neuro eval and further workup. 02/08/20 00:23 Pt has UTI; she has PCN allergy and TMP/SMX has adverse rxn with losartan, so we will treat with macrobid Discharge - Discharge Information Problems reviewed: Yes Clinical Impression/Diagnosis: Blurry vision Headache Qualifiers: Headache type: unspecified Headache chronicity pattern: acute headache Intractability: not intractable Qualified Code(s): R51 - Headache Hypertension Qualifiers: Hypertension type: unspecified Qualified Code(s): I10 - Essential (primary) hypertension Condition: Stable Disposition: HOME - Follow up/Referral - Patient Discharge Instructions - Post Discharge Activity
[2020-02-08] MEDS ORDERED: NITROFURANTOIN MACROCRYSTAL 50 MG CAPSULE (FP) PO SCH ×2 (00:30→12:00)
[2020-02-08 00:32] LABS: ALBUMIN 4.2 g/dl (3.4-5.0); ALK PHOS 100 U/L (45-117); ANION GAP 7 MMOL/L (8-16); BILIRUBIN,TOTAL 0.5 mg/dL (0.2-1); BLOOD UREA NITROGEN 10.7 mg/dL (7-18); CHLORIDE 104 mmol/L (98-107); CHOLESTEROL 181 mg/dL (50-200); CO2 27 mmol/L (21-32); CREATININE 0.8 mg/dL (0.55-1.3); GLUCOSE,RANDOM 97 mg/dL (74-106); HDL CHOLESTEROL 47 mg/dL (40-60); LDL CHOLESTEROL (ONLY SJRH) 106 mg/dL (5-100); POTASSIUM 3.8 mmol/L (3.5-5.1); SGOT/AST 23 U/L (15-37); SGPT/ALT 24 U/L (13-61); SODIUM 137 mmol/L (136-145); TOT PROT 7.8 g/dl (6.4-8.2); TRIGLYCERIDES 190 mg/dL (0-150)
[2020-02-08] MEDS ORDERED: NITROFURANTOIN MACROCRYSTAL 50 MG CAPSULE (FP) ONE (01:13)
--- NOTE | 2020-02-08 02:22 | PN ---
Teaching Attending Note Name of Resident: Lucina Stevenson ATTENDING PHYSICIAN STATEMENT I saw and evaluated the patient. I reviewed the resident's note and discussed the case with the resident. I agree with the resident's findings and plan as documented. SUBJECTIVE: Patient is a 74 year old woman with PMH of Penicillin allergy, Over active bladd er, Hysterectomy, Partial bladder removal, Glaucoma, ?Asthma, HTN, HLD, Migraines and PAD (s/p left groin stent) who presents to the ER for blurry vision, headache, right leg numbness and left leg weakness since waking up this morning. Reports associated hypertension all day. Has taken her Valsartan as prescribed BID today. Patient denies chest pain, shortness of breath, abdominal pain, palpitations, dizziness, fever, chills, nausea, vomiting, diarrhea, constipation, dysuria, frequency, urgency, melena, hematochezia or hematuria. Denies alcohol, tobacco or illicit drug use. No sick contacts or recent travels. Family history HLD in father, HTN and HLD in mother, breast cancer in sister and niece. BP on arrival in the ER was 209/91. OBJECTIVE: Alert Vital Signs Period Temp Pulse Resp BP Sys/Youssef Pulse Ox Last 24 Hr 98.4 F 86 18 168-209/78-91 100 HEENT: No Jaundice, eye redness or discharge, PERRLA, EOMI. Normocephalic, atraumatic. External ears are normal and hearing is grossly intact. No nasal discharge. Neck: Supple, nontender. No palpable adenopathy or thyromegaly. No JVD Chest: Good effort. Clear to auscultation and percussion. Heart: Regular. No S3, rub or murmur Abdomen: Not distended, soft, nontender and no HSM. No rebound or guarding. Normal bowel sounds. Ext: Peripheral pulses intact. No leg edema. Skin: Warm and dry. No petechiae, rash or ecchymosis. Neuro: Alert. Oriented x3. CN 2-12 grossly intact. Sensation grossly intact in all four extremities and DTR are symmetric. Psych: Appropriate mood and affect. Good insight. Home Medications Medication Instructions Recorded Albuterol Sulfate Inhaler - 1 puff IH Q4H PRN 12/27/19 [Ventolin HFA Inhaler -] Aspirin 81 mg PO DAILY 12/27/19 Famotidine [Pepcid -] 40 mg PO DAILY 12/27/19 Latanoprost 0.005% Eye Drops 1 drop OU HS 12/27/19 [Xalatan 0.005% Eye Drops -] Levocetirizine Dihydrochloride 5 mg PO PRN PRN 12/27/19 Pitavastatin Calcium [Livalo] 2 mg PO HS 12/27/19 Trospium Chloride [Trospium 20 mg PO BID 12/27/19 Chloride ER] Polyethylene Glycol 3350 [Miralax 17 gm PO BID PRN bottle 12/28/19 119 gm Btl -] Butalb/Acetaminophen/Caffeine 1 each PO Q6H #30 capsule 12/29/19 [Fioricet 50-300-40 mg Capsule] Topiramate 25 mg PO DAILY #30 tablet 12/29/19 Valsartan/Hydrochlorothiazide 1 each PO DAILY #30 tablet 12/29/19 [Diovan Hct 320-12.5 mg Tab] Abnormal Lab Results 02/07/20 02/07/20 23:46 23:50 Anion Gap 7 L Triglycerides 190 H Total LDL Cholesterol 106 H Ur Specific Denn[place] 1.006 L Urine Blood 2+ H Ur Leukocyte Esterase 3+ H Current Medications Generic Name Dose Route Start Last Admin Trade Name Freq PRN Reason Stop Dose Admin Enoxaparin Sodium 40 mg 02/08/20 10:00 Lovenox - SQ DAILY [facility] Levofloxacin 500 mg in 100 mls @ 100 mls/hr 02/08/20 10:00 Levaquin 500 Mg Premixed Ivpb - IVPB DAILY [facility] Protocol ASSESSMENT AND PLAN: 1. UTI/Rule out CVA - NIHSS score was 0 in the ER. No evidence of acute intracranial pathology on noncontrast head CT scan. Patient is outside the window for tPA. No acute abnormality on CXR. ER staff prescribed Nitrofurantoin for the patient. Will treat UTI with IV Levofloxacin 500 mg qd. EKG shows NSR at 72/minute, IRBBB, LAFB and QTc 464 with T wave inversion in V1 with no ischemic ST changes. Not significantly changed compared to prior EKG. Initial troponin is negative. Will avoid drugs that may prolong QTc. Viral testing for COVID-19 ordered and patient placed on airborne, droplet and contact isolation. Will admit to telemetry, get ECHO, carotid doppler, increase Pitavastatin to 4 mg qd, continue Aspirin 81 mg qd, get brain MRI, do speech and swallow evaluation, do neurochecks and implement fall/aspiration/seizure precautions. Consult PT/Neurology. Will continue comprehensive care for all of patients comorbid conditions including Duoneb PRN for Asthma. 2. Hypertension BP is now 168/91. Will allow permissive hypertension for 24 to 48 hours. Restart suitable outpatient antihypertensive drugs when clinically appropriate. Subsequently, will revise regimen to ensure [id number] excellent BP control. Patient counseled on the injurious effects of uncontrolled hypertension. Nonpharmacologic measures to control hypertension like weight loss, salt restriction and exercise stressed. Importance of adherence to treatment regimen and attainment of normotension emphasized. 3. DVT prophylaxis - Lovenox 40 mg SQ q 24 hours. 4. Advance directives - Full code
--- NOTE | 2020-02-08 02:33 | HP ---
CHIEF COMPLAINT: dizziness PCP: HISTORY OF PRESENT ILLNESS: Patient is a 74 y/o female with a history of HTN, HLD, GERD, migraines, chronic UTI, bladder mass resection, total hysterectomy and PAD ( femoral stent placed who presented for dizziness. Patient started to feel like she had a headache and dizziness in the afternoon. Around 7 pm she finally took her blood pressure medications. She typically takes her blood pressure medications at 7. She retook her bp and it was 178/81 so she came to the ED. Then her BP was found to be 209/91 and on its own it came to 168/78, patient states the headache went away. She denies blurry vision, change in vision. Reports she has some "tingling" over her chest. Recent discharged from [facility] on 12/29/19 to r/o atypical chest pain. Patient asked to f/u with animal technician, she reports she has an appointment with a animal technician in the city next week. ER course was notable for: (1) (2) (3) Recent Travel: PAST MEDICAL HISTORY: PAST SURGICAL HISTORY: Bladder resection, hysterectomy, L femoral stent Social History: Smoking: denies Alcohol: denies Drugs: denies Allergies cephalexin [From Keflex] Allergy (Verified 02/07/20 22:17) Swelling Penicillins Allergy (Verified 02/07/20 22:17) Swelling histamine Allergy (Uncoded 02/07/20 22:17) Swelling HOME MEDICATIONS: Home Medications Medication Instructions Recorded Albuterol Sulfate Inhaler - 1 puff IH Q4H PRN 12/27/19 [Ventolin HFA Inhaler -] Aspirin 81 mg PO DAILY 12/27/19 Famotidine [Pepcid -] 40 mg PO DAILY 12/27/19 Latanoprost 0.005% Eye Drops 1 drop OU HS 12/27/19 [Xalatan 0.005% Eye Drops -] Levocetirizine Dihydrochloride 5 mg PO PRN PRN 12/27/19 Pitavastatin Calcium [Livalo] 2 mg PO HS 12/27/19 Trospium Chloride [Trospium 20 mg PO BID 12/27/19 Chloride ER] Polyethylene Glycol 3350 [Miralax 17 gm PO BID PRN bottle 12/28/19 119 gm Btl -] Butalb/Acetaminophen/Caffeine 1 each PO Q6H #30 capsule 12/29/19 [Fioricet 50-300-40 mg Capsule] Topiramate 25 mg PO DAILY #30 tablet 12/29/19 Valsartan/Hydrochlorothiazide 1 each PO DAILY #30 tablet 12/29/19 [Diovan Hct 320-12.5 mg Tab] REVIEW OF SYSTEMS CONSTITUTIONAL: Absent: fever, chills, diaphoresis, generalized weakness, malaise, loss of appetite, weight change HEENT: Absent: rhinorrhea, nasal congestion, throat pain, throat swelling, difficulty swallowing, mouth swelling, ear pain, eye pain, visual changes CARDIOVASCULAR: Absent: chest pain, syncope, palpitations, irregular heart rate, lightheadedne ss, peripheral edema RESPIRATORY: Absent: cough, shortness of breath, dyspnea with exertion, orthopnea, wheezing, stridor, hemoptysis GASTROINTESTINAL: Absent: abdominal pain, abdominal distension, nausea, vomiting, diarrhea, constipation, melena, hematochezia GENITOURINARY: Absent: dysuria, frequency, urgency, hesitancy, hematuria, flank pain, genital pain MUSCULOSKELETAL: Absent: myalgia, arthralgia, joint swelling, back pain, neck pain SKIN: Absent: rash, itching, pallor HEMATOLOGIC/IMMUNOLOGIC: Absent: easy bleeding, easy bruising, lymphadenopathy, frequent infections ENDOCRINE: Absent: unexplained weight gain, unexplained weight loss, heat intolerance, cold intolerance NEUROLOGIC: dizziness, headache Absent: focal weakness or paresthesias, unsteady gait, seizure, mental status changes, bladder or bowel incontinence PSYCHIATRIC: Absent: anxiety, depression, suicidal or homicidal ideation, hallucinations. PHYSICAL EXAMINATION Vital Signs - 24 hr 02/07/20 02/07/20 22:14 23:12 Temperature 98.4 F Pulse Rate 86 Respiratory 18 Rate Blood Pressure 209/91 H Blood Pressure 168/78 [Right Arm] O2 Sat by Pulse 100 Oximetry (%) GENERAL: Awake, alert, and fully oriented, in no acute distress. HEAD: Normal with no signs of trauma. EYES: Pupils equal, round and reactive to light, extraocular movements intact, EARS, NOSE, THROAT: Moist mucous membranes. LUNGS: Breath sounds equal, clear to auscultation bilaterally. No wheezes, and no crackles. No accessory muscle use. HEART: Regular rate and rhythm, normal S1 and S2 without murmur, rub or gallop. ABDOMEN: Soft, nontender, not distended, normoactive bowel sounds, no guarding, no rebound, no masses. MUSCULOSKELETAL: Normal range of motion at all joints. LOWER EXTREMITIES: 2+ pulses, warm, well-perfused. No calf tenderness. No periph eral edema. NEUROLOGICAL: Cranial nerves II-XII intact. Normal speech. gait unobserved SKIN: Warm, dry, normal turgor, no rashes or lesions noted, normal capillary refill. CBC, BMP 02/07/20 23:46 02/07/20 23:46 ASSESSMENT/PLAN: Patient is a 74 y/o female with a history of HTN, HLD, GERD, migraines, chronic UTI, bladder mass resection, total hysterectomy and PAD ( femoral stent placed 2017) who is admitted to r/o stroke. #HTN urgency, dizziness - r/o Stroke, head CT: cerebral atrophy - monitor on tele - recent ECHO: no structural heart changes and EF 55-60% - f/u carotid doppler - bp dropped by greater then 25% s will hold medications and let it slowly come down, unsure if first reading of 209/91 is accurate as patient was not given any medication and BP returned to 168/78 - no signs of end organ damage - hold po htn meds for permissive htn - f/u PT - consider Brain MRI and neruo eval if patients symptoms return or worsen #UTI - UA evident for positive UTI - given one dose of macrobid in ED, will continue Levofloxacin - past cx's sensitive to macrobid, f/u new culture #HLD - patient on privastatin 2mg, would reccomend increaseing to 4 as lipid panel still elevated - placed patient on atorvastatin 40 mg hs #DVT ppx - Lovenox 40 sq Dispo: monitor on tele Family Medical History Family History: As Documented Visit type - Medication Review Med list reviewed for High Risk Meds patients 65 and older: Yes - Emergency Visit Emergency Visit: Yes ED Registration Date: 02/08/20 Care time: The patient presented to the Emergency Department on the above date and was hospitalized for further evaluation of their emergent condition. - New Patient This patient is new to me today: Yes Date on this admission: 02/08/20 - Critical Care Critical Care patient: No ATTENDING PHYSICIAN STATEMENT I saw and evaluated the patient. I reviewed the resident's note and discussed the case with the resident. I agree with the resident's findings and plan as documented. SUBJECTIVE: OBJECTIVE: ASSESSMENT AND PLAN:
[2020-02-08 06:31] LABS: BASO % 0.6 % (0-2.0); EOS % 3.6 % (0-4.5); HEMATOCRIT 36.8 % (32.4-45.2); HEMOGLOBIN 12.3 GM/dL (10.7-15.3); LYMPH % 43.2 % (8-40); MCH 30.3 pg (25.7-33.7); MCHC 33.5 g/dl (32.0-36.0); MEAN CELL VOLUME 90.3 fl (80-96); MEAN PLT VOLUME 8.6 fl (7.5-11.1); MONO % 9.6 % (3.8-10.2); PLATELET COUNT 201 K/MM3 (134-434); RBC 4.08 M/mm3 (3.60-5.2); RDW 14.2 % (11.6-15.6); WHITE BLOOD COUNT 4.6 K/mm3 (4.0-10.0)
[2020-02-08 07:02] LABS: ALBUMIN 3.9 g/dl (3.4-5.0); BILIRUBIN,TOTAL 0.8 mg/dL (0.2-1); BLOOD UREA NITROGEN 9.8 mg/dL (7-18); CALCIUM 8.8 mg/dL (8.5-10.1); CREATININE 0.8 mg/dL (0.55-1.3); MAGNESIUM 2.6 mg/dL (1.8-2.4); PHOSPHOROUS 3.4 mg/dL (2.5-4.9); POTASSIUM 3.7 mmol/L (3.5-5.1); TOT PROT 7.2 g/dl (6.4-8.2)
[2020-02-08] MEDS ORDERED: ASPIRIN 81 MG CHEWABLE TABLETS ONE (10:28)
[2020-02-08] MEDS ORDERED: TOPIRAMATE 25 MG TABLET ONE (10:31)
[2020-02-08] MEDS ORDERED: ENOXAPARIN NA (PORCINE) 40 MG/0.4 ML DISP.SYRIN SQ ONE (10:31)
[2020-02-08] MEDS: ENOXAPARIN NA (PORCINE) 40 MG/0.4 ML DISP.SYRIN SQ SCH (10:43)
[2020-02-08] MEDS: FAMOTIDINE 40 MG TABLET PO SCH (10:43)
[2020-02-08] MEDS: TOPIRAMATE 25 MG TABLET PO SCH (10:43)
[2020-02-08] MEDS: ASPIRIN 81 MG CHEWABLE TABLETS PO SCH (10:43)
[2020-02-08] MEDS ORDERED: ATORVASTATIN CA 80 MG TABLET (FP) PO SCH (22:00)
[2020-02-08] MEDS ORDERED: ATORVASTATIN CA 40 MG TABLET (FP) PO SCH (22:00)
--- NOTE | 2020-02-09 08:44 | DS ---
Physical Exam: SUBJECTIVE: Pt with BP systolics 108 today with some chest pressure on exam. Stat ECG with no change documented in paper chart. Patient's BP stabilized throughout the day and chest pressure resolved. Carotid U/S negative today OBJECTIVE: Vital Signs Period Temp Pulse Resp BP Sys/Youssef Pulse Ox Last 24 Hr 97.7 F-98.4 F 65-88 17-18 108-140/58-82 96-100 PHYSICAL EXAM GENERAL: The patient is awake, alert, and fully oriented, in no acute distress. HEAD: Normal with no signs of trauma. EYES: PERRL, extraocular movements intact, sclera anicteric, conjunctiva clear. ENT: Ears normal, nares patent, oropharynx clear without exudates, moist mucous membranes. NECK: Trachea midline, full range of motion, supple. LUNGS: Breath sounds equal, clear to auscultation bilaterally, no wheezes, no crackles, no accessory muscle use. HEART: Regular rate and rhythm, S1, S2 without murmur, rub or gallop. ABDOMEN: Soft, nontender, nondistended, normoactive bowel sounds, no guarding, no rebound, no hepatosplenomegaly, no masses. EXTREMITIES: 2+ pulses, warm, well-perfused, no edema. NEUROLOGICAL: Cranial nerves II through XII grossly intact. Normal speech, gait not observed. PSYCH: Normal mood, normal affect. SKIN: Warm, dry, normal turgor, no rashes or lesions noted. LABS Laboratory Results - last 24 hr 02/09/20 06:48 Troponin I < 0.02 Imaging: Carotid Doppler: Impression No sonographic evidence of significant hemodynamic stenosis. CT Head without contrast Findings Mild cerebral atrophy and mild chronic deep white matter periventricular ischemic change There is no evidence of any intracerebral hemorrhage, mass lesion or midline shift. There is no evidence of an acute subdural hematoma. No CT evidence of acute infarct. No fractures are identified. HOSPITAL COURSE: Date of Admission:02/08/20 Date of Discharge: 02/09/20 Pt admitted on 02/08/2020 due to hypertensive urgency and atypical chest pain. Patient was admitted to telemetry and was given antihypertensives for her blood pressure. She had her home Valsartan-HCTZ combination pill held while inpatient and was noted to have systolic pressures ranging from 100-130 without her medication once resolution of her acute issues was achieved. In addition, pt was found to have simple cystitis with polyuria during her workup. She was initiated on 3 days of Levaquin 250mg treat due to her Cephalexin and Pencillin allergies. Patient completed treatment during her stay here. Imaging is as above. Her pitavastatin was increased to 4mg daily due to uncontrolled cholesterol on her current regimen. Patient is being discharged today in stable condition with Stage I HTN at peak without medications. She is to stop taking her Valsartan-HCTZ and see her PMD within the week. She was instructed that if her BP is to rise o 160/90 thresholds she should take one pill of her existing combination pill. 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 While you were here, you were given medications to help and your blood pressure has been okay. You have not required any of your home blood pressure medications. MEDICATIONS: Please do not take your Valsartan-HCTZ (blood pressure) medication until you see your primary care provider. If your blood pressure is higher than 160/90 you can take one pill, but please call your doctor. Your Pitastatin was increased to 4mg (double the dose) daily because your cholesterol is not controlled yet. Please avoid foods that are high in salt content as this can elevate your blood pressure and contribute to problems. You were treated for a urinary tract infection with antibiotics while you were in the hospital. You do not need any more antibiotics FOLLOW-UP: Please follow-up with your primary care provider this week Please continue your follow-up with your regularly scheduled specialists Referrals: ON STAFF,NOT [Primary Care Provider] - Disposition: HOME - Home Medications Comprehensive Discharge Medication List: Ambulatory Orders Albuterol Sulfate Inhaler - [Ventolin HFA Inhaler -] 1 puff IH Q4H PRN 12/27/19 Aspirin 81 mg PO DAILY 12/27/19 Famotidine [Pepcid -] 40 mg PO DAILY 12/27/19 Latanoprost 0.005% Eye Drops [Xalatan 0.005% Eye Drops -] 1 drop OU HS 12/27/19 Levocetirizine Dihydrochloride 5 mg PO PRN PRN 12/27/19 Pitavastatin Calcium [Livalo] 2 mg PO HS 12/27/19 Trospium Chloride [Trospium Chloride ER] 20 mg PO BID 12/27/19 Polyethylene Glycol 3350 [Miralax 119 gm Btl -] 17 gm PO BID PRN bottle 12/28/19 Butalb/Acetaminophen/Caffeine [Fioricet 50-300-40 mg Capsule] 1 each PO Q6H #30 capsule 12/29/19 Topiramate 25 mg PO DAILY #30 tablet 12/29/19 Valsartan/Hydrochlorothiazide [Diovan Hct 320-12.5 mg Tab] 1 each PO DAILY #30 tablet 12/29/19 This patient is new to me today: No Emergency Visit: Yes ED Registration Date: 02/08/20 Care time: The patient presented to the Emergency Department on the above date and was hospitalized for further evaluation of their emergent condition. Critical Care patient: No - Discharge Referral Referred to [facility] No
[2020-02-09] MEDS: ASPIRIN 81 MG CHEWABLE TABLETS PO SCH (09:59)
[2020-02-09] MEDS: ENOXAPARIN NA (PORCINE) 40 MG/0.4 ML DISP.SYRIN SQ SCH (09:59)
[2020-02-09] MEDS: TOPIRAMATE 25 MG TABLET PO SCH (10:00)
[2020-02-09] MEDS ORDERED: PT OWN MED DRAWER 7, Y5N ONE (10:02)
[2020-02-09] MEDS: FAMOTIDINE 40 MG TABLET PO SCH (10:03)
[2020-02-09] MEDS ORDERED: ONDANSETRON 4 MG/2 ML VIAL IVPUSH ONE (10:47)
[2020-02-09 15:10] VITALS: BP 137/71; PULSE 88; TEMP 97.9
--- NOTE | 2020-02-10 10:56 | EKG ---
Test Reason : Blood Pressure : / mmHG Vent. Rate : 072 BPM Atrial Rate : 072 BPM P-R Int : 140 ms QRS Dur : 088 ms QT Int : 396 ms P-R-T Axes : 050 -55 015 degrees QTc Int : 433 ms NORMAL SINUS RHYTHM LEFT ANTERIOR FASCICULAR BLOCK ABNORMAL ECG WHEN COMPARED WITH ECG OF 07-FEB-2020 23:29, LIKELY NO SIGNIFICANT CHANGES Confirmed by YARELIS MEZA MD ([id number]) on 02/10/2020 10:56:16 AM Referred By: Confirmed By:YARELIS MEZA MD
--- NOTE | 2020-02-10 11:33 | EKG ---
Test Reason : Blood Pressure : / mmHG Vent. Rate : 073 BPM Atrial Rate : 073 BPM P-R Int : 154 ms QRS Dur : 100 ms QT Int : 422 ms P-R-T Axes : 063 -59 044 degrees QTc Int : 464 ms NORMAL SINUS RHYTHM INCOMPLETE RIGHT BUNDLE BRANCH BLOCK LEFT ANTERIOR FASCICULAR BLOCK ABNORMAL ECG WHEN COMPARED WITH ECG OF 27-DEC-2019 03:13, NO SIGNIFICANT CHANGE WAS FOUND Confirmed by YARELIS MEZA MD ([id number]) on 02/10/2020 11:32:36 AM Referred By: Confirmed By:YARELIS MEZA MD
== END 2020-02-09 15:41 | disposition home or self-care (01) | DRG 305 ==
LOC: JER 22:12 → JERBED 02-08 01:33 → J4W 02-08 19:18
PROVIDERS: ADMIT Internal Medicine; ATTEND Internal Medicine
DX: I16.0 Hypertensive urgency (principal); N30.00 Acute cystitis without hematuria; I45.2 Bifascicular block; R51 Headache; E78.5 Hyperlipidemia, unspecified; K21.9 Gastro-esophageal reflux disease without esophagitis; R42 Dizziness and giddiness; R07.89 Other chest pain
CPT/HCPCS: 36415; 70450-TC; 71045-TC-FY; 80053; 80061; 81003; 82550; 82553; 83721; 83735; 84100; 84484; 85025; 85610; 85730; 93005; 93010; 93880-TC; 99285-25; J0131; U0003

== ENCOUNTER 2020-02-13 15:23 | Emergency (ER) | payer OTHER ==
[2020-02-13 15:30] VITALS: TEMP 98.4; BMI 24.7
[2020-02-13 17:18] LABS: BASO % 0.6 % (0-2.0); EOS % 1.5 % (0-4.5); HEMOGLOBIN 13.9 GM/dL (10.7-15.3); LYMPH % 29.6 % (8-40); MCH 30.9 pg (25.7-33.7); MCHC 33.9 g/dl (32.0-36.0); MEAN CELL VOLUME 91.1 fl (80-96); MEAN PLT VOLUME 9.6 fl (7.5-11.1); MONO % 7.2 % (3.8-10.2); NEUT % 61.1 % (42.8-82.8); PLATELET COUNT 242 K/MM3 (134-434); RBC 4.51 M/mm3 (3.60-5.2); RDW 14.6 % (11.6-15.6); WHITE BLOOD COUNT 6.1 K/mm3 (4.0-10.0)
[2020-02-13 17:21] LABS: INR 1.03 (0.83-1.09); PROTHROMBIN TIME (PATIENT) 12.1 SEC (9.7-13.0)
[2020-02-13 17:24] LABS: ACTIVATED PTT 27.9 SECONDS (25.2-36.5)
[2020-02-13 17:55] LABS: ALBUMIN 4.5 g/dl (3.4-5.0); ALK PHOS 86 U/L (45-117); ANION GAP 8 MMOL/L (8-16); BILIRUBIN,TOTAL 0.8 mg/dL (0.2-1); CALCIUM 9.4 mg/dL (8.5-10.1); CHLORIDE 105 mmol/L (98-107); CO2 26 mmol/L (21-32); CREATININE 0.8 mg/dL (0.55-1.3); GLUCOSE,RANDOM 83 mg/dL (74-106); MAGNESIUM 2.1 mg/dL (1.8-2.4); POTASSIUM 3.9 mmol/L (3.5-5.1); SGOT/AST 39 U/L (15-37); SGPT/ALT 34 U/L (13-61); SODIUM 138 mmol/L (136-145); TOT PROT 8.4 g/dl (6.4-8.2)
[2020-02-13 18:03] LABS: EPI CELLS 25 /uL (0-25.1); HYALINE CASTS 0 /uL (0-3.1); URINE APPEARANCE CLEAR; URINE BACTERIA 249 /uL (0-1359); URINE BILIRUBIN NEGATIVE (NEGATIVE); URINE COLOR YELLOW; URINE GLUCOSE (UA) NEGATIVE (NEGATIVE); URINE KETONE NEGATIVE (NEGATIVE); URINE LEUK ESTERASE 2+ (NEGATIVE); URINE NITRITE NEGATIVE (NEGATIVE); URINE PROTEIN NEGATIVE (NEGATIVE); URINE RBC 8 /uL (0-23.9); URINE UROBILINOGEN 0.2 mg/dL (0.2-1.0); URINE WBC 41 /uL (0-25.8)
--- NOTE | 2020-02-13 18:11 | PDOC ---
History of Present Illness - General Chief Complaint: Blood Pressure Problem Stated Complaint: BLOOD PRESSURE PROBLEM Time Seen by Provider: 02/13/20 15:38 History Source: Patient Exam Limitations: No Limitations - History of Present Illness Initial Comments: 02/13/20 15:38 Patient is a 74-year-old female with a history of hypertension and hyperlipidemia who presents to the ED with complaint of waking up earlier today and feeling globally weak. She also states she feels like she has tingling in her whole body. She denies any numbness. She denies any fevers or chills. She denies any chest pain or shortness of breath. The patient was worried that her blood pressure was high and took it at home and it was 180s systolic. The patient states that she was just discharged from the hospital 5 days ago after being admitted for elevated blood pressure. She tried to see her primary doctor and he tried to just increase her valsartan without seeing her. The patient was not comfortable with that so she came to the ED for evaluation. She is also complaining of urinary frequency. She denies any abdominal pain. Past History - Medical History Allergies/Adverse Reactions: Allergies Allergy/AdvReac Type Severity Reaction Status Date / Time cephalexin [From Keflex] Allergy Swelling Verified 02/07/20 22:17 Penicillins Allergy Swelling Verified 02/07/20 22:17 histamine Allergy Swelling Uncoded 02/07/20 22:17 Home Medications: Ambulatory Orders Albuterol Sulfate Inhaler - [Ventolin HFA Inhaler -] 1 puff IH Q4H PRN 12/27/19 Aspirin 81 mg PO DAILY 12/27/19 Latanoprost 0.005% Eye Drops [Xalatan 0.005% Eye Drops -] 1 drop OU HS 12/27/19 Levocetirizine Dihydrochloride 5 mg PO PRN PRN 12/27/19 Trospium Chloride [Trospium Chloride ER] 20 mg PO BID 12/27/19 Polyethylene Glycol 3350 [Miralax 119 gm Btl -] 17 gm PO BID PRN bottle 12/28/19 Topiramate 25 mg PO DAILY #30 tablet 12/29/19 Famotidine [Pepcid -] 40 mg PO BID #60 tablet 02/09/20 Pitavastatin Calcium [Livalo] 4 mg PO HS #20 tablet 02/09/20 Nitrofurantoin Monohyd/M-Cryst [Macrobid -] 100 mg PO BID #13 capsule 02/13/20 Anemia: No Asthma: No Cancer: No Cardiac Disorders: No CVA: No COPD: No CHF: No Dementia: No Diabetes: No GI Disorders: Yes (GERD) Disorders: No HTN: Yes Hypercholesterolemia: Yes Liver Disease: No Seizures: No Thyroid Disease: No - Surgical History Abdominal Surgery: No Appendectomy: No Cardiac Surgery: No Cholecystectomy: No Gastric Stapling: No GI Surgery: No Lung Surgery: No Neurologic Surgery: No Orthopedic Surgery: No - Reproductive History Is Patient Now?: No - Immunization History Immunization Up to Date: Yes - Psycho-Social/Smoking History Smoking History: Never smoked Have you smoked in the past 12 months: No Information on smoking cessation initiated: No - Substance Abuse Hx (Audit-C & DAST Scrn) How often the patient has a drink containing alcohol: Never Score: In Men: 4 or > Positive; In Women: 3 or > Positive: 0 Screen Result (Pos requires Nsg. Audit-10AR): Negative In the last yr the pt used illegal drug/Rx for NonMed reason: No Score: Yes response is considered Positive: 0 Screen Result (Positive result requires Nsg. DAST-10): Negative Review of Systems - Review of Systems Comments:: 02/13/20 18:09 - Review of Systems Able to Perform ROS?: Yes Constitutional: No: Fever, Chills, Loss of Appetite, Night Sweats, positive: Weakness HEENTM: No: Eye Pain, Vision changes, Ear Pain, Throat Pain, Throat Swelling, Mouth Pain, Difficulty Swallowing Respiratory: No: Cough, Shortness of Breath, Wheezing, Sputum Production Cardiac (ROS): No: Chest Pain, Chest Tightness, Palpitations, Irregular Heart Beat, Edema ABD/GI: No: Nausea, Vomiting, Abdominal Pain, Diarrhea : No Dysuria, No Hematuria, No Urgency; positive: Urinary frequency Musculoskeletal: No: Muscle Pain, Back Pain, Joint Pain, Muscle Weakness, Neck Pain Integumentary: No: Lesions, Rash Neurological: No: Headache, Numbness, Weakness, Speech Difficulties; positive: Body tingling *Physical Exam - Vital Signs Last Vital Signs Temp Pulse Resp BP Pulse Ox 98.4 F 112 H 16 140/88 99 02/13/20 15:26 02/13/20 15:26 02/13/20 15:26 02/13/20 15:26 02/13/20 15:26 - Physical Exam 02/13/20 18:09 - Physical Exam General Appearance: Nourished, Appropriately Dressed, No Distress HEENT: EOMI, Normal Voice, Hearing Grossly Normal Neck: Supple, No Lymphadenopathy (R), No Lymphadenopathy (L), No Rigidity, No Decreased range of motion Respiratory/Chest: Lungs Clear, Normal Breath Sounds. No Respiratory Distress, No Accessory Muscle Use Cardiovascular: Regular Rhythm, Regular Rate, S1, S2 Gastrointestinal/Abdominal: Normal Bowel Sounds, Soft. Non-tender, No Guarding, No Rebound, No Rigidity Musculoskeletal: Normal Inspection. No Decreased Range of Motion Extremity: Normal Capillary Refill, Normal Inspection Integumentary: Normal Color, Dry. No Rash Neurologic: customer retention representative II-XII NML intact, Fully Oriented, Alert, Normal Mood/Affect, Normal Response ED Treatment Course - LABORATORY CBC & Chemistry Diagram: 02/13/20 16:37 02/13/20 16:37 - ADDITIONAL ORDERS Additional order review: Laboratory Results 02/13/20 02/13/20 02/13/20 16:41 16:37 16:37 PT with INR 12.10 INR 1.03 PTT (Actin FS) 27.9 Sodium 138 Potassium 3.9 Chloride 105 Carbon Dioxide 26 Anion Gap 8 BUN 10.0 Creatinine 0.8 Est GFR (CKD-EPI)AfAm 83.00 Est GFR (CKD-EPI)NonAf 71.61 Random Glucose 83 Calcium 9.4 Magnesium 2.1 Total Bilirubin 0.8 AST 39 H ALT 34 Alkaline Phosphatase 86 Creatine Kinase 264 H Troponin I < 0.02 Total Protein 8.4 H Albumin 4.5 Urine Color Yellow Urine Appearance Clear Urine pH 6.0 Ur Specific [place] 1.004 L Urine Protein Negative Urine Glucose (UA) Negative Urine Ketones Negative Urine Blood 1+ H Urine Nitrite Negative Urine Bilirubin Negative Urine Urobilinogen 0.2 Ur Leukocyte Esterase 2+ H Urine WBC (Auto) 41 Urine RBC (Auto) 8 Urine Casts (Auto) 0 U Epithel Cells (Auto) 25 Urine Bacteria (Auto) 249 02/13/20 16:37 RBC 4.51 MCV 91.1 MCHC 33.9 RDW 14.6 MPV 9.6 D Neutrophils % 61.1 D Lymphocytes % 29.6 D Monocytes % 7.2 Eosinophils % 1.5 Basophils % 0.6 - RADIOLOGY Radiology Studies Ordered: Category Date Time Status CHEST PA & LAT [RAD] Stat Radiology 02/13/20 15:57 Taken Medical Decision Making - Medical Decision Making 02/13/20 18:10 Assessment: Patient is a 74-year-old female with complaint of weakness and full body tingling that started today at 11 AM. She was concerned because she holland had a blood pressure of 180s systolic. Plan: -Labs ordered, saline lock ordered -EKG ordered -Chest x-ray ordered -Will reassess 02/13/20 18:22 EKG at 16:30: NSR @ 91 bpm, unchanged from 02/07/20 CXR wet read shows no acute pathology. 02/13/20 18:47 Patient with evidence of a slight UTI and complaining of urinary frequency. She is allergic to both cephalosporins and penicillins and in the past has been resistant to Bactrim. Would like to avoid fluoroquinolones. Will treat with Macrobid with little other outpatient option. The patient has been given her first dose of antibiotics in the ED. She is also been made aware that this could be making her feel unwell. Her repeat blood pressure in the emergency department was 155/72 mmHg and heart rate was 78 bpm. She will follow-up with her primary doctor tomorrow or Monday for further evaluation and treatment. She understands and agrees with this treatment plan and she is stable for discharge. Discharge - Discharge Information Problems reviewed: Yes Clinical Impression/Diagnosis: UTI (urinary tract infection) Qualifiers: Urinary tract infection type: acute cystitis Hematuria presence: without marilyn turia Qualified Code(s): N30.00 - Acute cystitis without hematuria Condition: Stable Disposition: HOME - Additional Discharge Information Prescriptions: Nitrofurantoin Monohyd/M-Cryst [Macrobid -] 100 mg PO BID #13 capsule - Follow up/Referral Referrals: ON STAFF,NOT [Primary Care Provider] - - Patient Discharge Instructions Patient Printed Discharge Instructions: DI for Urinary Tract Infection (UTI) Additional Instructions: Take the antibiotics as prescribed and complete the entire course. Be sure to take your blood pressure medication tonight as scheduled. You should follow-up with your primary doctor tomorrow or Monday for repeat evaluation. Get plenty of rest and drink plenty of fluids. - Post Discharge Activity
[2020-02-13 19:00] VITALS: BP 155/72; PULSE 78
[2020-02-13] MEDS ORDERED: NITROFURANTOIN MACROCRYSTAL 50 MG CAPSULE (FP) PO SCH (19:00)
--- NOTE | 2020-02-14 12:39 | EKG ---
Test Reason : Blood Pressure : / mmHG Vent. Rate : 091 BPM Atrial Rate : 091 BPM P-R Int : 142 ms QRS Dur : 090 ms QT Int : 378 ms P-R-T Axes : 061 -57 042 degrees QTc Int : 464 ms NORMAL SINUS RHYTHM LEFT AXIS DEVIATION ABNORMAL ECG WHEN COMPARED WITH ECG OF 09-FEB-2020 09:46, NO SIGNIFICANT CHANGE WAS FOUND Confirmed by GAURAV DE ANDA MD ([id number]) on 02/14/2020 12:38:27 PM Referred By: Confirmed By:GAURAV DE ANDA MD
== END 2020-02-13 19:09 | disposition home or self-care (01) ==
LOC: JER 15:23
DX: N30.00 Acute cystitis without hematuria (principal)
CPT/HCPCS: 36415; 71046-TC-FY; 80053; 81003; 82550; 82553; 83735; 84484; 85025; 85610; 85730; 87086; 93005; 93010; 99285-25

== ENCOUNTER → 2020-04-02 | Emergency (ER) | payer OTHER ==
[~2020-04-02] MED LIST: ACETAMINOPHEN 325 MG TABLET (FP) ONE; ACETAMINOPHEN 325 MG TABLET (FP) PO ONE
[2020-04-02 23:26] VITALS: PULSE 75; TEMP 98.8; BMI 26.0
--- OUTSIDE RECORDS SUMMARY | 2020-04-02 23:34 | XMS ---
:1945 Author Organization [facility] Care Team Providers Name Role Phone Michelle Pereira PA-C Un[facility] Un[facility] MD Trell Unavailable Unavailable DO Nilsa Unavailable Unavailable Re-disclosure Warning The records that you are about to access may contain information from federally- assisted alcohol or drug abuse programs. If such information is present, then the following federally mandated warning applies: This information has been disclosed to you from records protected by federal confidentiality rules (42 CFR part 2). The federal rules prohibit you from making any further disclosure of this information unless further disclosure is expressly permitted by the written consent of the person to whom it pertains or as otherwise permitted by 42 CFR part 2. A general authorization for the release of medical or other information is NOT sufficient for this purpose. The Federal rules restrict any use of the information to criminally investigate or prosecute any alcohol or drug abuse patient.The records that you are about to access may contain highly sensitive health information, the redisclosure of which is protected by Article 27-F of the [facility] Public Health law. If you continue you may haveaccess to information: Regarding HIV / AIDS; Provided by facilities licensed or operated by the [facility] Office of Mental Health; or Provided by the [facility] Office for People With Developmental Disabilities. If such information is present, then the following [facility] mandated warning applies: This information has been disclosed to you from confidential records which are protected by state law. State law prohibits you from making any further disclosure of this information without the specific written consent of the person to whom it pertains, or as otherwise permitted by law. Any unauthorized further disclosure in violation of state law may result in a fine or intermediate sentence or both. A general authorization for the release of medical or other information is NOT sufficient authorization for further disclosure. Allergies and Adverse Reactions Type Description Substance Reaction Status Data Source(s ) Drug allergy cephalexin cephalexin UNKNOWN [place] [facility] Encounters Encounter Providers Location Date Indications Data Source(s ) Emergency Attender: Michelle 12/24/2019 [place]ING [place] [facility] [place] 02:40:00 PM [place] [facility] EDT - 12/24/2019 05:13:00 PM EDT BURNING IN CHEST [place] Patient discharged. Emergency Attender: Lenin 12/21/2019 04:29:00 CHEST PAIN/ ARM [place] Nilsa DOAttender: PM EDT - 12/21/2019 PAIN FOR 3 DAYS Hospital Melissa Cai MD 09:21:00 PM EDT CHEST PAIN/ARM PAIN FOR 3 DAYS Patient discharged. Outpatient Attender: [id number] 07/16/2019 01:11:53 PM I ([facility]) Patient admitted. Medications Medication Brand Start Product Dose Route Administrative Pharmacy [facility] Indications Reaction Description Data Name Date Form Instructions Instructions Source(s) Aluminum Mag 12/20/ ORAL 15 mL ORAL active White Hydroxide Hydrox 2020 SUSPENSI Plai ns 80 MG/ML / /Alumi 09:05: ON Hospi maria luz Magnesium num 00 PM Hydroxide Hyd/Si EDT 80 MG/ML / meth Simethicone 8 MG/ML Oral Suspension [Maalox Max] Mag Hydrox/Alum inum Hyd/Simeth Aluminum Mag 12/20/ ORAL 15 mL ORAL active White Hydroxide Hydrox 2020 SUSPENSI Plai ns 80 MG/ML / /Alumi 09:05: ON Hospi [facility] l[facility] Magnesium num 00 PM Hydroxide Hyd/Si EDT 80 MG/ML / meth Simethicone 8 MG/ML Oral Suspension [Maalox Max] Mag Hydrox/Alum inum Hyd/Simeth Insurance Providers Payer name Policy type Policy ID Covered Covered libertarian's Policy P marva / Coverage libertarian ID relationship to [employer] Inf ormation type [employer] MEDICARE [id number] SP [id number] 19 9 MEDICAID [id number] SP [id number] MEDICAID [id number] PT [id number] MEDICARE [id number] PT [id number] 19 9 Problems, Conditions, and Diagnoses Code Display Name Description Problem Type Effective Dates Data Source(s) E78.5 Hyperlipidemia, E78.5 Diagnosis 12/24/2019 [place] unspecified 03:16:00 PM EDT Hospital I10 Essential (primary) I10 Diagnosis 12/24/2019 [place] hypertension 03:16:00 PM EDT Hospita l R51 Headache R51 Diagnosis 12/24/2019 [place] 03:16:00 PM EDT Hospital G62.9 Polyneuropathy, G62.9 Diagnosis 12/24/2019 [place] unspecified 03:16:00 PM EDT Hospital Z88.1 Allergy status to Z88.1 Diagnosis 12/21/2019 [place] other antibiotic 05:30:00 PM EDT Hos pital agents status I73.9 Peripheral vascular I73.9 Diagnosis 12/21/2019 [place] disease, unspecified 05:30:00 PM EDT Hospital M54.5 Low back pain M54.5 Diagnosis 12/21/2019 [place] 05:30:00 PM EDT Hospital R07.89 Other chest pain R07.89 Diagnosis 12/21/[address] [place] 05:30:00 PM EDT Hospital Surgeries/Procedures Procedure Description Date Indications Data Source(s) Electrocardiographic procedure 12/24/2019 [place] (procedure) 12:00:00 AM Hospital EDT Electrocardiographic procedure 12/21/2019 [place] (procedure) 12:00:00 AM Hospital EDT Computed tomography of head 12/21/2019 [place] without contrast 12:00:00 AM Hospital EDT Diagnostic radiography of 12/21/2019 [place] chest, combined 12:00:00 AM Hospital posteroanterior and lateral EDT (procedure) Electrocardiographic procedure 12/21/2019 [place] (procedure) 12:00:00 AM Hospital EDT Computed tomography of head 12/21/2019 [place] without contrast 12:00:00 AM Hospital EDT Diagnostic radiography of 12/21/2019 [place] chest, combined 12:00:00 AM Hospital posteroanterior and lateral EDT (procedure) Results ID Date Data Source [id number] 02/24/2020 04:11:00 AM EDT [facility] Name Value Range Interpretation Description Data Sup porting Code Source(s) Document(s ) SARS-CoV-2 [facility] (COVID-19) RNA panel - Unspecified specimen by COLIN with probe detection This lab was ordered by SOFI MELGAR and reported by [facility]. ID Date Data Source [id number] 02/08/2020 09:45:00 PM EDT [facility] Name Value Range Interpretation Description Data Sup porting Code Source(s) Document(s ) SARS [facility] coronavirus 2 RNA This lab was ordered by [facility] and reported by [facility]. ID Date Data Source [id number] 12/27/2019 03:30:00 AM EDT [facility] Name Value Range Interpretation Description Data Sup porting Code Source(s) Document(s ) SARS [facility] coronavirus 2 RNA This lab was ordered by [facility] and reported by [facility]. ID Date Data Source [id number] 12/24/2019 03:35:00 PM EDT [facility] Name Value Range Interpretation Code Description Data Lela rce(s) Supporting Document(s ) URINE 0-5 [facility] CASTS ID Date Data Source [id number] 12/24/2019 03:35:00 PM EDT [facility] Name Value Range Interpretation Description Data Sup porting Code Source(s) Document(s ) URINE 1+ [place] EPITHELIAL [facility] CELLS ID Date Data Source [id number] 12/24/2019 03:35:00 PM EDT [facility] Name Value Range Interpretation Description Data Sup porting Code Source(s) Document(s ) Erythrocytes 0-3 [place] [#/area] in /[HPF] Hospital Urine sediment by Automated count ID Date Data Source [id number] 12/24/2019 03:35:00 PM EDT [facility] Name Value Range Interpretation Description Data Sup porting Code Source(s) Document(s ) Leukocytes NEGATIVE [place] [#/area] in /[HPF] Hospital Urine sediment by Automated count ID Date Data Source [id number] 12/24/2019 03:35:00 PM EDT [facility] Name Value Range Interpretation Code Description Data Supporting Source(s) Document(s ) Leukocyte TRACE [place] esterase Hospital [Presence] in Urine by Test strip ID Date Data Source [id number] 12/24/2019 03:35:00 PM EDT [facility] Name Value Range Interpretation Description Data Sup porting Code Source(s) Document(s ) URINE NEGATIVE [place] NITRITES Hospital ID Date Data Source [id number] 12/24/2019 03:35:00 PM EDT [facility] Name Value Range Interpretation Description Data Sup porting Code Source(s) Document(s ) Erythrocytes 1+ [place] [#/volume] in Hospital Urine by Test strip ID Date Data Source [id number] 12/24/2019 03:35:00 PM EDT [facility] Name Value Range Interpretation Code Description Data Lela rce(s) Supporting Document(s ) Bilirubin. NEGATIVE [place] total Hospital [Presence] in Urine by Test strip ID Date Data Source [id number] 12/24/2019 03:35:00 PM EDT [facility] Name Value Range Interpretation Description Data Sup porting Code Source(s) Document(s ) Urobilinogen 0.2 [place] [Units/volume] mg/dL Hospital in Urine by Test strip ID Date Data Source [id number] 12/24/2019 03:35:00 PM EDT [facility] Name Value Range Interpretation Description Data Sup porting Code Source(s) Document(s ) Ketones NEGATIVE [place] [Mass/volume Hospital ] in Urine by Test strip ID Date Data Source [id number] 12/24/2019 03:35:00 PM EDT [facility] Value Range Interpretation Description Data Sup porting Code Source(s) Document(s ) Glucose NEGATIVE [place] [Mass/volume Hospital ] in Urine by Test strip ID Date Data Source [id number] 12/24/2019 03:35:00 PM EDT [facility] Value Range Interpretation Description Data Sup porting Code Source(s) Document(s ) Protein NEGATIVE [place] [Presence] Hospital in Urine by Test strip ID Date Data Source [id number] 12/24/2019 03:35:00 PM EDT [facility] Value Range Interpretation Code Description Data Lela rce(s) Supporting Document(s ) pH of Urine 7.0 [place] by Test Hospital strip ID Date Data Source [id number] 12/24/2019 03:35:00 PM EDT [facility] Value Range Interpretation Code Description Data Supporting Source(s) Document(s ) Specific 1.007 [place] gravity of Hospital Urine by Test strip ID Date Data Source [id number] 12/24/2019 03:35:00 PM EDT [facility] Name Value Range Interpretation Description Data Sup porting Code Source(s) Document(s ) Clarity in Urine CLEAR [place] by Refractometry Hospital automated ID Date Data Source [id number] 12/24/2019 03:35:00 PM EDT [facility] Value Range Interpretation Code Description Data Lela rce(s) Supporting Document(s ) Color of YELLOW [place] Urine Hospital ID Date Data Source [id number] 12/24/2019 03:22:00 PM EDT [facility] TEST PERFORMED BY [email or web address] ULTRA SENSITIVE CENTAUR CHEMILUMINESCENCE METHOD. Name Value Range Interpretation Description Data Sup porting Code Source(s) Document(s ) Troponin < 0.01 [place] I.cardiac ng/mL Hospital [Mass/volume ] in Serum or Plasma ID Date Data Source [id number] 12/24/2019 03:22:00 PM EDT [facility] Name Value Range Interpretation Description Data Sup porting Code Source(s) Document(s ) Magnesium 2.0 mg/dL [place] [Mass/volume] Hospital in Serum or Plasma ID Date Data Source [id number] 12/24/2019 03:22:00 PM EDT [facility] Name Value Range Interpretation Description Data Sup porting Code Source(s) Document(s ) Aspartate 32 U/L [place] aminotransferase [place] [Enzymatic Hospital activity/volume] in Serum or Plasma ID Date Data Source [id number] 12/24/2019 03:22:00 PM EDT [facility] Name Value Range Interpretation Description Data Sup porting Code Source(s) Document(s ) Alanine 26 U/L [place] aminotransferase [place] [Enzymatic Hospital activity/volume] in Serum or Plasma ID Date Data Source [id number] 12/24/2019 03:22:00 PM EDT [facility] Name Value Range Interpretation Description Data Sup porting Code Source(s) Document(s ) Alkaline 73 U/L [place] phosphatase Hospital [Enzymatic activity/volume ] in Serum or Plasma ID Date Data Source [id number] [facility] Interpretation Description Data Sup porting Code Source(s) Document(s ) Bilirubin.t 1.0 mg/dL [place] otal Hospital [Mass/volum e] in Serum or Plasma ID Date Data Source [id number] 12/24/2019 03:22:00 PM EDT [facility] Name Value Range Interpretation Code Description Data Lela rce(s) Supporting Document(s ) Albumin/Glob 2.2 [place] ulin [Mass Hospital Ratio] in Serum or Plasma ID Date Data Source [id number] 12/24/2019 03:22:00 PM EDT [facility] Name Value Range Interpretation Description Data Sup porting Code Source(s) Document(s ) Albumin 4.8 g/dL [place] [Mass/volume Hospital ] in Serum or Plasma ID Date Data Source [id number] 12/24/2019 03:22:00 PM EDT [facility] Name Value Range Interpretation Description Data Sup porting Code Source(s) Document(s ) Protein 7.0 g/dL [place] [Mass/volume Hospital ] in Serum or Plasma ID Date Data Source [id number] 12/24/2019 03:22:00 PM EDT [facility] Name Value Range Interpretation Description Data Sup porting Code Source(s) Document(s ) Calcium 9.0 mg/dL [place] [Mass/volume Hospital ] in Serum or Plasma ID Date Data Source [id number] 12/24/2019 03:22:00 PM EDT [facility] Name Value Range Interpretation Code Description Data Lela rce(s) Supporting Document(s ) Urea 18.6 [place] nitrogen/Cre Hospital atinine [Mass Ratio] in Serum or Plasma ID Date Data Source [id number] 12/24/2019 03:22:00 PM EDT [facility] Name Value Range Interpretation Description Data Sup porting Code Source(s) Document(s ) Creatinine 0.7 mg/dL [place] [Mass/volume] Hospital in Serum or Plasma ID Date Data Source [id number] 12/24/2019 03:22:00 PM EDT [facility] Name Value Range Interpretation Description Data Sup porting Code Source(s) Document(s ) Urea 13 mg/dL [place] nitrogen Hospital [Mass/volume ] in Serum or Plasma ID Date Data Source [id number] 12/24/2019 03:22:00 PM EDT [facility] Name Value Range Interpretation Code Description Data Lela rce(s) Supporting Document(s ) Anion gap in 14 [place] Serum or [facility] Plasma ID Date Data Source [id number] 12/24/2019 03:22:00 PM EDT [facility] Name Value Range Interpretation Description Data Sup porting Code Source(s) Document(s ) Carbon 26 mmol/L [place] dioxide, Hospital total [Moles/volu me] in Serum or Plasma ID Date Data Source [id number] 12/24/2019 03:22:00 PM EDT [facility] Name Value Range Interpretation Description Data Sup porting Code Source(s) Document(s ) Chloride 96 mmol/L [place] [Moles/volum Hospital e] in Serum or Plasma ID Date Data Source [id number] 12/24/2019 03:22:00 PM EDT [facility] SLIGHT HEMOLYSIS Name Value Range Interpretation Description Data Sup porting Code Source(s) Document(s ) Potassium 4.1 [place] [Moles/volume mmol/L Hospital ] in Serum or Plasma ID Date Data Source [id number] 12/24/2019 03:22:00 PM EDT [facility] Name Value Range Interpretation Description Data Sup porting Code Source(s) Document(s ) Sodium 132 mmol/L [place] [Moles/volu Hospital me] in Serum or Plasma ID Date Data Source [id number] 12/24/2019 03:22:00 PM EDT [facility] Value Range Interpretation Description Data Sup porting Code Source(s) Document(s ) Glucose 99 mg/dL [place] [Mass/volume Hospital ] in Serum or Plasma ID Date Data Source [id number] 12/24/2019 03:22:00 PM EDT [facility] Value Range Interpretation Description Data Sup porting Code Source(s) Document(s ) Platelet mean 11.2 fL [place] volume Hospital [Entitic volume] in Blood by Automated count ID Date Data Source [id number] 12/24/2019 03:22:00 PM EDT [facility] Value Range Interpretation Description Data Sup porting Code Source(s) Document(s ) Platelets 238 [place] [#/volume] in 10*3/uL Hospital Blood by Automated count ID Date Data Source [id number] 12/24/2019 03:22:00 PM EDT [facility] Value Range Interpretation Description Data Sup porting Code Source(s) Document(s ) Erythrocyte 13.4 % [facility] Hospital width [Ratio] by Automated count ID Date Data Source [id number] 12/24/2019 03:22:00 PM EDT [facility] Value Range Interpretation Description Data Sup porting Code Source(s) Document(s ) Erythrocyte mean 34.4 [place] corpuscular g/dL Hospital hemoglobin concentration [Mass/volume] by Automated count ID Date Data Source [id number] 12/[facility] Interpret[facility] Description Data Sup porting Code Source(s) Document(s ) Erythrocyte 29.7 pg [facility] corpuscular hemoglobin [Entitic mass] by Automated count ID Date Data Source [id number] 12/24/2019 03:22:00 PM EDT [facility] Name Value Range Interpretation Description Data Sup porting Code Source(s) Document(s ) Erythrocyte 86.3 fL [facility] Hospital corpuscular volume [Entitic volume] by Automated count ID Date Data Source [id number] 12/24/2019 03:22:00 PM [facility] Name Value Range Interpretation Description Data Sup porting Code Source(s) Document(s ) Hematocrit 36.6 % [place] [Volume Hospital Fraction] of Blood by Automated count ID Date Data Source [id number] 12/24/2019 [facility] Interpretation Description Data Sup porting Code Source(s) Document(s ) Hemoglobin 12.6 g/dL [place] [Mass/volume] Hospital in Blood ID Date Data Source [id number] 12/24/2019 03:22:00 PM [facility] Name Value Range Interpretation Description Data Sup porting Code Source(s) Document(s ) Erythrocytes 4.24 [place] [#/volume] in 10*6/uL Hospital Blood by Automated count ID Date Data Source [id number] 12/24/2019 03:22:00 PM [facility] Value Range Interpretation Description Data Sup porting Code Source(s) Document(s ) Leukocytes 5.0 [place] [#/volume] in 10*3/uL Hospital Blood by Automated count ID Date Data Source [id number] 12/24/2019 03:21:00 PM [facility] [employer]:ANETTE NIELSEN Name Value Range Interpretation Description Data Sup porting Code Source(s) Document(s ) Glucose 96 mg/dL [place] [Mass/volume] Hospital in Capillary blood by Glucometer ID Date Data Source [id number] 12/21/2019 06:14:00 PM EDT [facility] Name Value Range Interpretation Code Description Data Lela rce(s) Supporting Document(s ) [facility] 0-5 [facility] ID Date Data Source [id number] 12/21/2019 06:14:00 PM EDT [facility] Name Value Range Interpretation Description Data Sup porting Code Source(s) Document(s ) Erythrocytes 0-3 [place] [#/area] in /[HPF] Hospital Urine sediment by Automated count ID Date Data Source [id number] 12/21/2019 06:14:00 PM EDT [facility] Value Range Interpretation Description Data Sup porting Code Source(s) Document(s ) Leukocytes NEGATIVE [place] [#/area] in /[HPF] Hospital Urine sediment by Automated count ID Date Data Source [id number] 12/21/2019 06:14:00 PM EDT [facility] Value Range Interpretation Description Data Sup porting Code Source(s) Document(s ) Leukocyte NEGATIVE [place] esterase Hospital [Presence] in Urine by Test strip ID Date Data Source [id number] 12/21/2019 06:14:00 PM EDT [facility] Value Range Interpretation Description Data Sup porting Code Source(s) Document(s ) URINE NEGATIVE [place] NITRITES Hospital ID Date Data Source [id number] 12/21/2019 06:14:00 PM EDT [facility] Value Range Interpretation Description Data Sup porting Code Source(s) Document(s ) Erythrocytes 1+ [place] [#/volume] in Hospital Urine by Test strip ID Date Data Source [id number] 12/21/2019 06:14:00 PM EDT [facility] Value Range Interpretation Code Description Data Lela rce(s) Supporting Document(s ) Bilirubin. NEGATIVE [place] total Hospital [Presence] in Urine by Test strip ID Date Data Source [id number] 12/21/2019 06:14:00 PM EDT [facility] Name Value Range Interpretation Description Data Sup porting Code Source(s) Document(s ) Urobilinogen 1.0 [place] [Units/volume] mg/dL Hospital in Urine by Test strip ID Date Data Source [id number] 12/21/2019 06:14:00 PM EDT [facility] Name Value Range Interpretation Description Data Sup porting Code Source(s) Document(s ) Ketones NEGATIVE [place] [Mass/volume Hospital ] in Urine by Test strip ID Date Data Source [id number] 12/21/2019 06:14:00 PM EDT [facility] Value Range Interpretation Description Data Sup porting Code Source(s) Document(s ) Glucose NEGATIVE [place] [Mass/volume Hospital ] in Urine by Test strip ID Date Data Source [id number] 12/21/2019 06:14:00 PM EDT [facility] Name Value Range Interpretation Description Data Sup porting Code Source(s) Document(s ) Protein NEGATIVE [place] [Presence] Hospital in Urine by Test strip ID Date Data Source [id number] 12/21/2019 06:14:00 PM EDT [facility] Name Value Range Interpretation Code Description Data Lela rce(s) Supporting Document(s ) pH of Urine 7.0 [place] by Test Hospital strip ID Date Data Source [id number] 12/21/2019 06:14:00 PM EDT [facility] Value Range Interpretation Code Description Data Supporting Source(s) Document(s ) Specific 1.007 [place] gravity of Hospital Urine by Test strip ID Date Data Source [id number] 12/21/2019 06:14:00 PM EDT [facility] Name Value Range Interpretation Description Data Sup porting Code Source(s) Document(s ) Clarity in Urine CLEAR [place] by Refractometry Hospital automated ID Date Data Source [id number] 12/21/2019 06:14:00 PM EDT [facility] Name Value Range Interpretation Code Description Data Lela rce(s) Supporting Document(s ) Color of YELLOW [place] Urine Hospital ID Date Data Source [id number] 12/21/2019 05:39:00 PM [facility] Hospital Name Value Range Interpretation Code Description Data Lela rce(s) Supporting Document(s ) Lipase 30 U/L [place] [Enzymatic Hospital activity/vo lume] in Serum or Plasma ID Date Data Source [id number] 12/21/2019 05:39:00 PM [facility] Name Value Range Interpretation Description Data Sup porting Code Source(s) Document(s ) Bilirubin.d 0.2 mg/dL [place] irect Hospital [Mass/volum e] in Serum or Plasma ID Date Data Source [id number] 12/21/2019 05:39:00 PM [facility] TEST PERFORMED BY [email or web address] ULTRA SENSITIVE CENTAUR CHEMILUMINESCENCE METHOD. Name Value Range Interpretation Description Data Sup porting Code Source(s) Document(s ) Troponin 0.03 [place] I.cardiac ng/mL Hospital [Mass/volume ] in Serum or Plasma ID Date Data Source [id number] 12/[facility] Interpretation Code Description Data Lela rce(s) Supporting Document(s ) Lipase 30 U/L [place] [Enzymatic Hospital activity/vo lume] in Serum or Plasma ID Date Data Source [id number] 12/21[facility]2019 [facility]39[facility] Interpretation Description Data Sup porting Code Source(s) Document(s ) Aspartate 33 U/L [facility] aminotransferase [place] [Enzymatic Hospital activity/volume] in Serum or Plasma ID Date Data Source [id number] 12/21/2019 05:39:00 PM EDT [facility] Name Value Range Interpretation Description Data Sup porting Code Source(s) Document(s ) Alanine 26 U/L [facility] aminotransferase [place] [Enzymatic Hospital activity/volume] in Serum or Plasma ID Date Data Source [id number] 12/21/2019 05:39:00 PM EDT [facility] Name Value Range Interpretation Description Data Sup porting Code Source(s) Document(s ) Alkaline 74 U/L [place] phosphatase Hospital [Enzymatic activity/volume ] in Serum or Plasma ID Date Data Source [id number] 12/21/2019 05:39:00 PM EDT [facility] Name Value Range Interpretation Description Data Sup porting Code Source(s) Document(s ) Bilirubin.d 0.2 mg/dL [facility] [Mass/volum e] in Serum or Plasma ID Date Data Source [id number] 12/[facility]2019 [facility] Value [facility] Interpretation Description Data Sup porting Code Source(s) Document(s ) Bilirubin.t 0.7 mg/dL [facility] [Mass/volum e] in Serum or Plasma ID Date Data Source [id number] 12/21/2019 05:39:00 PM EDT [facility] Name Value Range Interpretation Code Description Data Lela rce(s) Supporting Document(s ) Albumin/Glob 2.0 [place] ulin [Mass Hospital Ratio] in Serum or Plasma ID Date Data Source [id number] 12/21/2019 05:39:00 PM EDT [place] [facility] Name Value Range Interpretation Description Data Sup porting Code Source(s) Document(s ) Albumin 4.7 g/dL [place] [Mass/volume Hospital ] in Serum or Plasma ID Date Data Source [id number] 12/21/2019 05:39:00 PM EDT [place] [facility] Name Value Range Interpretation Description Data Sup porting Code Source(s) Document(s ) Protein 7.0 g/dL [place] [Mass/volume Hospital ] in Serum or Plasma ID Date Data Source [id number] 12/21/2019 05:39:00 PM EDT [place] [facility] Name Value Range Interpretation Description Data Sup porting Code Source(s) Document(s ) Calcium 9.2 mg/dL [place] [Mass/volume Hospital ] in Serum or Plasma ID Date Data Source [id number] 12/21/2019 05:39:00 PM EDT [facility] Name Value Range Interpretation Code Description Data Lela rce(s) Supporting Document(s ) Urea 12.5 [place] nitrogen/Cre Hospital atinine [Mass Ratio] in Serum or Plasma ID Date Data Source [id number] 12/21/2019 05:39:00 PM EDT [facility] Name Value Range Interpretation Description Data Sup porting Code Source(s) Document(s ) Creatinine 0.8 mg/dL [place] [Mass/volume] Hospital in Serum or Plasma ID Date Data Source [id number] 12/[facility] Interpretation Description Data Sup porting Code Source(s) Document(s ) Urea 10 mg/dL [place] nitrogen Hospital [Mass/volume ] in Serum or Plasma ID Date Data Source [id number] 12/21/2019 05:39:00 PM EDT [facility] Name Value Range Interpretation Code Description Data Lela rce(s) Supporting Document(s ) Anion gap in 12 [place] Serum or Hospital Plasma ID Date Data Source [id number] 12/21/2019 05:39:00 PM EDT [facility] Name Value Range Interpretation Description Data Sup porting Code Source(s) Document(s ) Carbon 28 mmol/L [place] dioxide, Hospital total [Moles/volu me] in Serum or Plasma ID Date Data Source [id number] 12/21/2019 05:39:00 PM EDT [facility] Name Value Range Interpretation Description Data Sup porting Code Source(s) Document(s ) Chloride 103 [place] [Moles/volum mmol/L Hospital e] in Serum or Plasma ID Date Data Source [id number] 12/21/2019 05:39:00 PM EDT [facility] Name Value Range Interpretation Description Data Sup porting Code Source(s) Document(s ) Potassium 3.9 [place] [Moles/volume mmol/L Hospital ] in Serum or Plasma ID Date Data Source [id number] 12/21/2019 05:39:00 PM EDT [facility] Name Value Range Interpretation Description Data Sup porting Code Source(s) Document(s ) Sodium 139 mmol/L [place] [Moles/volu Hospital me] in Serum or Plasma ID Date Data Source [id number] 12/21/2019 05:39:00 PM EDT [facility] Name Value Range Interpretation Description Data Sup porting Code Source(s) Document(s ) Glucose 112 mg/dL [place] [Mass/volume Hospital ] in Serum or Plasma ID Date Data Source [id number] 12/21/2019 05:39:00 PM EDT [facility] Name Value Range Interpretation Description Data Sup porting Code Source(s) Document(s ) Platelet mean 10.6 fL [place] volume Hospital [Entitic volume] in Blood by Automated count ID Date Data Source [id number] 12/21/2019 05:39:00 PM EDT [facility] Value Range Interpretation Description Data Sup porting Code Source(s) Document(s ) Platelets 232 [place] [#/volume] in 10*3/uL Hospital Blood by Automated count ID Date Data Source [id number] 12/21/2019 05:39:00 PM EDT [facility] Value Range Interpretation Description Data Sup porting Code Source(s) Document(s ) Erythrocyte 14.1 % [place] distribution Hospital width [Ratio] by Automated count ID Date Data Source [id number] 12/21/2019 05:39:00 PM EDT [facility] Value Range Interpretation Description Data Sup porting Code Source(s) Document(s ) Erythrocyte mean 33.0 [place] corpuscular g/dL Hospital hemoglobin concentration [Mass/volume] by Automated count ID Date Data Source [id number] 12/21/2019 05:39:00 PM [facility] Value Range Interpretation Description Data Sup porting Code Source(s) Document(s ) Erythrocyte 30.0 pg [facility] corpuscular hemoglobin [Entitic mass] by Automated count ID Date Data Source [id number] 12/21/2019 05:39:00 PM [facility] Value Range Interpretation Description Data Sup porting Code Source(s) Document(s ) Erythrocyte 91.1 fL [facility] corpuscular volume [Entitic volume] by Automated count ID Date Data Source [id number] 12/21/2019 [facility] Interpretation Description Data Sup porting Code Source(s) Document(s ) Hematocrit 38.8 % [place] [Volume Hospital Fraction] of Blood by Automated count ID Date Data Source [id number] 12/21/2019 05:39:00 PM EDT [facility] Name Value Range Interpretation Description Data Sup porting Code Source(s) Document(s ) Hemoglobin 12.8 g/dL [place] [Mass/volume] Hospital in Blood ID Date Data Source [id number] 12/21/2019 05:39:00 PM EDT [facility] Name Value Range Interpretation Description Data Sup porting Code Source(s) Document(s ) Erythrocytes 4.26 [place] [#/volume] in 10*6/uL Hospital Blood by Automated count ID Date Data Source [id number] 12/21/2019 [facility] Interpretation Description Data Sup porting Code Source(s) Document(s ) Leukocytes 5.8 [place] [#/volume] in 10*3/uL Hospital Blood by Automated count ID Date Data Source [id number] 12/21/2019 05:19:00 PM EDT [facility] Name Value Range Interpretation Description Data Sup porting Code Source(s) Document(s ) Natriuretic 48.0 [place] peptide B pg/mL Hospital [Mass/volume] in Serum or Plasma ID Date Data Source [id number] 12/21/2019 [facility]:19[facility] A VALUE LESS THAN 500 NG/ML FEU IN PATIE NTS UNDER AGE 50, WHEN COMBINED WITH A CLINICAL ASSESSMENT OF LOW PRETEST PROBA BILITY, HAS BEEN SHOWN TO HAVE A HIGH NEGATIVE PREDICTIVE VALUE FOR DVT OR PE. USING AGE-ADJUSTED THRESHOLDS (AGE X 10) IN PATIENTS OLDER THAN 50 YEARS IS RECOMMEN DED FOR DETERMINING WHETHER IMAGING IS WARRANTED.D-DIMER IS NOT A SPECIFIC JUICE ER FOR DVT OR PE AND CAN BE ELEVATED IN THE ELDERLY WELL IN THE FOLLOWING COND ITIONS: , CANCER, INFECTION, DIC, TRAUMA AND INFLAMMATION. Name Value Range Interpretation Description Data Sup porting Code Source(s) Document(s ) Fibrin 364 ng/mL [place] [facility]U [facility] [Mass/volume ] in Platelet poor plasma ID Date Data Source [id number] 12/21/2019 05:19:00 PM EDT [facility] Name Value Range Interpretation Description Data Sup porting Code Source(s) Document(s ) Natriuretic 48.0 [place] peptide B pg/mL Hospital [Mass/volume] in Serum or Plasma ID Date Data Source [id number] 12/21/2019 05:19:00 PM EDT [facility] A VALUE LESS THAN 500 NG/ML FEU IN PATIE NTS UNDER AGE 50, WHEN COMBINED WITH A CLINICAL ASSESSMENT OF LOW PRETEST PROBA BILITY, HAS BEEN SHOWN TO HAVE A HIGH NEGATIVE PREDICTIVE VALUE FOR DVT OR PE. USING AGE-ADJUSTED THRESHOLDS (AGE X 10) IN PATIENTS OLDER THAN 50 YEARS IS RECOMMEN DED FOR DETERMINING WHETHER IMAGING IS WARRANTED.D-DIMER IS NOT A SPECIFIC JUICE ER FOR DVT OR PE AND CAN BE ELEVATED IN THE ELDERLY WELL IN THE FOLLOWING COND ITIONS: , CANCER, INFECTION, DIC, TRAUMA AND INFLAMMATION. Name Value Range Interpretation Description Data Sup porting Code Source(s) Document(s ) Fibrin 364 ng/mL [place] [facility] [Mass/volume ] in Platelet poor plasma Procedure Vital Signs ID Date Data Source [id number] Name Value Range Interpretation Code Description Data Source(s) Diastolic blood 77 mm[Hg] 77 mm[Hg] [facility] pressure Hospital Systolic blood 153 mm[Hg] 153 mm[Hg] [facility] Respiratory rate 18 /min 18 /min [facility] Heart rate 77 /min 77 /min [facility] Body temperature 36.32742 36.03774 [facility] Body temperature 97.9 [degF] 97.9 [degF] [facility] Body mass index 24.0 kg/m2 24.0 kg/m2 [place] [facility] (BMI) [Ratio] Hospital Body weight 150.31 150.31 [lb_av] [facility] [lb_av] Hospital Diastolic blood 77 mm[Hg] 77 mm[Hg] [facility] pressure Hospital Systolic blood 187 mm[Hg] 187 mm[Hg] [facility] pressure Hospital Respiratory rate 18 /min 18 /min [facility] Heart rate 63 /min 63 /min [facility] Body mass index 23.0 kg/m2 23.0 kg/m2 [facility] ins (BMI) [Ratio] Hospital Body weight 140.30 140.30 [lb_av] [facility] ins [lb_av] Hospital Body temperature 37.42144 37.31581 [facility] Body temperature 98.6 [degF] 98.6 [degF] [facility]
--- NOTE | 2020-04-02 23:54 | PDOC ---
History of Present Illness - General Chief Complaint: Blood Pressure Problem Stated Complaint: BLOOD PRESSURE Time Seen by Provider: 04/02/20 23:38 - History of Present Illness Initial Comments: 74yo F with PMH who presents with elevated BP. States that she was at her comptroller office and was noted to have high BP (170s SBP) - comptroller instructed her to take 2 tabs of labetalol in the office and 2 tabs in the evening (usual dose is 1 tab BID). States that when she took 2 tabs of labetalol, she was dizzy and felt like her pressure was too low. States that she came in this evening because her home BP readings were elevated. Reports associated headache, described as gradual in onset, bilateral throbbing, was unable to answer how headache different than her usual, 8/10 in severity, with radiation down neck and back, took 1 tylenol at home with minimal improvement. States that she had blurry vision earlier in the day, but denies current blurry vision. Reports COLLAZO, nausea, abdominal pain, flank pain. Denies chest pain, vomiting, dysuria, frequency, urgency. Mechanic Recovery: [place] PMH see above PSHx: see above Meds: see chart Review of Systems CONSTITUTIONAL: denies fever, chills, generalized weakness HEENT: denies rhinorrhea, nasal congestion, sore throat, visual changes CARDIOVASCULAR: denies chest pain, syncope, palpitations, irregular heart rate, lightheadedness, peripheral edema RESPIRATORY: report SOB; denies cough GASTROINTESTINAL: reports abdominal pain, nausea; denies vomiting, diarrhea, constipation, melena, hematochezia GENITOURINARY: reports flank pain; denies dysuria, frequency, urgency, hematuria MUSCULOSKELETAL: reports neck pain NEUROLOGIC: reports headache, dizziness; denies loss of consciousness, focal weakness or paresthesias, mental status changes SKIN: denies rash, itching, pallor Physical Exam General: awake, alert, fully oriented, in no acute distress, well developed, well nourished Head: normocephalic, atraumatic Eyes: PERRL, EOMI, anicteric sclera, conjunctiva clear ENT: hearing grossly normal, oropharynx clear without exudates, moist mucous membranes Neck: supple, normal ROM Lung: equal breath sounds b/l, CTA b/l, no crackles, wheezes; no distress, speaks full sentences Heart: RRR, normal S1, S2, no murmurs appreciated Abdomen: soft, non tender, normoactive bowel sounds, no guarding, rebound, masses Extremities: no edema, no erythema or tenderness, DP/PT pulses 2+ and symmetric Neuro: Cranial nerves: Cranial nerves II through XII are intact, No abnormal nystagmus. Motor: The upper extremities are 5/5 in all muscle groups. The lower extremities are 5/5 in all muscle groups. No pronator drift. Sensation: Sensation is intact to light touch throughout. Cerebellar: -dysmetria, -dysdiadochokinesia, [place]-fvlt-hgyr is normal in both lower extremities. Gait: Normal without ataxia Skin: warm, dry, normal skin turgor, capillary refill <2 seconds, no rashes or lesions noted MDM 74yo F with PMH who presents with elevated BP and headache. Vitals significant for: hypertension DDx including but not limited to: asymptomatic hypertension, migraine headache, UTI Workup: CBC, CMP, trop, UA/UC ekg TX: Tylenol EKG: normal sinus rhythm, HR 70bpm, ND 142ms, QRS 96ms, QTc 440ms, no ST changes as compared to EKG on 02/15 ED course 04/03/20 02:02 Labs: no leukocytosis, no anemia, electrolytes WNL, troponin WNL. UA: no proteinuria, -LE, -bacteria Pt was seen and reassessed. Pt symptomatically improved. AOX3, NAD, VSS. Patient stable for discharge. Pain improved. Informed of all lab results. Given follow up instructions and strict return precautions. Pt was in agreement, endorsed understanding, and questions were answered. Pt instructed to follow-up with comptroller within 7 days. Disposition: Discharge Past History - Medical History Allergies/Adverse Reactions: Allergies Allergy/AdvReac Type Severity Reaction Status Date / Time cephalexin [From Keflex] Allergy Swelling Verified 02/07/20 22:17 Penicillins Allergy Swelling Verified 02/07/20 22:17 histamine Allergy Swelling Uncoded 02/07/20 22:17 Home Medications: Ambulatory Orders Albuterol Sulfate Inhaler - [Ventolin HFA Inhaler -] 1 puff IH Q4H PRN 12/27/19 Aspirin 81 mg PO DAILY 12/27/19 Latanoprost 0.005% Eye Drops [Xalatan 0.005% Eye Drops -] 1 drop OU HS 12/27/19 Levocetirizine Dihydrochloride 5 mg PO PRN PRN 12/27/19 Trospium Chloride [Trospium Chloride ER] 20 mg PO BID 12/27/19 Polyethylene Glycol 3350 [Miralax 119 gm Btl -] 17 gm PO BID PRN bottle 12/28/19 Topiramate 25 mg PO DAILY #30 tablet 12/29/19 Famotidine [Pepcid -] 40 mg PO BID #60 tablet 02/09/20 Pitavastatin Calcium [Livalo] 4 mg PO HS #20 tablet 02/09/20 Nitrofurantoin Monohyd/M-Cryst [Macrobid -] 100 mg PO BID #13 capsule 02/13/20 Anemia: No Asthma: No Cancer: No Cardiac Disorders: No CVA: No COPD: No CHF: No Dementia: No Diabetes: No GI Disorders: Yes (GERD) Disorders: No HTN: Yes Hypercholesterolemia: Yes Liver Disease: No Seizures: No Thyroid Disease: No - Surgical History Abdominal Surgery: No Appendectomy: No Cardiac Surgery: No Cholecystectomy: No Gastric Stapling: No GI Surgery: No Lung Surgery: No Neurologic Surgery: No Orthopedic Surgery: No - Reproductive History Is Patient Now?: No - Immunization History Immunization Up to Date: Yes - Psycho-Social/Smoking History Smoking History: Never smoked Have you smoked in the past 12 months: No - Substance Abuse Hx (Audit-C & DAST Scrn) How often the patient has a drink containing alcohol: Never Score: In Men: 4 or > Positive; In Women: 3 or > Positive: 0 Screen Result (Pos requires Nsg. Audit-10AR): Negative In the last yr the pt used illegal drug/Rx for NonMed reason: No Score: Yes response is considered Positive: 0 Screen Result (Positive result requires Nsg. DAST-10): Negative *Physical Exam - Vital Signs Last Vital Signs Temp Pulse Resp BP Pulse Ox 98.8 F 75 18 175/83 H 99 04/02/20 23:23 04/02/20 23:23 04/02/20 23:23 04/02/20 23:23 04/02/20 23:23 ED Treatment Course - LABORATORY CBC & Chemistry Diagram: 04/03/20 01:00 11/06/20 01:00 Discharge - Discharge Information Problems reviewed: Yes Clinical Impression/Diagnosis: Hypertension Qualifiers: Hypertension type: unspecified Qualified Code(s): I10 - Essential (primary) hypertension Condition: Stable Disposition: HOME - Follow up/Referral Referrals: ON STAFF,NOT [Primary Care Provider] - - Patient Discharge Instructions Patient Printed Discharge Instructions: DI for High Blood Pressure Additional Instructions: You were seen in the emergency department for your high blood pressure. Your physical exam was reassuring. You should continue to take your blood pressure medications as prescribed. You should follow up with your comptroller within 7 days. Call tomorrow morning to schedule an appointment. You should return to the ER or call 911 if you have new weakness, difficulty speaking, chest pain, difficulty breathing, loss of vision, or any other new or concerning symptoms. Thank you for coming to the [facility] ER. We hope you feel better soon! - Post Discharge Activity
[2020-04-03 01:19] VITALS: BP 148/75
[2020-04-03 01:37] LABS: BASO % 0.7 % (0-2.0); EOS % 2.5 % (0-4.5); HEMATOCRIT 37.8 % (32.4-45.2); HEMOGLOBIN 12.8 GM/dL (10.7-15.3); LYMPH % 41.5 % (8-40); MCHC 33.8 g/dl (32.0-36.0); MEAN CELL VOLUME 91.8 fl (80-96); MEAN PLT VOLUME 9.3 fl (7.5-11.1); MONO % 8.2 % (3.8-10.2); NEUT % 47.1 % (42.8-82.8); PLATELET COUNT 223 K/MM3 (134-434); RBC 4.12 M/mm3 (3.60-5.2); RDW 13.9 % (11.6-15.6); WHITE BLOOD COUNT 5.7 K/mm3 (4.0-10.0)
[2020-04-03 01:41] LABS: EPI CELLS 2 /uL (0-25.1); HYALINE CASTS 0 /uL (0-3.1); URINE APPEARANCE CLEAR; URINE BACTERIA 9 /uL (0-1359); URINE BILIRUBIN NEGATIVE (NEGATIVE); URINE COLOR YELLOW; URINE GLUCOSE (UA) NEGATIVE (NEGATIVE); URINE KETONE NEGATIVE (NEGATIVE); URINE LEUK ESTERASE NEGATIVE (NEGATIVE); URINE NITRITE NEGATIVE (NEGATIVE); URINE PROTEIN NEGATIVE (NEGATIVE); URINE RBC 8 /uL (0-23.9); URINE UROBILINOGEN 0.2 mg/dL (0.2-1.0); URINE WBC 2 /uL (0-25.8)
--- NOTE | 2020-04-03 01:45 | PDOC ---
Attending Attestation - Resident Resident Name: Martha Whiteside - ED Attending Attestation I have performed the following: I have examined & evaluated the patient, The case was reviewed & discussed with the resident, I agree w/resident's findings & plan, Exceptions are as noted - HPI HPI: 04/03/20 04:02 see resident HPI - Physicial Exam PE: 04/03/20 04:02 agree with documented exam - Medical Decision Making 04/03/20 04:02 Sent for measured SBP of 170s, headache [place]STA slow onset, non-exertional, undifferentiated from her usual headaches analgesia f/u labs including trop, ekg dispo per clinical course, likely dc Discharge - Discharge Information Problems reviewed: Yes Clinical Impression/Diagnosis: Hypertension Qualifiers: Hypertension type: unspecified Qualified Code(s): I10 - Essential (primary) hypertension Condition: Stable Disposition: HOME - Follow up/Referral Referrals: ON STAFF,NOT [Primary Care Provider] - - Patient Discharge Instructions Patient Printed Discharge Instructions: DI for High Blood Pressure Additional Instructions: You were seen in the emergency department for your high blood pressure. Your physical exam was reassuring. You should continue to take your blood pressure medications as prescribed. 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 Call tomorrow morning to schedule an appointment. You should return to the ER or call 911 if you have new weakness, difficulty speaking, chest pain, difficulty breathing, loss of vision, or any other new or concerning symptoms. Thank you for coming to the [facility] ER. We hope you feel better soon! - Post Discharge Activity
[2020-04-03 01:50] LABS: CHLORIDE 108 mmol/L (98-107); POTASSIUM 3.8 mmol/L (3.5-5.1); SODIUM 142 mmol/L (136-145)
[2020-04-03 01:53] LABS: ALBUMIN 4.2 g/dl (3.4-5.0); ANION GAP 6 MMOL/L (8-16); BLOOD UREA NITROGEN 8.6 mg/dL (7-18); CALCIUM 9.4 mg/dL (8.5-10.1); CO2 28 mmol/L (21-32); GLUCOSE,RANDOM 94 mg/dL (74-106)
[2020-04-03 01:56] LABS: CREATININE 0.7 mg/dL (0.55-1.3); SGOT/AST 29 U/L (15-37); SGPT/ALT 30 U/L (13-61)
[2020-04-03 01:58] LABS: BILIRUBIN,TOTAL 0.7 mg/dL (0.2-1); TOT PROT 7.6 g/dl (6.4-8.2)
[2020-04-03 01:59] LABS: ALK PHOS 90 U/L (45-117)
--- NOTE | 2020-04-04 10:10 | EKG ---
Test Reason : Blood Pressure : / mmHG Vent. Rate : 070 BPM Atrial Rate : 070 BPM P-R Int : 142 ms QRS Dur : 096 ms QT Int : 408 ms P-R-T Axes : 067 -50 059 degrees QTc Int : 440 ms NORMAL SINUS RHYTHM LEFT ANTERIOR FASCICULAR BLOCK ABNORMAL ECG WHEN COMPARED WITH ECG OF 13-FEB-2020 16:30, NO SIGNIFICANT CHANGE WAS FOUND Confirmed by Fawad Gabriel MD ([id number]) on 04/04/2020 10:10:00 AM Referred By: Confirmed By:Fawad Gabriel MD
== END | disposition home or self-care (01) ==
LOC: JER 23:12
DX: I10 Essential (primary) hypertension (principal)
CPT/HCPCS: 36415; 80053; 81003; 84484; 85025; 87086; 93005; 93010; 99285-25

== ENCOUNTER 2020-05-03 20:43 | Emergency (ER) | payer OTHER ==
[2020-05-03 20:50] VITALS: TEMP 98.5; BMI 27.1
[2020-05-03] MEDS ORDERED: ONDANSETRON 4 MG/2 ML VIAL IVPUSH ONE (21:16)
[2020-05-03] MEDS ORDERED: ONDANSETRON 4 MG/2 ML VIAL ONE (21:25)
[2020-05-03] MEDS ORDERED: ACETAMINOPHEN 1000 MG/100 ML VIAL (NON FORMULARY) IVPB ONE (21:40)
[2020-05-03] MEDS ORDERED: ACETAMINOPHEN INJECTION 100 ML IVPB ONE (21:43)
[2020-05-03 21:57] LABS: BASO % 0.8 % (0-2.0); EOS % 2.2 % (0-4.5); HEMATOCRIT 35.9 % (32.4-45.2); HEMOGLOBIN 12.1 GM/dL (10.7-15.3); LYMPH % 32.7 % (8-40); MCH 30.6 pg (25.7-33.7); MCHC 33.7 g/dl (32.0-36.0); MEAN CELL VOLUME 90.8 fl (80-96); MONO % 6.1 % (3.8-10.2); NEUT % 58.2 % (42.8-82.8); PLATELET COUNT 280 K/MM3 (134-434); RBC 3.96 M/mm3 (3.60-5.2); RDW 13.4 % (11.6-15.6); WHITE BLOOD COUNT 5.8 K/mm3 (4.0-10.0)
[2020-05-03] MEDS ORDERED: METOCLOPRAMIDE HCL INJECTION 10 MG/2 ML VIAL IVPB ONE (22:13)
[2020-05-03 22:16] LABS: CHLORIDE 105 mmol/L (98-107); POTASSIUM 3.8 mmol/L (3.5-5.1); SODIUM 139 mmol/L (136-145)
[2020-05-03 22:18] LABS: ALBUMIN 4.5 g/dl (3.4-5.0); ANION GAP 7 MMOL/L (8-16); BLOOD UREA NITROGEN 11.4 mg/dL (7-18); CALCIUM 9.5 mg/dL (8.5-10.1); CO2 26 mmol/L (21-32); GLUCOSE,RANDOM 96 mg/dL (74-106)
[2020-05-03 22:19] LABS: MAGNESIUM 2.3 mg/dL (1.8-2.4)
[2020-05-03 22:21] LABS: CREATININE 0.8 mg/dL (0.55-1.3); SGOT/AST 26 U/L (15-37); SGPT/ALT 35 U/L (13-61)
[2020-05-03 22:23] LABS: BILIRUBIN,TOTAL 0.7 mg/dL (0.2-1); TOT PROT 8.1 g/dl (6.4-8.2)
[2020-05-03 22:24] LABS: ALK PHOS 87 U/L (45-117)
[2020-05-03] MEDS ORDERED: METOCLOPRAMIDE HCL INJECTION 10 MG/2 ML VIAL ONE (22:27)
[2020-05-03] MEDS ORDERED: LABETALOL HCL 200 MG TABLET (FP) PO ONE (22:32)
[2020-05-03] MEDS ORDERED: LABETALOL HCL 100 MG TABLET (FP) ONE (22:35)
[2020-05-04 01:01] VITALS: BP 158/70; PULSE 78
== END 2020-05-04 00:59 | disposition home or self-care (01) ==
LOC: JER 20:43
PROC: 3E0333Z Introduction of Anti-inflammatory into Peripheral Vein, Percutaneous Approach (ICD-10-PCS; principal; 2020-05-03)
PROC: 3E033GC Introduction of Other Therapeutic Substance into Peripheral Vein, Percutaneous Approach (ICD-10-PCS; 2020-05-03)
PROC: 3E033GC Introduction of Other Therapeutic Substance into Peripheral Vein, Percutaneous Approach (ICD-10-PCS; 2020-05-03)
PROC: 3E033GC Introduction of Other Therapeutic Substance into Peripheral Vein, Percutaneous Approach (ICD-10-PCS; 2020-05-03)
DX: R51.9 Headache, unspecified (principal); I10 Essential (primary) hypertension
CPT/HCPCS: 36415; 70450-TC; 71045-TC-FY; 80053; 82550; 82553; 83735; 84484; 85025; 93005; 93010; 99285-25; J0131

== ENCOUNTER 2020-05-09 01:19 | Emergency (ER) | payer OTHER ==
[2020-05-09 01:45] VITALS: TEMP 98.6; BMI 28.0
[2020-05-09] MEDS ORDERED: LORazepam 2 MG TABLET PO ONE (02:20)
[2020-05-09] MEDS ORDERED: LORazepam 1 MG TABLET ONE (02:26)
[2020-05-09 02:44] LABS: BASO % 0.8 % (0-2.0); EOS % 2.3 % (0-4.5); HEMATOCRIT 36.7 % (32.4-45.2); LYMPH % 29.3 % (8-40); MCH 29.9 pg (25.7-33.7); MCHC 32.8 g/dl (32.0-36.0); MEAN CELL VOLUME 91.2 fl (80-96); MEAN PLT VOLUME 9.4 fl (7.5-11.1); MONO % 7.7 % (3.8-10.2); NEUT % 59.9 % (42.8-82.8); PLATELET COUNT 264 K/MM3 (134-434); RBC 4.02 M/mm3 (3.60-5.2); RDW 13.8 % (11.6-15.6); WHITE BLOOD COUNT 5.6 K/mm3 (4.0-10.0)
[2020-05-09 03:01] LABS: CHLORIDE 108 mmol/L (98-107); POTASSIUM 3.9 mmol/L (3.5-5.1); SODIUM 141 mmol/L (136-145)
[2020-05-09 03:03] LABS: CALCIUM 9.1 mg/dL (8.5-10.1)
[2020-05-09 03:04] LABS: ALBUMIN 4.1 g/dl (3.4-5.0); ANION GAP 7 MMOL/L (8-16); BLOOD UREA NITROGEN 10.3 mg/dL (7-18); CO2 26 mmol/L (21-32); GLUCOSE,RANDOM 97 mg/dL (74-106)
[2020-05-09 03:07] LABS: CREATININE 0.8 mg/dL (0.55-1.3); SGOT/AST 19 U/L (15-37); SGPT/ALT 26 U/L (13-61)
[2020-05-09 03:09] LABS: BILIRUBIN,TOTAL 0.8 mg/dL (0.2-1); TOT PROT 7.4 g/dl (6.4-8.2)
[2020-05-09 03:10] LABS: ALK PHOS 76 U/L (45-117)
[2020-05-09 05:24] VITALS: BP 168/78; PULSE 87
== END 2020-05-09 05:24 | disposition home or self-care (01) ==
LOC: JER 01:19
DX: R07.9 Chest pain, unspecified (principal); I10 Essential (primary) hypertension
CPT/HCPCS: 36415; 71045-TC-FY; 80053; 82962; 84484; 85025; 93005; 93010; 99284-25

== ENCOUNTER 2020-05-11 01:33 | Emergency (ER) | payer OTHER ==
[2020-05-11 02:00] VITALS: TEMP 98.6; BMI 27.6
[2020-05-11] MEDS ORDERED: HYDROCHLOROTHIAZIDE 25 MG TABLET (FP) PO ONE (02:07)
[2020-05-11] MEDS ORDERED: HYDROCHLOROTHIAZIDE 25 MG TABLET (FP) ONE (02:15)
[2020-05-11 04:02] VITALS: BP 152/70; PULSE 82
== END 2020-05-11 04:06 | disposition home or self-care (01) ==
LOC: JER 01:33
DX: R07.9 Chest pain, unspecified (principal); I10 Essential (primary) hypertension
CPT/HCPCS: 36415; 84484; 93005; 93010; 99284-25

== ENCOUNTER 2020-05-11 06:01 | Emergency (ER) | payer OTHER ==
[2020-05-11 06:20] VITALS: BMI 26.9
[2020-05-11] MEDS ORDERED: ACETAMINOPHEN 500 MG TABLET (FP) PO ONE (07:56)
[2020-05-11] MEDS ORDERED: FAMOTIDINE 20 MG TABLET PO ONE (08:30)
[2020-05-11] MEDS ORDERED: FAMOTIDINE 20 MG TABLET ONE (08:43)
[2020-05-11] MEDS ORDERED: ACETAMINOPHEN 500 MG TABLET (FP) ONE (08:43)
[2020-05-11] MEDS ORDERED: LABETALOL HCL 200 MG TABLET (FP) PO ONE (08:51)
[2020-05-11] MEDS ORDERED: LABETALOL HCL 100 MG TABLET (FP) ONE (09:28)
[2020-05-11 11:29] VITALS: BP 162/70; PULSE 76; TEMP 98
== END 2020-05-11 11:15 | disposition home or self-care (01) ==
LOC: JER 06:01
DX: R51.9 Headache, unspecified (principal); I10 Essential (primary) hypertension
CPT/HCPCS: 36415; 84484; 93005; 93010; 99285-25

== ENCOUNTER 2020-06-22 17:45 | Emergency (ER) | payer OTHER ==
[2020-06-22 17:57] VITALS: BP 177/80; PULSE 73; TEMP 98.3; BMI 27.1
[2020-06-22] MEDS ORDERED: ACETAMINOPHEN 500 MG TABLET (FP) PO ONE (18:15)
[2020-06-22 19:16] LABS: BASO % 0.7 % (0-2.0); EOS % 1.7 % (0-4.5); HEMATOCRIT 36.4 % (32.4-45.2); HEMOGLOBIN 12.3 GM/dL (10.7-15.3); LYMPH % 27.5 % (8-40); MCH 30.2 pg (25.7-33.7); MCHC 33.7 g/dl (32.0-36.0); MEAN CELL VOLUME 89.5 fl (80-96); MEAN PLT VOLUME 9.3 fl (7.5-11.1); MONO % 8.8 % (3.8-10.2); NEUT % 61.3 % (42.8-82.8); PLATELET COUNT 223 K/MM3 (134-434); RBC 4.07 M/mm3 (3.60-5.2); RDW 14.8 % (11.6-15.6); WHITE BLOOD COUNT 5.6 K/mm3 (4.0-10.0)
[2020-06-22 19:40] LABS: CHLORIDE 104 mmol/L (98-107); POTASSIUM 3.8 mmol/L (3.5-5.1); SODIUM 138 mmol/L (136-145)
[2020-06-22 19:42] LABS: CALCIUM 8.9 mg/dL (8.5-10.1)
[2020-06-22 19:43] LABS: ALBUMIN 4.1 g/dl (3.4-5.0); ANION GAP 6 MMOL/L (8-16); BLOOD UREA NITROGEN 17.4 mg/dL (7-18); CO2 27 mmol/L (21-32); GLUCOSE,RANDOM 94 mg/dL (74-106)
[2020-06-22 19:46] LABS: CREATININE 0.7 mg/dL (0.55-1.3); SGOT/AST 25 U/L (15-37); SGPT/ALT 39 U/L (13-61)
[2020-06-22 19:47] LABS: BILIRUBIN,TOTAL 0.5 mg/dL (0.2-1)
[2020-06-22 19:48] LABS: TOT PROT 7.4 g/dl (6.4-8.2)
[2020-06-22 19:49] LABS: ALK PHOS 87 U/L (45-117)
[2020-06-22 19:51] LABS: N-TERMINAL BNP 59.5 pg/ml (5-450)
[2020-06-22] MEDS ORDERED: HYDROCHLOROTHIAZIDE 50 MG TABLET PO ONE (20:29)
[2020-06-22 21:23] LABS: EPI CELLS 6 /uL (0-25.1); HYALINE CASTS 1 /uL (0-3.1); URINE APPEARANCE CLEAR; URINE BACTERIA 65 /uL (0-1359); URINE BILIRUBIN NEGATIVE (NEGATIVE); URINE COLOR YELLOW; URINE GLUCOSE (UA) NEGATIVE (NEGATIVE); URINE KETONE NEGATIVE (NEGATIVE); URINE LEUK ESTERASE NEGATIVE (NEGATIVE); URINE NITRITE NEGATIVE (NEGATIVE); URINE PROTEIN NEGATIVE (NEGATIVE); URINE RBC 12 /uL (0-23.9); URINE UROBILINOGEN 0.2 mg/dL (0.2-1.0); URINE WBC 5 /uL (0-25.8)
== END 2020-06-22 21:53 | disposition home or self-care (01) ==
LOC: JER 17:45 → JCOVINFU 17:45
DX: R63.0 Anorexia (principal); R51.9 Headache, unspecified
CPT/HCPCS: 36415; 71046-TC-FY; 80053; 81003; 82550; 82553; 83880; 84484; 85025; 87086; 93005; 93010; 99284-25; C9803; U0003

== ENCOUNTER 2020-06-25 23:49 | Emergency (ER) | payer OTHER ==
[2020-06-26 00:04] VITALS: TEMP 98.4; BMI 27.9
[2020-06-26 02:29] LABS: HEMATOCRIT 36.5 % (32.4-45.2); HEMOGLOBIN 12.3 GM/dL (10.7-15.3); MCHC 33.6 g/dl (32.0-36.0); MEAN CELL VOLUME 89.3 fl (80-96); MEAN PLT VOLUME 9.4 fl (7.5-11.1); PLATELET COUNT 209 K/MM3 (134-434); RBC 4.09 M/mm3 (3.60-5.2); RDW 14.8 % (11.6-15.6); WHITE BLOOD COUNT 4.8 K/mm3 (4.0-10.0)
[2020-06-26 03:01] LABS: CHLORIDE 102 mmol/L (98-107); SODIUM 136 mmol/L (136-145)
[2020-06-26 03:03] LABS: CALCIUM 8.9 mg/dL (8.5-10.1)
[2020-06-26 03:04] LABS: ALBUMIN 4.3 g/dl (3.4-5.0); ANION GAP 6 MMOL/L (8-16); BLOOD UREA NITROGEN 11.4 mg/dL (7-18); CO2 29 mmol/L (21-32); GLUCOSE,RANDOM 98 mg/dL (74-106)
[2020-06-26 03:07] LABS: CREATININE 0.9 mg/dL (0.55-1.3); SGOT/AST 35 U/L (15-37); SGPT/ALT 39 U/L (13-61)
[2020-06-26 03:08] LABS: BILIRUBIN,TOTAL 0.8 mg/dL (0.2-1)
[2020-06-26 03:09] LABS: TOT PROT 7.6 g/dl (6.4-8.2)
[2020-06-26 03:10] LABS: ALK PHOS 84 U/L (45-117)
[2020-06-26 03:46] VITALS: BP 166/96; PULSE 69
[2020-06-26] MEDS ORDERED: ACETAMINOPHEN 1000 MG/100 ML VIAL (NON FORMULARY) IVPB ONE (04:14)
[2020-06-26] MEDS ORDERED: ACETAMINOPHEN INJECTION 100 ML IVPB ONE (04:30)
== END 2020-06-26 06:05 | disposition home or self-care (01) ==
LOC: JER 23:49
PROC: 3E0333Z Introduction of Anti-inflammatory into Peripheral Vein, Percutaneous Approach (ICD-10-PCS; principal; 2020-06-25)
DX: R51.9 Headache, unspecified (principal); I10 Essential (primary) hypertension
CPT/HCPCS: 36415; 71046-TC-FY; 80053; 82550; 82553; 84484; 85027; 93005; 93010; 99285-25; J0131

== ENCOUNTER 2020-07-22 20:36 | Inpatient (IN) | payer OTHER ==
[2020-07-22 20:45] VITALS: BMI 27.1
[2020-07-22 22:51] LABS: BASO % 0.8 % (0-2.0); HEMATOCRIT 34.9 % (32.4-45.2); HEMOGLOBIN 11.7 GM/dL (10.7-15.3); LYMPH % 32.4 % (8-40); MCH 29.8 pg (25.7-33.7); MCHC 33.7 g/dl (32.0-36.0); MEAN CELL VOLUME 88.5 fl (80-96); MEAN PLT VOLUME 9.6 fl (7.5-11.1); NEUT % 56.8 % (42.8-82.8); PLATELET COUNT 226 K/MM3 (134-434); RBC 3.94 M/mm3 (3.60-5.2); RDW 15.1 % (11.6-15.6); WHITE BLOOD COUNT 5.1 K/mm3 (4.0-10.0)
[2020-07-22 23:43] LABS: CHLORIDE 103 mmol/L (98-107); POTASSIUM 3.9 mmol/L (3.5-5.1); SODIUM 137 mmol/L (136-145)
[2020-07-22 23:45] LABS: CALCIUM 9.2 mg/dL (8.5-10.1)
[2020-07-22 23:46] LABS: ANION GAP 11 MMOL/L (8-16); BLOOD UREA NITROGEN 14.3 mg/dL (7-18); CO2 23 mmol/L (21-32); GLUCOSE,RANDOM 96 mg/dL (74-106); MAGNESIUM 2.2 mg/dL (1.8-2.4)
[2020-07-22 23:49] LABS: CREATININE 0.8 mg/dL (0.55-1.3); SGOT/AST 29 U/L (15-37); SGPT/ALT 30 U/L (13-61)
[2020-07-22 23:50] LABS: TOT PROT 7.2 g/dl (6.4-8.2)
[2020-07-22] MEDS ORDERED: ACETAMINOPHEN 500 MG TABLET (FP) PO ONE (23:50)
[2020-07-22 23:52] LABS: ALK PHOS 69 U/L (45-117)
[2020-07-23] MEDS ORDERED: ACETAMINOPHEN 325 MG TABLET (FP) ONE ×2 (00:01→10:19)
[2020-07-23] MEDS ORDERED: ACETAMINOPHEN 500 MG TABLET (FP) PO ONE (00:03)
[2020-07-23] MEDS ORDERED: ASPIRIN 81 MG CHEWABLE TABLETS PO ONE (01:02)
[2020-07-23] MEDS ORDERED: ASPIRIN 81 MG CHEWABLE TABLETS ONE (01:23)
[2020-07-23 07:19] LABS: BASO % 1.1 % (0-2.0); EOS % 2.3 % (0-4.5); HEMATOCRIT 36.4 % (32.4-45.2); HEMOGLOBIN 12.2 GM/dL (10.7-15.3); MCH 29.8 pg (25.7-33.7); MCHC 33.5 g/dl (32.0-36.0); MEAN PLT VOLUME 9.4 fl (7.5-11.1); MONO % 10.1 % (3.8-10.2); NEUT % 39.5 % (42.8-82.8); PLATELET COUNT 215 K/MM3 (134-434); RBC 4.09 M/mm3 (3.60-5.2); RDW 15.2 % (11.6-15.6); WHITE BLOOD COUNT 4.5 K/mm3 (4.0-10.0)
[2020-07-23 08:05] LABS: CALCIUM 9.3 mg/dL (8.5-10.1)
[2020-07-23 08:06] LABS: BLOOD UREA NITROGEN 14.8 mg/dL (7-18); MAGNESIUM 2.2 mg/dL (1.8-2.4)
[2020-07-23 08:09] LABS: CREATININE 0.9 mg/dL (0.55-1.3); PHOSPHOROUS 3.8 mg/dL (2.5-4.9)
[2020-07-23 08:10] LABS: BILIRUBIN,TOTAL 1.1 mg/dL (0.2-1); TOT PROT 7.4 g/dl (6.4-8.2)
[2020-07-23 09:26] LABS: CHOLESTEROL 144 mg/dL (50-200)
[2020-07-23 09:27] LABS: LDL CHOLESTEROL (ONLY SJRH) 70 mg/dL (5-100); TRIGLYCERIDES 140 mg/dL (0-150)
[2020-07-23 09:29] LABS: HDL CHOLESTEROL 52 mg/dL (40-60)
[2020-07-23] MEDS ORDERED: POLYETHYLENE GLYCOL 3350 119 GM BTL PO PRN (10:21)
[2020-07-23] MEDS ORDERED: ALBUTEROL SO4 HFA INHALER IH PRN (10:21)
[2020-07-23] MEDS ORDERED: PNEUMOC 13-VAL CONJ-DIP CRM/PF 0.5 ML DISP.SYRIN IM ONE (10:50)
[2020-07-23] MEDS ORDERED: FLU VACCINE (FLULAVAL) PF 60 MCG/0.5 ML SYRINGE 2020-2021 IM ONE (11:30)
[2020-07-23] MEDS ORDERED: LABETALOL HCL 100 MG TABLET (FP) ONE (14:49)
[2020-07-23] MEDS ORDERED: TIZANIDINE HCL 2 MG TABLET PO PRN (15:26)
[2020-07-23 15:57] VITALS: BP 155/84; PULSE 75; TEMP 98.1
[2020-07-23] MEDS ORDERED: ATORVASTATIN CA 40 MG TABLET (FP) PO SCH (22:00)
[2020-07-23] MEDS ORDERED: LABETALOL HCL 200 MG TABLET (FP) PO SCH (22:00)
[2020-07-23] MEDS ORDERED: HYDROCHLOROTHIAZIDE 12.5 MG CAPSULE (FP) PO SCH (22:00)
[2020-07-23] MEDS ORDERED: LATANOPROST 0.005% OPHTH SOLN 2.5ML BOTTLE OU SCH (22:00)
[2020-07-23] MEDS ORDERED: PATIENT'S OWN MEDICATION (NON-FORMULARY) (Pitavastatin Calcium [Livalo] 4 MG Tablet) PO SCH (22:00)
[2020-07-23] MEDS ORDERED: ROSUVASTATIN CA 20 MG TABLET (FP) PO SCH (22:00)
[2020-07-23] MEDS ORDERED: PATIENT'S OWN MEDICATION (NON-FORMULARY) (Famotidine 40 MG Tablet) PO SCH (22:00)
[2020-07-24] MEDS ORDERED: TOPIRAMATE 25 MG TABLET PO SCH (10:00)
[2020-07-24] MEDS ORDERED: PANTOPRAZOLE 20 MG TABLET PO SCH (10:00)
[2020-07-24] MEDS ORDERED: LORATADINE 10 MG TABLET PO SCH (10:00)
[2020-07-24] MEDS ORDERED: ASPIRIN 81 MG CHEWABLE TABLETS PO SCH (10:00)
[2020-07-24] MEDS ORDERED: TOLTERODINE TARTRATE LA 4 MG CAP.SR.24H (FP) PO SCH (10:00)
== END 2020-07-23 15:45 | disposition home or self-care (01) | DRG 69 ==
LOC: JER 20:36 → JERBED 07-23 01:31
PROVIDERS: ADMIT Hospitalist; ATTEND Internal Medicine
DX: G45.9 Transient cerebral ischemic attack, unspecified (principal); I10 Essential (primary) hypertension; E78.5 Hyperlipidemia, unspecified; R20.2 Paresthesia of skin; H53.8 Other visual disturbances; K21.9 Gastro-esophageal reflux disease without esophagitis; G43.909 Migraine, unspecified, not intractable, without status migrainosus; I73.9 Peripheral vascular disease, unspecified
CPT/HCPCS: 36415; 70450-TC; 70551-TC; 71045-TC-FY; 80053; 80061; 82550; 82553; 83036; 83721; 83735; 84100; 84443; 84484; 85025; 93880-TC; 99285-25; C9803; G0008; Q2036; U0003

== ENCOUNTER 2020-08-31 16:50 | Emergency (ER) | payer OTHER ==
[2020-08-31 17:02] VITALS: BP 169/80; PULSE 64; TEMP 98.2; BMI 26.5
[2020-08-31] MEDS ORDERED: ACETAMINOPHEN 500 MG TABLET (FP) PO ONE (17:50)
[2020-08-31] MEDS ORDERED: ACETAMINOPHEN 500 MG TABLET (FP) ONE (18:40)
[2020-08-31 19:27] LABS: BASO % 0.5 % (0-2.0); EOS % 1.9 % (0-4.5); HEMATOCRIT 36.2 % (32.4-45.2); HEMOGLOBIN 11.9 GM/dL (10.7-15.3); LYMPH % 27.9 % (8-40); MCH 29.9 pg (25.7-33.7); MCHC 32.9 g/dl (32.0-36.0); MEAN CELL VOLUME 90.9 fl (80-96); MEAN PLT VOLUME 9.7 fl (7.5-11.1); MONO % 7.4 % (3.8-10.2); NEUT % 62.3 % (42.8-82.8); PLATELET COUNT 197 K/MM3 (134-434); RBC 3.98 M/mm3 (3.60-5.2); RDW 14.8 % (11.6-15.6); WHITE BLOOD COUNT 6.3 K/mm3 (4.0-10.0)
[2020-08-31 19:52] LABS: POTASSIUM 4.1 mmol/L (3.5-5.1)
[2020-08-31 19:54] LABS: CALCIUM 9.6 mg/dL (8.5-10.1)
[2020-08-31 19:55] LABS: ALBUMIN 4.4 g/dl (3.4-5.0); BLOOD UREA NITROGEN 11.4 mg/dL (7-18)
[2020-08-31 19:56] LABS: EPI CELLS 2 /uL (0-25.1); HYALINE CASTS 1 /uL (0-3.1); PH,URINE 6.5 (5.0-8.0); URINE APPEARANCE CLOUDY; URINE BACTERIA 152 /uL (0-1359); URINE BILIRUBIN NEGATIVE (NEGATIVE); URINE COLOR YELLOW; URINE GLUCOSE (UA) NEGATIVE (NEGATIVE); URINE KETONE NEGATIVE (NEGATIVE); URINE LEUK ESTERASE 3+ (NEGATIVE); URINE NITRITE NEGATIVE (NEGATIVE); URINE PROTEIN NEGATIVE (NEGATIVE); URINE UROBILINOGEN 0.2 mg/dL (0.2-1.0); URINE WBC 510 /uL (0-25.8)
[2020-08-31 19:58] LABS: CREATININE 0.8 mg/dL (0.55-1.3)
[2020-08-31 20:00] LABS: BILIRUBIN,TOTAL 0.8 mg/dL (0.2-1); TOT PROT 7.7 g/dl (6.4-8.2)
[2020-09-01 01:32] LABS: URINE RBC 22.3 /uL (0-23.9)
== END 2020-08-31 22:22 | disposition home or self-care (01) ==
LOC: JER 16:50
DX: R51.9 Headache, unspecified (principal); N34.2 Other urethritis; I10 Essential (primary) hypertension
CPT/HCPCS: 36415; 80053; 81003; 85025; 99283-25

== ENCOUNTER 2020-10-15 21:38 | Observation (INO) | payer OTHER ==
[2020-10-15 21:49] VITALS: BMI 26.4
[2020-10-15 23:06] LABS: BASO % 1.1 % (0-2.0); EOS % 1.6 % (0-4.5); HEMATOCRIT 38.7 % (32.4-45.2); HEMOGLOBIN 12.9 GM/dL (10.7-15.3); LYMPH % 36.8 % (8-40); MCH 29.6 pg (25.7-33.7); MCHC 33.2 g/dl (32.0-36.0); MEAN CELL VOLUME 89.1 fl (80-96); MEAN PLT VOLUME 9.7 fl (7.5-11.1); MONO % 8.8 % (3.8-10.2); NEUT % 51.7 % (42.8-82.8); PLATELET COUNT 243 K/MM3 (134-434); RBC 4.35 M/mm3 (3.60-5.2); RDW 14.5 % (11.6-15.6)
[2020-10-15 23:10] LABS: EPI CELLS 8 /uL (0-25.1); HYALINE CASTS 0 /uL (0-3.1); URINE APPEARANCE CLEAR; URINE BACTERIA 5 /uL (0-1359); URINE BILIRUBIN NEGATIVE (NEGATIVE); URINE COLOR YELLOW; URINE GLUCOSE (UA) NEGATIVE (NEGATIVE); URINE KETONE NEGATIVE (NEGATIVE); URINE LEUK ESTERASE NEGATIVE (NEGATIVE); URINE NITRITE NEGATIVE (NEGATIVE); URINE PROTEIN NEGATIVE (NEGATIVE); URINE RBC 13 /uL (0-23.9); URINE UROBILINOGEN 0.2 mg/dL (0.2-1.0); URINE WBC 3 /uL (0-25.8)
[2020-10-15] MEDS ORDERED: METOCLOPRAMIDE HCL INJECTION 10 MG/2 ML VIAL IVPB ONE (23:15)
[2020-10-15] MEDS ORDERED: LABETALOL HCL 200 MG TABLET (FP) PO ONE (23:15)
[2020-10-15] MEDS ORDERED: ACETAMINOPHEN 325 MG TABLET (FP) PO ONE (23:19)
[2020-10-15] MEDS ORDERED: METOCLOPRAMIDE HCL INJECTION 10 MG/2 ML VIAL ONE (23:21)
[2020-10-15] MEDS ORDERED: LABETALOL HCL 100 MG TABLET (FP) ONE (23:21)
[2020-10-15 23:25] LABS: CHLORIDE 106 mmol/L (98-107); SODIUM 138 mmol/L (136-145)
[2020-10-15 23:27] LABS: ALBUMIN 4.8 g/dl (3.4-5.0); ANION GAP 5 MMOL/L (8-16); BLOOD UREA NITROGEN 8.9 mg/dL (7-18); CO2 27 mmol/L (21-32)
[2020-10-15 23:28] LABS: GLUCOSE,RANDOM 75 mg/dL (74-106)
[2020-10-15 23:30] LABS: SGOT/AST 52 U/L (15-37); SGPT/ALT 38 U/L (13-61)
[2020-10-15 23:31] LABS: CREATININE 0.8 mg/dL (0.55-1.3)
[2020-10-15 23:32] LABS: BILIRUBIN,TOTAL 0.9 mg/dL (0.2-1); TOT PROT 8.6 g/dl (6.4-8.2)
[2020-10-15 23:33] LABS: ALK PHOS 104 U/L (45-117)
[2020-10-15] MEDS ORDERED: ACETAMINOPHEN 325 MG TABLET (FP) ONE (23:43)
[2020-10-15] MEDS ORDERED: SULFAMETHOXAZOLE/TRIMETHOPRIM 800MG/160MG D.S. TABLET PO ONE (23:53)
[2020-10-16] MEDS ORDERED: SULFAMETHOXAZOLE/TRIMETHOPRIM 800MG/160MG D.S. TABLET ONE (00:46)
[2020-10-16] MEDS ORDERED: ASPIRIN 81 MG CHEWABLE TABLETS PO ONE (01:09)
[2020-10-16] MEDS ORDERED: ASPIRIN 81 MG CHEWABLE TABLETS ONE ×2 (01:20→01:21)
[2020-10-16] MEDS ORDERED: ONDANSETRON 4 MG/2 ML VIAL IVPUSH PRN (06:07)
[2020-10-16 07:01] LABS: BASO % 0.8 % (0-2.0); EOS % 2.3 % (0-4.5); HEMATOCRIT 35.1 % (32.4-45.2); HEMOGLOBIN 11.7 GM/dL (10.7-15.3); MCH 29.7 pg (25.7-33.7); MCHC 33.2 g/dl (32.0-36.0); MEAN CELL VOLUME 89.2 fl (80-96); MEAN PLT VOLUME 9.6 fl (7.5-11.1); MONO % 11.9 % (3.8-10.2); PLATELET COUNT 191 K/MM3 (134-434); RBC 3.94 M/mm3 (3.60-5.2); RDW 14.1 % (11.6-15.6); WHITE BLOOD COUNT 4.3 K/mm3 (4.0-10.0)
[2020-10-16 07:01] LABS: BLOOD UREA NITROGEN 9.4 mg/dL (7-18); CALCIUM 8.5 mg/dL (8.5-10.1); MAGNESIUM 2.3 mg/dL (1.8-2.4)
[2020-10-16 07:04] LABS: CREATININE 0.8 mg/dL (0.55-1.3); PHOSPHOROUS 3.5 mg/dL (2.5-4.9)
[2020-10-16 07:05] LABS: BILIRUBIN,TOTAL 0.8 mg/dL (0.2-1); TOT PROT 7.2 g/dl (6.4-8.2)
[2020-10-16 07:07] LABS: N-TERMINAL BNP 44.7 pg/ml (5-450)
[2020-10-16] MEDS ORDERED: ASPIRIN COATED 81 MG TABLET.EC ONE (09:14)
[2020-10-16] MEDS ORDERED: ENOXAPARIN NA (PORCINE) 40 MG/0.4 ML DISP.SYRIN SQ ONE (09:14)
[2020-10-16] MEDS ORDERED: DOCUSATE SODIUM 100 MG CAPSULE (FP) PO ONE (09:14)
[2020-10-16] MEDS: DOCUSATE SODIUM 100 MG CAPSULE (FP) PO SCH (09:19)
[2020-10-16] MEDS: ASPIRIN COATED 81 MG TABLET.EC PO SCH (09:20)
[2020-10-16] MEDS: ENOXAPARIN NA (PORCINE) 40 MG/0.4 ML DISP.SYRIN SQ SCH (09:20)
[2020-10-16] MEDS: POLYETHYLENE GLYCOL 3350 119 GM BTL PO SCH (09:20)
[2020-10-16] MEDS ORDERED: LABETALOL HCL 200 MG TABLET (FP) PO ONE (20:54)
[2020-10-17] MEDS ORDERED: ACETAMINOPHEN 1000 MG/100 ML VIAL (NON FORMULARY) IVPB ONE ×2 (02:14→23:10)
[2020-10-17] MEDS ORDERED: ACETAMINOPHEN 325 MG TABLET (FP) PO ONE (02:14)
[2020-10-17] MEDS ORDERED: FAMOTIDINE 20 MG TABLET PO ONE (03:15)
[2020-10-17] MEDS: POLYETHYLENE GLYCOL 3350 119 GM BTL PO SCH (09:31)
[2020-10-17] MEDS: ASPIRIN COATED 81 MG TABLET.EC PO SCH (09:31)
[2020-10-17] MEDS: DOCUSATE SODIUM 100 MG CAPSULE (FP) PO SCH (09:31)
[2020-10-17] MEDS: ENOXAPARIN NA (PORCINE) 40 MG/0.4 ML DISP.SYRIN SQ SCH (09:31)
[2020-10-18] MEDS ORDERED: MELATONIN 5 MG TABLETS PO ONE (02:00)
[2020-10-18] MEDS: POLYETHYLENE GLYCOL 3350 119 GM BTL PO SCH (09:20)
[2020-10-18] MEDS: TOPIRAMATE 25 MG TABLET PO SCH (09:20)
[2020-10-18] MEDS: ASPIRIN COATED 81 MG TABLET.EC PO SCH (09:21)
[2020-10-18] MEDS: ENOXAPARIN NA (PORCINE) 40 MG/0.4 ML DISP.SYRIN SQ SCH (09:21)
[2020-10-18] MEDS: DOCUSATE SODIUM 100 MG CAPSULE (FP) PO SCH (09:21)
[2020-10-18] MEDS ORDERED: MINERAL OIL ENEMA 133 ML ENEMA PR ONE (20:28)
[2020-10-18] MEDS ORDERED: MELATONIN 5 MG TABLETS PO SCH (22:00)
[2020-10-19 07:53] LABS: BASO % 0.9 % (0-2.0); HEMATOCRIT 35.7 % (32.4-45.2); HEMOGLOBIN 11.9 GM/dL (10.7-15.3); LYMPH % 30.6 % (8-40); MCH 29.7 pg (25.7-33.7); MCHC 33.4 g/dl (32.0-36.0); MEAN CELL VOLUME 88.9 fl (80-96); MEAN PLT VOLUME 9.3 fl (7.5-11.1); MONO % 9.9 % (3.8-10.2); NEUT % 55.6 % (42.8-82.8); PLATELET COUNT 199 K/MM3 (134-434); RBC 4.01 M/mm3 (3.60-5.2); RDW 14.6 % (11.6-15.6); WHITE BLOOD COUNT 4.6 K/mm3 (4.0-10.0)
[2020-10-19 08:19] LABS: CALCIUM 8.5 mg/dL (8.5-10.1)
[2020-10-19 08:20] LABS: ALBUMIN 3.6 g/dl (3.4-5.0); BLOOD UREA NITROGEN 14.7 mg/dL (7-18)
[2020-10-19 08:23] LABS: CREATININE 0.8 mg/dL (0.55-1.3)
[2020-10-19 08:24] LABS: BILIRUBIN,TOTAL 0.6 mg/dL (0.2-1); TOT PROT 6.8 g/dl (6.4-8.2)
[2020-10-19] MEDS ORDERED: REGADENOSON 0.4 MG/5 ML PRE-FILLED SYRINGE IVPUSH ONE ×2 (09:38→10:00)
[2020-10-19] MEDS: POLYETHYLENE GLYCOL 3350 119 GM BTL PO SCH (12:49)
[2020-10-19] MEDS: ENOXAPARIN NA (PORCINE) 40 MG/0.4 ML DISP.SYRIN SQ SCH (12:49)
[2020-10-19] MEDS: TOPIRAMATE 25 MG TABLET PO SCH (12:49)
[2020-10-19] MEDS: DOCUSATE SODIUM 100 MG CAPSULE (FP) PO SCH (12:49)
[2020-10-19] MEDS: ASPIRIN COATED 81 MG TABLET.EC PO SCH (12:50)
[2020-10-19] MEDS: CARVEDILOL 3.125 MG TABLET (FP) PO SCH (21:25)
[2020-10-19] MEDS ORDERED: MELATONIN 5 MG TABLETS PO ONE (21:44)
[2020-10-19] MEDS ORDERED: SIMETHICONE 80 MG TAB.CHEW (FP) PO ONE (21:44)
[2020-10-20 07:19] LABS: BASO % 0.8 % (0-2.0); EOS % 2.6 % (0-4.5); HEMATOCRIT 36.5 % (32.4-45.2); HEMOGLOBIN 12.1 GM/dL (10.7-15.3); LYMPH % 22.6 % (8-40); MCHC 33.2 g/dl (32.0-36.0); MEAN CELL VOLUME 90.5 fl (80-96); MEAN PLT VOLUME 9.6 fl (7.5-11.1); MONO % 8.6 % (3.8-10.2); NEUT % 65.4 % (42.8-82.8); PLATELET COUNT 178 K/MM3 (134-434); RBC 4.03 M/mm3 (3.60-5.2); RDW 14.7 % (11.6-15.6)
[2020-10-20 08:02] LABS: CALCIUM 8.8 mg/dL (8.5-10.1)
[2020-10-20 08:07] LABS: CREATININE 0.9 mg/dL (0.55-1.3)
[2020-10-20] MEDS: ENOXAPARIN NA (PORCINE) 40 MG/0.4 ML DISP.SYRIN SQ SCH (09:41)
[2020-10-20] MEDS: POLYETHYLENE GLYCOL 3350 119 GM BTL PO SCH (09:41)
[2020-10-20] MEDS: TOPIRAMATE 25 MG TABLET PO SCH (09:41)
[2020-10-20] MEDS: DOCUSATE SODIUM 100 MG CAPSULE (FP) PO SCH (09:41)
[2020-10-20] MEDS: ASPIRIN COATED 81 MG TABLET.EC PO SCH (09:41)
[2020-10-20] MEDS: CARVEDILOL 3.125 MG TABLET (FP) PO SCH (09:41)
[2020-10-20] MEDS ORDERED: LOSARTAN POTASSIUM 50 MG TABLET PO SCH (10:00)
[2020-10-20] MEDS ORDERED: BISACODYL 10 MG SUPP.RECT PR ONE (12:13)
[2020-10-20] MEDS ORDERED: amLODIPine BESYLATE 5 MG TABLET (FP) PO SCH (18:00)
[2020-10-20 18:25] VITALS: BP 160/94; PULSE 75; TEMP 98.1
== END 2020-10-20 18:43 | disposition home or self-care (01) ==
LOC: JER 21:38 → INTOOBSV 10-16 01:07 → JERBED 10-16 01:07 → UNDOADMOB 10-16 01:07 → JERBED 10-16 11:02 → J4S 10-16 20:20
PROVIDERS: ADMIT Internal Medicine; ATTEND Internal Medicine
PROC: 3E033NZ Introduction of Analgesics, Hypnotics, Sedatives into Peripheral Vein, Percutaneous Approach (ICD-10-PCS; principal; 2020-10-16)
PROC: 3E023GC Introduction of Other Therapeutic Substance into Muscle, Percutaneous Approach (ICD-10-PCS; 2020-10-16)
PROC: 3E033GC Introduction of Other Therapeutic Substance into Peripheral Vein, Percutaneous Approach (ICD-10-PCS; 2020-10-16)
DX: I10 Essential (primary) hypertension (principal); K21.9 Gastro-esophageal reflux disease without esophagitis; Z87.440 Personal history of urinary (tract) infections; G43.109 Migraine with aura, not intractable, without status migrainosus; I73.9 Peripheral vascular disease, unspecified; R30.0 Dysuria; R20.2 Paresthesia of skin; R07.9 Chest pain, unspecified; N32.89 Other specified disorders of bladder; H53.8 Other visual disturbances; R07.89 Other chest pain; N39.0 Urinary tract infection, site not specified; K59.00 Constipation, unspecified; C80.1 Malignant (primary) neoplasm, unspecified; E03.9 Hypothyroidism, unspecified; E87.1 Hypo-osmolality and hyponatremia; R35.0 Frequency of micturition; L29.9 Pruritus, unspecified; J45.998 Other asthma; Z29.9 Encounter for prophylactic measures, unspecified; N12 Tubulo-interstitial nephritis, not specified as acute or chronic; Z88.8 Allergy status to other drugs, medicaments and biological substances; Z88.0 Allergy status to penicillin; G45.9 Transient cerebral ischemic attack, unspecified; B34.9 Viral infection, unspecified
CPT/HCPCS: 36415; 70450-TC; 71046-TC-FY; 78452-TC; 80048; 80053; 80061; 81003; 83036; 83721; 83735; 83880; 84100; 84436; 84443; 84484; 85025; 87086; 93005; 93010; 93017; 93880-TC; 96372; 96374; 96375; 96376; 97116-GP; 97161-GP; 99285-25; A9502; C9803; G0378; J0131; J2785; U0003; U0005

== ENCOUNTER 2020-10-29 00:44 | Observation (INO) | payer OTHER ==
[2020-10-29 02:25] LABS: HEMOGLOBIN 12.7 GM/dL (10.7-15.3); LYMPH % 36.9 % (8-40); MCH 29.5 pg (25.7-33.7); MCHC 33.5 g/dl (32.0-36.0); MEAN CELL VOLUME 88.2 fl (80-96); MEAN PLT VOLUME 9.2 fl (7.5-11.1); MONO % 7.6 % (3.8-10.2); NEUT % 52.5 % (42.8-82.8); PLATELET COUNT 240 K/MM3 (134-434); RDW 14.1 % (11.6-15.6); WHITE BLOOD COUNT 5.1 K/mm3 (4.0-10.0)
[2020-10-29 02:28] LABS: PH,URINE 6.5 (5.0-8.0); URINE APPEARANCE CLEAR; URINE BILIRUBIN NEGATIVE (NEGATIVE); URINE COLOR YELLOW; URINE GLUCOSE (UA) NEGATIVE (NEGATIVE); URINE KETONE NEGATIVE (NEGATIVE); URINE LEUK ESTERASE NEGATIVE (NEGATIVE); URINE NITRITE NEGATIVE (NEGATIVE); URINE PROTEIN NEGATIVE (NEGATIVE); URINE UROBILINOGEN 0.2 mg/dL (0.2-1.0)
[2020-10-29 02:44] LABS: CHLORIDE 99 mmol/L (98-107); SODIUM 132 mmol/L (136-145)
[2020-10-29 02:46] LABS: ALBUMIN 4.2 g/dl (3.4-5.0); BLOOD UREA NITROGEN 8.9 mg/dL (7-18); CALCIUM 8.8 mg/dL (8.5-10.1)
[2020-10-29 02:47] LABS: ANION GAP 5 MMOL/L (8-16); CO2 27 mmol/L (21-32); GLUCOSE,RANDOM 94 mg/dL (74-106)
[2020-10-29 02:50] LABS: SGOT/AST 27 U/L (15-37); SGPT/ALT 30 U/L (13-61)
[2020-10-29 02:51] LABS: BILIRUBIN,TOTAL 0.9 mg/dL (0.2-1); TOT PROT 7.5 g/dl (6.4-8.2)
[2020-10-29] MEDS ORDERED: ASPIRIN 325 MG TABLET PO ONE (02:51)
[2020-10-29 02:52] LABS: ALK PHOS 88 U/L (45-117)
[2020-10-29 02:55] LABS: N-TERMINAL BNP 58.9 pg/ml (5-450)
[2020-10-29] MEDS ORDERED: ASPIRIN 81 MG CHEWABLE TABLETS ONE (03:12)
[2020-10-29 03:27] LABS: CREATININE 0.7 mg/dL (0.55-1.3)
[2020-10-29] MEDS ORDERED: IBUPROFEN 800 MG/8 ML IJ IVPB ONE ×3 (04:35→04:44)
[2020-10-29 04:45] LABS: EPI CELLS 6.2 /uL (0-25.1); URINE BACTERIA 22.8 /uL (0-1359); URINE RBC 6.9 /uL (0-23.9); URINE WBC 4.9 /uL (0-25.8)
[2020-10-29] MEDS ORDERED: KETOROLAC TROMETHAMINE 10 MG TABLET PO ONE (05:29)
[2020-10-29 05:58] LABS: CHLORIDE 104 mmol/L (98-107); SODIUM 136 mmol/L (136-145)
[2020-10-29 05:59] LABS: CALCIUM 8.9 mg/dL (8.5-10.1)
[2020-10-29 06:00] LABS: ALBUMIN 3.9 g/dl (3.4-5.0); ANION GAP 6 MMOL/L (8-16); BLOOD UREA NITROGEN 8.4 mg/dL (7-18); CO2 27 mmol/L (21-32); GLUCOSE,RANDOM 85 mg/dL (74-106); MAGNESIUM 2.2 mg/dL (1.8-2.4)
[2020-10-29 06:03] LABS: CREATININE 0.7 mg/dL (0.55-1.3); SGOT/AST 22 U/L (15-37); SGPT/ALT 26 U/L (13-61)
[2020-10-29 06:04] LABS: PHOSPHOROUS 3.6 mg/dL (2.5-4.9)
[2020-10-29 06:05] LABS: BILIRUBIN,TOTAL 0.8 mg/dL (0.2-1); TOT PROT 6.7 g/dl (6.4-8.2)
[2020-10-29 06:06] LABS: ALK PHOS 81 U/L (45-117)
[2020-10-29] MEDS ORDERED: ACETAMINOPHEN 325 MG TABLET (FP) PO PRN (06:56)
[2020-10-29] MEDS ORDERED: PATIENT'S OWN MEDICATION (NON-FORMULARY) (Olmesartan Medoxomil 40 MG Tablet) PO SCH (10:00)
[2020-10-29] MEDS ORDERED: NIFEdipine E.R. 30 MG TABLET PO SCH (10:00)
[2020-10-29] MEDS ORDERED: ENOXAPARIN NA (PORCINE) 40 MG/0.4 ML DISP.SYRIN SQ ONE (10:12)
[2020-10-29] MEDS ORDERED: CARVEDILOL 3.125 MG TABLET (FP) ONE (10:12)
[2020-10-29] MEDS ORDERED: TOPIRAMATE 25 MG TABLET ONE (10:12)
[2020-10-29] MEDS ORDERED: LOSARTAN POTASSIUM 50 MG TABLET ONE (10:12)
[2020-10-29] MEDS: TOPIRAMATE 25 MG TABLET PO SCH (10:17)
[2020-10-29] MEDS: CARVEDILOL 3.125 MG TABLET (FP) PO SCH ×2 (10:17→22:01)
[2020-10-29] MEDS: ENOXAPARIN NA (PORCINE) 40 MG/0.4 ML DISP.SYRIN SQ SCH (10:17)
[2020-10-29] MEDS: LOSARTAN POTASSIUM 50 MG TABLET PO SCH (10:17)
[2020-10-29] MEDS: CHLORTHALIDONE 25 MG TABLET PO SCH (11:12)
[2020-10-29 15:45] VITALS: BMI 26.0
[2020-10-29] MEDS ORDERED: FAMOTIDINE 20 MG/50 ML IVPB 20 MG/50 ML MG IVPB ONE (21:01)
[2020-10-30 07:50] LABS: CALCIUM 9.2 mg/dL (8.5-10.1)
[2020-10-30 07:52] LABS: BLOOD UREA NITROGEN 11.8 mg/dL (7-18)
[2020-10-30 07:55] LABS: CREATININE 0.9 mg/dL (0.55-1.3)
[2020-10-30] MEDS ORDERED: PT OWN MED DRAWER 7, Y5N ONE (10:04)
[2020-10-30] MEDS: TOPIRAMATE 25 MG TABLET PO SCH (10:31)
[2020-10-30] MEDS: ENOXAPARIN NA (PORCINE) 40 MG/0.4 ML DISP.SYRIN SQ SCH (10:32)
[2020-10-30] MEDS ORDERED: CHLORTHALIDONE 25 MG TABLET PO SCH (11:08)
[2020-10-30] MEDS ORDERED: PANTOPRAZOLE 40 MG TABLET PO ONE (11:09)
[2020-10-30] MEDS: LOSARTAN POTASSIUM 50 MG TABLET PO SCH (11:42)
[2020-10-30] MEDS: CARVEDILOL 3.125 MG TABLET (FP) PO SCH (11:42)
[2020-10-30] MEDS: CHLORTHALIDONE 25 MG TABLET PO SCH (11:43)
[2020-10-30 15:52] VITALS: TEMP 98
[2020-10-30 15:55] VITALS: BP 120/73; PULSE 83
== END 2020-10-30 15:28 | disposition home or self-care (01) ==
LOC: JER 00:44 → JERBED 03:29 → UNDOADMOB 03:29 → OBSVTOIN 04:33 → INTOOBSV 04:33 → JERBED 12:14 → J4W 12:14 → JERBED 14:03
PROVIDERS: ADMIT Hospitalist; ATTEND Internal Medicine
PROC: 3E033GC Introduction of Other Therapeutic Substance into Peripheral Vein, Percutaneous Approach (ICD-10-PCS; principal; 2020-10-29)
PROC: 3E0333Z Introduction of Anti-inflammatory into Peripheral Vein, Percutaneous Approach (ICD-10-PCS; 2020-10-29)
PROC: 3E023GC Introduction of Other Therapeutic Substance into Muscle, Percutaneous Approach (ICD-10-PCS; 2020-10-29)
DX: R07.9 Chest pain, unspecified (principal); I10 Essential (primary) hypertension; E78.00 Pure hypercholesterolemia, unspecified; G43.909 Migraine, unspecified, not intractable, without status migrainosus; K21.9 Gastro-esophageal reflux disease without esophagitis; I73.9 Peripheral vascular disease, unspecified; Z87.440 Personal history of urinary (tract) infections; Z95.828 Presence of other vascular implants and grafts; Z88.0 Allergy status to penicillin; Z88.8 Allergy status to other drugs, medicaments and biological substances
CPT/HCPCS: 36415; 71045-TC-FY; 80048; 80053; 81003; 82550; 82553; 83735; 83880; 84100; 84484; 85025; 87086; 93005; 93010; 96365; 96372; 96375; 99285-25; C9803; G0378; U0003; U0005

== ENCOUNTER 2020-12-18 19:09 | Emergency (ER) | payer OTHER ==
[2020-12-18 19:22] VITALS: BP 148/74; PULSE 69; TEMP 99; BMI 25.3
[2020-12-18] MEDS ORDERED: predniSONE 20 MG TABLET (UD) PO ONE (20:58)
[2020-12-18] MEDS ORDERED: FAMOTIDINE 20 MG TABLET PO ONE (20:58)
[2020-12-18] MEDS ORDERED: diphenhydrAMINE HCL 25 MG CAPSULE (FP) PO ONE ×2 (20:58→21:09)
[2020-12-18] MEDS ORDERED: FAMOTIDINE 20 MG TABLET ONE (21:10)
[2020-12-18] MEDS ORDERED: predniSONE 20 MG TABLET (UD) ONE (21:10)
== END 2020-12-18 22:33 | disposition home or self-care (01) ==
LOC: JERFT 19:09 → JER 19:09 → JERFT 22:33
DX: T50.905A Adverse effect of unspecified drugs, medicaments and biological substances, initial encounter (principal)
CPT/HCPCS: 99283-25

== ENCOUNTER 2021-01-08 02:24 | Observation (INO) | payer OTHER ==
[2021-01-08 02:34] VITALS: BMI 25.7
[2021-01-08 03:33] LABS: BASO % 0.5 % (0-2.0); EOS % 2.5 % (0-4.5); HEMATOCRIT 34.1 % (32.4-45.2); HEMOGLOBIN 11.6 GM/dL (10.7-15.3); LYMPH % 29.4 % (8-40); MCH 29.5 pg (25.7-33.7); MCHC 33.9 g/dl (32.0-36.0); MEAN PLT VOLUME 9.4 fl (7.5-11.1); MONO % 6.8 % (3.8-10.2); NEUT % 60.8 % (42.8-82.8); PLATELET COUNT 176 10^3/uL (134-434); RBC 3.93 M/mm3 (3.60-5.2); RDW 15.6 % (11.6-15.6); WHITE BLOOD COUNT 5.2 K/mm3 (4.0-10.0)
[2021-01-08 03:51] LABS: CHLORIDE 106 mmol/L (98-107); SODIUM 141 mmol/L (136-145)
[2021-01-08 03:53] LABS: CALCIUM 8.7 mg/dL (8.5-10.1)
[2021-01-08 03:54] LABS: ANION GAP 8 MMOL/L (8-16); BLOOD UREA NITROGEN 11.9 mg/dL (7-18); CO2 26 mmol/L (21-32); GLUCOSE,RANDOM 104 mg/dL (74-106)
[2021-01-08 03:57] LABS: CREATININE 0.9 mg/dL (0.55-1.3); SGOT/AST 19 U/L (15-37); SGPT/ALT 31 U/L (13-61)
[2021-01-08 03:59] LABS: BILIRUBIN,TOTAL 0.7 mg/dL (0.2-1); TOT PROT 7.2 g/dl (6.4-8.2)
[2021-01-08 04:00] LABS: ALK PHOS 85 U/L (45-117)
[2021-01-08] MEDS ORDERED: ACETAMINOPHEN 325 MG TABLET (FP) PO ONE (07:03)
[2021-01-08] MEDS ORDERED: ACETAMINOPHEN 325 MG TABLET (FP) ONE (07:30)
[2021-01-08 08:01] LABS: EPI CELLS 3 /uL (0-25.1); HYALINE CASTS 0 /uL (0-3.1); URINE APPEARANCE CLEAR; URINE BACTERIA 61 /uL (0-1359); URINE BILIRUBIN NEGATIVE (NEGATIVE); URINE COLOR YELLOW; URINE GLUCOSE (UA) NEGATIVE (NEGATIVE); URINE KETONE NEGATIVE (NEGATIVE); URINE LEUK ESTERASE TRACE (NEGATIVE); URINE NITRITE NEGATIVE (NEGATIVE); URINE PROTEIN NEGATIVE (NEGATIVE); URINE RBC 11 /uL (0-23.9); URINE UROBILINOGEN 0.2 mg/dL (0.2-1.0); URINE WBC 8 /uL (0-25.8)
[2021-01-08] MEDS ORDERED: ASPIRIN 81 MG CHEWABLE TABLETS PO ONE (08:11)
[2021-01-08] MEDS ORDERED: NITROFURANTOIN MACROCRYSTAL 50 MG CAPSULE (FP) PO SCH (08:45)
[2021-01-08] MEDS ORDERED: ASPIRIN 81 MG CHEWABLE TABLETS ONE (09:01)
[2021-01-08] MEDS ORDERED: NITROFURANTOIN MACROCRYSTAL 50 MG CAPSULE (FP) ONE ×2 (09:02→18:33)
[2021-01-08] MEDS ORDERED: ACETAMINOPHEN 325 MG TABLET (FP) PO PRN (09:25)
[2021-01-08] MEDS: ENOXAPARIN NA (PORCINE) 40 MG/0.4 ML DISP.SYRIN SQ SCH (10:55)
[2021-01-08] MEDS ORDERED: ENOXAPARIN NA (PORCINE) 40 MG/0.4 ML DISP.SYRIN SQ ONE (11:24)
[2021-01-08] MEDS ORDERED: ONDANSETRON 4 MG TABLET PO PRN (11:32)
[2021-01-08] MEDS: NITROFURANTOIN MACROCRYSTAL 50 MG CAPSULE (FP) PO SCH ×2 (11:42→18:41)
[2021-01-08] MEDS ORDERED: MAG HYDROX/AL HYDROX/SIMETH 30 ML UNIT-DOSE CUP ONE (18:35)
[2021-01-08] MEDS: MAG HYDROX/AL HYDROX/SIMETH 30 ML UNIT-DOSE CUP PO SCH (18:41)
[2021-01-08] MEDS: CARVEDILOL 3.125 MG TABLET (FP) PO SCH (21:35)
[2021-01-08] MEDS ORDERED: KETOROLAC TROMETHAMINE 30 MG/1 ML VIAL IM ONE (22:03)
[2021-01-08] MEDS ORDERED: KETOROLAC TROMETHAMINE 15 MG/ML VIAL IVPUSH ONE (23:45)
[2021-01-09] MEDS: MAG HYDROX/AL HYDROX/SIMETH 30 ML UNIT-DOSE CUP PO SCH ×3 (00:23→11:25)
[2021-01-09] MEDS: NITROFURANTOIN MACROCRYSTAL 50 MG CAPSULE (FP) PO SCH ×5 (00:23→23:46)
[2021-01-09 08:20] LABS: BASO % 0.7 % (0-2.0); EOS % 3.9 % (0-4.5); HEMATOCRIT 33.1 % (32.4-45.2); HEMOGLOBIN 11.2 GM/dL (10.7-15.3); LYMPH % 39.9 % (8-40); MCH 29.5 pg (25.7-33.7); MCHC 33.9 g/dl (32.0-36.0); MONO % 9.6 % (3.8-10.2); NEUT % 45.9 % (42.8-82.8); PLATELET COUNT 168 10^3/uL (134-434); RBC 3.81 M/mm3 (3.60-5.2); RDW 15.7 % (11.6-15.6); WHITE BLOOD COUNT 3.6 K/mm3 (4.0-10.0)
[2021-01-09] MEDS: POLYETHYLENE GLYCOL (HEALTHYLAX) 3350 17 GM PACKET PO PRN (08:34)
[2021-01-09 08:35] LABS: ALBUMIN 3.6 g/dl (3.4-5.0); CALCIUM 8.7 mg/dL (8.5-10.1)
[2021-01-09 08:36] LABS: MAGNESIUM 2.4 mg/dL (1.8-2.4)
[2021-01-09 08:39] LABS: BILIRUBIN,TOTAL 0.6 mg/dL (0.2-1); CREATININE 0.8 mg/dL (0.55-1.3); PHOSPHOROUS 3.3 mg/dL (2.5-4.9)
[2021-01-09 08:40] LABS: TOT PROT 6.5 g/dl (6.4-8.2)
[2021-01-09] MEDS ORDERED: PT OWN MED DRAWER 7, Y5N ONE ×3 (09:07→23:45)
[2021-01-09] MEDS: LOSARTAN POTASSIUM 50 MG TABLET PO SCH (09:09)
[2021-01-09] MEDS: ASPIRIN 81 MG CHEWABLE TABLETS PO SCH (09:09)
[2021-01-09] MEDS: PANTOPRAZOLE 40 MG TABLET PO SCH (09:09)
[2021-01-09] MEDS: ENOXAPARIN NA (PORCINE) 40 MG/0.4 ML DISP.SYRIN SQ SCH (09:09)
[2021-01-09] MEDS: CARVEDILOL 3.125 MG TABLET (FP) PO SCH ×2 (09:09→21:01)
[2021-01-09] MEDS: TOPIRAMATE 25 MG TABLET PO SCH (09:19)
[2021-01-09] MEDS ORDERED: ISOSORBIDE MONONITRATE 30 MG TAB.SR.24H (FP) PO SCH (10:00)
[2021-01-09] MEDS ORDERED: ACETAMINOPHEN/CAFFEINE/BUTALBITAL 1 TAB PO ONE ×2 (15:45→20:40)
[2021-01-09] MEDS ORDERED: ACETAMINOPHEN 325 MG TABLET (FP) PO PRN (15:46)
[2021-01-09] MEDS: ATORVASTATIN CA 40 MG TABLET (FP) PO SCH (21:01)
[2021-01-10] MEDS: NITROFURANTOIN MACROCRYSTAL 50 MG CAPSULE (FP) PO SCH ×4 (05:31→23:31)
[2021-01-10] MEDS: ASPIRIN 81 MG CHEWABLE TABLETS PO SCH (09:29)
[2021-01-10] MEDS: PANTOPRAZOLE 40 MG TABLET PO SCH (09:29)
[2021-01-10] MEDS: CARVEDILOL 3.125 MG TABLET (FP) PO SCH (09:29)
[2021-01-10] MEDS: LOSARTAN POTASSIUM 50 MG TABLET PO SCH (09:30)
[2021-01-10] MEDS: TOPIRAMATE 25 MG TABLET PO SCH ×2 (09:31→21:15)
[2021-01-10] MEDS: ENOXAPARIN NA (PORCINE) 40 MG/0.4 ML DISP.SYRIN SQ SCH (09:31)
[2021-01-10] MEDS: POLYETHYLENE GLYCOL (HEALTHYLAX) 3350 17 GM PACKET PO PRN (09:38)
[2021-01-10] MEDS ORDERED: ACETAMINOPHEN/CAFFEINE/BUTALBITAL 1 TAB PO ONE (11:48)
[2021-01-10] MEDS: SUCRALFATE 1 GM TABLET (FP) PO SCH ×2 (12:02→21:15)
[2021-01-10] MEDS ORDERED: TIZANIDINE HCL 2 MG TABLET PO PRN (16:40)
[2021-01-10] MEDS ORDERED: ACETAMINOPHEN 1000 MG/100 ML VIAL (NON FORMULARY) IVPB ONE (16:40)
[2021-01-10] MEDS ORDERED: TOPIRAMATE 25 MG TABLET PO ONE (16:42)
[2021-01-10] MEDS ORDERED: PT OWN MED DRAWER 7, Y5N ONE ×2 (17:12→22:52)
[2021-01-10] MEDS: ARTIFICIAL TEARS (POLYVINYL ALCOHOL) OPTH DROPS OU SCH ×2 (17:52→21:16)
[2021-01-10] MEDS ORDERED: CARVEDILOL 3.125 MG TABLET (FP) PO SCH (18:47)
[2021-01-10] MEDS: ATORVASTATIN CA 40 MG TABLET (FP) PO SCH (21:15)
[2021-01-10] MEDS: CARVEDILOL 6.25 MG TABLET (FP) PO SCH (21:15)
[2021-01-11] MEDS: NITROFURANTOIN MACROCRYSTAL 50 MG CAPSULE (FP) PO SCH ×3 (05:15→17:44)
[2021-01-11] MEDS ORDERED: PT OWN MED DRAWER 7, Y5N ONE (07:32)
[2021-01-11 07:52] LABS: BLOOD UREA NITROGEN 14.7 mg/dL (7-18); CALCIUM 8.3 mg/dL (8.5-10.1)
[2021-01-11] MEDS: LOSARTAN POTASSIUM 50 MG TABLET PO SCH (09:07)
[2021-01-11] MEDS: ASPIRIN 81 MG CHEWABLE TABLETS PO SCH (09:08)
[2021-01-11] MEDS: SUCRALFATE 1 GM TABLET (FP) PO SCH (09:08)
[2021-01-11] MEDS: PANTOPRAZOLE 40 MG TABLET PO SCH (09:08)
[2021-01-11] MEDS: CARVEDILOL 6.25 MG TABLET (FP) PO SCH (09:08)
[2021-01-11] MEDS: PRAMIPEXOLE DIHYDROCHLORIDE 0.25 MG TABLET PO SCH ×2 (09:08→17:45)
[2021-01-11] MEDS: TOPIRAMATE 25 MG TABLET PO SCH (09:09)
[2021-01-11] MEDS: ARTIFICIAL TEARS (POLYVINYL ALCOHOL) OPTH DROPS OU SCH (09:09)
[2021-01-11] MEDS: ENOXAPARIN NA (PORCINE) 40 MG/0.4 ML DISP.SYRIN SQ SCH (09:10)
[2021-01-11] MEDS ORDERED: TOPIRAMATE 25 MG TABLET PO SCH (14:12)
[2021-01-11 14:20] VITALS: BP 116/55; PULSE 59; TEMP 98.6
[2021-01-11] MEDS ORDERED: IBUPROFEN 800 MG/8 ML IJ IVPB ONE (14:45)
[2021-01-11 15:24] LABS: IRON SERUM 59 ug/dL (50-175)
[2021-01-11 15:25] LABS: TOTAL IRON BINDING CAPACITY 332 ug/dL (250-450)
== END 2021-01-11 18:33 | disposition home or self-care (01) ==
LOC: JER 02:24 → JERBED 08:13 → J4W 19:24
PROVIDERS: ADMIT Internal Medicine; ATTEND Internal Medicine
PROC: 3E033NZ Introduction of Analgesics, Hypnotics, Sedatives into Peripheral Vein, Percutaneous Approach (ICD-10-PCS; principal; 2021-01-08)
PROC: 3E023GC Introduction of Other Therapeutic Substance into Muscle, Percutaneous Approach (ICD-10-PCS; 2021-01-08)
DX: I16.0 Hypertensive urgency (principal); R07.89 Other chest pain; Z91.14 Patient's other noncompliance with medication regimen; Z88.8 Allergy status to other drugs, medicaments and biological substances; K21.9 Gastro-esophageal reflux disease without esophagitis; E78.5 Hyperlipidemia, unspecified; G43.909 Migraine, unspecified, not intractable, without status migrainosus; M54.2 Cervicalgia; K62.89 Other specified diseases of anus and rectum; K59.00 Constipation, unspecified; F41.9 Anxiety disorder, unspecified; N39.9 Disorder of urinary system, unspecified; E78.00 Pure hypercholesterolemia, unspecified; Z88.0 Allergy status to penicillin; I73.9 Peripheral vascular disease, unspecified; Z87.440 Personal history of urinary (tract) infections
CPT/HCPCS: 36415; 71046-TC-FY; 80048; 80053; 81003; 82550; 83540; 83550; 83735; 84100; 84484; 85025; 85651; 86140; 87086; 93005; 93010; 96372; 96374; 99285-25; C9803; G0378; J0131; U0003; U0005

== ENCOUNTER 2021-04-10 23:01 | Emergency (ER) | payer OTHER ==
[2021-04-10 23:06] VITALS: PULSE 68; TEMP 98.1; BMI 25.1
[2021-04-11] MEDS ORDERED: LIDOCAINE 5% TOPICAL PATCH TP ONE (00:02)
[2021-04-11] MEDS ORDERED: ACETAMINOPHEN 1000 MG/100 ML VIAL IVPB ONE (00:02)
[2021-04-11] MEDS ORDERED: SODIUM CHLORIDE 0.9% 500 ML INFUS.BAG IV ONE (00:09)
[2021-04-11] MEDS ORDERED: LIDOCAINE 5% TOPICAL PATCH ONE (00:14)
[2021-04-11] MEDS ORDERED: ACETAMINOPHEN INJECTION 100 ML IVPB ONE (00:14)
[2021-04-11 00:53] LABS: EPI CELLS 8 /uL (0-25.1); HYALINE CASTS 1 /uL (0-3.1); URINE APPEARANCE CLEAR; URINE BACTERIA 374 /uL (0-1359); URINE BILIRUBIN NEGATIVE (NEGATIVE); URINE COLOR YELLOW; URINE GLUCOSE (UA) NEGATIVE (NEGATIVE); URINE KETONE NEGATIVE (NEGATIVE); URINE LEUK ESTERASE 3+ (NEGATIVE); URINE NITRITE NEGATIVE (NEGATIVE); URINE PROTEIN NEGATIVE (NEGATIVE); URINE RBC 24 /uL (0-23.9); URINE UROBILINOGEN 0.2 mg/dL (0.2-1.0); URINE WBC 504 /uL (0-25.8)
[2021-04-11 01:07] LABS: CHLORIDE 111 mmol/L (98-107); SODIUM 143 mmol/L (136-145)
[2021-04-11 01:09] LABS: ANION GAP 2 MMOL/L (8-16); CALCIUM 8.8 mg/dL (8.5-10.1); CO2 30 mmol/L (21-32)
[2021-04-11 01:10] LABS: GLUCOSE,RANDOM 106 mg/dL (74-106)
[2021-04-11 01:12] LABS: SGOT/AST 33 U/L (15-37); SGPT/ALT 47 U/L (13-61)
[2021-04-11 01:13] LABS: CREATININE 0.8 mg/dL (0.55-1.3)
[2021-04-11 01:14] LABS: BILIRUBIN,TOTAL 0.7 mg/dL (0.2-1); TOT PROT 7.5 g/dl (6.4-8.2)
[2021-04-11 01:15] LABS: ALK PHOS 92 U/L (45-117)
[2021-04-11 01:17] LABS: BASO % 0.8 % (0-2.0); EOS % 2.7 % (0-4.5); HEMATOCRIT 35.2 % (32.4-45.2); HEMOGLOBIN 11.7 GM/dL (10.7-15.3); LYMPH % 32.4 % (8-40); MCH 29.3 pg (25.7-33.7); MCHC 33.4 g/dl (32.0-36.0); MEAN CELL VOLUME 87.6 fl (80-96); MEAN PLT VOLUME 9.1 fl (7.5-11.1); NEUT % 56.1 % (42.8-82.8); PLATELET COUNT 197 10^3/uL (134-434); RBC 4.02 M/mm3 (3.60-5.2); RDW 15.6 % (11.6-15.6); WHITE BLOOD COUNT 5.8 K/mm3 (4.0-10.0)
[2021-04-11 02:40] VITALS: BP 163/66
[2021-04-11] MEDS ORDERED: LIDOCAINE PATCH REMOVAL MC SCH (22:00)
== END 2021-04-11 02:54 | disposition home or self-care (01) ==
LOC: JER 23:01
PROC: 3E0333Z Introduction of Anti-inflammatory into Peripheral Vein, Percutaneous Approach (ICD-10-PCS; principal; 2021-04-10)
DX: N39.0 Urinary tract infection, site not specified (principal); I10 Essential (primary) hypertension
CPT/HCPCS: 36415; 71046-TC-FY; 80053; 81003; 82550; 82553; 84484; 85025; 87086; 87186; 93005; 93010; 99285-25; C9803; J0131; U0003; U0005

== ENCOUNTER 2021-05-05 21:42 | Emergency (ER) | payer OTHER ==
[2021-05-05 22:14] VITALS: BMI 24.7
[2021-05-06] MEDS ORDERED: ACETAMINOPHEN 500 MG TABLET (FP) PO ONE (01:31)
[2021-05-06] MEDS ORDERED: LIDOCAINE 5% TOPICAL PATCH TP ONE (01:36)
[2021-05-06] MEDS ORDERED: METHOCARBAMOL 500 MG TABLET PO ONE (01:37)
[2021-05-06] MEDS ORDERED: ACETAMINOPHEN 325 MG TABLET (FP) ONE (01:42)
[2021-05-06] MEDS ORDERED: METHOCARBAMOL 500 MG TABLET ONE (01:42)
[2021-05-06] MEDS ORDERED: LIDOCAINE 5% TOPICAL PATCH ONE (01:42)
[2021-05-06 01:57] VITALS: BP 152/62; PULSE 58; TEMP 98.1
[2021-05-06] MEDS ORDERED: LIDOCAINE PATCH REMOVAL MC SCH (22:00)
== END 2021-05-06 02:22 | disposition home or self-care (01) ==
LOC: JER 21:42
DX: I10 Essential (primary) hypertension (principal); F41.9 Anxiety disorder, unspecified
CPT/HCPCS: 99283-25

== ENCOUNTER 2021-05-25 10:01 | Inpatient (IN) | payer OTHER ==
[2021-05-25] MEDS ORDERED: ONDANSETRON 4 MG/2 ML VIAL IVPUSH ONE ×2 (11:37→17:38)
[2021-05-25] MEDS ORDERED: morphine CARPU-JECT 4 MG/1 ML DISP.SYRIN IVPUSH ONE ×2 (11:37→12:13)
[2021-05-25] MEDS ORDERED: SODIUM CHLORIDE 0.9% 500 ML INFUS.BAG IV ONE ×3 (11:37→19:01)
[2021-05-25] MEDS ORDERED: ACETAMINOPHEN 1000 MG/100 ML BAG IVPB ONE (11:37)
[2021-05-25] MEDS ORDERED: ONDANSETRON 4 MG/2 ML VIAL ONE ×2 (11:43→18:01)
[2021-05-25] MEDS ORDERED: ACETAMINOPHEN INJECTION 100 ML IVPB ONE (12:00)
[2021-05-25] MEDS ORDERED: METOCLOPRAMIDE HCL INJECTION 10 MG/2 ML VIAL IVPB ONE (13:02)
[2021-05-25 13:08] LABS: BASO % 0.3 % (0-2.0); EOS % 0.3 % (0-4.5); HEMATOCRIT 38.7 % (32.4-45.2); HEMOGLOBIN 13.3 GM/dL (10.7-15.3); MCH 29.3 pg (25.7-33.7); MCHC 34.4 g/dl (32.0-36.0); MEAN CELL VOLUME 85.2 fl (80-96); MEAN PLT VOLUME 10.2 fl (7.5-11.1); NEUT % 72.4 % (42.8-82.8); PLATELET COUNT 219 10^3/uL (134-434); RBC 4.54 M/mm3 (3.60-5.2); RDW 14.8 % (11.6-15.6); WHITE BLOOD COUNT 5.3 K/mm3 (4.0-10.0)
[2021-05-25] MEDS ORDERED: HYDROmorphone HCL CARPU-JECT 2 MG/1 ML DISP.SYRIN IVPUSH ONE (13:13)
[2021-05-25] MEDS ORDERED: METOCLOPRAMIDE HCL INJECTION 10 MG/2 ML VIAL ONE (13:19)
[2021-05-25] MEDS ORDERED: HYDROmorphone HCl 2 MG/ML VIAL ONE (13:19)
[2021-05-25] MEDS ORDERED: FAMOTIDINE 20 MG/50 ML IVPB 20 MG/50 ML MG IVPB ONE ×2 (13:40→15:41)
[2021-05-25] MEDS ORDERED: MAG HYDROX/AL HYDROX/SIMETH 30 ML UNIT-DOSE CUP PO ONE (13:40)
[2021-05-25 14:21] LABS: EPI CELLS 5 /uL (0-25.1); HYALINE CASTS 0 /uL (0-3.1); URINE APPEARANCE CLEAR; URINE BACTERIA 130 /uL (0-1359); URINE BILIRUBIN NEGATIVE (NEGATIVE); URINE COLOR YELLOW; URINE GLUCOSE (UA) NEGATIVE (NEGATIVE); URINE KETONE TRACE (NEGATIVE); URINE LEUK ESTERASE NEGATIVE (NEGATIVE); URINE NITRITE NEGATIVE (NEGATIVE); URINE PROTEIN NEGATIVE (NEGATIVE); URINE RBC 67 /uL (0-23.9); URINE UROBILINOGEN 0.2 mg/dL (0.2-1.0); URINE WBC 2 /uL (0-25.8)
[2021-05-25] MEDS ORDERED: MAG HYDROX/AL HYDROX/SIMETH 30 ML UNIT-DOSE CUP ONE (15:41)
[2021-05-25 16:51] LABS: ALBUMIN 3.4 g/dl (3.4-5.0)
[2021-05-25 16:52] LABS: BLOOD UREA NITROGEN 8.4 mg/dL (7-18)
[2021-05-25 16:54] LABS: CREATININE 0.5 mg/dL (0.55-1.3)
[2021-05-25 16:56] LABS: BILIRUBIN,TOTAL 1.2 mg/dL (0.2-1)
[2021-05-25] MEDS ORDERED: LORazepam 2 MG/ML SDV VIAL IVPUSH ONE (18:00)
[2021-05-25 18:01] LABS: TOT PROT 6.3 g/dl (6.4-8.2)
[2021-05-25] MEDS ORDERED: LORazepam 2 MG/ML SDV VIAL ONE (18:05)
[2021-05-25 21:55] LABS: CALCIUM 7.9 mg/dL (8.5-10.1)
[2021-05-25 21:56] LABS: BLOOD UREA NITROGEN 8.6 mg/dL (7-18); MAGNESIUM 2.1 mg/dL (1.8-2.4)
[2021-05-25 21:59] LABS: CREATININE 0.6 mg/dL (0.55-1.3)
[2021-05-26 04:14] VITALS: BMI 24.0
[2021-05-26 04:20] LABS: CHLORIDE 93 mmol/L (98-107); SODIUM 127 mmol/L (136-145)
[2021-05-26 04:21] LABS: CALCIUM 8.2 mg/dL (8.5-10.1)
[2021-05-26 04:22] LABS: BLOOD UREA NITROGEN 7.9 mg/dL (7-18); CO2 24 mmol/L (21-32); GLUCOSE,RANDOM 100 mg/dL (74-106)
[2021-05-26 04:25] LABS: CREATININE 0.8 mg/dL (0.55-1.3)
[2021-05-26 04:46] LABS: ANION GAP 10 MMOL/L (8-16)
[2021-05-26] MEDS ORDERED: POTASSIUM CHLORIDE ORAL LIQUID 20 MEQ/15 ML PO ONE (04:54)
[2021-05-26] MEDS ORDERED: SODIUM CHLORIDE 1,000 ML IV SCH (05:00)
[2021-05-26] MEDS: KCL 10 MEQ IVPB 10 MEQ/100 ML INFUS.BAG IVPB SCH ×3 (06:00→11:12)
[2021-05-26] MEDS ORDERED: PT OWN MED DRAWER 7, Y5N ONE (09:23)
[2021-05-26] MEDS: FAMOTIDINE 20 MG TABLET PO SCH (09:31)
[2021-05-26] MEDS: ENOXAPARIN NA (PORCINE) 40 MG/0.4 ML DISP.SYRIN SQ SCH (09:38)
[2021-05-26] MEDS: CARVEDILOL 25 MG TABLET (FP) PO SCH ×2 (10:12→21:18)
[2021-05-26 11:34] LABS: BASO % 0.4 % (0-2.0); EOS % 0.2 % (0-4.5); HEMATOCRIT 33.2 % (32.4-45.2); HEMOGLOBIN 11.6 GM/dL (10.7-15.3); LYMPH % 21.4 % (8-40); MEAN CELL VOLUME 85.8 fl (80-96); MEAN PLT VOLUME 9.3 fl (7.5-11.1); MONO % 8.7 % (3.8-10.2); NEUT % 69.3 % (42.8-82.8); PLATELET COUNT 188 10^3/uL (134-434); RBC 3.87 M/mm3 (3.60-5.2); RDW 15.3 % (11.6-15.6)
[2021-05-26 11:56] LABS: BLOOD UREA NITROGEN 8.7 mg/dL (7-18)
[2021-05-26 11:57] LABS: ALBUMIN 3.7 g/dl (3.4-5.0)
[2021-05-26 11:58] LABS: CALCIUM 8.3 mg/dL (8.5-10.1)
[2021-05-26 11:59] LABS: CREATININE 0.7 mg/dL (0.55-1.3); MAGNESIUM 2.3 mg/dL (1.8-2.4); PHOSPHOROUS 2.2 mg/dL (2.5-4.9)
[2021-05-26 12:00] LABS: BILIRUBIN,TOTAL 1.1 mg/dL (0.2-1); TOT PROT 6.8 g/dl (6.4-8.2)
[2021-05-26] MEDS: SODIUM CHLORIDE 0.45%/POT 20 MEQ/1,000 ML INFUS.BAG IV SCH (12:31)
[2021-05-26 13:36] LABS: CALCIUM 8.1 mg/dL (8.5-10.1)
[2021-05-26 13:41] LABS: CREATININE 0.6 mg/dL (0.55-1.3)
[2021-05-26] MEDS: ACETAMINOPHEN 325 MG TABLET (FP) PO PRN (15:12)
[2021-05-26 15:48] LABS: CALCIUM 8.3 mg/dL (8.5-10.1)
[2021-05-26 15:49] LABS: BLOOD UREA NITROGEN 8.2 mg/dL (7-18)
[2021-05-26 15:51] LABS: CREATININE 0.8 mg/dL (0.55-1.3)
[2021-05-26] MEDS ORDERED: PATIENT'S OWN MEDICATION (NON-FORMULARY) (Rimegepant Sulfate [Nurtec Odt] 75 MG Tab.Rapdis PO PRN (17:16)
[2021-05-26] MEDS: LATANOPROST 0.005% OPHTH SOLN 2.5ML BOTTLE OU SCH (21:17)
[2021-05-26] MEDS: ROSUVASTATIN CA 20 MG TABLET PO SCH (21:18)
[2021-05-26] MEDS ORDERED: PATIENT'S OWN MEDICATION (NON-FORMULARY) (Cyclosporine [Restasis] 1 EACH Droperette) OU SCH (22:00)
[2021-05-27 08:55] LABS: HEMATOCRIT 33.1 % (32.4-45.2); HEMOGLOBIN 11.5 GM/dL (10.7-15.3); MCHC 34.8 g/dl (32.0-36.0); MEAN CELL VOLUME 86.3 fl (80-96); MEAN PLT VOLUME 8.9 fl (7.5-11.1); PLATELET COUNT 174 10^3/uL (134-434); RBC 3.83 M/mm3 (3.60-5.2); RDW 15.5 % (11.6-15.6); WHITE BLOOD COUNT 4.3 K/mm3 (4.0-10.0)
[2021-05-27 09:14] LABS: CHLORIDE 103 mmol/L (98-107); SODIUM 133 mmol/L (136-145)
[2021-05-27] MEDS: ARTIFICIAL TEARS (POLYVINYL ALCOHOL) OPTH DROPS OU SCH ×3 (09:19→21:21)
[2021-05-27] MEDS: FAMOTIDINE 20 MG TABLET PO SCH ×2 (09:20→21:21)
[2021-05-27] MEDS: CARVEDILOL 25 MG TABLET (FP) PO SCH ×2 (09:20→21:22)
[2021-05-27] MEDS: ENOXAPARIN NA (PORCINE) 40 MG/0.4 ML DISP.SYRIN SQ SCH (09:20)
[2021-05-27] MEDS: SOLIFENACIN SUCCINATE 5 MG TAB PO SCH (09:21)
[2021-05-27] MEDS: ASPIRIN COATED 81 MG TABLET.EC PO SCH (09:21)
[2021-05-27 09:23] LABS: ANION GAP 7 MMOL/L (8-16); BLOOD UREA NITROGEN 9.2 mg/dL (7-18); CALCIUM 8.6 mg/dL (8.5-10.1); CO2 24 mmol/L (21-32); GLUCOSE,RANDOM 92 mg/dL (74-106); MAGNESIUM 2.5 mg/dL (1.8-2.4)
[2021-05-27] MEDS: ACETAMINOPHEN 325 MG TABLET (FP) PO PRN (09:26)
[2021-05-27 09:27] LABS: CREATININE 0.7 mg/dL (0.55-1.3); PHOSPHOROUS 2.4 mg/dL (2.5-4.9)
[2021-05-27] MEDS: SODIUM CHLORIDE 0.45%/POT 20 MEQ/1,000 ML INFUS.BAG IV SCH (12:14)
[2021-05-27] MEDS ORDERED: GLYCERIN 1 RECTAL SUPPOSITORY, ADULT PR ONE (12:44)
[2021-05-27] MEDS: LIDOCAINE 5% TOPICAL PATCH TP SCH (13:56)
[2021-05-27] MEDS: ROSUVASTATIN CA 20 MG TABLET PO SCH (21:21)
[2021-05-27] MEDS: DOCUSATE SODIUM 100 MG CAPSULE (FP) PO SCH (21:21)
[2021-05-27] MEDS: LATANOPROST 0.005% OPHTH SOLN 2.5ML BOTTLE OU SCH (21:22)
[2021-05-27] MEDS: LIDOCAINE PATCH REMOVAL MC SCH (21:22)
[2021-05-28 09:36] LABS: HEMATOCRIT 34.8 % (32.4-45.2); HEMOGLOBIN 11.5 GM/dL (10.7-15.3); MCHC 33.1 g/dl (32.0-36.0); MEAN CELL VOLUME 87.7 fl (80-96); MEAN PLT VOLUME 9.4 fl (7.5-11.1); PLATELET COUNT 182 10^3/uL (134-434); RBC 3.97 M/mm3 (3.60-5.2); RDW 15.5 % (11.6-15.6); WHITE BLOOD COUNT 5.3 K/mm3 (4.0-10.0)
[2021-05-28 10:02] LABS: BLOOD UREA NITROGEN 12.8 mg/dL (7-18); CALCIUM 8.6 mg/dL (8.5-10.1); MAGNESIUM 2.4 mg/dL (1.8-2.4)
[2021-05-28 10:06] LABS: CREATININE 0.8 mg/dL (0.55-1.3); PHOSPHOROUS 3.1 mg/dL (2.5-4.9)
[2021-05-28] MEDS ORDERED: PT OWN MED DRAWER 7, Y5N ONE (10:34)
[2021-05-28] MEDS: LIDOCAINE 5% TOPICAL PATCH TP SCH (10:38)
[2021-05-28] MEDS: FAMOTIDINE 20 MG TABLET PO SCH ×2 (10:39→21:27)
[2021-05-28] MEDS: ASPIRIN COATED 81 MG TABLET.EC PO SCH (10:39)
[2021-05-28] MEDS: ENOXAPARIN NA (PORCINE) 40 MG/0.4 ML DISP.SYRIN SQ SCH (10:39)
[2021-05-28] MEDS: SOLIFENACIN SUCCINATE 5 MG TAB PO SCH (10:39)
[2021-05-28] MEDS: CARVEDILOL 25 MG TABLET (FP) PO SCH ×3 (10:39→23:00)
[2021-05-28] MEDS: ARTIFICIAL TEARS (POLYVINYL ALCOHOL) OPTH DROPS OU SCH (10:40)
[2021-05-28] MEDS: DOCUSATE SODIUM 100 MG CAPSULE (FP) PO SCH (21:27)
[2021-05-28] MEDS: ROSUVASTATIN CA 20 MG TABLET PO SCH (21:28)
[2021-05-28] MEDS: LIDOCAINE PATCH REMOVAL MC SCH (23:00)
[2021-05-29] MEDS: ARTIFICIAL TEARS (POLYVINYL ALCOHOL) OPTH DROPS OU SCH ×3 (00:54→22:01)
[2021-05-29] MEDS: LATANOPROST 0.005% OPHTH SOLN 2.5ML BOTTLE OU SCH ×2 (00:55→22:01)
[2021-05-29] MEDS: CARVEDILOL 25 MG TABLET (FP) PO SCH ×2 (09:28→22:01)
[2021-05-29] MEDS: LIDOCAINE 5% TOPICAL PATCH TP SCH (09:28)
[2021-05-29] MEDS: ASPIRIN COATED 81 MG TABLET.EC PO SCH (09:28)
[2021-05-29] MEDS: FAMOTIDINE 20 MG TABLET PO SCH ×2 (09:28→22:01)
[2021-05-29] MEDS: ENOXAPARIN NA (PORCINE) 40 MG/0.4 ML DISP.SYRIN SQ SCH (09:28)
[2021-05-29] MEDS: SOLIFENACIN SUCCINATE 5 MG TAB PO SCH (09:32)
[2021-05-29 10:38] LABS: HEMOGLOBIN 11.3 GM/dL (10.7-15.3); MCH 28.8 pg (25.7-33.7); MCHC 32.4 g/dl (32.0-36.0); MEAN CELL VOLUME 88.9 fl (80-96); MEAN PLT VOLUME 9.5 fl (7.5-11.1); PLATELET COUNT 196 10^3/uL (134-434); RBC 3.93 M/mm3 (3.60-5.2); WHITE BLOOD COUNT 4.9 K/mm3 (4.0-10.0)
[2021-05-29 10:56] LABS: CALCIUM 8.8 mg/dL (8.5-10.1)
[2021-05-29 10:57] LABS: BLOOD UREA NITROGEN 10.4 mg/dL (7-18); MAGNESIUM 2.5 mg/dL (1.8-2.4)
[2021-05-29 11:00] LABS: CREATININE 0.8 mg/dL (0.55-1.3)
[2021-05-29 11:01] LABS: PHOSPHOROUS 3.5 mg/dL (2.5-4.9)
[2021-05-29] MEDS: ROSUVASTATIN CA 20 MG TABLET PO SCH (22:01)
[2021-05-29] MEDS: LIDOCAINE PATCH REMOVAL MC SCH (22:01)
[2021-05-29] MEDS: DOCUSATE SODIUM 100 MG CAPSULE (FP) PO SCH (22:01)
[2021-05-30 07:28] LABS: HEMOGLOBIN 10.8 GM/dL (10.7-15.3); MCHC 32.8 g/dl (32.0-36.0); MEAN CELL VOLUME 88.4 fl (80-96); MEAN PLT VOLUME 9.5 fl (7.5-11.1); PLATELET COUNT 184 10^3/uL (134-434); RBC 3.73 M/mm3 (3.60-5.2); RDW 16.1 % (11.6-15.6); WHITE BLOOD COUNT 4.8 K/mm3 (4.0-10.0)
[2021-05-30 07:44] LABS: CALCIUM 8.4 mg/dL (8.5-10.1)
[2021-05-30 07:45] LABS: BLOOD UREA NITROGEN 16.6 mg/dL (7-18); MAGNESIUM 2.3 mg/dL (1.8-2.4)
[2021-05-30 07:49] LABS: CREATININE 0.8 mg/dL (0.55-1.3)
[2021-05-30] MEDS: LIDOCAINE 5% TOPICAL PATCH TP SCH (10:41)
[2021-05-30] MEDS: ARTIFICIAL TEARS (POLYVINYL ALCOHOL) OPTH DROPS OU SCH (10:41)
[2021-05-30] MEDS: ENOXAPARIN NA (PORCINE) 40 MG/0.4 ML DISP.SYRIN SQ SCH (10:41)
[2021-05-30] MEDS: ASPIRIN COATED 81 MG TABLET.EC PO SCH (10:41)
[2021-05-30] MEDS: CARVEDILOL 25 MG TABLET (FP) PO SCH (10:41)
[2021-05-30] MEDS: FAMOTIDINE 20 MG TABLET PO SCH (10:41)
[2021-05-30] MEDS: SOLIFENACIN SUCCINATE 5 MG TAB PO SCH (10:42)
[2021-05-30 13:16] VITALS: BP 134/74; PULSE 68; TEMP 98.5
== END 2021-05-30 15:50 | disposition home or self-care (01) | DRG 640 ==
LOC: JER 10:01 → JERBED 17:38 → J5S 05-26 02:16 → J7W 05-26 20:16
PROVIDERS: ADMIT Hospitalist; ATTEND Internal Medicine
DX: E87.1 Hypo-osmolality and hyponatremia (principal); G93.41 Metabolic encephalopathy; I10 Essential (primary) hypertension; E78.5 Hyperlipidemia, unspecified; K21.9 Gastro-esophageal reflux disease without esophagitis; G43.909 Migraine, unspecified, not intractable, without status migrainosus; I73.9 Peripheral vascular disease, unspecified; E86.0 Dehydration; R94.31 Abnormal electrocardiogram [ECG] [EKG]; Z88.0 Allergy status to penicillin; E87.6 Hypokalemia; K59.00 Constipation, unspecified; T50.2X5A Adverse effect of carbonic-anhydrase inhibitors, benzothiadiazides and other diuretics, initial encounter
CPT/HCPCS: 36415; 70450-TC; 71045-TC-FY; 74176-TC; 76775-TC; 80048; 80053; 81003; 82436; 82533; 82570; 83605; 83690; 83735; 83930; 83935; 84100; 84133; 84300; 84443; 84484; 85025; 85027; 85379; 85730; 87086; 93005; 93010; 99285-25; C9803; J0131; J3480; U0003; U0005

== ENCOUNTER 2021-06-17 11:39 | Emergency (ER) | payer OTHER ==
[2021-06-17 12:12] VITALS: TEMP 97.9; BMI 25.7
[2021-06-17] MEDS ORDERED: morphine CARPU-JECT 4 MG/1 ML DISP.SYRIN IVPUSH ONE (14:13)
[2021-06-17] MEDS ORDERED: SODIUM CHLORIDE 0.9% 500 ML INFUS.BAG IV ONE (14:13)
[2021-06-17 14:33] LABS: BASO % 0.5 % (0-2.0); EOS % 1.1 % (0-4.5); HEMATOCRIT 35.5 % (32.4-45.2); HEMOGLOBIN 11.5 GM/dL (10.7-15.3); LYMPH % 28.9 % (8-40); MCH 28.5 pg (25.7-33.7); MCHC 32.3 g/dl (32.0-36.0); MEAN CELL VOLUME 88.3 fl (80-96); MEAN PLT VOLUME 8.6 fl (7.5-11.1); MONO % 10.2 % (3.8-10.2); NEUT % 59.3 % (42.8-82.8); PLATELET COUNT 253 10^3/uL (134-434); RBC 4.02 M/mm3 (3.60-5.2); RDW 15.4 % (11.6-15.6); WHITE BLOOD COUNT 5.1 K/mm3 (4.0-10.0)
[2021-06-17 15:00] LABS: CHLORIDE 108 mmol/L (98-107); SODIUM 143 mmol/L (136-145)
[2021-06-17 15:02] LABS: ALBUMIN 4.1 g/dl (3.4-5.0); ANION GAP 9 MMOL/L (8-16); BLOOD UREA NITROGEN 10.9 mg/dL (7-18); CO2 26 mmol/L (21-32); GLUCOSE,RANDOM 90 mg/dL (74-106); MAGNESIUM 2.4 mg/dL (1.8-2.4)
[2021-06-17 15:04] LABS: CREATININE 0.9 mg/dL (0.55-1.3)
[2021-06-17 15:06] LABS: BILIRUBIN,TOTAL 0.8 mg/dL (0.2-1); PHOSPHOROUS 4.1 mg/dL (2.5-4.9); SGOT/AST 24 U/L (15-37); SGPT/ALT 35 U/L (13-61); TOT PROT 7.4 g/dl (6.4-8.2)
[2021-06-17 15:08] LABS: ALK PHOS 94 U/L (45-117)
[2021-06-17] MEDS ORDERED: morphine SULFATE 4 MG/ML VIAL ONE (15:35)
[2021-06-17] MEDS ORDERED: ONDANSETRON 4 MG/2 ML VIAL IVPUSH ONE (20:03)
[2021-06-17] MEDS ORDERED: ONDANSETRON 4 MG/2 ML VIAL ONE (20:06)
[2021-06-17 21:33] LABS: EPI CELLS >36 /uL (0-25.1); HYALINE CASTS 2 /uL (0-3.1); PH,URINE 6.5 (5.0-8.0); URINE APPEARANCE Clear; URINE BACTERIA 336 /uL (0-1359); URINE BILIRUBIN Negative (NEGATIVE); URINE COLOR Yellow; URINE GLUCOSE (UA) Negative (NEGATIVE); URINE KETONE Negative (NEGATIVE); URINE LEUK ESTERASE NEGATIVE (NEGATIVE); URINE NITRITE Negative (NEGATIVE); URINE PROTEIN Negative (NEGATIVE); URINE RBC 23 /uL (0-23.9); URINE UROBILINOGEN 0.2 mg/dL (0.2-1.0); URINE WBC 37 /uL (0-25.8)
[2021-06-17] MEDS ORDERED: ACETAMINOPHEN 1000 MG/100 ML BAG IVPB ONE (21:53)
[2021-06-17] MEDS ORDERED: ACETAMINOPHEN INJECTION 100 ML IVPB ONE (21:59)
[2021-06-17 22:05] VITALS: BP 156/69; PULSE 63
== END 2021-06-17 23:10 | disposition home or self-care (01) ==
LOC: JER 11:39
PROC: 3E0333Z Introduction of Anti-inflammatory into Peripheral Vein, Percutaneous Approach (ICD-10-PCS; principal; 2021-06-17)
PROC: 3E033NZ Introduction of Analgesics, Hypnotics, Sedatives into Peripheral Vein, Percutaneous Approach (ICD-10-PCS; 2021-06-17)
PROC: 3E033GC Introduction of Other Therapeutic Substance into Peripheral Vein, Percutaneous Approach (ICD-10-PCS; 2021-06-17)
DX: R10.31 Right lower quadrant pain (principal)
CPT/HCPCS: 36415; 74177-TC; 80053; 81003; 82550; 83036; 83605; 83735; 83930; 84100; 84300; 84484; 85025; 86140; 87086; 93005; 93010; 99285-25; J0131; Q9967

== ENCOUNTER 2021-11-01 03:01 | Observation (INO) | payer OTHER ==
[2021-11-01 03:16] VITALS: BMI 25.7
[2021-11-01 05:09] LABS: BASO % 0.8 % (0-2.0); EOS % 1.8 % (0-4.5); HEMATOCRIT 34.2 % (32.4-45.2); HEMOGLOBIN 11.6 GM/dL (10.7-15.3); LYMPH % 40.1 % (8-40); MCH 28.7 pg (25.7-33.7); MCHC 33.9 g/dl (32.0-36.0); MEAN CELL VOLUME 84.6 fl (80-96); MEAN PLT VOLUME 8.6 fl (7.5-11.1); MONO % 11.8 % (3.8-10.2); NEUT % 45.5 % (42.8-82.8); PLATELET COUNT 224 10^3/uL (134-434); RBC 4.04 M/mm3 (3.60-5.2); RDW 15.1 % (11.6-15.6)
[2021-11-01 05:17] LABS: ALBUMIN 4.1 g/dl (3.4-5.0); BLOOD UREA NITROGEN 8.6 mg/dL (7-18); CALCIUM 8.8 mg/dL (8.5-10.1)
[2021-11-01 05:20] LABS: CREATININE 0.8 mg/dL (0.55-1.3)
[2021-11-01 05:21] LABS: BILIRUBIN,TOTAL 0.9 mg/dL (0.2-1); TOT PROT 7.2 g/dl (6.4-8.2)
[2021-11-01] MEDS ORDERED: ACETAMINOPHEN INJECTION 100 ML IVPB ONE (08:07)
[2021-11-01] MEDS ORDERED: ACETAMINOPHEN 1000 MG/100 ML BAG IVPB PRN (08:23)
[2021-11-01 08:59] LABS: URINE APPEARANCE CLEAR; URINE BILIRUBIN NEGATIVE (NEGATIVE); URINE COLOR YELLOW; URINE GLUCOSE (UA) NEGATIVE (NEGATIVE); URINE KETONE NEGATIVE (NEGATIVE); URINE LEUK ESTERASE TRACE (NEGATIVE); URINE NITRITE NEGATIVE (NEGATIVE); URINE PROTEIN NEGATIVE (NEGATIVE); URINE UROBILINOGEN 0.2 mg/dL (0.2-1.0)
[2021-11-01 09:14] LABS: BLOOD UREA NITROGEN 7.9 mg/dL (7-18)
[2021-11-01 09:17] LABS: CALCIUM 8.8 mg/dL (8.5-10.1); CREATININE 0.7 mg/dL (0.55-1.3)
[2021-11-01] MEDS ORDERED: ESCITALOPRAM OXALATE 10 MG TABLET ONE (09:56)
[2021-11-01] MEDS ORDERED: CARVEDILOL 25 MG TABLET (FP) ONE (09:56)
[2021-11-01] MEDS ORDERED: ASPIRIN COATED 81 MG TABLET.EC ONE (09:56)
[2021-11-01] MEDS ORDERED: ENOXAPARIN NA (PORCINE) 40 MG/0.4 ML DISP.SYRIN SQ ONE (09:57)
[2021-11-01 10:05] LABS: EPI CELLS 18 /uL (0-25.1); HYALINE CASTS 0.25 /uL (0-3.1); URINE BACTERIA 230 /uL (0-1359); URINE RBC 17 /uL (0-23.9); URINE WBC 9 /uL (0-25.8)
[2021-11-01] MEDS: ESCITALOPRAM OXALATE 10 MG TABLET PO SCH (10:08)
[2021-11-01] MEDS: ASPIRIN COATED 81 MG TABLET.EC PO SCH (10:08)
[2021-11-01] MEDS: CARVEDILOL 25 MG TABLET (FP) PO SCH ×2 (10:08→22:12)
[2021-11-01] MEDS: ENOXAPARIN NA (PORCINE) 40 MG/0.4 ML DISP.SYRIN SQ SCH (10:08)
[2021-11-01] MEDS: SOLIFENACIN SUCCINATE 5 MG TAB PO SCH (10:28)
[2021-11-01] MEDS ORDERED: FAMOTIDINE 20 MG TABLET ONE (13:42)
[2021-11-01] MEDS: FAMOTIDINE 20 MG/50 ML IVPB 20 MG/50 ML MG IVPB SCH ×2 (13:51→22:12)
[2021-11-01] MEDS ORDERED: amLODIPine BESYLATE 5 MG TABLET (FP) PO ONE (16:49)
[2021-11-01] MEDS ORDERED: MAG HYDROX/AL HYDROX/SIMETH 30 ML UNIT-DOSE CUP PO PRN (16:49)
[2021-11-02 08:19] LABS: EOS % 1.2 % (0-4.5); HEMATOCRIT 35.3 % (32.4-45.2); HEMOGLOBIN 11.8 GM/dL (10.7-15.3); MCH 28.3 pg (25.7-33.7); MCHC 33.4 g/dl (32.0-36.0); MEAN CELL VOLUME 84.7 fl (80-96); MEAN PLT VOLUME 8.7 fl (7.5-11.1); MONO % 10.1 % (3.8-10.2); NEUT % 44.7 % (42.8-82.8); PLATELET COUNT 209 10^3/uL (134-434); RBC 4.17 M/mm3 (3.60-5.2); RDW 15.5 % (11.6-15.6)
[2021-11-02 08:40] LABS: CHOLESTEROL 131 mg/dL (50-200); TRIGLYCERIDES 105 mg/dL (0-150)
[2021-11-02 08:41] LABS: BLOOD UREA NITROGEN 10.8 mg/dL (7-18); CALCIUM 8.9 mg/dL (8.5-10.1); LDL CHOLESTEROL (ONLY SJRH) 52 mg/dL (5-100); MAGNESIUM 2.5 mg/dL (1.8-2.4)
[2021-11-02 08:42] LABS: HDL CHOLESTEROL 62 mg/dL (40-60)
[2021-11-02 08:44] LABS: CREATININE 0.8 mg/dL (0.55-1.3); PHOSPHOROUS 3.4 mg/dL (2.5-4.9)
[2021-11-02 08:46] LABS: TOT PROT 7.1 g/dl (6.4-8.2)
[2021-11-02] MEDS: ESCITALOPRAM OXALATE 10 MG TABLET PO SCH (09:06)
[2021-11-02] MEDS: CARVEDILOL 25 MG TABLET (FP) PO SCH (09:06)
[2021-11-02] MEDS: ASPIRIN COATED 81 MG TABLET.EC PO SCH (09:06)
[2021-11-02] MEDS: SOLIFENACIN SUCCINATE 5 MG TAB PO SCH (09:07)
[2021-11-02] MEDS: ENOXAPARIN NA (PORCINE) 40 MG/0.4 ML DISP.SYRIN SQ SCH (09:07)
[2021-11-02] MEDS ORDERED: POLYETHYLENE GLYCOL (HEALTHYLAX) 3350 17 GM PACKET PO SCH (10:00)
[2021-11-02 14:17] VITALS: TEMP 98.3
[2021-11-02 18:04] VITALS: BP 100/56; PULSE 63
[2021-11-02] MEDS ORDERED: SENNOSIDES 8.6MG TABLET (FP) PO SCH (22:00)
== END 2021-11-02 20:01 | disposition home or self-care (01) ==
LOC: JER 03:01 → JERBED 06:05 → J4W 14:57
PROVIDERS: ADMIT Internal Medicine; ATTEND Internal Medicine
PROC: 3E023GC Introduction of Other Therapeutic Substance into Muscle, Percutaneous Approach (ICD-10-PCS; principal; 2021-11-01)
PROC: 3E033GC Introduction of Other Therapeutic Substance into Peripheral Vein, Percutaneous Approach (ICD-10-PCS; 2021-11-01)
DX: I10 Essential (primary) hypertension (principal); R42 Dizziness and giddiness; K21.9 Gastro-esophageal reflux disease without esophagitis; N39.0 Urinary tract infection, site not specified; E78.00 Pure hypercholesterolemia, unspecified; G43.909 Migraine, unspecified, not intractable, without status migrainosus; R00.1 Bradycardia, unspecified; I73.9 Peripheral vascular disease, unspecified; F41.9 Anxiety disorder, unspecified; E87.1 Hypo-osmolality and hyponatremia; N32.9 Bladder disorder, unspecified; G25.81 Restless legs syndrome; Z88.8 Allergy status to other drugs, medicaments and biological substances; Z88.0 Allergy status to penicillin
CPT/HCPCS: 36415; 71045-TC-FY; 80048; 80053; 80061; 81003; 82436; 83735; 83930; 83935; 84100; 84133; 84300; 84443; 84484; 85025; 87086; 93005; 93010; 93306-TC; 96365; 96372; 96375; 97116-GP; 97161-GP; 99285-25; C9803-CS; G0378; U0003; U0005

== ENCOUNTER 2021-12-24 22:56 | Observation (INO) | payer OTHER ==
[2021-12-24 23:17] VITALS: BMI 27.1
[2021-12-25 02:37] LABS: BASO % 0.9 % (0-2.0); EOS % 2.4 % (0-4.5); HEMATOCRIT 34.7 % (32.4-45.2); HEMOGLOBIN 11.4 GM/dL (10.7-15.3); LYMPH % 36.7 % (8-40); MCH 27.8 pg (25.7-33.7); MCHC 32.8 g/dl (32.0-36.0); MONO % 8.3 % (3.8-10.2); NEUT % 51.7 % (42.8-82.8); PLATELET COUNT 220 10^3/uL (134-434); RBC 4.08 M/mm3 (3.60-5.2); WHITE BLOOD COUNT 5.4 K/mm3 (4.0-10.0)
[2021-12-25 02:41] LABS: EPI CELLS 11 /uL (0-25.1); HYALINE CASTS 1 /uL (0-3.1); URINE APPEARANCE CLEAR; URINE BACTERIA 71 /uL (0-1359); URINE BILIRUBIN NEGATIVE (NEGATIVE); URINE COLOR YELLOW; URINE GLUCOSE (UA) NEGATIVE (NEGATIVE); URINE KETONE NEGATIVE (NEGATIVE); URINE LEUK ESTERASE 1+ (NEGATIVE); URINE NITRITE NEGATIVE (NEGATIVE); URINE PROTEIN NEGATIVE (NEGATIVE); URINE RBC 9 /uL (0-23.9); URINE UROBILINOGEN 0.2 mg/dL (0.2-1.0); URINE WBC 10 /uL (0-25.8)
[2021-12-25 02:47] LABS: BLOOD UREA NITROGEN 9.8 mg/dL (7-18); CALCIUM 8.8 mg/dL (8.5-10.1); MAGNESIUM 2.4 mg/dL (1.8-2.4)
[2021-12-25 02:50] LABS: CREATININE 0.8 mg/dL (0.55-1.3)
[2021-12-25 02:52] LABS: BILIRUBIN,TOTAL 0.8 mg/dL (0.2-1); TOT PROT 7.3 g/dl (6.4-8.2)
[2021-12-25] MEDS ORDERED: ACETAMINOPHEN 325 MG TABLET (FP) PO ONE (06:24)
[2021-12-25] MEDS ORDERED: ACETAMINOPHEN 325 MG TABLET (FP) ONE (06:26)
[2021-12-25] MEDS ORDERED: ASPIRIN 81 MG CHEWABLE TABLETS ONE (10:42)
[2021-12-25] MEDS ORDERED: CARVEDILOL 25 MG TABLET (FP) ONE (10:42)
[2021-12-25] MEDS: CARVEDILOL 25 MG TABLET (FP) PO SCH ×2 (10:43→22:00)
[2021-12-25] MEDS: ASPIRIN COATED 81 MG TABLET.EC PO SCH (10:44)
[2021-12-25] MEDS: ARTIFICIAL TEARS (POLYVINYL ALCOHOL) OPTH DROPS OU SCH ×2 (15:03→22:11)
[2021-12-25 21:59] VITALS: RESP 18
[2021-12-25] MEDS ORDERED: LOSARTAN POTASSIUM 50 MG TABLET PO SCH (22:00)
[2021-12-25] MEDS ORDERED: ROSUVASTATIN CA 20 MG TABLET PO SCH (22:00)
[2021-12-25] MEDS ORDERED: LATANOPROST 0.005% OPHTH SOLN 2.5ML BOTTLE OU SCH (22:00)
[2021-12-26 09:04] LABS: CHOLESTEROL 132 mg/dL (50-200); TRIGLYCERIDES 141 mg/dL (0-150)
[2021-12-26 09:05] LABS: LDL CHOLESTEROL (ONLY SJRH) 66 mg/dL (5-100)
[2021-12-26 09:07] LABS: HDL CHOLESTEROL 48 mg/dL (40-60)
[2021-12-26] MEDS ORDERED: ENOXAPARIN NA (PORCINE) 40 MG/0.4 ML DISP.SYRIN SQ SCH (10:00)
[2021-12-26] MEDS: ASPIRIN COATED 81 MG TABLET.EC PO SCH (10:13)
[2021-12-26] MEDS: ARTIFICIAL TEARS (POLYVINYL ALCOHOL) OPTH DROPS OU SCH (10:14)
[2021-12-26] MEDS: CARVEDILOL 25 MG TABLET (FP) PO SCH (10:14)
[2021-12-26 18:27] VITALS: BP 138/67; PULSE 60; TEMP 98
== END 2021-12-26 18:15 | disposition home or self-care (01) ==
LOC: JER 22:56 → JERBED 12-25 05:22 → INTOOBSV 12-25 05:22 → UNDOADMOB 12-25 05:22 → JERBED 12-25 18:27 → J5S 12-25 18:27
PROVIDERS: ADMIT Internal Medicine; ATTEND Nurse Practitioner Acute Care
PROC: 3E013GC Introduction of Other Therapeutic Substance into Subcutaneous Tissue, Percutaneous Approach (ICD-10-PCS; principal; 2021-12-26)
DX: R07.89 Other chest pain (principal); I16.0 Hypertensive urgency; R51.9 Headache, unspecified; I10 Essential (primary) hypertension; E78.5 Hyperlipidemia, unspecified; K21.9 Gastro-esophageal reflux disease without esophagitis; I73.9 Peripheral vascular disease, unspecified; E03.9 Hypothyroidism, unspecified; Z79.82 Long term (current) use of aspirin; Z95.5 Presence of coronary angioplasty implant and graft; Z88.0 Allergy status to penicillin; Z88.1 Allergy status to other antibiotic agents; Z88.8 Allergy status to other drugs, medicaments and biological substances; Z87.440 Personal history of urinary (tract) infections
CPT/HCPCS: 36415; 70450-TC; 71045-TC-FY; 80053; 80061; 81003; 83735; 84484; 85025; 93005; 93010; 96372; 99285-25; C9803-CS; G0378; U0003; U0005

== ENCOUNTER 2022-05-10 20:04 | Emergency (ER) | payer OTHER ==
[2022-05-10] MEDS ORDERED: ACETAMINOPHEN 1000 MG/100 ML BAG IVPB ONE (20:38)
[2022-05-10] MEDS ORDERED: METOCLOPRAMIDE HCL INJECTION 10 MG/2 ML VIAL IVPUSH ONE (20:38)
[2022-05-10 20:41] VITALS: BP 166/82; PULSE 62; RESP 18; TEMP 98; BMI 27.3
[2022-05-10] MEDS ORDERED: METOCLOPRAMIDE HCL INJECTION 10 MG/2 ML VIAL ONE (20:59)
[2022-05-10] MEDS ORDERED: ACETAMINOPHEN INJECTION 100 ML IVPB ONE (20:59)
[2022-05-10 21:18] LABS: BASO % 0.8 % (0-2.0); EOS % 2.8 % (0-4.5); HEMATOCRIT 35.6 % (32.4-45.2); HEMOGLOBIN 11.6 GM/dL (10.7-15.3); LYMPH % 41.1 % (8-40); MCH 27.7 pg (25.7-33.7); MCHC 32.7 g/dl (32.0-36.0); MEAN CELL VOLUME 84.6 fl (80-96); MEAN PLT VOLUME 9.3 fl (7.5-11.1); NEUT % 43.3 % (42.8-82.8); PLATELET COUNT 257 10^3/uL (134-434); WHITE BLOOD COUNT 4.9 K/mm3 (4.0-10.0)
[2022-05-10 21:21] LABS: EPI CELLS 8 /uL (0-25.1); HYALINE CASTS 0 /uL (0-3.1); PH,URINE 6.5 (5.0-8.0); URINE APPEARANCE CLEAR; URINE BACTERIA 40 /uL (0-1359); URINE BILIRUBIN NEGATIVE (NEGATIVE); URINE COLOR YELLOW; URINE GLUCOSE (UA) NEGATIVE (NEGATIVE); URINE KETONE NEGATIVE (NEGATIVE); URINE LEUK ESTERASE TRACE (NEGATIVE); URINE NITRITE NEGATIVE (NEGATIVE); URINE PROTEIN NEGATIVE (NEGATIVE); URINE RBC 9 /uL (0-23.9); URINE UROBILINOGEN 0.2 mg/dL (0.2-1.0); URINE WBC 10 /uL (0-25.8)
[2022-05-10 21:33] LABS: INR 1.12 (0.83-1.09); PROTHROMBIN TIME (PATIENT) 12.9 SEC (9.7-13.0)
[2022-05-10 21:36] LABS: ACTIVATED PTT 29.1 SECONDS (25.2-36.5); CHLORIDE 106 mmol/L (98-107); SODIUM 140 mmol/L (136-145)
[2022-05-10 21:38] LABS: ALBUMIN 4.2 g/dl (3.4-5.0); ANION GAP 8 MMOL/L (8-16); CALCIUM 9.2 mg/dL (8.5-10.1); CO2 25 mmol/L (21-32); GLUCOSE,RANDOM 95 mg/dL (74-106)
[2022-05-10 21:41] LABS: CREATININE 0.9 mg/dL (0.55-1.3); SGPT/ALT 32 U/L (13-61)
[2022-05-10 21:42] LABS: SGOT/AST 26 U/L (15-37)
[2022-05-10 21:43] LABS: BILIRUBIN,TOTAL 0.6 mg/dL (0.2-1); TOT PROT 7.6 g/dl (6.4-8.2)
[2022-05-10 21:44] LABS: ALK PHOS 89 U/L (45-117)
[2022-05-10 22:59] LABS: ERYTHROCYTE SEDIMENTATION RATE 12 mm/hr (0-30)
== END 2022-05-11 00:30 | disposition home or self-care (01) ==
LOC: JER 20:04
PROC: 3E033GC Introduction of Other Therapeutic Substance into Peripheral Vein, Percutaneous Approach (ICD-10-PCS; principal; 2022-05-10)
DX: R51.9 Headache, unspecified (principal); I10 Essential (primary) hypertension
CPT/HCPCS: 0241U-QW; 36415; 70450-TC; 71046-TC-FY; 74177-TC; 80053; 81003; 84484; 85025; 85610; 85651; 85730; 86140; 86850; 86900; 86901; 87086; 93005; 93010; 99285-25; Q9967

== ENCOUNTER 2022-07-16 00:20 | Emergency (ER) | payer OTHER ==
[2022-07-16 00:25] VITALS: BP 188/79; PULSE 78; RESP 16; TEMP 97.6; BMI 27.1
[2022-07-16] MEDS ORDERED: METOCLOPRAMIDE HCL INJECTION 10 MG/2 ML VIAL IVPUSH ONE (00:35)
[2022-07-16] MEDS ORDERED: SODIUM CHLORIDE 0.9% 500 ML INFUS.BAG IV ONE (00:35)
[2022-07-16] MEDS ORDERED: ACETAMINOPHEN 1000 MG/100 ML BAG IVPB ONE (00:35)
[2022-07-16] MEDS ORDERED: ACETAMINOPHEN INJECTION 100 ML IVPB ONE (00:43)
[2022-07-16] MEDS ORDERED: METOCLOPRAMIDE HCL INJECTION 10 MG/2 ML VIAL ONE (00:43)
[2022-07-16 00:47] LABS: BASO % 1.2 % (0-2.0); EOS % 3.8 % (0-4.5); HEMATOCRIT 33.3 % (32.4-45.2); HEMOGLOBIN 11.1 GM/dL (10.7-15.3); LYMPH % 37.4 % (8-40); MCH 27.9 pg (25.7-33.7); MCHC 33.5 g/dl (32.0-36.0); MEAN CELL VOLUME 83.4 fl (80-96); MEAN PLT VOLUME 8.5 fl (7.5-11.1); MONO % 9.6 % (3.8-10.2); PLATELET COUNT 211 10^3/uL (134-434); RBC 3.98 M/mm3 (3.60-5.2); WHITE BLOOD COUNT 4.6 K/mm3 (4.0-10.0)
[2022-07-16 01:10] LABS: ALBUMIN 3.9 g/dl (3.4-5.0); BLOOD UREA NITROGEN 13.2 mg/dL (7-18); CALCIUM 8.8 mg/dL (8.5-10.1)
[2022-07-16 01:13] LABS: CREATININE 0.8 mg/dL (0.55-1.3)
[2022-07-16 01:15] LABS: BILIRUBIN,TOTAL 0.8 mg/dL (0.2-1); TOT PROT 7.2 g/dl (6.4-8.2)
== END 2022-07-16 05:45 | disposition home or self-care (01) ==
LOC: JER 00:20
PROC: 3E033GC Introduction of Other Therapeutic Substance into Peripheral Vein, Percutaneous Approach (ICD-10-PCS; principal; 2022-07-16)
DX: R51.9 Headache, unspecified (principal)
CPT/HCPCS: 36415; 70450-TC; 80053; 85025; 93005; 93010; 99285-25

== ENCOUNTER 2024-01-08 00:42 | Emergency (ER) | payer OTHER ==
[2024-01-08 00:53] VITALS: BP 153/72; PULSE 74; RESP 18; TEMP 98.2; BMI 25.7
[2024-01-08] MEDS ORDERED: METOCLOPRAMIDE HCL INJECTION 10 MG/2 ML VIAL ONE (01:26)
[2024-01-08] MEDS ORDERED: ACETAMINOPHEN INJECTION 100 ML IVPB ONE (01:26)
[2024-01-08] MEDS: LACTATED RINGERS SOLUTION 1000 ML INFUS.BAG IV ONE (01:50)
[2024-01-08] MEDS: METOCLOPRAMIDE HCL INJECTION 10 MG/2 ML VIAL IVPB ONE (01:50)
[2024-01-08] MEDS: ACETAMINOPHEN 1000 MG/100 ML BAG IVPB ONE (01:50)
[2024-01-08 01:57] LABS: BASO % 1.1 % (0-2.0); EOS % 3.4 % (0-4.5); HEMATOCRIT 31.7 % (32.4-45.2); HEMOGLOBIN 10.7 GM/dL (10.7-15.3); LYMPH % 37.7 % (8-40); MCH 28.3 pg (25.7-33.7); MCHC 33.9 g/dl (32.0-36.0); MEAN CELL VOLUME 83.6 fl (80-96); MEAN PLT VOLUME 8.6 fl (7.5-11.1); MONO % 11.6 % (3.8-10.2); NEUT % 46.2 % (42.8-82.8); PLATELET COUNT 210 10^3/uL (134-434); RBC 3.79 M/mm3 (3.60-5.2); RDW 14.9 % (11.6-15.6); WHITE BLOOD COUNT 4.7 K/mm3 (4.0-10.0)
[2024-01-08 02:00] LABS: INR 0.99 (0.83-1.09); PROTHROMBIN TIME (PATIENT) 11.4 SEC (9.7-13.0)
[2024-01-08 02:13] LABS: POTASSIUM 3.3 mmol/L (3.5-5.1)
[2024-01-08 02:15] LABS: CALCIUM 8.8 mg/dL (8.5-10.1)
[2024-01-08 02:16] LABS: BLOOD UREA NITROGEN 14.5 mg/dL (7-18); MAGNESIUM 2.2 mg/dL (1.8-2.4)
[2024-01-08 02:19] LABS: CREATININE 0.7 mg/dL (0.55-1.3)
[2024-01-08 02:21] LABS: BILIRUBIN,TOTAL 0.5 mg/dL (0.2-1); TOT PROT 7.2 g/dl (6.4-8.2)
[2024-01-08] MEDS ORDERED: POTASSIUM CHLORIDE ORAL LIQUID 20 MEQ/15 ML ONE (03:04)
[2024-01-08] MEDS: POTASSIUM CHLORIDE ORAL LIQUID 20 MEQ/15 ML PO ONE (03:09)
[2024-01-08 03:17] LABS: URINE APPEARANCE CLEAR; URINE BILIRUBIN NEGATIVE (NEGATIVE); URINE COLOR YELLOW; URINE GLUCOSE (UA) NEGATIVE (NEGATIVE); URINE KETONE NEGATIVE (NEGATIVE); URINE LEUK ESTERASE NEGATIVE (NEGATIVE); URINE NITRITE NEGATIVE (NEGATIVE); URINE PROTEIN NEGATIVE (NEGATIVE); URINE UROBILINOGEN 0.2 mg/dL (0.2-1.0)
[2024-01-08 05:14] LABS: EPI CELLS 3 /uL (0-25.1); HYALINE CASTS 0 /uL (0-3.1); URINE BACTERIA 2.8 /uL (0-1359); URINE RBC 16 /uL (0-23.9); URINE WBC 4 /uL (0-25.8)
== END 2024-01-08 06:40 | disposition home or self-care (01) ==
LOC: JER 00:42
PROC: 3E033NZ Introduction of Analgesics, Hypnotics, Sedatives into Peripheral Vein, Percutaneous Approach (ICD-10-PCS; principal; 2024-01-08)
PROC: 3E033GC Introduction of Other Therapeutic Substance into Peripheral Vein, Percutaneous Approach (ICD-10-PCS; 2024-01-08)
DX: R51.9 Headache, unspecified (principal); R07.89 Other chest pain; N39.0 Urinary tract infection, site not specified; R39.198 Other difficulties with micturition; N23 Unspecified renal colic
CPT/HCPCS: 36415; 71045-TC-FY; 74176-TC; 80053; 81003; 83735; 84484; 85025; 85610; 87086; 93005; 93010; 99285-25; J0131

== ENCOUNTER 2024-04-22 00:09 | Emergency (ER) | payer MEDICARE, OTHER ==
[2024-04-22 00:17] VITALS: TEMP 98.6; BMI 26.2
[2024-04-22] MEDS ORDERED: ACETAMINOPHEN INJECTION 100 ML ONE (00:43)
[2024-04-22] MEDS: SODIUM CHLORIDE 0.9% 500 ML INFUS.BAG IV ONE (00:55)
[2024-04-22] MEDS: ACETAMINOPHEN 1000 MG/100 ML BAG IVPB ONE (00:55)
[2024-04-22 01:00] LABS: BASO % 0.9 % (0-2.0); EOS % 2.7 % (0-4.5); HEMATOCRIT 33.5 % (32.4-45.2); LYMPH % 32.4 % (8-40); MCH 26.9 pg (25.7-33.7); MCHC 32.8 g/dl (32.0-36.0); MEAN CELL VOLUME 81.9 fl (80-96); MEAN PLT VOLUME 9.4 fl (7.5-11.1); MONO % 8.6 % (3.8-10.2); NEUT % 55.4 % (42.8-82.8); PLATELET COUNT 332 10^3/uL (134-434); RBC 4.09 M/mm3 (3.60-5.2); RDW 17.2 % (11.6-15.6); WHITE BLOOD COUNT 6.1 K/mm3 (4.0-10.0)
[2024-04-22 01:17] LABS: INR 1.05 (0.83-1.09); PROTHROMBIN TIME (PATIENT) 12.1 SEC (9.7-13.0)
[2024-04-22 01:20] LABS: ACTIVATED PTT 28.4 SECONDS (25.2-36.5)
[2024-04-22 01:21] LABS: CHLORIDE 110 mmol/L (98-107); SODIUM 138 mmol/L (136-145)
[2024-04-22 01:23] LABS: ALBUMIN 3.9 g/dl (3.4-5.0); BLOOD UREA NITROGEN 12.8 mg/dL (7-18); CALCIUM 9.1 mg/dL (8.5-10.1); CO2 23 mmol/L (21-32); GLUCOSE,RANDOM 100 mg/dL (74-106); MAGNESIUM 2.4 mg/dL (1.8-2.4)
[2024-04-22 01:26] LABS: SGOT/AST 94 U/L (15-37)
[2024-04-22 01:28] LABS: BILIRUBIN,TOTAL 0.6 mg/dL (0.2-1); TOT PROT 7.6 g/dl (6.4-8.2)
[2024-04-22 01:29] LABS: ALK PHOS 79 U/L (45-117)
[2024-04-22 01:31] LABS: N-TERMINAL BNP 196.8 pg/ml (5-450)
[2024-04-22] MEDS ORDERED: KETOROLAC TROMETHAMINE 15 MG/ML VIAL ONE (01:52)
[2024-04-22 01:56] LABS: ANION GAP 5 mmol/L (4-13); POTASSIUM 8.1 mmol/L (3.5-5.1); SGPT/ALT 27 U/L (13-61)
[2024-04-22] MEDS: KETOROLAC TROMETHAMINE 15 MG/ML VIAL IVPUSH ONE (01:57)
[2024-04-22 02:36] LABS: POTASSIUM 4.9 mmol/L (3.5-5.1)
[2024-04-22 02:38] LABS: BLOOD UREA NITROGEN 13.6 mg/dL (7-18); CALCIUM 9.3 mg/dL (8.5-10.1)
[2024-04-22 02:41] LABS: CREATININE 0.9 mg/dL (0.55-1.3)
[2024-04-22 03:09] VITALS: BP 177/76; PULSE 79; RESP 16
== END 2024-04-22 03:10 | disposition home or self-care (01) ==
LOC: JER 00:09
PROC: 3E033NZ Introduction of Analgesics, Hypnotics, Sedatives into Peripheral Vein, Percutaneous Approach (ICD-10-PCS; principal; 2024-04-22)
PROC: 3E0333Z Introduction of Anti-inflammatory into Peripheral Vein, Percutaneous Approach (ICD-10-PCS; 2024-04-22)
DX: R51.9 Headache, unspecified (principal); H53.149 Visual discomfort, unspecified; R42 Dizziness and giddiness; R07.2 Precordial pain; Z20.822 Contact with and (suspected) exposure to COVID-19
CPT/HCPCS: 0241U-QW; 36415; 70450-TC; 71045-TC-FY; 80048; 80053; 83735; 83880; 84484; 85025; 85610; 85730; 93005; 93010; 96374; 96375; 99285-25; J0131

== ENCOUNTER 2024-06-02 12:42 | Emergency (ER) | payer OTHER ==
[2024-06-02 12:53] VITALS: BP 151/71; PULSE 73; RESP 18; TEMP 98.4; BMI 26.2
[2024-06-02] MEDS ORDERED: ACETAMINOPHEN INJECTION 100 ML ONE (13:57)
[2024-06-02] MEDS: ACETAMINOPHEN 1000 MG/100 ML BAG IVPB ONE (14:13)
[2024-06-02 14:26] LABS: BASO % 0.7 % (0-2.0); HEMATOCRIT 36.2 % (32.4-45.2); HEMOGLOBIN 11.6 GM/dL (10.7-15.3); LYMPH % 26.8 % (8-40); MCH 26.4 pg (25.7-33.7); MCHC 31.9 g/dl (32.0-36.0); MEAN CELL VOLUME 82.7 fl (80-96); MEAN PLT VOLUME 9.2 fl (7.5-11.1); MONO % 5.5 % (3.8-10.2); PLATELET COUNT 220 10^3/uL (134-434); RBC 4.38 M/mm3 (3.60-5.2); RDW 17.1 % (11.6-15.6); WHITE BLOOD COUNT 4.7 K/mm3 (4.0-10.0)
[2024-06-02 14:45] LABS: POTASSIUM 5.2 mmol/L (3.5-5.1)
[2024-06-02 14:47] LABS: ALBUMIN 3.8 g/dl (3.4-5.0); BLOOD UREA NITROGEN 13.2 mg/dL (7-18); CALCIUM 9.6 mg/dL (8.5-10.1)
[2024-06-02 14:50] LABS: CREATININE 0.9 mg/dL (0.55-1.3)
[2024-06-02 14:52] LABS: BILIRUBIN,TOTAL 0.8 mg/dL (0.2-1); TOT PROT 7.4 g/dl (6.4-8.2)
[2024-06-02 15:24] LABS: EPI CELLS >36 /uL (0-25.1); HYALINE CASTS 2 /uL (0-3.1); URINE APPEARANCE CLEAR; URINE BACTERIA 276 /uL (0-1359); URINE BILIRUBIN NEGATIVE (NEGATIVE); URINE COLOR DK YELLOW; URINE GLUCOSE (UA) NEGATIVE (NEGATIVE); URINE KETONE TRACE (NEGATIVE); URINE LEUK ESTERASE NEGATIVE (NEGATIVE); URINE NITRITE NEGATIVE (NEGATIVE); URINE PROTEIN 1+ (NEGATIVE); URINE RBC 37 /uL (0-23.9); URINE UROBILINOGEN 0.2 mg/dL (0.2-1.0); URINE WBC 41 /uL (0-25.8)
== END 2024-06-02 17:05 | disposition home or self-care (01) ==
LOC: JER 12:42
PROC: 3E033NZ Introduction of Analgesics, Hypnotics, Sedatives into Peripheral Vein, Percutaneous Approach (ICD-10-PCS; principal; 2024-06-02)
DX: U07.1 COVID-19 (principal); N39.0 Urinary tract infection, site not specified; R07.89 Other chest pain; R05.9 Cough, unspecified; R09.81 Nasal congestion; M79.10 Myalgia, unspecified site; M54.9 Dorsalgia, unspecified; R30.0 Dysuria; R10.9 Unspecified abdominal pain
CPT/HCPCS: 0241U-QW; 36415; 71046-TC-FY; 80053; 81003; 84484; 85025; 87086; 93005; 93010; 99285-25; J0131